=== PATIENT | female | born 1945 | race Hispanic/Latino ===

== ENCOUNTER 2020-07-19 13:45 | Emergency (ER) | payer MEDICARE, SELFPAY ==
--- NOTE | ~2020-07-19 | CT_ITS ---
EXAMINATION: CT brain wo con DATE: 07/19/2020 15:02 INDICATION: Left-sided weakness TECHNIQUE: Computed tomography (CT) of the head was performed without intravenous contrast. Sagittal and coronal reconstructions were performed. The mA was adjusted according to patient size. Iterative reconstruction technique was employed. The dose-length product was 605.33 mGy-cm. COMPARISON: None FINDINGS: Small old lacunar infarct at the anterior limb of the right internal capsule.. There is mild to moder ate scattered white matter hypoattenuation consistent with chronic small vessel ischemic disease. No acute intracranial hemorrhage, acute infarction or abnormal extra axial fluid collection. Ventricles are normal and symmetric. No mass/mass effect. Mild mucosal thickening in the right maxillary and earle ateral ethmoid sinuses. The orbits and mastoid air cells are normal. IMPRESSION: 1. No acute intracranial process. 2. Small old lacunar infarct at the anterior limb of the right internal capsule. 3. Mild to moderate scattered white matter hypoattenuation consistent with chronic small vessel ische deanne disease. Reviewed, dictated and finalized at location A. IMPRESSION: 1. No acute intracranial process. 2. Small old lacunar infarct at the anterior limb of the right internal capsule . 3. 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
--- NOTE | ~2020-07-19 | XR_ITS ---
XR chest 1V portable DATE: 07/19/2020 14:42 INDICATION: Shortness of breath TECHNIQUE: Portable upright AP chest on 07/19/2020 at 1444 hours COMPARISON: 07/06/2017 two-view chest 07/06/2017 CT pulmonary scan FINDINGS: Heart size appears normal. Is aortic arch calcification, mild aortic unfolding. No hilar or mediastinal enlargement. No pulmonary infiltrate or consolidation, pleural effusion or pulmonary vascular congestion or pneumo thorax. Diffuse osteopenia. Status post lower anterior cervical spine surgical fusion. Degenerative spurring of the thoracic spine. IMPRESSION: No active cardiopulmonary disease Reviewed, dictated and finalized at location A.
[2020-07-19 13:48] VITALS: BP 158/68; PULSE 101; RESP 20; TEMP 36.1; O2SAT 99
--- NOTE | 2020-07-19 14:09 | PC.NURSE ---
Note when getting pt into bed pt is ataxic, fearful of falling. Note left side is significantly weaker, stiff, for instance needs help with bending the knee but is able to help push up in bed. No facial droop noted. Pt states her left eye is harder to open, can't keep it open but appears equal to right eye.
--- NOTE | 2020-07-19 14:17 | PC.NURSE ---
c/o L side weakness for months , I want to find out if I had a stroke . Denies recent falls. No hx CVA, takes daily ASA 81mg, has a home physical therapist they thought I should get checked out . Was recently at [facility] and had MRI lumbar spine they said I have rheumatoid arthritis . On assessment pt has equal facial movements, clear speech, weak L side grisp, cannot raise LLE it has been dragging for months
--- NOTE | 2020-07-19 14:31 | ECG_ITS ---
Measurements Intervals [place] Rate: 78 P: 30 WA: 143 QRS: 26 QRSD: 86 T: 14 QT: 351 QTc: 401 Interpretive Statements SINUS RHYTHM LOW QRS VOLTAGE IN PRECORDIAL LEADS NONSPECIFIC ST & T-WAVE ABNORMALITY- ANTERIOR LEADS BASELINE ARTIFACT- I, III, AVL BORDERLINE ECG Electronically Signed On 07-20-2020 7:16:11 CDT by Avi Jett D.O.
[2020-07-19 14:41] LABS: Basophils Percent Auto 0.6 % (0.2-1.2); Eosinophils Absolute Auto 0.1 K/mm3 (0-0.3); Hematocrit 38.6 % (37.0-47.0); Hemoglobin 12.4 g/dL (12.0-15.0); Immature Granulocyte Absolute 0.06 K/mm3 (0.00-0.031); Immature Granulocyte Percent A 0.9 % (0-0.5); Lymphocytes Absolute Auto 1.46 K/mm3 (0.9-3.2); Mean Corpuscular HGB Conc 32.1 g/dl (32-36); Mean Corpuscular Hemoglobin 30.3 pg (26-34); Mean Corpuscular Volume 94.4 fl (80-100); Monocytes Absolute Auto 0.6 K/mm3 (0.1-0.6); Monocytes Percent Auto 8.7 % (2.6-8.5); Neutrophils Absolute Auto 4.4 K/mm3 (1.3-6.7); Neutrophils Percent Auto 65.8 % (45.5-73.1); Platelet Count Result 188 k/mm3 (150-375); Red Blood Count 4.09 M/mm3 (4.2-5.4); Red Cell Distribution Width 15.4 % (11.5-14.5); White Blood Count 6.6 K/mm3 (4.5-10.0)
[2020-07-19 14:49] LABS: INR 0.8; Prothrombin Time 12.1 Seconds (11.1-14.7)
[2020-07-19 14:52] LABS: Alanine Aminotransferase 27 U/L (4-35); Albumin Level 4.3 g/dL (3.5-5.1); Alkaline Phosphatase 82 U/L (38-126); Anion Gap 7 mmol/L (8-16); Aspartate Amino Transferase 26 U/L (14-36); Bilirubin,Total 0.2 mg/dL (0.2-1.3); Blood Urea Nitrogen 19 mg/dL (7-17); Calcium 9.3 mg/dL (8.4-10.2); Carbon Dioxide 31 mmol/L (22-30); Chloride 101 mmol/L (98-107); Estimated CRCL calculation 48 ml/min; Estimated Glomerular Filt Rate > 60; Glucose 312 mg/dL (65-105); Sodium 139 mmol/L (137-145)
[2020-07-19 14:59] LABS: NT Pro B Type Natriuretic Pept 40 pg/mL (5-100)
[2020-07-19 15:02] LABS: Troponin I < 0.012 ng/mL (0.000-0.034)
[2020-07-19 15:12] LABS: Potassium 4.3 mmol/L (3.4-5.0)
--- NOTE | 2020-07-19 16:05 | PC.NURSE ---
Pt assisted to bedside commode, x2 person assist, pt weak and can minimally use LLE.
[2020-07-19 17:20] VITALS: BP 163/87; PULSE 89; RESP 18; O2SAT 98
[2020-07-19 17:34] LABS: Add Urine Microscopic? YES; Appearance Urine Cloudy (Clear); Bacteria Urine Trace /hpf; Bilirubin Urine Negative (Negative); Color Urine Amber (Yellow); Glucose Urine UA 3+ mg/dL (Negative); Ketones Urine Negative (Negative); Leukocyte Esterase Ur Trace LEU/UL (Negative); Nitrate Urine Negative (Negative); Protein Urine 1+ mg/dL (Negative); RBC Urine 0-2 /hpf (0-2); Specific Grav Ur 1.024 (1.001-1.035); Squamous Epithelial Cell Urine Rare /hpf (Few); Urobilinogen Urine Negative mg/dL (<2.0)
[2020-07-19 17:35] LABS: Blood Urine Negative (Negative)
[2020-07-19 18:32] VITALS: BP 151/85; PULSE 83; RESP 18; O2SAT 98
--- NOTE | 2020-07-19 18:36 | ED.WEAKNESS ---
HPI - Weakness General Chief complaint: Weakness Stated complaint: weakness Time Seen by Provider: 07/19/20 13:58 Source: patient and family Mode of arrival: ambulatory Limitations: no limitations History of Present Illness HPI Narrative: 75-year-old with a history of diabetes hypertension, neuropathy here with complaints of left leg heaviness and pain for last few weeks. She states that she is feeling extremely weak and does not feel right she thinks that she is having a stroke. She denies any headache, blurred vision. She denies any chest pain, shortness of breath. She states that she saw her primary doctor 3 days ago for the same. MD Complaint: generalized weakness and difficulty walking Onset (ago): week(s) Duration: progressively worsening Location: LLE Migration: none Severity: moderate Relieving factors: none Exacerbating factors: none Associated symptoms: denies other symptoms Related Data Allergies Allergy/AdvReac Type Severity Reaction Status Date / Time No Known Allergies Allergy Mild Unverified 08/16/08 20:04 Review of Systems Review of Systems: All systems reviewed & are unremarkable except as noted in HPI and below Constitutional: Constitutional: Reports no additional constitutional complaints Eyes: Eyes: Reports no additional eye complaints ENT: Reports system reviewed and no additional complaints, except as documented Cardiovascular: Cardiovascular: Reports no additional cardiovascular complaints Respiratory: Respiratory: Reports no additional respiratory complaints Gastrointestinal: Gastrointestinal: Reports no additional gastrointestinal complaints Musculoskeletal: Musculoskeletal: Reports no additional musculoskeletal complaints Neurologic: Reports system reviewed and no additional complaints, except as documented and Reports as per HPI Exam Narrative: Exam Narrative: GENERAL: Well-appearing, well-nourished, and in no acute distress, anxious HEAD: Normocephalic, atraumatic. EYES: PERRLA and EOMI. NECK: Supple. CHEST: Clear to auscultation. No respiratory distress. HEART: Regular rate and rhythm. No murmur heard. Normal peripheral pulses. ABDOMEN: Soft, nontender, nondistended, normal active bowel sounds. EXTREMITIES: Normal range of motion. There is 1+ edema both lower extremities SKIN: Warm, dry, no rash. NEURO: No focal deficits. Alert and oriented x3. PSYCH: Normal mood and affect. Course Course Emergency Course: Inform patient about her lab work, CT findings reassured her that she does not have any active stroke at this time. Recommended her to follow-up with her primary doctor and continue her home medication and be watchful on what she eats. Vital Signs Vital signs: Vital Signs Temperature 36.1 C L 07/19/20 13:48 Pulse Rate 101 H 07/19/20 13:48 Respiratory Rate 20 07/19/20 13:48 Blood Pressure 158/68 H 07/19/20 13:48 Pulse Oximetry 99 07/19/20 13:48 Temperature 36.1 C L 07/19/20 13:48 Pulse Rate 83 07/19/20 18:32 Respiratory Rate 18 07/19/20 18:32 Blood Pressure 151/85 H 07/19/20 18:32 Pulse Oximetry 98 07/19/20 18:32 MDM - Weakness Lab Data Result diagrams: 07/19/20 14:35 07/19/20 14:35 Labs: Lab Results 07/19/20 07/19/20 07/19/20 Range/Units 14:35 14:35 14:35 WBC 6.6 (4.5-10.0) K/mm3 RBC 4.09 L (4.2-5.4) M/mm3 Hgb 12.4 (12.0-15.0) g/dL Hct 38.6 (37.0-47.0) % MCV 94.4 (80-100) fl MCH 30.3 (26-34) pg MCHC 32.1 (32-36) g/dl RDW 15.4 H (11.5-14.5) % Plt Count 188 (150-375) k/mm3 MPV 11.0 H (7.4-10.4) fl Immature Gran % (Auto) 0.9 H (0-0.5) % Neut % (Auto) 65.8 (45.5-73.1) % Lymph % (Auto) 22.0 (18.3-44.2) % Darke % (Auto) 8.7 H (2.6-8.5) % Eos % (Auto) 2.0 (0-4.4) % Baso % (Auto) 0.6 (0.2-1.2) % Lymph # (Auto) 1.46 (0.9-3.2) K/mm3 Darke # (Auto) 0.6 (0.1-0.6) K/mm3 Eos # (Auto) 0.1 (0-0.3) K/mm3 Baso # (Aut
== END 2020-07-19 19:01 | disposition home or self-care (01) ==
PROVIDERS: Emergency Provider Family Medicine; PCP Internal Medicine
DX: E11.40 Type 2 diabetes mellitus with diabetic neuropathy, unspecified (principal); E11.65 Type 2 diabetes mellitus with hyperglycemia; R53.1 Weakness; I10 Essential (primary) hypertension; R94.31 Abnormal electrocardiogram [ECG] [EKG]
CPT/HCPCS: 12013; 36415; 70450; 71045; 80053; 81001; 83880; 84484; 85025; 85610; 87077; 87086; 87088; 87186; 93005; 99284

== ENCOUNTER 2020-08-14 16:52 | IRF | payer MEDICARE, SELFPAY ==
[2020-08-14] MEDS: GLUCOSE ORAL GEL 15 GM OF GLUCSE IN 37.5 GM TUBE (15:15)
[2020-08-14 16:30] VITALS: BP 133/68; PULSE 106; RESP 18; TEMP 37; O2SAT 97; BMI 34.6
[2020-08-14 17:10] LABS: Glucose Point of Care 50 mg/dl (65-105)
[2020-08-14 18:13] LABS: Glucose Point of Care 111 mg/dl (65-105)
[2020-08-14 19:00] VITALS: PULSE 106; RESP 18; O2SAT 97
--- NOTE | 2020-08-14 19:02 | ADMGEN ---
This patient, Rebekah Suárez, was admitted to [facility] Room 219-02. Patient/family oriented to hospital policies and general routines including ID bracelet, bed and alarms, visiting hours, pain management, procedures, bathroom and other care routines, personal items, smoking policy, room service/diet, and visiting hours. Information on how to activate the Rapid Response Team has been discussed. Patient/Family are encouraged to report perceived risks to care and to ask questions if they do not understand what they are told or what they should do.
[2020-08-14 20:15] LABS: Glucose Point of Care 207 mg/dl (65-105)
[2020-08-14] MEDS: INSULIN ASPART (*BKC) 100 UNITS/ML SUB-Q (21:34)
[2020-08-14] MEDS: LATANOPROST 0.005% OP SOLN 2.5 ML BTL 1 DROP EACH EYE (21:40)
[2020-08-14] MEDS: DOXYCYCLINE HYCLATE 100 MG TABLET PO (21:40)
[2020-08-14] MEDS: CIPROFLOXACIN 500 MG TAB PO (21:40)
[2020-08-14] MEDS: MORPHINE SULFATE (*CRX) 30 MG TABCR PO (21:44)
[2020-08-14 22:00] VITALS: BP 156/82; PULSE 101; RESP 24; TEMP 36.5; O2SAT 96
[2020-08-15 05:01] LABS: Basophils Absolute Auto 0.1 K/mm3 (0.0-0.1); Basophils Percent Auto 0.8 % (0.2-1.2); Eosinophils Absolute Auto 0.4 K/mm3 (0-0.3); Eosinophils Percent Auto 4.8 % (0-4.4); Hematocrit 30.3 % (37.0-47.0); Hemoglobin 9.8 g/dL (12.0-15.0); Immature Granulocyte Percent A 1.3 % (0-0.5); Lymphocytes Absolute Auto 1.58 K/mm3 (0.9-3.2); Lymphocytes Percent Auto 19.9 % (18.3-44.2); Mean Corpuscular HGB Conc 32.3 g/dl (32-36); Mean Corpuscular Volume 95.9 fl (80-100); Monocytes Absolute Auto 0.8 K/mm3 (0.1-0.6); Monocytes Percent Auto 10.5 % (2.6-8.5); Neutrophils Percent Auto 62.7 % (45.5-73.1); Platelet Count Result 295 k/mm3 (150-375); Red Blood Count 3.16 M/mm3 (4.2-5.4); Red Cell Distribution Width 14.1 % (11.5-14.5); White Blood Count 7.9 K/mm3 (4.5-10.0)
[2020-08-15 05:12] LABS: Alanine Aminotransferase 31 U/L (4-35); Albumin Level 3.4 g/dL (3.5-5.1); Alkaline Phosphatase 64 U/L (38-126); Anion Gap 5 mmol/L (8-16); Aspartate Amino Transferase 35 U/L (14-36); Bilirubin,Total 0.2 mg/dL (0.2-1.3); Blood Urea Nitrogen 16 mg/dL (7-17); Calcium 8.6 mg/dL (8.4-10.2); Carbon Dioxide 34 mmol/L (22-30); Chloride 96 mmol/L (98-107); Estimated CRCL calculation 55 ml/min; Estimated Glomerular Filt Rate > 60; Glucose 195 mg/dL (65-105); Potassium 4.3 mmol/L (3.4-5.0); Sodium 135 mmol/L (137-145)
[2020-08-15 06:00] VITALS: BP 133/66; PULSE 94; RESP 24; TEMP 36.3; O2SAT 97
[2020-08-15] MEDS: INSULIN ASPART (*BKC) 100 UNITS/ML SUB-Q ×4 (06:17→20:43)
[2020-08-15 06:51] LABS: Glucose Point of Care 202 mg/dl (65-105)
[2020-08-15 08:00] VITALS: PULSE 94; RESP 24; O2SAT 97
[2020-08-15] MEDS: methocarbamoL 500 MG TABLET PO ×3 (08:00→17:04)
[2020-08-15] MEDS: metFORMIN HCL 500 MG TABLET PO (08:15)
[2020-08-15] MEDS: GABAPENTIN 300 MG CAPSULE PO ×3 (09:50→17:03)
[2020-08-15] MEDS: MORPHINE SULFATE (*CRX) 30 MG TABCR PO ×2 (09:50→20:38)
[2020-08-15] MEDS: ATORVASTATIN 20 MG TABLET PO (09:50)
[2020-08-15] MEDS: LOSARTAN POTASSIUM 50 MG TABLET PO (09:51)
[2020-08-15] MEDS: ASPIRIN 81 MG CHEWABLE TABLET PO (09:51)
[2020-08-15] MEDS: DOXYCYCLINE HYCLATE 100 MG TABLET PO ×2 (09:51→20:38)
[2020-08-15] MEDS: TIMOLOL MALEATE 0.5% OP SOLN 5 ML BOTTLE 1 DROP EACH EYE ×2 (09:52→17:04)
[2020-08-15] MEDS: polyethylene glycoL 3350 17 GM POWD.PACK PO (09:53)
[2020-08-15] MEDS: CIPROFLOXACIN 500 MG TAB PO ×2 (09:54→20:38)
[2020-08-15] MEDS: INSULIN GLARGINE (*BKC) 100 UNITS/ML 36 UNITS SUB-Q (10:02)
[2020-08-15 12:03] LABS: Glucose Point of Care 315 mg/dl (65-105)
[2020-08-15 13:29] VITALS: BMI 34.6
--- NOTE | 2020-08-15 13:54 | WPDREHABHP ---
H&P: HPI History of Present Illness Date/Time: 08/15/20 13:54 Chief Complaint: cervical myelopathy with cord compression Narrative: HISTORY OF PRESENT ILLNESS: The patient's primary rehab impairment category is 0 5 spinal cord dysfunction non traumatic The etiologic diagnosis is cervical myelopathy with cord compression I saw this patient [id number] on 08/15/2020 The patient is a 75-year-old female with past medical history of hypertension, hyperlipidemia, type 2 diabetes mellitus with hyperglycemia and indwelling insulin pump, GERD, herpes zoster, diabetic peripheral neuropathy, cervical myelopathy reports numbness and weakness to the left arm and leg for over 3 teen months. MRI demonstrated severe cervical pathology with cord edema. Patient also has pain between her shoulder blades and intermittent headaches. She presented to [facility] on 08/05/2020. 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 There is edema signal in the cervical spine cord just inferior to the mass effect. There is also severe left neural foraminal stenosis at C4-5. Dr. Marcie diego spine performed at C3 through C7 laminectomy and C2 through T2 posterior spinal fusion on 08/06/2020. patient is to wear her [place] cervical collar at all times she has to lift nothing greater than 10 lb for 4 weeks. A home wound VAC is present and will be changed weekly and p.r.n.. Next changes due on 08/19/2020. Postoperatively patient experienced acute postop pain, constipation, acute blood loss anemia, hyperglycemia and hypertension. Her postop pain was managed with oral analgesics. Bowel management has been sent and patient has had a bowel movement. Patient was followed by Endocrinology while inpatient and blood glucose close was controlled patient is also on a carbohydrate diet. Patient will have no DVT prophylaxis secondary to her cervical spinal surgery. She will require ongoing PT and OT to return to her independent function Therapy was initiated at the acute care facility and the patient transferred to us from [facility] on 08/14/2020 FALLS OR SURGERIES: The patient has had major surgeries in the 100 days prior to admission. She has had 2 falls in the 6 mmonths. They had [no] falls with injury in the past year. PRIOR LEVEL OF FUNCTION: Eating was INDEPENDENT Oral Care was set Toileting Hygiene was setup orcleanup assistance Shower/Bathing was partial to moderate assistance Upper Body Dressing was partial to mod Lower Body Dressing was partial to mod Donning/[place] Footwear was partial to moderate assist Rolling Left and Right was independent Sit to Lying was INDEPENDENT Lying to Sitting was INDEPENDENT Sit to Stand was supervision or touching assistance Bed to Chair Transfers was supervision or touching assistance Toilet Transfers was supervision or touching assistance Walking was 500 ft with a roller walker at supervision or touching assistance >500 feet with NO DEVICE Wheelchair Mobility was NOT APPLICABLE PRIOR TO ADMISSION Stairs were INDEPENDENT CURRENT LEVEL OF FUNCTION: Eating was SET UP ONLY Oral Care was supervision or touching assist Toileting Hygiene was substantial to max assist Shower/Bathing was substantial to max assist Upper Body Dressing was partial to moderate assist Lower Body Dressing was partial to moderate assist Donning/[place] Footwear was partial to moderate assist Rolling Left and Right was partial to moderate assist Sit to Lying was partial to moderate assist Lying to Sitting was partial to moderate assist Sit to Stand was partial to moderate assist Bed to Chair Transfers were partial to moderate assist
[2020-08-15 14:00] VITALS: BP 122/59; PULSE 98; RESP 18; TEMP 36.6; O2SAT 98
--- NOTE | 2020-08-15 14:37 | PCNSR ---
On 08/15/20, the student, Corrine Yu, provided care and completed [facility] documentation on this patient. I have reviewed the student's documentation and agree with the findings.
--- NOTE | 2020-08-15 14:53 | RPD ---
INDIVIDUALIZED PLAN OF CARE FOR Rebekah Suárez Brief Synthesis of Pre-Admission Screen, Post-Admission Evaluation and Therapy Evaluations: The patient presents to rehab with cervical myelopathy with cord compression. Comorbidities include status post C3-C7 laminectomy with C2-T2 posterior spinal fusion, hypertension, diabetes mellitus with hyperglycemia, indwelling diabetic pump, gastroesophageal reflux disease, herpes zoster, hypercholesterolemia, dyslipidemia, bilateral hand numbness, neck pain, abdominal bloating, low back pain, Achilles tendonitis, diabetic peripheral neuropathy, diastolic dysfunction, dystrophia unguium, fatigue, lymphedema lower extremity, edema of spinal cord, and thyroid cyst. The complexity of the patient's medical management, nursing, and therapy needs require an inpatient rehab hospital stay with a physician-led interdisciplinary team approach. The patient?s needs will be best met in an intensive program vs. at a lower level of care. The patient requires physician services for medical oversight, management of post-op complications (hypertension, acute postoperative pain, hyperglycemia, anemia, surgical wound) in setting of present comorbidities, and pain management. The patient requires nursing services for anticoagulation therapy, diabetes training, DVT prophylactics, infection protection, medication management and education, pressure relief, and wound care with wound vac changes. Deficits include:ADLs, Balance, Endurance, Family Training/Education, Mobility, Pain Management, ROM, Safety, Strength, and Transfers Jukebox Coin Collector/Case Management for: Discharge Planning and Patient/Family Counseling Physical Therapy: 5 days per week for 90 minutes. Treatments may include: Therapeutic Exercise, Gait Training, Neuromuscular Re-education, Transfer Training, Community Reintegration, Bed Mobility, Patient/Family Education, Wheelchair Mobility Group Therapy/Concurrent Therapy Rationales: -Improve attention span during functional activities in a distracted environment. -Enhance problem solving and/or adequate judgment skills during functional activities in a distracted environment. -Promote increased safety awareness in a distracted environment to reduce fall risk with functional tasks, transfers, and ambulation to allow a more safe, self-sufficient return to the home environment. -Improve dynamic balance skills to promote safety and independence with functional activities in a distracted environment for maximum gain. Occupational Therapy: 5 days per week for 90 minutes. Treatments may include: Therapeutic Exercise, Therapeutic Activity, Cognitive Training, Self-Care Transfer Training, Community Reintegration, Home Management, Patient/Family Education, Wheelchair Mobility Training, Energy Conservation Training Group Therapy/Concurrent Therapy Rationales: -Allow therapist to observe and teach generalization and carry-over of skills learned in individual therapy. -Enhance problem solving and sequencing skills during therapeutic activities in a distracted environment. -Promote increased safety awareness in a realistic setting to reduce fall risk with functional tasks due to visual and verbal distractions. -Increase functional level with ADLs, ADL transfers and use of adaptive equipment through therapeutic activities with others while promoting safety to allow a more safe, self-sufficient return home. Medical Prognosis: Good Anticipated Length of Stay: 10 days Rehab Goals: Eating Goal: 06-Independent Oral Hygiene Goal: 06-Independent Toileting Hygiene Goal: 04-Supervision or Touching Assistance Shower/Bathe Self Goal: 04-Supervision or Touching Assistance Upper Body Dressing Goal: 03-Partial/Moderate Assistance Lower Body Dressing Goal: 04-Supervision or Touching Assistance Putting On/Taking Off Footwear Goal: 03-Partial/Moderate Assistance Rolling Left and Right Goal: 04-Supervision or Touching Assistance Sit to Lying Goal: 04-Supervision or T
[2020-08-15 16:32] LABS: Glucose Point of Care 240 mg/dl (65-105)
[2020-08-15] MEDS: metFORMIN HCL 250 MG TABLET 750 MG PO (17:03)
[2020-08-15] MEDS: LATANOPROST 0.005% OP SOLN 2.5 ML BTL 1 DROP EACH EYE (17:04)
[2020-08-15 20:00] VITALS: PULSE 104; RESP 16; O2SAT 94
[2020-08-15] MEDS: SENNA/DOCUSATE SODIUM TABLET 1 TAB PO (20:38)
[2020-08-15 20:54] VITALS: BP 125/85; PULSE 104; RESP 16; TEMP 36.5; O2SAT 94
[2020-08-15 22:07] LABS: Glucose Point of Care 230 mg/dl (65-105)
[2020-08-16 05:43] VITALS: BP 136/56; PULSE 93; RESP 16; TEMP 36.1; O2SAT 94
[2020-08-16] MEDS: CIPROFLOXACIN 500 MG TAB PO ×2 (06:32→21:34)
[2020-08-16 06:52] LABS: Glucose Point of Care 195 mg/dl (65-105)
[2020-08-16] MEDS: INSULIN GLARGINE (*BKC) 100 UNITS/ML 36 UNITS SUB-Q (07:54)
--- NOTE | 2020-08-16 08:21 | WPDNEURORHBP ---
Subjective Date/time seen: 08/16/20 08:21 The etiologic diagnosis is cervical myelopathy with cord compression The patient is a 75-year-old female with past medical history of hypertension, hyperlipidemia, type 2 diabetes mellitus with hyperglycemia and indwelling insulin pump, GERD, herpes zoster, diabetic peripheral neuropathy, cervical myelopathy reports numbness and weakness to the left arm and leg for over 3 teen months. MRI demonstrated severe cervical pathology with cord edema. Patient also has pain between her shoulder blades and intermittent headaches. She presented to [facility] on 08/05/2020. 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 There is edema signal in the cervical spine cord just inferior to the mass effect. There is also severe left neural foraminal stenosis at C4-5. Dr. Marcie diego spine performed at C3 through C7 laminectomy and C2 through T2 posterior spinal fusion on 08/06/2020. Patient is to wear her [place] cervical collar at all times. She can lift nothing greater than 10 lb for 4 weeks. A home wound VAC is present and will be changed weekly and p.r.n.. Next changes due on 08/19/2020. Postoperatively patient experienced acute postop pain, constipation, acute blood loss anemia, hyperglycemia and hypertension. Her postop pain was managed with oral analgesics. Bowel management has been sent and patient has had a bowel movement. Patient was followed by Endocrinology while inpatient and blood glucose close was controlled patient is also on a carbohydrate Patient will have no DVT prophylaxis secondary to her cervical spinal surgery. She will require ongoing PT and OT to return to her independent function Therapy was initiated at the acute care facility and the patient transferred to us from [facility] on 08/14/2020 Patient in good spirits. Patient is pleased with her progress in therapy so far. Patient voices no complaints. Patient admits to being less anxious. Review of Systems Review of Systems: All systems reviewed & are unremarkable except as noted in HPI and below Functional Status Ambulation Ability Ability to Ambulate 10 Feet: Moderate Assistance X 1 Ambulation Assistive Devices: Walker, Wheeled Exam Narrative: Exam Narrative: Patient is a pleasant female. Speech is fluent. Head is normocephalic. Patient is an [place] collar. Heart rate and rhythm is regular. Lungs are clear to auscultation. Right upper and right lower extremity strength are essentially 4- out of 5 left upper and left lower extremity strength are 3+ to 4-. Ct Scan Technologist on left is improving. Sensation to hands seem to be improving. Objective Data Vital Signs Vital Signs: Vital Signs - 24 hr 08/15/20 14:00 08/15/20 20:00 08/15/20 20:54 Temperature 36.6 C 36.5 C Pulse Rate 98 104 H 104 H Respiratory Rate 18 16 16 Blood Pressure 122/59 L 125/85 Pulse Oximetry 98 94 94 08/16/20 05:43 Temperature 36.1 C L Pulse Rate 93 Respiratory Rate 16 Blood Pressure 136/56 L Pulse Oximetry 94 Intake/Output Intake/Output: Intake & Output 08/13/20 08/14/20 08/15/20 08/16/20 23:59 23:59 23:59 23:59 Intake Total 720 Balance 720 Meds/Results Medications: Active Medications Generic Name Dose Route Start Last Admin Trade Name Freq PRN Reason Stop Dose Admin Acetaminophen 1,000 mg 08/15/20 14:41 Acetaminophen 500 Mg Tablet PO Q6H PRN Mild Pain (1-3) or Fever Hydrocodone Bitart/Acetaminophen 1 tab 08/15/20 14:41 Hydrocodone/Acetaminophen (*Crx) 5-325 Mg Tablet PO Q6H PRN Pain Rated 4-6 Aspirin 81 mg 08/15/20 09:00 08/15/20 09:51 Aspirin 81 Mg Chewable Tablet PO 09/14/20 09:01 81 mg D
[2020-08-16] MEDS: methocarbamoL 500 MG TABLET PO ×3 (08:44→17:34)
[2020-08-16] MEDS: DOXYCYCLINE HYCLATE 100 MG TABLET PO ×2 (08:44→21:33)
[2020-08-16] MEDS: GABAPENTIN 300 MG CAPSULE PO ×3 (08:44→17:33)
[2020-08-16] MEDS: ASPIRIN 81 MG CHEWABLE TABLET PO (08:44)
[2020-08-16] MEDS: LOSARTAN POTASSIUM 50 MG TABLET PO (08:44)
[2020-08-16] MEDS: MORPHINE SULFATE (*CRX) 30 MG TABCR PO ×2 (08:54→21:38)
[2020-08-16] MEDS: metFORMIN HCL 250 MG TABLET 750 MG PO ×2 (08:54→17:33)
[2020-08-16] MEDS: polyethylene glycoL 3350 17 GM POWD.PACK PO (08:55)
[2020-08-16] MEDS: SACCHAROMYCES BOULARDII 250 MG CAPSULE PO ×2 (08:55→17:34)
[2020-08-16] MEDS: TIMOLOL MALEATE 0.5% OP SOLN 5 ML BOTTLE 1 DROP EACH EYE ×2 (08:56→17:34)
[2020-08-16 12:20] LABS: Glucose Point of Care 236 mg/dl (65-105)
[2020-08-16] MEDS: INSULIN ASPART (*BKC) 100 UNITS/ML SUB-Q ×2 (12:47→21:41)
[2020-08-16 14:00] VITALS: BP 121/55; PULSE 100; RESP 14; TEMP 36.2; O2SAT 98
[2020-08-16 17:08] LABS: Glucose Point of Care 192 mg/dl (65-105)
[2020-08-16] MEDS: LATANOPROST 0.005% OP SOLN 2.5 ML BTL 1 DROP EACH EYE (17:34)
[2020-08-16 20:00] VITALS: PULSE 95; RESP 16; O2SAT 97
[2020-08-16] MEDS: SENNA/DOCUSATE SODIUM TABLET 1 TAB PO (21:33)
[2020-08-16 21:54] LABS: Glucose Point of Care 288 mg/dl (65-105)
[2020-08-16 22:00] VITALS: BP 135/86; PULSE 95; RESP 16; TEMP 36.6; O2SAT 97
[2020-08-16] MEDS: ACETAMINOPHEN 500 MG TABLET 1000 MG PO (22:56)
[2020-08-17] MEDS: HYDROcodone/acetaminophen (*CRX) 5-325 MG TABLET 1 TAB PO (05:01)
[2020-08-17 06:00] VITALS: BP 137/61; PULSE 88; RESP 16; TEMP 36.2; O2SAT 95
[2020-08-17] MEDS: CIPROFLOXACIN 500 MG TAB PO ×2 (07:00→17:57)
[2020-08-17 07:12] LABS: Glucose Point of Care 207 mg/dl (65-105)
[2020-08-17] MEDS: INSULIN GLARGINE (*BKC) 100 UNITS/ML 36 UNITS SUB-Q (07:16)
[2020-08-17] MEDS: INSULIN ASPART (*BKC) 100 UNITS/ML SUB-Q ×3 (07:16→21:00)
[2020-08-17] MEDS: SACCHAROMYCES BOULARDII 250 MG CAPSULE PO ×2 (08:33→17:56)
[2020-08-17] MEDS: GABAPENTIN 300 MG CAPSULE PO ×3 (08:33→17:56)
[2020-08-17] MEDS: metFORMIN HCL 250 MG TABLET 750 MG PO ×2 (08:33→17:56)
[2020-08-17] MEDS: ATORVASTATIN 20 MG TABLET PO (08:33)
[2020-08-17] MEDS: methocarbamoL 500 MG TABLET PO ×3 (08:33→17:56)
[2020-08-17] MEDS: DOXYCYCLINE HYCLATE 100 MG TABLET PO ×2 (08:33→21:00)
[2020-08-17] MEDS: ASPIRIN 81 MG CHEWABLE TABLET PO (08:33)
[2020-08-17] MEDS: polyethylene glycoL 3350 17 GM POWD.PACK PO (08:34)
[2020-08-17] MEDS: MORPHINE SULFATE (*CRX) 30 MG TABCR PO (08:34)
[2020-08-17] MEDS: TIMOLOL MALEATE 0.5% OP SOLN 5 ML BOTTLE 1 DROP EACH EYE ×2 (08:34→17:56)
[2020-08-17] MEDS: LOSARTAN POTASSIUM 50 MG TABLET PO (08:34)
--- NOTE | 2020-08-17 08:53 | WPDNEURORHBP ---
Subjective Date/time seen: 08/17/20 08:53 The etiologic diagnosis is cervical myelopathy with cord compression The patient is a 75-year-old female with past medical history of hypertension, hyperlipidemia, type 2 diabetes mellitus with hyperglycemia and indwelling insulin pump, GERD, herpes zoster, diabetic peripheral neuropathy, cervical myelopathy reports numbness and weakness to the left arm and leg for over 3 teen months. MRI demonstrated severe cervical pathology with cord edema. Patient also has pain between her shoulder blades and intermittent headaches. She presented to [facility] on 08/05/2020. 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 There is edema signal in the cervical spine cord just inferior to the mass effect. There is also severe left neural foraminal stenosis at C4-5. Dr. Jack ortho spine performed at C3 through C7 laminectomy and C2 through T2 posterior spinal fusion on 08/06/2020. Patient is to wear her [place] cervical collar at all times. She can lift nothing greater than 10 lb for 4 weeks. A home wound VAC is present and will be changed weekly and p.r.n.. Next changes due on 08/19/2020. Postoperatively patient experienced acute postop pain, constipation, acute blood loss anemia, hyperglycemia and hypertension. Her postop pain was managed with oral analgesics. Bowel management has been sent and patient has had a bowel movement. Patient was followed by Endocrinology while inpatient and blood glucose close was controlled patient is also on a carbohydrate Patient will have no DVT prophylaxis secondary to her cervical spinal surgery. She will require ongoing PT and OT to return to her independent function Therapy was initiated at the acute care facility and the patient transferred to us from [facility] on 08/14/2020 Rebekah was seen during physical therapy. Patient needed max verbal cues for sequencing of transfers from sit to stand. Patient demonstrates poor body awareness during transfers. Patient tends to hold her breath. Anxiety level is decreased but still present Review of Systems Review of Systems: All systems reviewed & are unremarkable except as noted in HPI and below Functional Status Ambulation Ability Ability to Ambulate 10 Feet: Minimum Assistance X 1 Ability to Ambulate 50 Feet With 2 Turns: Minimum Assistance X 1 Ambulation Assistive Devices: Walker, Wheeled Exam Narrative: Exam Narrative: Patient is a pleasant female. Speech is fluent. Head is normocephalic. Patient is an [place] collar. Heart rate and rhythm is regular. Lungs are clear to auscultation. Right upper and right lower extremity strength are essentially 4- out of 5 left upper and left lower extremity strength are 3+ to 4-. Service Consultant on left is improving. Sensation to hands seem to be improving. patient has poor body awareness. Balance deficits are noted secondary to decrease lower extremity sensation Objective Data Vital Signs Vital Signs: Vital Signs - 24 hr 08/16/20 14:00 08/16/20 20:00 08/16/20 22:00 Temperature 36.2 C L 36.6 C Pulse Rate 100 95 95 Respiratory Rate 14 16 16 Blood Pressure 121/55 L 135/86 Pulse Oximetry 98 97 97 08/17/20 06:00 Temperature 36.2 C L Pulse Rate 88 Respiratory Rate 16 Blood Pressure 137/61 Pulse Oximetry 95 Intake/Output Intake/Output: Intake & Output 08/14/20 08/15/20 08/16/20 08/17/20 23:59 23:59 23:59 23:59 Intake Total 720 1000 240 Balance 720 1000 240 Meds/Results Medications: Active Medications Generic Name Dose Route Start Last Admin Trade Name Freq PRN Reason Stop Dose Admin Acetaminophen 1,000 mg 08/15/20 14:41 08/16/20 22:56 Acetaminophen 500 Mg Tablet PO 1
[2020-08-17 11:45] LABS: Glucose Point of Care 303 mg/dl (65-105)
[2020-08-17 14:00] VITALS: BP 144/74; PULSE 90; RESP 18; TEMP 35.6; O2SAT 100
[2020-08-17 17:30] LABS: Glucose Point of Care 185 mg/dl (65-105)
[2020-08-17] MEDS: LATANOPROST 0.005% OP SOLN 2.5 ML BTL 1 DROP EACH EYE (17:56)
[2020-08-17 20:32] LABS: Glucose Point of Care 317 mg/dl (65-105)
[2020-08-17] MEDS: MORPHINE SULFATE (*CRX) 15 MG TABCR PO (21:00)
[2020-08-17] MEDS: SENNA/DOCUSATE SODIUM TABLET 1 TAB PO (21:00)
[2020-08-17 21:52] VITALS: BP 132/72; PULSE 98; RESP 22; TEMP 36.4; O2SAT 100
[2020-08-18] MEDS: ACETAMINOPHEN 500 MG TABLET 1000 MG PO (05:53)
[2020-08-18 06:00] VITALS: BP 141/78; PULSE 102; RESP 18; TEMP 36.4; O2SAT 97
[2020-08-18 06:19] LABS: Glucose Point of Care 193 mg/dl (65-105)
[2020-08-18] MEDS: CIPROFLOXACIN 500 MG TAB PO ×2 (06:54→17:11)
[2020-08-18] MEDS: INSULIN GLARGINE (*BKC) 100 UNITS/ML 38 UNITS SUB-Q (07:24)
[2020-08-18] MEDS: ATORVASTATIN 20 MG TABLET PO (08:12)
[2020-08-18] MEDS: DOXYCYCLINE HYCLATE 100 MG TABLET PO ×2 (08:13→20:57)
[2020-08-18] MEDS: TIMOLOL MALEATE 0.5% OP SOLN 5 ML BOTTLE 1 DROP EACH EYE ×2 (08:13→17:11)
[2020-08-18] MEDS: GABAPENTIN 300 MG CAPSULE PO ×3 (08:13→17:11)
[2020-08-18] MEDS: LOSARTAN POTASSIUM 50 MG TABLET PO (08:13)
[2020-08-18] MEDS: SACCHAROMYCES BOULARDII 250 MG CAPSULE PO ×2 (08:13→17:11)
[2020-08-18] MEDS: metFORMIN HCL 250 MG TABLET 750 MG PO ×2 (08:13→17:11)
[2020-08-18] MEDS: methocarbamoL 500 MG TABLET PO ×3 (08:13→17:11)
[2020-08-18] MEDS: ASPIRIN 81 MG CHEWABLE TABLET PO (08:13)
[2020-08-18] MEDS: MORPHINE SULFATE (*CRX) 15 MG TABCR PO ×2 (08:13→21:53)
[2020-08-18] MEDS: polyethylene glycoL 3350 17 GM POWD.PACK PO (08:13)
[2020-08-18 11:26] LABS: Glucose Point of Care 264 mg/dl (65-105)
[2020-08-18] MEDS: ONDANSETRON HCL ODT 4 MG TABLET PO (11:47)
[2020-08-18] MEDS: INSULIN ASPART (*BKC) 100 UNITS/ML SUB-Q ×2 (12:11→21:21)
[2020-08-18 14:00] VITALS: BP 145/52; PULSE 108; RESP 18; TEMP 36.2; O2SAT 96
[2020-08-18 17:02] LABS: Glucose Point of Care 184 mg/dl (65-105)
[2020-08-18] MEDS: LATANOPROST 0.005% OP SOLN 2.5 ML BTL 1 DROP EACH EYE (17:11)
[2020-08-18] MEDS: SENNA/DOCUSATE SODIUM TABLET 1 TAB PO (20:56)
[2020-08-18 21:05] VITALS: PULSE 103; RESP 18; O2SAT 98
[2020-08-18 21:45] VITALS: BP 132/57; PULSE 103; RESP 18; TEMP 36.5; O2SAT 98
[2020-08-18] MEDS: HYDROcodone/acetaminophen (*CRX) 5-325 MG TABLET 1 TAB PO (22:56)
[2020-08-18 23:16] LABS: Glucose Point of Care 262 mg/dl (65-105)
[2020-08-19] MEDS: ACETAMINOPHEN 500 MG TABLET 1000 MG PO (00:10)
[2020-08-19 05:54] VITALS: BP 130/63; PULSE 100; RESP 18; TEMP 36.4; O2SAT 99
[2020-08-19] MEDS: INSULIN ASPART (*BKC) 100 UNITS/ML SUB-Q ×3 (06:46→17:10)
[2020-08-19 06:49] LABS: Glucose Point of Care 201 mg/dl (65-105)
[2020-08-19] MEDS: CIPROFLOXACIN 500 MG TAB PO (06:50)
[2020-08-19] MEDS: INSULIN GLARGINE (*BKC) 100 UNITS/ML 38 UNITS SUB-Q (07:58)
[2020-08-19] MEDS: ATORVASTATIN 20 MG TABLET PO (08:05)
[2020-08-19] MEDS: ASPIRIN 81 MG CHEWABLE TABLET PO (08:05)
[2020-08-19] MEDS: metFORMIN HCL 250 MG TABLET 750 MG PO (08:05)
[2020-08-19] MEDS: GABAPENTIN 300 MG CAPSULE PO ×3 (08:05→17:11)
[2020-08-19] MEDS: LOSARTAN POTASSIUM 50 MG TABLET PO (08:06)
[2020-08-19] MEDS: methocarbamoL 500 MG TABLET PO ×3 (08:06→17:12)
[2020-08-19] MEDS: SACCHAROMYCES BOULARDII 250 MG CAPSULE PO ×2 (08:06→17:12)
[2020-08-19] MEDS: DOXYCYCLINE HYCLATE 100 MG TABLET PO ×2 (08:06→21:25)
[2020-08-19] MEDS: MORPHINE SULFATE (*CRX) 15 MG TABCR PO ×2 (08:09→21:27)
[2020-08-19] MEDS: polyethylene glycoL 3350 17 GM POWD.PACK PO (08:09)
[2020-08-19] MEDS: TIMOLOL MALEATE 0.5% OP SOLN 5 ML BOTTLE 1 DROP EACH EYE ×2 (08:14→17:13)
[2020-08-19 12:04] LABS: Glucose Point of Care 283 mg/dl (65-105)
[2020-08-19] MEDS: HYDROcodone/acetaminophen (*CRX) 5-325 MG TABLET 1 TAB PO (12:54)
--- NOTE | 2020-08-19 12:58 | WPDNEURORHBP ---
Subjective Date/time seen: 08/19/20 12:58 The etiologic diagnosis is cervical myelopathy with cord compression The patient is a 75-year-old female with past medical history of hypertension, hyperlipidemia, type 2 diabetes mellitus with hyperglycemia and indwelling insulin pump, GERD, herpes zoster, diabetic peripheral neuropathy, cervical myelopathy reports numbness and weakness to the left arm and leg for over 3 teen months. MRI demonstrated severe cervical pathology with cord edema. Patient also has pain between her shoulder blades and intermittent headaches. She presented to [facility] on 08/05/2020. 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 There is edema signal in the cervical spine cord just inferior to the mass effect. There is also severe left neural foraminal stenosis at C4-5. Dr. Phuong diego spine performed at C3 through C7 laminectomy and C2 through T2 posterior spinal fusion on 08/06/2020. Patient is to wear her [place] cervical collar at all times. She can lift nothing greater than 10 lb for 4 weeks. A home wound VAC is present and will be changed weekly and p.r.n.. Next changes due on 08/19/2020. Postoperatively patient experienced acute postop pain, constipation, acute blood loss anemia, hyperglycemia and hypertension. Her postop pain was managed with oral analgesics. Bowel management has been sent and patient has had a bowel movement. Patient was followed by Endocrinology while inpatient and blood glucose close was controlled patient is also on a carbohydrate diet Patient will have no DVT prophylaxis secondary to her cervical spinal surgery. She will require ongoing PT and OT to return to her independent function Therapy was initiated at the acute care facility and the patient transferred to us from [facility] on 08/14/2020 Patient was seen during therapy and also for vacuum discontinuation with RN. Patient is pleased with her overall progress. Review of Systems Review of Systems: All systems reviewed & are unremarkable except as noted in HPI and below Functional Status Ambulation Ability Ability to Ambulate 10 Feet: Minimum Assistance X 1 Ability to Ambulate 50 Feet With 2 Turns: Minimum Assistance X 1 Ambulation Assistive Devices: Walker, Wheeled Exam Narrative: Exam Narrative: Patient is a pleasant female. Speech is fluent. Head is normocephalic. Patient is an [place] collar. Heart rate and rhythm is regular. Lungs are clear to auscultation. Right upper and right lower extremity strength are essentially 4- out of 5 left upper and left lower extremity strength are 3+ to 4-. Motel Keeper on left is improving but remians weak. Sensation to hands seem to be improving. patient has poor body awareness. Balance deficits are noted secondary to decrease lower extremity sensation. Wound vacuum was removed. NO drainage noted. Minimal redness present. Sutures in place. Objective Data Vital Signs Vital Signs: Vital Signs - 24 hr 08/18/20 14:00 08/18/20 21:05 08/18/20 21:45 Temperature 36.2 C L 36.5 C Pulse Rate 108 H 103 H 103 H Respiratory Rate 18 18 18 Blood Pressure 145/52 H 132/57 L Pulse Oximetry 96 98 98 08/19/20 05:54 Temperature 36.4 C L Pulse Rate 100 Respiratory Rate 18 Blood Pressure 130/63 Pulse Oximetry 99 Intake/Output Intake/Output: Intake & Output 08/16/20 08/17/20 08/18/20 08/19/20 23:59 23:59 23:59 23:59 Intake Total 1000 960 960 480 Balance 1000 960 960 480 Meds/Results Medications: Active Medications Generic Name Dose Route Start Last Admin Trade Name Freq PRN Reason Stop Dose Admin Acetaminophen 1,000 mg 08/15/20 14:41 08/19/20 00:10 Acetaminophen 500 Mg Tablet PO 1,000 mg Q6H
[2020-08-19 14:00] VITALS: BP 116/69; PULSE 102; RESP 16; TEMP 36.4; O2SAT 98
[2020-08-19] MEDS: ONDANSETRON HCL ODT 4 MG TABLET PO (16:31)
[2020-08-19 16:55] LABS: Glucose Point of Care 219 mg/dl (65-105)
[2020-08-19] MEDS: metFORMIN HCL 500 MG TABLET 1000 MG PO (17:11)
[2020-08-19] MEDS: LATANOPROST 0.005% OP SOLN 2.5 ML BTL 1 DROP EACH EYE (17:13)
[2020-08-19 19:00] VITALS: PULSE 99; RESP 18; O2SAT 100
[2020-08-19 21:47] VITALS: BP 118/65; PULSE 99; RESP 18; TEMP 36.5; O2SAT 100
[2020-08-19 22:11] LABS: Glucose Point of Care 173 mg/dl (65-105)
[2020-08-20] MEDS: ACETAMINOPHEN 500 MG TABLET 1000 MG PO ×2 (05:43→23:12)
[2020-08-20 06:00] VITALS: BP 132/62; PULSE 95; RESP 18; TEMP 36.3; O2SAT 96
[2020-08-20 06:42] LABS: Glucose Point of Care 119 mg/dl (65-105)
[2020-08-20] MEDS: INSULIN GLARGINE (*BKC) 100 UNITS/ML 40 UNITS SUB-Q (07:48)
[2020-08-20 08:00] VITALS: PULSE 95; RESP 18; O2SAT 96
[2020-08-20] MEDS: ASPIRIN 81 MG CHEWABLE TABLET PO (09:50)
[2020-08-20] MEDS: GABAPENTIN 300 MG CAPSULE PO ×3 (09:51→16:41)
[2020-08-20] MEDS: metFORMIN HCL 500 MG TABLET 1000 MG PO ×2 (09:51→16:40)
[2020-08-20] MEDS: ATORVASTATIN 20 MG TABLET PO (09:51)
[2020-08-20] MEDS: DOXYCYCLINE HYCLATE 100 MG TABLET PO ×2 (09:51→20:15)
[2020-08-20] MEDS: SACCHAROMYCES BOULARDII 250 MG CAPSULE PO ×2 (09:51→16:41)
[2020-08-20] MEDS: LOSARTAN POTASSIUM 50 MG TABLET PO (09:51)
[2020-08-20] MEDS: methocarbamoL 500 MG TABLET PO ×3 (09:52→16:41)
[2020-08-20] MEDS: TIMOLOL MALEATE 0.5% OP SOLN 5 ML BOTTLE 1 DROP EACH EYE ×2 (09:52→16:42)
[2020-08-20] MEDS: MORPHINE SULFATE (*CRX) 15 MG TABCR PO ×2 (09:57→20:15)
--- NOTE | 2020-08-20 11:23 | WPDNEURORHBP ---
Subjective Date/time seen: 08/20/20 11:23 The etiologic diagnosis is cervical myelopathy with cord compression The patient is a 75-year-old female with past medical history of hypertension, hyperlipidemia, type 2 diabetes mellitus with hyperglycemia and indwelling insulin pump, GERD, herpes zoster, diabetic peripheral neuropathy, cervical myelopathy reports numbness and weakness to the left arm and leg for over 3 teen months. MRI demonstrated severe cervical pathology with cord edema. Patient also has pain between her shoulder blades and intermittent headaches. She presented to [facility] on 08/05/2020. 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 There is edema signal in the cervical spine cord just inferior to the mass effect. There is also severe left neural foraminal stenosis at C4-5. Dr. Phuong diego spine performed at C3 through C7 laminectomy and C2 through T2 posterior spinal fusion on 08/06/2020. Patient is to wear her [place] cervical collar at all times. She can lift nothing greater than 10 lb for 4 weeks. A home wound VAC is present and will be changed weekly and p.r.n.. Next changes due on 08/19/2020. Postoperatively patient experienced acute postop pain, constipation, acute blood loss anemia, hyperglycemia and hypertension. Her postop pain was managed with oral analgesics. Bowel management has been sent and patient has had a bowel movement. Patient was followed by Endocrinology while inpatient and blood glucose close was controlled patient is also on a carbohydrate diet Patient will have no DVT prophylaxis secondary to her cervical spinal surgery. She will require ongoing PT and OT to return to her independent function Therapy was initiated at the acute care facility and the patient transferred to us from [facility] on 08/14/2020 08/19/20Wound vacuum removed.Incision C/D/I 08/20/20 Patient voices no complaints except for incisional pain and referred pain to lateral neck Review of Systems Review of Systems: All systems reviewed & are unremarkable except as noted in HPI and below Functional Status Ambulation Ability Ability to Ambulate 10 Feet: Contact Guard Ability to Ambulate 50 Feet With 2 Turns: Contact Guard Ability to Ambulate 150 Feet: Contact Guard Ambulation Assistive Devices: Walker, Wheeled Exam Narrative: Exam Narrative: Patient is a pleasant female. Speech is fluent. Head is normocephalic. Patient is an [place] collar. Heart rate and rhythm is regular. Lungs are clear to auscultation. Right upper and right lower extremity strength are essentially 4- out of 5 left upper and left lower extremity strength are 3+ to 4-. Research Soil Scientist on left is improving but remians weak. Sensation to hands seem to be improving. patient has poor body awareness. Balance deficits are noted secondary to decrease lower extremity sensation. . Patient with better balance today. Patient ambulating with a staggered gait but improved. Patient bearing more weight through right lower extremity. Patient demonstrates right lower extremity weakness Objective Data Vital Signs Vital Signs: Vital Signs - 24 hr 08/19/20 14:00 08/19/20 19:00 08/19/20 21:47 Temperature 36.4 C 36.5 C Pulse Rate 102 H 99 99 Respiratory Rate 16 18 18 Blood Pressure 116/69 118/65 Pulse Oximetry 98 100 100 08/20/20 06:00 08/20/20 08:00 Temperature 36.3 C L Pulse Rate 95 95 Respiratory Rate 18 18 Blood Pressure 132/62 Pulse Oximetry 96 96 Intake/Output Intake/Output: Intake & Output 08/17/20 08/18/20 08/19/20 08/20/20 23:59 23:59 23:59 23:59 Intake Total 960 960 720 240 Balance 960 960 720 240 Meds/Results Medications: Active Medications Generic Name Dose
[2020-08-20 11:38] LABS: Glucose Point of Care 255 mg/dl (65-105)
--- NOTE | 2020-08-20 12:18 | PCNFU ---
Nutrition Follow-Up Complete: Nutrition Diagnosis: Increased protein needs related to wound healing as evidenced by neck incision with wound vac. Nutrition Goal: Have patient consume 100% of her meals. Goal has been met, patient is consuming 100% of her meals and supplements. Nutrition recommendation: Continue with Diabetic Consistent Carbohydrate diet and [place]hawn supplement BID. Last recorded weight is 85.9 kg. Bowel Motility: Last documented on 08/19. Labs Reviewed: No new labs since 08/15. Meds Noted: Ida, Lipitor, Vibramycin Po, Novolog, Lantus, Xalatan, Cozaar, Metformin, Zofran, Miralax, Senna, Lidoderm, Xalatan, Robaxin, Neurontin Additional Notes: Patient is enjoying her meals and reports a better appetite since admission. Patient has no complaints or concerns with her meals. Wound vacuum removed on 08/19, incision still intact. Will follow up in 7 days.
[2020-08-20] MEDS: INSULIN ASPART (*BKC) 100 UNITS/ML SUB-Q ×2 (12:47→20:14)
[2020-08-20] MEDS: LIDOCAINE 5% PATCH 3 PATCH TRANSDERM (13:07)
--- NOTE | 2020-08-20 13:25 | PCNSR ---
On 08/20/20, the student, Corrine Yu, provided care and completed [facility] documentation on this patient. I have reviewed the student's documentation and agree with the findings.
[2020-08-20 14:00] VITALS: BP 136/70; PULSE 92; RESP 20; TEMP 36.8; O2SAT 97
[2020-08-20 16:37] LABS: Glucose Point of Care 159 mg/dl (65-105)
[2020-08-20] MEDS: LATANOPROST 0.005% OP SOLN 2.5 ML BTL 1 DROP EACH EYE (16:42)
[2020-08-20 19:46] LABS: Glucose Point of Care 213 mg/dl (65-105)
[2020-08-20] MEDS: SENNA/DOCUSATE SODIUM TABLET 1 TAB PO (20:15)
[2020-08-20 20:52] VITALS: BP 135/68; PULSE 93; RESP 18; TEMP 36.3; O2SAT 97
[2020-08-21 06:00] VITALS: BP 136/67; PULSE 86; RESP 16; TEMP 36.3; O2SAT 97
[2020-08-21 06:22] LABS: Glucose Point of Care 113 mg/dl (65-105)
[2020-08-21] MEDS: INSULIN GLARGINE (*BKC) 100 UNITS/ML 40 UNITS SUB-Q (07:25)
[2020-08-21] MEDS: metFORMIN HCL 500 MG TABLET 1000 MG PO ×2 (08:21→17:51)
[2020-08-21] MEDS: DOXYCYCLINE HYCLATE 100 MG TABLET PO ×2 (08:22→22:34)
[2020-08-21] MEDS: ATORVASTATIN 20 MG TABLET PO (08:22)
[2020-08-21] MEDS: ASPIRIN 81 MG CHEWABLE TABLET PO (08:22)
[2020-08-21] MEDS: LIDOCAINE 5% PATCH 3 PATCH TRANSDERM (08:22)
[2020-08-21] MEDS: GABAPENTIN 300 MG CAPSULE PO ×3 (08:22→17:51)
[2020-08-21] MEDS: LOSARTAN POTASSIUM 50 MG TABLET PO (08:23)
[2020-08-21] MEDS: methocarbamoL 500 MG TABLET PO ×3 (08:23→17:52)
[2020-08-21] MEDS: polyethylene glycoL 3350 17 GM POWD.PACK PO (08:23)
[2020-08-21] MEDS: TIMOLOL MALEATE 0.5% OP SOLN 5 ML BOTTLE 1 DROP EACH EYE ×2 (08:24→17:52)
[2020-08-21] MEDS: SACCHAROMYCES BOULARDII 250 MG CAPSULE PO ×2 (08:24→17:52)
[2020-08-21] MEDS: MORPHINE SULFATE (*CRX) 15 MG TABCR PO ×2 (08:26→22:33)
--- NOTE | 2020-08-21 09:39 | WPDNEURORHBP ---
Subjective Date/time seen: 08/21/20 09:39 The etiologic diagnosis is cervical myelopathy with cord compression The patient is a 75-year-old female with past medical history of hypertension, hyperlipidemia, type 2 diabetes mellitus with hyperglycemia and indwelling insulin pump, GERD, herpes zoster, diabetic peripheral neuropathy, cervical myelopathy reports numbness and weakness to the left arm and leg for over 3 teen months. MRI demonstrated severe cervical pathology with cord edema. Patient also has pain between her shoulder blades and intermittent headaches. She presented to [facility] on 08/05/2020. 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 There is edema signal in the cervical spine cord just inferior to the mass effect. There is also severe left neural foraminal stenosis at C4-5. Dr. Phuong diego spine performed at C3 through C7 laminectomy and C2 through T2 posterior spinal fusion on 08/06/2020. Patient is to wear her [place] cervical collar at all times. She can lift nothing greater than 10 lb for 4 weeks. A home wound VAC is present and will be changed weekly and p.r.n.. Next changes due on 08/19/2020. Postoperatively patient experienced acute postop pain, constipation, acute blood loss anemia, hyperglycemia and hypertension. Her postop pain was managed with oral analgesics. Bowel management has been sent and patient has had a bowel movement. Patient was followed by Endocrinology while inpatient and blood glucose close was controlled patient is also on a carbohydrate diet Patient will have no DVT prophylaxis secondary to her cervical spinal surgery. She will require ongoing PT and OT to return to her independent function Therapy was initiated at the acute care facility and the patient transferred to us from [facility] on 08/14/2020 08/19/20Wound vacuum removed.Incision C/D/I 08/20/20 Patient voices no complaints except for incisional pain and referred pain to lateral neck 08/21/20 Patient excited about overall progress Review of Systems Review of Systems: All systems reviewed & are unremarkable except as noted in HPI and below Functional Status Ambulation Ability Ability to Ambulate 10 Feet: Contact Guard Ability to Ambulate 50 Feet With 2 Turns: Contact Guard Ability to Ambulate 150 Feet: Contact Guard Ambulation Assistive Devices: Walker, Wheeled Exam Narrative: Exam Narrative: Patient is a pleasant female. Speech is fluent. Head is normocephalic. Patient is an [place] collar. Heart rate and rhythm is regular. Lungs are clear to auscultation. Right upper and right lower extremity strength are essentially 4- out of 5 left upper and left lower extremity strength are 3+ to 4-. Melt House Supervisor on left is improving but remians weak. Sensation to hands seem to be improving. Balance deficits are noted secondary to decrease lower extremity sensation. . Patient with better balance today. Patient ambulating with a staggered gait but improved. Patient bearing more weight through right lower extremity. Patient demonstrates right lower extremity weakness during stance phase.Body awareness is improving. Objective Data Vital Signs Vital Signs: Vital Signs - 24 hr 08/20/20 14:00 08/20/20 20:52 08/21/20 06:00 Temperature 36.8 C 36.3 C L 36.3 C L Pulse Rate 92 93 86 Respiratory Rate 20 18 16 Blood Pressure 136/70 135/68 136/67 Pulse Oximetry 97 97 97 Intake/Output Intake/Output: Intake & Output 08/18/20 08/19/20 08/20/20 08/21/20 23:59 23:59 23:59 23:59 Intake Total 960 720 720 240 Balance 960 720 720 240 Meds/Results Medications: Active Medications Generic Name Dose Route Start Last Admin Trade Name Freq PRN Reason Stop Dose Admin Rashel
[2020-08-21] MEDS: ONDANSETRON HCL ODT 4 MG TABLET PO (10:35)
[2020-08-21 12:13] LABS: Glucose Point of Care 194 mg/dl (65-105)
[2020-08-21 14:00] VITALS: BP 120/58; PULSE 92; RESP 18; TEMP 36.7; O2SAT 98
[2020-08-21 16:41] LABS: Glucose Point of Care 160 mg/dl (65-105)
[2020-08-21] MEDS: LATANOPROST 0.005% OP SOLN 2.5 ML BTL 1 DROP EACH EYE (17:52)
[2020-08-21 21:07] LABS: Glucose Point of Care 183 mg/dl (65-105)
[2020-08-21 22:00] VITALS: BP 130/62; PULSE 100; RESP 21; TEMP 36.3; O2SAT 97
[2020-08-21] MEDS: SENNA/DOCUSATE SODIUM TABLET 1 TAB PO (22:35)
[2020-08-22 05:10] LABS: Basophils Absolute Auto 0.1 K/mm3 (0.0-0.1); Basophils Percent Auto 0.9 % (0.2-1.2); Eosinophils Absolute Auto 0.4 K/mm3 (0-0.3); Eosinophils Percent Auto 5.6 % (0-4.4); Immature Granulocyte Absolute 0.04 K/mm3 (0.00-0.031); Immature Granulocyte Percent A 0.5 % (0-0.5); Lymphocytes Absolute Auto 2.32 K/mm3 (0.9-3.2); Lymphocytes Percent Auto 29.7 % (18.3-44.2); Mean Corpuscular HGB Conc 33.3 g/dl (32-36); Mean Corpuscular Hemoglobin 30.6 pg (26-34); Mean Corpuscular Volume 91.7 fl (80-100); Mean Platelet Volume 9.5 fl (7.4-10.4); Monocytes Absolute Auto 0.8 K/mm3 (0.1-0.6); Monocytes Percent Auto 9.8 % (2.6-8.5); Neutrophils Absolute Auto 4.2 K/mm3 (1.3-6.7); Neutrophils Percent Auto 53.5 % (45.5-73.1); Platelet Count Result 359 k/mm3 (150-375); Red Blood Count 3.27 M/mm3 (4.2-5.4); Red Cell Distribution Width 13.7 % (11.5-14.5); White Blood Count 7.8 K/mm3 (4.5-10.0)
[2020-08-22 05:32] LABS: Alanine Aminotransferase 20 U/L (4-35); Albumin Level 3.5 g/dL (3.5-5.1); Alkaline Phosphatase 71 U/L (38-126); Anion Gap 9 mmol/L (8-16); Aspartate Amino Transferase 24 U/L (14-36); Bilirubin,Total 0.2 mg/dL (0.2-1.3); Blood Urea Nitrogen 18 mg/dL (7-17); Calcium 9.1 mg/dL (8.4-10.2); Carbon Dioxide 28 mmol/L (22-30); Chloride 102 mmol/L (98-107); Estimated CRCL calculation 55 ml/min; Estimated Glomerular Filt Rate > 60; Glucose 77 mg/dL (65-105); Potassium 4.1 mmol/L (3.4-5.0); Sodium 139 mmol/L (137-145)
[2020-08-22 06:00] VITALS: BP 113/60; PULSE 89; RESP 20; TEMP 36.2; O2SAT 96
[2020-08-22 06:23] LABS: Glucose Point of Care 81 mg/dl (65-105)
--- NOTE | 2020-08-22 06:46 | PC.NURSE ---
08/22/20 at 0630--accucheck 81, applesauce given. TDialRNC
[2020-08-22] MEDS: LIDOCAINE 5% PATCH 3 PATCH TRANSDERM (08:30)
[2020-08-22] MEDS: ASPIRIN 81 MG CHEWABLE TABLET PO (08:31)
[2020-08-22] MEDS: DOXYCYCLINE HYCLATE 100 MG TABLET PO ×2 (08:31→20:46)
[2020-08-22] MEDS: polyethylene glycoL 3350 17 GM POWD.PACK PO (08:31)
[2020-08-22] MEDS: metFORMIN HCL 500 MG TABLET 1000 MG PO ×2 (08:31→17:06)
[2020-08-22] MEDS: GABAPENTIN 300 MG CAPSULE PO ×3 (08:31→17:06)
[2020-08-22] MEDS: LOSARTAN POTASSIUM 50 MG TABLET PO (08:31)
[2020-08-22] MEDS: SACCHAROMYCES BOULARDII 250 MG CAPSULE PO ×2 (08:32→17:06)
[2020-08-22] MEDS: TIMOLOL MALEATE 0.5% OP SOLN 5 ML BOTTLE 1 DROP EACH EYE ×2 (08:32→17:07)
[2020-08-22] MEDS: MORPHINE SULFATE (*CRX) 15 MG TABCR PO (08:35)
[2020-08-22] MEDS: INSULIN GLARGINE (*BKC) 100 UNITS/ML 40 UNITS SUB-Q (08:35)
[2020-08-22] MEDS: ONDANSETRON HCL ODT 4 MG TABLET PO (11:24)
[2020-08-22 12:14] LABS: Glucose Point of Care 145 mg/dl (65-105)
--- NOTE | 2020-08-22 13:19 | WPDNEURORHBP ---
Subjective Date/time seen: 08/22/20 13:19 Interval history: The etiologic diagnosis is cervical myelopathy with cord compression The patient is a 75-year-old female with past medical history of hypertension, hyperlipidemia, type 2 diabetes mellitus with hyperglycemia and indwelling insulin pump, GERD, herpes zoster, diabetic peripheral neuropathy, cervical myelopathy reports numbness and weakness to the left arm and leg for over 3 teen months. MRI demonstrated severe cervical pathology with cord edema. Patient also has pain between her shoulder blades and intermittent headaches. She presented to [facility] on 08/05/2020. 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 There is edema signal in the cervical spine cord just inferior to the mass effect. There is also severe left neural foraminal stenosis at C4-5. Dr. Phuong diego spine performed at C3 through C7 laminectomy and C2 through T2 posterior spinal fusion on 08/06/2020. Patient is to wear her [place] cervical collar at all times. She can lift nothing greater than 10 lb for 4 weeks. A home wound VAC is present and will be changed weekly and p.r.n.. Next changes due on 08/19/2020. Postoperatively patient experienced acute postop pain, constipation, acute blood loss anemia, hyperglycemia and hypertension. Her postop pain was managed with oral analgesics. Bowel management has been sent and patient has had a bowel movement. Patient was followed by Endocrinology while inpatient and blood glucose close was controlled patient is also on a carbohydrate diet Patient will have no DVT prophylaxis secondary to her cervical spinal surgery. She will require ongoing PT and OT to return to her independent function Therapy was initiated at the acute care facility and the patient transferred to us from [facility] on 08/14/2020 08/19/20Wound vacuum removed.Incision C/D/I 08/22/2020 Rebekah is in good spirits. Patient remains pleased with her overall progress. Patient having bouts of nausea. Will discontinue lucía ms contin Review of Systems Review of Systems: All systems reviewed & are unremarkable except as noted in HPI and below Functional Status Ambulation Ability Ability to Ambulate 10 Feet: Contact Guard Ability to Ambulate 50 Feet With 2 Turns: Contact Guard Ability to Ambulate 150 Feet: Contact Guard Ambulation Assistive Devices: Walker, Wheeled Transfers Ability Ability to Transfer In/Out of Chair: Contact Guard Exam Narrative: Exam Narrative: Patient is a pleasant female. Speech is fluent. Head is normocephalic. Patient is an [place] collar. Heart rate and rhythm is regular. Lungs are clear to auscultation. Right upper and right lower extremity strength are essentially 4- out of 5 left upper and left lower extremity strength are 3+ to 4-. Real Estate Services Coordinator on left is slowly improving but remains weak. Sensation to hands seem to be improving. Balance deficits are noted secondary to decrease lower extremity sensation.Body awareness is improving. Objective Data Vital Signs Vital Signs: Vital Signs - 24 hr 08/21/20 14:00 08/21/20 22:00 08/22/20 06:00 Temperature 36.7 C 36.3 C L 36.2 C L Pulse Rate 92 100 89 Respiratory Rate 18 21 H 20 Blood Pressure 120/58 L 130/62 113/60 Pulse Oximetry 98 97 96 Intake/Output Intake/Output: Intake & Output 08/19/20 08/20/20 08/21/20 08/22/20 23:59 23:59 23:59 23:59 Intake Total 720 720 720 960 Balance 720 720 720 960 Meds/Results Medications: Active Medications Generic Name Dose Route Start Last Admin Trade Name Freq PRN Reason Stop Dose Admin Acetaminophen 1,000 mg 08/15/20 14:41 08/20/20 23:12 Acetaminophen 500 Mg Tablet PO 1,000 mg Q6H PRN Ad
[2020-08-22 14:00] VITALS: BP 116/70; PULSE 93; RESP 20; TEMP 36.2; O2SAT 98
[2020-08-22] MEDS: ACETAMINOPHEN 500 MG TABLET 1000 MG PO (15:41)
[2020-08-22 17:02] LABS: Glucose Point of Care 163 mg/dl (65-105)
[2020-08-22] MEDS: LATANOPROST 0.005% OP SOLN 2.5 ML BTL 1 DROP EACH EYE (17:07)
[2020-08-22] MEDS: SENNA/DOCUSATE SODIUM TABLET 1 TAB PO (20:46)
[2020-08-22 22:00] VITALS: BP 107/51; PULSE 86; RESP 18; TEMP 36.3; O2SAT 98
[2020-08-23 02:09] LABS: Glucose Point of Care 134 mg/dl (65-105)
[2020-08-23 06:00] VITALS: BP 136/72; PULSE 93; RESP 189; TEMP 36.3; O2SAT 96
[2020-08-23 07:00] VITALS: RESP 18
[2020-08-23] MEDS: INSULIN GLARGINE (*BKC) 100 UNITS/ML 40 UNITS SUB-Q (07:45)
[2020-08-23] MEDS: ACETAMINOPHEN 500 MG TABLET 1000 MG PO ×2 (08:36→12:13)
--- NOTE | 2020-08-23 08:36 | WPDNEURORHBP ---
Subjective Date/time seen: 08/23/20 08:36 Interval history: The etiologic diagnosis is cervical myelopathy with cord compression The patient is a 75-year-old female with past medical history of hypertension, hyperlipidemia, type 2 diabetes mellitus with hyperglycemia and indwelling insulin pump, GERD, herpes zoster, diabetic peripheral neuropathy, cervical myelopathy reports numbness and weakness to the left arm and leg for over 3 teen months. MRI demonstrated severe cervical pathology with cord edema. Patient also has pain between her shoulder blades and intermittent headaches. She presented to [facility] on 08/05/2020. 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 There is edema signal in the cervical spine cord just inferior to the mass effect. There is also severe left neural foraminal stenosis at C4-5. Dr. Phuong digeo spine performed at C3 through C7 laminectomy and C2 through T2 posterior spinal fusion on 08/06/2020. Patient is to wear her [place] cervical collar at all times. She can lift nothing greater than 10 lb for 4 weeks. A home wound VAC is present and will be changed weekly and p.r.n.. Next changes due on 08/19/2020. Postoperatively patient experienced acute postop pain, constipation, acute blood loss anemia, hyperglycemia and hypertension. Her postop pain was managed with oral analgesics. Bowel management has been sent and patient has had a bowel movement. Patient was followed by Endocrinology while inpatient and blood glucose close was controlled patient is also on a carbohydrate diet Patient will have no DVT prophylaxis secondary to her cervical spinal surgery. She will require ongoing PT and OT to return to her independent function Therapy was initiated at the acute care facility and the patient transferred to us from [facility] on 08/14/2020 08/19/20Wound vacuum removed.Incision C/D/I 08/22/2020 Rebekah is in good spirits. Patient remains pleased with her overall progress. Patient having bouts of nausea. Will discontinue lucía ms contin 08/23/20 Patient voices no complaints. Patient is pleased with her overall progress. Examiner reviewed pain medications with patient. patient reminded not to assist with meals. Patient wants to be as independent as possible Review of Systems Review of Systems: All systems reviewed & are unremarkable except as noted in HPI and below Functional Status Ambulation Ability Ability to Ambulate 10 Feet: Minimum Assistance X 1 Ability to Ambulate 50 Feet With 2 Turns: Contact Guard Ability to Ambulate 150 Feet: Contact Guard Ambulation Assistive Devices: Walker, Wheeled Transfers Ability Ability to Transfer In/Out of Chair: Contact Guard Exam Narrative: Exam Narrative: Patient is a pleasant female. Speech is fluent. Head is normocephalic. Patient is an [place] collar. Heart rate and rhythm is regular. Lungs are clear to auscultation. Right upper and right lower extremity strength are essentially 4- out of 5 left upper and left lower extremity strength are 3+ to 4-. [employer] Miss[employer] Defense Artillery on left is slowly improving but remains weak 2+. Sensation to hands seem to be improving. Balance deficits are noted secondary to decrease lower extremity sensation.Body awareness is improving. Patient is instructing not to overdo and allow patient to perform her own activities Objective Data Vital Signs Vital Signs: Vital Signs - 24 hr 08/22/20 14:00 08/22/20 22:00 08/23/20 06:00 Temperature 36.2 C L 36.3 C L 36.3 C L Pulse Rate 93 86 93 Respiratory Rate 20 18 189 H Blood Pressure 116/70 107/51 L 136/72 Pulse Oximetry 98 98 96 08/23/20 07:00 Temperature Pulse Rate Respiratory Rate 18 Blood Pressure Puls
[2020-08-23] MEDS: TIMOLOL MALEATE 0.5% OP SOLN 5 ML BOTTLE 1 DROP EACH EYE ×2 (08:37→17:15)
[2020-08-23] MEDS: ASPIRIN 81 MG CHEWABLE TABLET PO (08:37)
[2020-08-23] MEDS: GABAPENTIN 300 MG CAPSULE PO ×3 (08:37→17:15)
[2020-08-23] MEDS: metFORMIN HCL 500 MG TABLET 1000 MG PO ×2 (08:37→17:00)
[2020-08-23] MEDS: SACCHAROMYCES BOULARDII 250 MG CAPSULE PO ×2 (08:37→17:00)
[2020-08-23] MEDS: LOSARTAN POTASSIUM 50 MG TABLET PO (08:37)
[2020-08-23] MEDS: LIDOCAINE 5% PATCH 3 PATCH TRANSDERM (08:37)
[2020-08-23] MEDS: DOXYCYCLINE HYCLATE 100 MG TABLET PO ×2 (08:37→20:30)
[2020-08-23] MEDS: ATORVASTATIN 20 MG TABLET PO (08:37)
[2020-08-23 11:35] LABS: Glucose Point of Care 213 mg/dl (65-105)
[2020-08-23 11:35] LABS: Glucose Point of Care 129 mg/dl (65-105)
[2020-08-23] MEDS: INSULIN ASPART (*BKC) 100 UNITS/ML SUB-Q ×2 (12:07→21:28)
[2020-08-23] MEDS: PANTOPRAZOLE SOD SESQUIHYDRATE 20 MG TAB PO (12:12)
[2020-08-23 14:00] VITALS: BP 117/58; PULSE 96; RESP 22; TEMP 36.1; O2SAT 99
[2020-08-23 17:29] LABS: Glucose Point of Care 172 mg/dl (65-105)
[2020-08-23] MEDS: LATANOPROST 0.005% OP SOLN 2.5 ML BTL 1 DROP EACH EYE (18:17)
[2020-08-23] MEDS: SENNA/DOCUSATE SODIUM TABLET 1 TAB PO (20:30)
[2020-08-23 21:16] LABS: Glucose Point of Care 247 mg/dl (65-105)
[2020-08-23 21:47] VITALS: BP 112/62; PULSE 87; RESP 16; TEMP 36.3; O2SAT 97
[2020-08-24 05:51] VITALS: BP 138/66; PULSE 103; RESP 18; TEMP 36.1; O2SAT 98
[2020-08-24 06:49] LABS: Glucose Point of Care 125 mg/dl (65-105)
--- NOTE | 2020-08-24 06:56 | WPDNEURORHBP ---
Subjective Date/time seen: 08/24/20 06:56 Interval history: The etiologic diagnosis is cervical myelopathy with cord compression The patient is a 75-year-old female with past medical history of hypertension, hyperlipidemia, type 2 diabetes mellitus with hyperglycemia and indwelling insulin pump, GERD, herpes zoster, diabetic peripheral neuropathy, cervical myelopathy reports numbness and weakness to the left arm and leg for over 3 teen months. MRI demonstrated severe cervical pathology with cord edema. Patient also has pain between her shoulder blades and intermittent headaches. She presented to [facility] on 08/05/2020. 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 There is edema signal in the cervical spine cord just inferior to the mass effect. There is also severe left neural foraminal stenosis at C4-5. Dr. Phuong diego spine performed at C3 through C7 laminectomy and C2 through T2 posterior spinal fusion on 08/06/2020. Patient is to wear her [place] cervical collar at all times. She can lift nothing greater than 10 lb for 4 weeks. A home wound VAC is present and will be changed weekly and p.r.n.. Next changes due on 08/19/2020. Postoperatively patient experienced acute postop pain, constipation, acute blood loss anemia, hyperglycemia and hypertension. Her postop pain was managed with oral analgesics. Bowel management has been sent and patient has had a bowel movement. Patient was followed by Endocrinology while inpatient and blood glucose close was controlled patient is also on a carbohydrate diet Patient will have no DVT prophylaxis secondary to her cervical spinal surgery. She will require ongoing PT and OT to return to her independent function Therapy was initiated at the acute care facility and the patient transferred to us from [facility] on 08/14/2020 08/19/20Wound vacuum removed.Incision C/D/I 08/22/2020 Rebekah is in good spirits. Patient remains pleased with her overall progress. Patient having bouts of nausea. Will discontinue lucía ms contin 08/23/20 Patient voices no complaints. Patient is pleased with her overall progress. Examiner reviewed pain medications with patient. patient reminded not to assist with meals. Patient wants to be as independent as possible I am constipated. I will ask for something. I think I will feel better after a bm Review of Systems Review of Systems: All systems reviewed & are unremarkable except as noted in HPI and below Functional Status Ambulation Ability Ability to Ambulate 10 Feet: Contact Guard Ability to Ambulate 50 Feet With 2 Turns: Contact Guard Ability to Ambulate 150 Feet: Contact Guard Ambulation Assistive Devices: Walker, Wheeled Transfers Ability Ability to Transfer In/Out of Chair: Contact Guard Exam Narrative: Exam Narrative: Patient is a pleasant female. Speech is fluent. Head is normocephalic. Patient is an [place] collar. Heart rate and rhythm is regular. Lungs are clear to auscultation. Right upper and right lower extremity strength are essentially 4- out of 5 left upper and left lower extremity strength are 3+ to 4-. [employer] Open Stack Administrator on left is slowly improving but remains weak 2+. Sensation to hands seem to be improving. Balance deficits are noted secondary to decrease lower extremity sensation.Body awareness is improving. Patient is pleased with her progress. Objective Data Vital Signs Vital Signs: Vital Signs - 24 hr 08/23/20 07:00 08/23/20 14:00 08/23/20 21:47 Temperature 36.1 C L 36.3 C L Pulse Rate 96 87 Respiratory Rate 18 22 H 16 Blood Pressure 117/58 L 112/62 Pulse Oximetry 99 97 08/24/20 05:51 Temperature 36.1 C L Pulse Rate 103 H Respiratory Rate 18 Bloo
[2020-08-24] MEDS: INSULIN GLARGINE (*BKC) 100 UNITS/ML 40 UNITS SUB-Q (07:34)
[2020-08-24] MEDS: metFORMIN HCL 500 MG TABLET 1000 MG PO ×2 (08:26→17:14)
[2020-08-24] MEDS: ACETAMINOPHEN 500 MG TABLET 1000 MG PO ×2 (08:26→13:45)
[2020-08-24] MEDS: ATORVASTATIN 20 MG TABLET PO (08:27)
[2020-08-24] MEDS: DOXYCYCLINE HYCLATE 100 MG TABLET PO ×2 (08:27→20:41)
[2020-08-24] MEDS: GABAPENTIN 300 MG CAPSULE PO ×3 (08:27→17:14)
[2020-08-24] MEDS: LIDOCAINE 5% PATCH 3 PATCH TRANSDERM (08:27)
[2020-08-24] MEDS: ASPIRIN 81 MG CHEWABLE TABLET PO (08:27)
[2020-08-24] MEDS: PANTOPRAZOLE SOD SESQUIHYDRATE 20 MG TAB PO (08:28)
[2020-08-24] MEDS: LOSARTAN POTASSIUM 50 MG TABLET PO (08:28)
[2020-08-24] MEDS: polyethylene glycoL 3350 17 GM POWD.PACK PO (08:28)
[2020-08-24] MEDS: TIMOLOL MALEATE 0.5% OP SOLN 5 ML BOTTLE 1 DROP EACH EYE ×2 (08:29→17:14)
[2020-08-24] MEDS: SACCHAROMYCES BOULARDII 250 MG CAPSULE PO ×2 (08:29→17:14)
[2020-08-24] MEDS: BISACODYL 5 MG TABLET EC PO (11:25)
[2020-08-24 12:20] LABS: Glucose Point of Care 187 mg/dl (65-105)
[2020-08-24 14:00] VITALS: BP 105/65; PULSE 92; RESP 18; TEMP 36.3; O2SAT 99
[2020-08-24 16:52] LABS: Glucose Point of Care 225 mg/dl (65-105)
[2020-08-24] MEDS: INSULIN ASPART (*BKC) 100 UNITS/ML SUB-Q ×2 (17:03→21:33)
[2020-08-24] MEDS: LATANOPROST 0.005% OP SOLN 2.5 ML BTL 1 DROP EACH EYE (17:14)
[2020-08-24] MEDS: SENNA/DOCUSATE SODIUM TABLET 1 TAB PO (20:41)
[2020-08-24 21:27] LABS: Glucose Point of Care 212 mg/dl (65-105)
[2020-08-24 21:34] VITALS: BP 145/66; PULSE 94; RESP 16; TEMP 36.6; O2SAT 97
[2020-08-25 06:00] VITALS: BP 144/68; PULSE 95; RESP 16; TEMP 36.6; O2SAT 96
[2020-08-25 06:20] LABS: Glucose Point of Care 187 mg/dl (65-105)
[2020-08-25] MEDS: INSULIN GLARGINE (*BKC) 100 UNITS/ML 40 UNITS SUB-Q (07:07)
[2020-08-25] MEDS: ACETAMINOPHEN 500 MG TABLET 1000 MG PO ×2 (08:00→12:07)
--- NOTE | 2020-08-25 08:36 | WPDNEURORHBP ---
Subjective Date/time seen: 08/25/20 08:36 Interval history: The etiologic diagnosis is cervical myelopathy with cord compression The patient is a 75-year-old female with past medical history of hypertension, hyperlipidemia, type 2 diabetes mellitus with hyperglycemia and indwelling insulin pump, GERD, herpes zoster, diabetic peripheral neuropathy, cervical myelopathy reports numbness and weakness to the left arm and leg for over 3 teen months. MRI demonstrated severe cervical pathology with cord edema. Patient also has pain between her shoulder blades and intermittent headaches. She presented to [facility] on 08/05/2020. 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 There is edema signal in the cervical spine cord just inferior to the mass effect. There is also severe left neural foraminal stenosis at C4-5. Dr. Phuong diego spine performed at C3 through C7 laminectomy and C2 through T2 posterior spinal fusion on 08/06/2020. Patient is to wear her [place] cervical collar at all times. She can lift nothing greater than 10 lb for 4 weeks. A home wound VAC is present and will be changed weekly and p.r.n.. Next changes due on 08/19/2020. Postoperatively patient experienced acute postop pain, constipation, acute blood loss anemia, hyperglycemia and hypertension. Her postop pain was managed with oral analgesics. Bowel management has been sent and patient has had a bowel movement. Patient was followed by Endocrinology while inpatient and blood glucose close was controlled patient is also on a carbohydrate diet Patient will have no DVT prophylaxis secondary to her cervical spinal surgery. She will require ongoing PT and OT to return to her independent function Therapy was initiated at the acute care facility and the patient transferred to us from [facility] on 08/14/2020 08/19/20Wound vacuum removed.Incision C/D/I 08/22/2020 Rebekah is in good spirits. Patient remains pleased with her overall progress. Patient having bouts of nausea. Will discontinue lucía ms contin 08/23/20 Patient voices no complaints. Patient is pleased with her overall progress. Examiner reviewed pain medications with patient. patient reminded not to assist with meals. Patient wants to be as independent as possible 08/24/20 I am constipated. I will ask for something. I think I will feel better after a bm 08/25/20 Patient has had 2 BMs. Patient is feeling better Review of Systems Review of Systems: All systems reviewed & are unremarkable except as noted in HPI and below Functional Status Ambulation Ability Ability to Ambulate 10 Feet: Standby Assistance Ability to Ambulate 50 Feet With 2 Turns: Contact Guard Ability to Ambulate 150 Feet: Standby Assistance Ambulation Assistive Devices: Walker, Wheeled Transfers Ability Ability to Transfer In/Out of Chair: Contact Guard Exam Narrative: Exam Narrative: Patient is a pleasant female. Speech is fluent. Head is normocephalic. Patient is an [place] collar. Heart rate and rhythm is regular. Lungs are clear to auscultation. Right upper and right lower extremity strength are essentially 4- out of 5 left upper and left lower extremity strength are 3+ to 4-. Gyroscopic Engineering Technician on left is slowly improving but remains weak 2+. Sensation to hands seem to be improving. Balance deficits are noted secondary to decrease lower extremity sensation.Body awareness is improving. Patient is pleased with her progress. Patient seen in gym performing car transfers Objective Data Vital Signs Vital Signs: Vital Signs - 24 hr 08/24/20 14:00 08/24/20 21:34 08/25/20 06:00 Temperature 36.3 C L 36.6 C 36.6 C Pulse Rate 92 94 95 Respiratory Rate 18 16 16 Blood Pressure 105/65 14
[2020-08-25] MEDS: PANTOPRAZOLE SOD SESQUIHYDRATE 20 MG TAB PO (10:08)
[2020-08-25] MEDS: DOXYCYCLINE HYCLATE 100 MG TABLET PO ×2 (10:08→21:16)
[2020-08-25] MEDS: SACCHAROMYCES BOULARDII 250 MG CAPSULE PO ×2 (10:08→17:57)
[2020-08-25] MEDS: LIDOCAINE 5% PATCH 3 PATCH TRANSDERM (10:08)
[2020-08-25] MEDS: TIMOLOL MALEATE 0.5% OP SOLN 5 ML BOTTLE 1 DROP EACH EYE ×2 (10:08→17:56)
[2020-08-25] MEDS: metFORMIN HCL 500 MG TABLET 1000 MG PO ×2 (10:08→17:57)
[2020-08-25] MEDS: LOSARTAN POTASSIUM 50 MG TABLET PO (10:09)
[2020-08-25] MEDS: GABAPENTIN 300 MG CAPSULE PO ×3 (10:09→17:56)
[2020-08-25] MEDS: ATORVASTATIN 20 MG TABLET PO (10:10)
[2020-08-25] MEDS: ASPIRIN 81 MG CHEWABLE TABLET PO (10:10)
[2020-08-25 11:48] LABS: Glucose Point of Care 290 mg/dl (65-105)
[2020-08-25] MEDS: INSULIN ASPART (*BKC) 100 UNITS/ML SUB-Q (12:05)
[2020-08-25 14:00] VITALS: BP 107/60; PULSE 90; RESP 18; TEMP 36.4; O2SAT 99
[2020-08-25 17:52] LABS: Glucose Point of Care 182 mg/dl (65-105)
[2020-08-25] MEDS: LATANOPROST 0.005% OP SOLN 2.5 ML BTL 1 DROP EACH EYE (17:56)
[2020-08-25 20:19] LABS: Glucose Point of Care 193 mg/dl (65-105)
[2020-08-25] MEDS: SENNA/DOCUSATE SODIUM TABLET 1 TAB PO (21:16)
[2020-08-25 22:00] VITALS: BP 136/64; PULSE 91; RESP 18; TEMP 36.1; O2SAT 97
[2020-08-26 06:00] VITALS: BP 142/78; PULSE 98; RESP 18; TEMP 36.6; O2SAT 99
[2020-08-26 06:29] LABS: Glucose Point of Care 148 mg/dl (65-105)
[2020-08-26] MEDS: INSULIN GLARGINE (*BKC) 100 UNITS/ML 42 UNITS SUB-Q (07:51)
[2020-08-26] MEDS: polyethylene glycoL 3350 17 GM POWD.PACK PO (08:06)
[2020-08-26] MEDS: LIDOCAINE 5% PATCH 3 PATCH TRANSDERM (08:06)
[2020-08-26] MEDS: metFORMIN HCL 500 MG TABLET 1000 MG PO ×2 (08:07→17:51)
[2020-08-26] MEDS: ACETAMINOPHEN 500 MG TABLET 1000 MG PO ×2 (08:07→12:53)
[2020-08-26] MEDS: LOSARTAN POTASSIUM 50 MG TABLET PO (08:07)
[2020-08-26] MEDS: ASPIRIN 81 MG CHEWABLE TABLET PO (08:07)
[2020-08-26] MEDS: TIMOLOL MALEATE 0.5% OP SOLN 5 ML BOTTLE 1 DROP EACH EYE ×2 (08:07→17:52)
[2020-08-26] MEDS: GABAPENTIN 300 MG CAPSULE PO ×3 (08:07→17:51)
[2020-08-26] MEDS: ATORVASTATIN 20 MG TABLET PO (08:08)
[2020-08-26] MEDS: PANTOPRAZOLE SOD SESQUIHYDRATE 20 MG TAB PO (08:08)
[2020-08-26] MEDS: SACCHAROMYCES BOULARDII 250 MG CAPSULE PO ×2 (08:08→17:52)
[2020-08-26] MEDS: DOXYCYCLINE HYCLATE 100 MG TABLET PO ×2 (08:08→21:14)
--- NOTE | 2020-08-26 09:56 | WPDNEURORHBP ---
Subjective Date/time seen: 08/26/20 09:56 Interval history: The etiologic diagnosis is cervical myelopathy with cord compression The patient is a 75-year-old female with past medical history of hypertension, hyperlipidemia, type 2 diabetes mellitus with hyperglycemia and indwelling insulin pump, GERD, herpes zoster, diabetic peripheral neuropathy, cervical myelopathy reports numbness and weakness to the left arm and leg for over 3 teen months. MRI demonstrated severe cervical pathology with cord edema. Patient also has pain between her shoulder blades and intermittent headaches. She presented to [facility] on 08/05/2020. 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 There is edema signal in the cervical spine cord just inferior to the mass effect. There is also severe left neural foraminal stenosis at C4-5. Dr. Phuong diego spine performed at C3 through C7 laminectomy and C2 through T2 posterior spinal fusion on 08/06/2020. Patient is to wear her [place] cervical collar at all times. She can lift nothing greater than 10 lb for 4 weeks. A home wound VAC is present and will be changed weekly and p.r.n.. Next changes due on 08/19/2020. Postoperatively patient experienced acute postop pain, constipation, acute blood loss anemia, hyperglycemia and hypertension. Her postop pain was managed with oral analgesics. Bowel management has been sent and patient has had a bowel movement. Patient was followed by Endocrinology while inpatient and blood glucose close was controlled patient is also on a carbohydrate diet Patient will have no DVT prophylaxis secondary to her cervical spinal surgery. She will require ongoing PT and OT to return to her independent function Therapy was initiated at the acute care facility and the patient transferred to us from [facility] on 08/14/2020 08/19/20Wound vacuum removed.Incision C/D/I 08/22/2020 Rebekah is in good spirits. Patient remains pleased with her overall progress. Patient having bouts of nausea. Will discontinue lucía ms contin 08/23/20 Patient voices no complaints. Patient is pleased with her overall progress. Examiner reviewed pain medications with patient. patient reminded not to assist with meals. Patient wants to be as independent as possible 08/24/20 I am constipated. I will ask for something. I think I will feel better after a bm 08/25/20 Patient has had 2 BMs. Patient is feeling better 08/26/20 Patient without complaints. Patient appreciative of her therapy staff. Review of Systems Review of Systems: All systems reviewed & are unremarkable except as noted in HPI and below Functional Status Ambulation Ability Ability to Ambulate 10 Feet: Standby Assistance Ability to Ambulate 50 Feet With 2 Turns: Standby Assistance Ability to Ambulate 150 Feet: Standby Assistance Ambulation Assistive Devices: Walker, Wheeled Transfers Ability Ability to Transfer In/Out of Chair: Contact Guard Exam Narrative: Exam Narrative: Patient is a pleasant female. Speech is fluent. Head is normocephalic. Patient is an [place] collar. Heart rate and rhythm is regular. Lungs are clear to auscultation. Right upper and right lower extremity strength are essentially 4- out of 5 left upper and left lower extremity strength are 3+ to 4-. Mixing Technician on left is slowly improving but remains weak 2+. Sensation to hands are improving. Balance deficits are noted secondary to decrease lower extremity sensation.Body awareness is improving. Patient is pleased with her progress. Pateint will perform peg test Objective Data Vital Signs Vital Signs: Vital Signs - 24 hr 08/25/20 14:00 08/25/20 22:00 08/26/20 06:00 Temperature 36.4 C L 36.1 C L 36.6 C Pulse Rate
--- NOTE | 2020-08-26 11:23 | PCNFU ---
Nutrition Follow-Up Complete: Nutrition Diagnosis: Increased protein needs related to wound healing as evidenced by neck incision with wound vac. Nutrition Goal: Have patient consume 100% of her meals. Goal has been met, patient is consuming 100% of meals. Nutrition recommendation: Continue with Diabetic Consistent Carbohydrate diet. Last recorded weight is 85.9 kg. Recommend obtaining new weight. Bowel Motility: Last documented on 08/24 Labs Reviewed: Last documented on 08/22, Hgb (10.0), Hct (30.0), BUN (18) Meds Noted: Lipitor, Dextrose, Vibramycin Po, Neurontin, Glucagon, Glutose, Novolog, Lantus, Xalatan, Cozaar, Metformin, Robaxin, Miralax, Zofran, [place], Senna, Lidoderm Additional Notes: Patient has no nutrition concerns. Patients discharge plan is 08/28. Patient understands her diet needs to be followed once she gets home. Will follow up in 7 days.
--- NOTE | 2020-08-26 11:32 | PCNSR ---
On 08/26/20, the student, Corrine Yu, provided care and completed [employer] documentation on this patient. I have reviewed the student's documentation and agree with the findings. In addition, patient continues on Keyshawn BID. No change in skin documented.
[2020-08-26 11:59] LABS: Glucose Point of Care 175 mg/dl (65-105)
[2020-08-26 14:00] VITALS: BP 107/58; PULSE 93; RESP 20; TEMP 36.1; O2SAT 99
[2020-08-26 16:58] LABS: Glucose Point of Care 153 mg/dl (65-105)
[2020-08-26] MEDS: LATANOPROST 0.005% OP SOLN 2.5 ML BTL 1 DROP EACH EYE (17:52)
[2020-08-26 20:09] LABS: Glucose Point of Care 223 mg/dl (65-105)
[2020-08-26] MEDS: INSULIN ASPART (*BKC) 100 UNITS/ML SUB-Q (20:11)
[2020-08-26] MEDS: SENNA/DOCUSATE SODIUM TABLET 1 TAB PO (21:14)
[2020-08-26 21:46] VITALS: BP 110/64; PULSE 97; RESP 18; TEMP 36.2; O2SAT 97
[2020-08-27 05:56] VITALS: BP 126/64; PULSE 97; RESP 18; TEMP 36.6; O2SAT 96
[2020-08-27] MEDS: INSULIN GLARGINE (*BKC) 100 UNITS/ML 42 UNITS SUB-Q (07:32)
[2020-08-27] MEDS: ASPIRIN 81 MG CHEWABLE TABLET PO (07:56)
[2020-08-27] MEDS: ATORVASTATIN 20 MG TABLET PO (07:56)
[2020-08-27] MEDS: ACETAMINOPHEN 500 MG TABLET 1000 MG PO ×3 (07:56→17:03)
[2020-08-27] MEDS: metFORMIN HCL 500 MG TABLET 1000 MG PO ×2 (07:56→17:04)
[2020-08-27] MEDS: LIDOCAINE 5% PATCH 3 PATCH TRANSDERM (07:58)
[2020-08-27] MEDS: LOSARTAN POTASSIUM 50 MG TABLET PO (07:58)
[2020-08-27] MEDS: GABAPENTIN 300 MG CAPSULE PO ×3 (07:58→17:04)
[2020-08-27] MEDS: DOXYCYCLINE HYCLATE 100 MG TABLET PO ×2 (07:58→20:50)
[2020-08-27] MEDS: TIMOLOL MALEATE 0.5% OP SOLN 5 ML BOTTLE 1 DROP EACH EYE ×2 (07:59→17:04)
[2020-08-27] MEDS: PANTOPRAZOLE SOD SESQUIHYDRATE 20 MG TAB PO (07:59)
[2020-08-27] MEDS: SACCHAROMYCES BOULARDII 250 MG CAPSULE PO ×2 (07:59→17:04)
[2020-08-27 12:03] LABS: Glucose Point of Care 122 mg/dl (65-105)
[2020-08-27 12:03] LABS: Glucose Point of Care 161 mg/dl (65-105)
--- NOTE | 2020-08-27 13:13 | WPDNEURORHBP ---
Subjective Date/time seen: 08/27/20 13:13 Interval history: Interval history: The etiologic diagnosis is cervical myelopathy with cord compression The patient is a 75-year-old female with past medical history of hypertension, hyperlipidemia, type 2 diabetes mellitus with hyperglycemia and indwelling insulin pump, GERD, herpes zoster, diabetic peripheral neuropathy, cervical myelopathy reports numbness and weakness to the left arm and leg for over 3 teen months. MRI demonstrated severe cervical pathology with cord edema. Patient also has pain between her shoulder blades and intermittent headaches. She presented to [facility] on 08/05/2020. 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 There is edema signal in the cervical spine cord just inferior to the mass effect. There is also severe left neural foraminal stenosis at C4-5. Dr. Phuong diego spine performed at C3 through C7 laminectomy and C2 through T2 posterior spinal fusion on 08/06/2020. Patient is to wear her [place] cervical collar at all times. She can lift nothing greater than 10 lb for 4 weeks. A home wound VAC is present and will be changed weekly and p.r.n.. Next changes due on 08/19/2020. Postoperatively patient experienced acute postop pain, constipation, acute blood loss anemia, hyperglycemia and hypertension. Her postop pain was managed with oral analgesics. Bowel management has been sent and patient has had a bowel movement. Patient was followed by Endocrinology while inpatient and blood glucose close was controlled patient is also on a carbohydrate diet Patient will have no DVT prophylaxis secondary to her cervical spinal surgery. She will require ongoing PT and OT to return to her independent function Therapy was initiated at the acute care facility and the patient transferred to us from [facility] on 08/14/2020 08/19/20Wound vacuum removed.Incision C/D/I 08/22/2020 Rebekah is in good spirits. Patient remains pleased with her overall progress. Patient having bouts of nausea. Will discontinue lucía ms contin 08/23/20 Patient voices no complaints. Patient is pleased with her overall progress. Examiner reviewed pain medications with patient. patient reminded not to assist with meals. Patient wants to be as independent as possible 08/24/20 I am constipated. I will ask for something. I think I will feel better after a bm 08/25/20 Patient has had 2 BMs. Patient is feeling better 08/26/20 Patient without complaints. Patient appreciative of her therapy staff. 08/27/20 Patient seen this am and pm. present this pm. Patient without complaints. patient appreciative of all the staff members. Patient and pleased with her overall progress . Reviewed all discharge medications with patient and . . Review of Systems Review of Systems: All systems reviewed & are unremarkable except as noted in HPI and below Functional Status Ambulation Ability Ability to Ambulate 10 Feet: Independent Ability to Ambulate 50 Feet With 2 Turns: Independent Ability to Ambulate 150 Feet: Independent Ambulation Assistive Devices: Walker, Wheeled Transfers Ability Ability to Transfer In/Out of Chair: Standby Assistance Exam Narrative: Exam Narrative: incision clean dry and intact, no redness present. Head is normocephalic. Neck is in an [place] collar. Heart rate and rhythm is regular. Lungs are clear to auscultation. Abdomen is soft nontender. Patient was able to eat with regular utensils. Patient did not require built-up handles. Endurance has improved. Objective Data Vital Signs Vital Signs: Vital Signs - 24 hr 08/26/20 14:00 08/26/20 21:46 08/27/20 05:56 Temperature 36.1 C L 36.2 C L 36.6 C
[2020-08-27 14:00] VITALS: BP 129/68; PULSE 94; RESP 20; TEMP 36.6; O2SAT 100
[2020-08-27] MEDS: LATANOPROST 0.005% OP SOLN 2.5 ML BTL 1 DROP EACH EYE (17:04)
[2020-08-27] MEDS: INSULIN ASPART (*BKC) 100 UNITS/ML SUB-Q (17:04)
[2020-08-27 17:27] LABS: Glucose Point of Care 225 mg/dl (65-105)
[2020-08-27] MEDS: SENNA/DOCUSATE SODIUM TABLET 1 TAB PO (20:50)
[2020-08-27 21:50] VITALS: BP 128/68; PULSE 88; RESP 18; TEMP 36.3; O2SAT 97
[2020-08-28 02:54] LABS: Glucose Point of Care 178 mg/dl (65-105)
[2020-08-28 05:40] VITALS: BP 127/63; PULSE 91; RESP 16; TEMP 36.2; O2SAT 97
[2020-08-28] MEDS: ACETAMINOPHEN 500 MG TABLET 1000 MG PO (06:24)
[2020-08-28 06:43] LABS: Glucose Point of Care 73 mg/dl (65-105)
[2020-08-28] MEDS: PANTOPRAZOLE SOD SESQUIHYDRATE 20 MG TAB PO (08:37)
[2020-08-28] MEDS: metFORMIN HCL 500 MG TABLET 1000 MG PO (08:37)
[2020-08-28] MEDS: LOSARTAN POTASSIUM 50 MG TABLET PO (08:37)
[2020-08-28] MEDS: SACCHAROMYCES BOULARDII 250 MG CAPSULE PO (08:37)
[2020-08-28] MEDS: ATORVASTATIN 20 MG TABLET PO (08:37)
[2020-08-28] MEDS: GABAPENTIN 300 MG CAPSULE PO (08:37)
[2020-08-28] MEDS: LIDOCAINE 5% PATCH 3 PATCH TRANSDERM (08:37)
[2020-08-28] MEDS: DOXYCYCLINE HYCLATE 100 MG TABLET PO (08:38)
[2020-08-28] MEDS: TIMOLOL MALEATE 0.5% OP SOLN 5 ML BOTTLE 1 DROP EACH EYE (08:38)
[2020-08-28] MEDS: ASPIRIN 81 MG CHEWABLE TABLET PO (08:38)
[2020-08-28] MEDS: INSULIN GLARGINE (*BKC) 100 UNITS/ML 40 UNITS SUB-Q (08:41)
[2020-08-28] MEDS: ONDANSETRON HCL ODT 4 MG TABLET PO (12:01)
--- NOTE | 2020-08-28 14:44 | PM.DS ---
DS: Admitting Diagnosis Admitting Diagnosis Admitting Diagnosis: cervical myelopathy DS: Discharge Diagnosis Discharge Diagnosis (1) Neck pain with history of cervical spinal surgery: Code(s): M54.2 - Cervicalgia; Z98.890 - Other specified postprocedural states Status: Acute Assessment and Plan: patient underwent on 08/[address] Castellon C3 through C7 laminectomy, C2-T2 posterior spinal fusion. Rebeakh is taking Robaxin 500 mg t.i.d. as scheduled. She is also taking MS Contin 30 mg Q 12 scheduled. Both of these will continue for 7 days and then be re evaluated. 08/17/2020. Will decrease MS Contin from 30 mg Q 12-15 mg Q 12. Will continue with Robaxin 500 mg t.i.d.. Patient continues on Neurontin 300 mg t.i.d. 08/19/20 Wound vacuum removed. Incision clean and dry. Dr Baca and I spoke regarding care of wound. Cipro will be discontinued. Continue Doxy for total of 14 days. 08/20/20 Add Lidoderm patch to lateral aspects of shoulders /neck 08/22/20 Discontinue scheduled MS Contin. Add Tylenol 1000 mg before a.m. and p.m. therapies (2) Cervical myelopathy: Code(s): G95.9 - Disease of spinal cord, unspecified Status: Acute Assessment and Plan: continue to manage diabetes. OT PT patient is on Neurontin 300 mg t.i.d. (3) Diabetic peripheral neuropathy: Code(s): E11.42 - Type 2 diabetes mellitus with diabetic polyneuropathy Status: Acute Assessment and Plan: monitor (4) Bilateral hand numbness: Code(s): R20.0 - Anesthesia of skin Status: Acute Assessment and Plan: improved (5) Type 2 diabetes mellitus: Code(s): E11.9 - Type 2 diabetes mellitus without complications Status: Acute Assessment and Plan: patient has an insulin pump. currently the pump is not being used. Patient is on Glucophage 500 mg b.i.d. and Lantus 36 units subcu daily. BS better this morning but may require more adjustments. Glucophage has been increased to 750mg BID. 08/17/2020 will increase Lantus to 38 units. 08/19/20 Lantus increased to 40 units and Glucophage increased to 1000mg BID. 08/25 Lantus increased to 42 08/28/2020 Lantus changed to 40 mg daily (6) Insulin pump in place: Code(s): Z96.41 - Presence of insulin pump (external) (internal) Status: Acute Assessment and Plan: Not being used during hospital stay (7) GERD (gastroesophageal reflux disease): Code(s): K21.9 - Gastro-esophageal reflux disease without esophagitis Status: Acute Assessment and Plan: patient is on no home meds for GERD. Will continue to follow and determine if patient requires medication 08/23/20 Will start protonix (8) Diastolic dysfunction: Code(s): I51.89 - Other ill-defined heart diseases Status: Acute (9) Low back pain: Code(s): M54.5 - Low back pain Status: Acute Assessment and Plan: Neurontin (10) Neck pain: Code(s): M54.2 - Cervicalgia Status: Acute Assessment and Plan: Neurontin, MS Contin, Robaxin Tylenol. Patient will go home on gabapentin and Tylenol only (11) Hyperlipidemia: Code(s): E78.5 - Hyperlipidemia, unspecified Status: Acute Assessment and Plan: Lipitor 20 mg daily (12) Hypertension: Code(s): I10 - Essential (primary) hypertension Status: Acute Assessment and Plan: Cozaar 50 mg daily DS: Summary Hospital Course Hospital Course: Interval history: Interval history: The etiologic diagnosis is cervical myelopathy with cord compression The patient is a 75-year-old female with past medical history of hypertension, hyperlipidemia, type 2 diabetes mellitus with hyperglycemia and indwelling insulin pump, GERD, herpes zoster, diabetic peripheral neuropathy, cervical myelopathy reports numbness and weakness to the left arm and leg for over 3 teen months. MRI demonstrated severe cervical pathology with cord edema. Patient also has pain betwee
[2020-08-28 16:16] LABS: Glucose Point of Care 193 mg/dl (65-105)
[2020-08-28 16:16] LABS: Glucose Point of Care 233 mg/dl (65-105)
== END 2020-08-28 13:20 | disposition home health service (06) | DRG 560 ==
PROVIDERS: Admitting Provider Physical Medicine & Rehabilitation; PCP Internal Medicine; Visit Provider Physical Medicine & Rehabilitation
DX: Z47.89 Encounter for other orthopedic aftercare (principal); G95.29 Other cord compression; D62 Acute posthemorrhagic anemia; G81.91 Hemiplegia, unspecified affecting right dominant side; B02.9 Zoster without complications; E78.5 Hyperlipidemia, unspecified; E11.42 Type 2 diabetes mellitus with diabetic polyneuropathy; E11.65 Type 2 diabetes mellitus with hyperglycemia; I10 Essential (primary) hypertension; K21.9 Gastro-esophageal reflux disease without esophagitis; M54.5 Low back pain; M54.2 Cervicalgia; Z79.4 Long term (current) use of insulin; Z96.41 Presence of insulin pump (external) (internal)
CPT/HCPCS: 36415; 80053; 82948; 85025; 97110; 97116; 97161; 97166; 97530; 97535; 97542; A9270; J1815

== ENCOUNTER 2021-07-16 15:47 | Emergency (ER) | payer MEDICARE, SELFPAY ==
[2021-07-16 16:03] VITALS: BP 161/92; PULSE 90; RESP 20; TEMP 36.2; O2SAT 97
--- NOTE | 2021-07-16 16:57 | ED.EPISTAXIS ---
HPI - Epistaxis General Chief complaint: Epistaxis Stated complaint: nosebleed Time Seen by Provider: 07/16/21 16:25 Source: patient Mode of arrival: ambulatory Limitations: no limitations History of Present Illness HPI Narrative: 76 y/o female presents to the ER today for complaints of recurrent nosebleed today. She says it started after sneezing a couple of times. It has been starting and stopping all day. She has had to have a rhinorocket in the past. She has gauze in her nostril. She feels some drainage down her throat and is spitting it out, bloody. Related Data Home Medications Medication Instructions Recorded Confirmed aspirin 81 mg PO DAILY 08/14/20 06/11/21 atorvastatin 20 mg PO DAILY 08/14/20 06/11/21 gabapentin 300 mg PO TID 08/14/20 06/11/21 latanoprost [Xalatan] 1 drp EACH EYE QPM 08/14/20 06/11/21 losartan [Cozaar] 50 mg PO DAILY 08/14/20 06/11/21 polyethylene glycol 3350 [Miralax] 17 g PO DAILY 08/14/20 06/11/21 timolol 1 drp EACH EYE BID 08/14/20 06/11/21 Allergies Allergy/AdvReac Type Severity Reaction Status Date / Time codeine AdvReac Nausea Verified 07/16/21 16:25 Review of Systems Constitutional: Constitutional: Denies chills and Denies fever(s) ENT: Denies dysphagia, Reports epistaxis, Denies nasal congestion and Denies sore throat Cardiovascular: Cardiovascular: Denies chest pain Respiratory: Respiratory: Denies cough, Denies dyspnea and Denies wheezing Gastrointestinal: Gastrointestinal: Denies diarrhea, Denies nausea and Denies vomiting Genitourinary: Genitourinary: Reports no additional female genitourinary complaints Musculoskeletal: Musculoskeletal: Reports no additional musculoskeletal complaints Integumentary/Breasts: Skin/Breast: Reports system reviewed and no additional complaints, except as docu Neurologic: Reports system reviewed and no additional complaints, except as documented Psychiatric: Psychiatric: Reports no additional psychiatric complaints Endocrine: Endocrine: Reports no additional endocrine complaints PMFSH Past Medical History Medical History Achilles tendinitis Bilateral hand numbness Cervical myelopathy Diabetic peripheral neuropathy Diastolic dysfunction GERD (gastroesophageal reflux disease) Herpes zoster Hypertension Insulin pump in place Low back pain Neck pain Screening mammogram for breast cancer Type 2 diabetes mellitus Surgical History Surgical History H/O hysterectomy for benign disease H/O thyroidectomy History of appendectomy Previous back surgery Family History Family History Other Diabetes mellitus Hypertension Social History Social History Social History: . Patient lives with her in a one-story home with 5 steps to enter, although a ramp has been installed in the back. The patient was modified independent with wheeled walker and a 4 prong cane prior to her illness. Patient states of a 13 month decline in function. Patient has had her as her caregiver. Patient has also had a friend who is a nurse also provide assistance. Smoking status: Never smoker Second hand tobacco smoke exposure: No Alcohol intake: never Substance use: never Substance use type: does not use Gender identity (if verbalized by the patient): Female Sexual Orientation (if Verbalized by the Patient): Straight or Heterosexual Spiritual care concerns: No Exam Const: General: no acute distress Orientation/consciousness: patient oriented x3 HENMT: General nose exam: Epistaxis present on the right anterior source, active bleeding and clots present Eyes: Conjunctivae: conjunctivae normal Neck: Neck: normal visual inspection Chest: Chest palpation & inspection: normal inspection
[2021-07-16] MEDS: PHENYLEPHRINE 1% NA SPR (*BKC) 15 ML BTL 1 SPRAY NASAL (17:45)
[2021-07-16] MEDS: TRANEXAMIC ACID 1,000 MG/10 ML AMPUL 1000 MG TOPICAL (17:45)
== END 2021-07-16 18:27 | disposition home or self-care (01) ==
PROVIDERS: Emergency Provider Nurse Practitioner Family; PCP Internal Medicine
DX: R04.0 Epistaxis (principal); E11.42 Type 2 diabetes mellitus with diabetic polyneuropathy; K21.9 Gastro-esophageal reflux disease without esophagitis; I10 Essential (primary) hypertension; E89.0 Postprocedural hypothyroidism; Z79.4 Long term (current) use of insulin; Z96.41 Presence of insulin pump (external) (internal); Z79.82 Long term (current) use of aspirin; Z79.84 Long term (current) use of oral hypoglycemic drugs
CPT/HCPCS: 30901; 99283; A9270

== ENCOUNTER 2021-07-17 12:21 | Emergency (ER) | payer MEDICARE, SELFPAY ==
[2021-07-17 12:27] VITALS: BP 144/70; PULSE 95; RESP 18; TEMP 36.6; O2SAT 97
--- NOTE | 2021-07-17 12:50 | ED.EPISTAXIS ---
HPI - Epistaxis General Chief complaint: Epistaxis Stated complaint: rhino rocket issues Time Seen by Provider: 07/17/21 12:37 Source: patient and family History of Present Illness HPI Narrative: Patient came to the emergency room complaining that the Rhino Rocket is slipping out of the right nostril since yesterday. Patient got discharged from our emergency room yesterday with epistaxis, right nostril Rhino Rocket. Somehow the Rhino Rocket is slipping out of the nose, has been try to stop that by taping her nose and her face. Patient denies any active bleeding since yesterday. Related Data Home Medications Medication Instructions Recorded Confirmed aspirin 81 mg PO DAILY 08/14/20 06/11/21 atorvastatin 20 mg PO DAILY 08/14/20 06/11/21 gabapentin 300 mg PO TID 08/14/20 06/11/21 latanoprost [Xalatan] 1 drp EACH EYE QPM 08/14/20 06/11/21 losartan [Cozaar] 50 mg PO DAILY 08/14/20 06/11/21 polyethylene glycol 3350 [Miralax] 17 g PO DAILY 08/14/20 06/11/21 timolol 1 drp EACH EYE BID 08/14/20 06/11/21 Allergies Allergy/AdvReac Type Severity Reaction Status Date / Time codeine AdvReac Nausea Verified 07/16/21 16:25 Review of Systems Review of Systems: All systems reviewed & are unremarkable except as noted in HPI and below PMFSH Past Medical History Medical History Achilles tendinitis Bilateral hand numbness Cervical myelopathy Diabetic peripheral neuropathy Diastolic dysfunction GERD (gastroesophageal reflux disease) Herpes zoster Hypertension Insulin pump in place Low back pain Neck pain Screening mammogram for breast cancer Type 2 diabetes mellitus Surgical History Surgical History H/O hysterectomy for benign disease H/O thyroidectomy History of appendectomy Previous back surgery Family History Family History Other Diabetes mellitus Hypertension Social History Social History Social History: . Patient lives with her in a one-story home with 5 steps to enter, although a ramp has been installed in the back. The patient was modified independent with wheeled walker and a 4 prong cane prior to her illness. Patient states of a 13 month decline in function. Patient has had her as her caregiver. Patient has also had a friend who is a nurse also provide assistance. Smoking status: Never smoker Second hand tobacco smoke exposure: No Alcohol intake: never Substance use: never Substance use type: does not use Gender identity (if verbalized by the patient): Female Sexual Orientation (if Verbalized by the Patient): Straight or Heterosexual Spiritual care concerns: No Exam Narrative: General appearance: Well-developed, well-nourished Skin: Normal color Head: Normocephalic, nontraumatic Eyes: Clear conjunctiva ENT: Oropharynx normal, ears normal, nose normal, right nostril Rhino Rocket is 99.9% out of the nostril, taped to the nose and face. I was able to remove it in a fraction of second, no active bleeding Neck: Supple, nontender Chest and respiratory: Airway patent, no respiratory distress, no accessory muscle use Heart: Regular rate/rhythm Abdomen: Soft, nontender, no organomegaly, quiet bowel sounds Vascular: Normal peripheral pulses, normal capillary refill. Musculoskeletal: Normal range of motion, nontender back Neurologic: Alert and oriented ?3, PLUMBING CONTRACTOR is normal as tested, no gross motor deficit Course Course Emergency Course: Stable, no active bleeding Vital Signs Vital signs:
[2021-07-17 13:09] VITALS: BP 125/63; PULSE 76; RESP 14; O2SAT 98
== END 2021-07-17 13:10 | disposition home or self-care (01) ==
LOC: ANHED 12:58
PROVIDERS: Emergency Provider Emergency Medicine; PCP Internal Medicine
DX: R04.0 Epistaxis (principal); E11.42 Type 2 diabetes mellitus with diabetic polyneuropathy; I10 Essential (primary) hypertension; K21.9 Gastro-esophageal reflux disease without esophagitis; Z79.4 Long term (current) use of insulin; Z96.41 Presence of insulin pump (external) (internal); Z79.84 Long term (current) use of oral hypoglycemic drugs; Z79.82 Long term (current) use of aspirin; E89.0 Postprocedural hypothyroidism
CPT/HCPCS: 30901; 99282

== ENCOUNTER 2021-11-13 21:24 | Inpatient (IN) | payer MEDICARE, SELFPAY ==
--- NOTE | ~2021-11-13 | XR_ITS ---
EXAMINATION: XR chest 2V DATE: 11/17/2021 10:06 INDICATION: Pneumonia. TECHNIQUE: Frontal and lateral views of the chest were obtained. COMPARISON: Chest 2 views 11/13/2021, chest CT 07/06/2017 FINDINGS: There are airspace opacities in right lower lung zone and left mid and lower lung zones. No pleural effusion or pneumothorax. The heart size is normal. There are changes of anterior fusion pro cedure in cervical spine and posterior fusion procedure in cervicothoracic spine. IMPRESSION: 1. Stable airspace opacities in right lower lung zone and left mid and lower lung zones, consistent w ith atelectasis versus pneumonia. Reviewed, dictated and finalized at location A. IMPRESSION: 1. Stable airspace opacities in right lower lung zone and left mid and lower yenifer ng zones, consistent with atelectasis versus pneumonia.
--- NOTE | ~2021-11-13 | XR_ITS ---
EXAMINATION: XR chest 2V DATE: 11/13/2021 22:43 INDICATION: Cough and weakness TECHNIQUE: frontal and lateral views of the chest were obtained. COMPARISON: Chest radiograph dated 07/19/2020 FINDINGS: New airspace opacities in the left lower lung zone. Right lung remains clear. No pulmonary edema, ple ural effusion or pneumothorax. The cardiomediastinal silhouette is normal. Again seen is plate and sc rew fixation for lower cervical anterior spinal fusion. In the interval there has been posterior spin al fusion at the cervicothoracic junction with pedicle screws likely at T1 and T2 and bilateral verti majo rods extending cephalad into the cervical spine and beyond the cephalad margin of the field-of-vi ew. Prior distal right clavicle resection. IMPRESSION: 1. New opacities in the left lower lung zone which could represent atelectasis or pneumonia. Reviewed, dictated and finalized at location A.
[2021-11-13 22:01] VITALS: BP 144/62; PULSE 122; RESP 20; TEMP 38.1; O2SAT 98
--- NOTE | 2021-11-13 22:06 | ECG_ITS ---
Measurements Intervals [place] Rate: 121 P: 11 TN: 127 QRS: 14 QRSD: 80 T: -19 QT: 338 QTc: 481 Interpretive Statements SINUS TACHYCARDIA LOW QRS VOLTAGE IN PRECORDIAL LEADS [QRS DEFLECTION < 1.0 mV IN CHEST LEADS] NONSPECIFIC ST AND T-WAVE ABNORMALITY POOR R-WAVE PROGRESSION ABNORMAL ECG Electronically Signed On 11-14-2021 10:03:57 CDT by Sandeep Hansen M.D.
[2021-11-13 22:21] LABS: Basophils Percent Auto 0.2 % (0.2-1.2); Hematocrit 42.4 % (37.0-47.0); Hemoglobin 13.7 g/dL (12.0-15.0); Immature Granulocyte Absolute 0.06 K/mm3 (0.00-0.031); Immature Granulocyte Percent A 0.5 % (0-0.5); Lymphocytes Absolute Auto 0.92 K/mm3 (0.9-3.2); Lymphocytes Percent Auto 7.3 % (18.3-44.2); Mean Corpuscular HGB Conc 32.3 g/dl (32-36); Mean Corpuscular Hemoglobin 28.2 pg (26-34); Mean Corpuscular Volume 87.4 fl (80-100); Mean Platelet Volume 10.6 fl (7.4-10.4); Monocytes Absolute Auto 0.9 K/mm3 (0.1-0.6); Monocytes Percent Auto 7.4 % (2.6-8.5); Neutrophils Absolute Auto 10.6 K/mm3 (1.3-6.7); Neutrophils Percent Auto 84.6 % (45.5-73.1); Platelet Count Result 201 k/mm3 (150-375); Red Blood Count 4.85 M/mm3 (4.2-5.4); Red Cell Distribution Width 12.8 % (11.5-14.5); White Blood Count 12.5 K/mm3 (4.5-10.0)
[2021-11-13 22:30] LABS: Alanine Aminotransferase 22 U/L (6-35); Albumin Level 4.4 g/dL (3.5-5.1); Alkaline Phosphatase 107 U/L (38-126); Anion Gap 11 mmol/L (8-16); Aspartate Amino Transferase 31 U/L (14-36); Bilirubin,Total 0.8 mg/dL (0.2-1.3); Blood Urea Nitrogen 19 mg/dL (7-17); Calcium 9.2 mg/dL (8.4-10.2); Carbon Dioxide 26 mmol/L (22-30); Chloride 91 mmol/L (98-107); Estimated CRCL calculation 42 ml/min; Estimated Glomerular Filt Rate 54; Glucose 172 mg/dL (65-110); Potassium 4.1 mmol/L (3.4-5.0); Sodium 128 mmol/L (137-145)
[2021-11-14] VITALS (22 sets, daily range): BP systolic 109–153; BP diastolic 55–83; PULSE 94–121; RESP 14–30; TEMP 36.1–38.1; O2SAT 88–98; BMI 29.6
[2021-11-14 01:56] LABS: Appearance Urine Clear (Clear); Bilirubin Urine 1+ (Negative); Blood Urine 2+ (Negative); Color Urine Yellow (Yellow); Glucose Urine UA Negative (Negative); Ketones Urine 2+ mg/dL (Negative); Leukocyte Esterase Ur Negative LEU/UL (Negative); Nitrate Urine Positive (Negative); Protein Urine 2+ mg/dL (Negative); Specific Grav Ur >= 1.030 (1.001-1.035); Urobilinogen Urine 0.2 mg/dL (<2.0); pH Urine 5.5 (5.0-9.0)
[2021-11-14 01:58] LABS: Bacteria Urine 4+ /hpf; Mucus Urine Heavy /lpf; Squamous Epithelial Cell Urine Occasional /hpf (Few)
[2021-11-14 01:59] LABS: Add Urine Microscopic? YES
--- NOTE | 2021-11-14 02:03 | ED.GENADULT ---
HPI - General Adult General Chief complaint: Weakness Stated complaint: dizziness, falls Time Seen by Provider: 11/14/21 01:56 History of Present Illness HPI narrative: Patient is 76-year-old female who presents the emergency department with chief complaint of generalized weakness. Patient reports that for the last week she has been feeling weaker and weaker to the point today she feels as though she cannot really walk. Patient reports she was seen for a 1 year follow-up after she had spine surgery at [place] patient reports that she has felt as though she had a fever but has not had a measured fever at home. The patient states that she has had no nausea no vomiting reports that symptoms are not improved by anything and reports are worse Related Data Home Medications Medication Instructions Recorded Confirmed aspirin 81 mg tablet 81 mg PO DAILY 08/14/20 06/11/21 atorvastatin 20 mg tablet 20 mg PO DAILY 08/14/20 06/11/21 gabapentin 300 mg capsule 300 mg PO TID 08/14/20 06/11/21 latanoprost 0.005 % eye drops 1 drp EACH EYE QPM 08/14/20 06/11/21 (Xalatan) losartan 50 mg tablet (Cozaar) 50 mg PO DAILY 08/14/20 06/11/21 polyethylene glycol 3350 17 17 g PO DAILY 08/14/20 06/11/21 gram/dose oral powder (Miralax) timolol 0.5 % eye drops 1 drp EACH EYE BID 08/14/20 06/11/21 Allergies Allergy/AdvReac Type Severity Reaction Status Date / Time codeine AdvReac Nausea Verified 11/13/21 22:06 Review of Systems Review of Systems: A 10 system review of systems was completed on the patient and is negative except for what is stated in the HPI. Nursing and ancillary documentation was reviewed. [facility] Past Medical History Medical History Achilles tendinitis Bilateral hand numbness Cervical myelopathy Diabetic peripheral neuropathy Diastolic dysfunction GERD (gastroesophageal reflux disease) Herpes zoster Hypertension Insulin pump in place Low back pain Neck pain Screening mammogram for breast cancer Type 2 diabetes mellitus Surgical History Surgical History H/O hysterectomy for benign disease H/O thyroidectomy History of appendectomy Previous back surgery Family History Family History Other Diabetes mellitus Hypertension Social History Social History Social History: . Patient lives with her in a one-story home with 5 steps to enter, although a ramp has been installed in the back. The patient was modified independent with wheeled walker and a 4 prong cane prior to her illness. Patient states of a 13 month decline in function. Patient has had her as her caregiver. Patient has also had a friend who is a nurse also provide assistance. Smoking status: Never smoker Second hand tobacco smoke exposure: No Alcohol intake: never Substance use: never Substance use type: does not use Gender identity (if verbalized by the patient): Female Sexual Orientation (if Verbalized by the Patient): Straight or Heterosexual Spiritual care concerns: No Exam Narrative: GENERAL: Well-appearing, well-nourished, and in no acute distress. HEAD: Normocephalic, atraumatic. EYES: PERRLA and EOMI. ENT: Nares clear, no rhinorrhea or epistaxis. Mucous membranes moist. NECK: Supple. CHEST: Clear to auscultation. No respiratory distress. HEART: Regular rate and rhythm. No murmur heard. Normal peripheral pulses. ABDOMEN: Soft, nontender, nondistended, normal active bowel sounds. EXTREMITIES: Normal range of motion. No edema. SKIN: Warm, dry, no rash. NEURO: No focal deficits. Alert and oriented x3. PSYCH: Normal mood and affect. Course Course Emergency Course: Patient is still febrile tachycardic. The patient will receive Rocephin and Zithromax in
[2021-11-14] MEDS: SODIUM CHLORIDE 0.9% IV 1,000 ML 999 ML IV CONT (02:11)
[2021-11-14 03:03] LABS: Lactic Acid Reflex 1.1 mmol/L (0.7-2.0)
[2021-11-14 03:21] LABS: Procalcitonin 0.3 ng/mL
[2021-11-14 03:31] LABS: SARS-CoV-2 RNA PCR Negative
[2021-11-14] MEDS: ONDANSETRON INJ 4 MG/2 ML VIAL IV PUSH (03:48)
--- NOTE | 2021-11-14 05:05 | ADMGEN ---
This patient, Rebekah Suárez, was admitted to Medical Room 346-01. Patient/family oriented to hospital policies and general routines including ID bracelet, bed and alarms, visiting hours, pain management, procedures, bathroom and other care routines, personal items, smoking policy, room service/diet, and visiting hours. Information on how to activate the Rapid Response Team has been discussed. Patient/Family are encouraged to report perceived risks to care and to ask questions if they do not understand what they are told or what they should do.
[2021-11-14] MEDS: SODIUM CHLORIDE 0.9% IV 1,000 ML 125 ML IV CONT ×3 (05:28→20:44)
[2021-11-14 08:25] LABS: Glucose Point of Care 262 mg/dl (65-105)
[2021-11-14] MEDS: ALBUTEROL SULFATE NEB 2.5 MG/3 ML INH 5 MG INHALATION ×3 (08:43→21:06)
[2021-11-14] MEDS: IPRATROPIUM BR 0.02% INH SOLN 0.5 MG/2.5 ML VIAL INHALATION ×3 (08:43→21:05)
[2021-11-14] MEDS: INSULIN ASPART (*BKC) 100 UNITS/ML SUB-Q ×4 (10:04→17:55)
[2021-11-14] MEDS: ASPIRIN 81 MG CHEWABLE TABLET PO (10:44)
[2021-11-14] MEDS: polyethylene glycoL 3350 17 GM POWD.PACK PO (10:44)
[2021-11-14] MEDS: ATORVASTATIN 20 MG TABLET PO (10:45)
--- NOTE | 2021-11-14 12:29 | PM.IMHP ---
H&P: HPI History of Present Illness Date/Time: 11/14/21 12:29 Chief Complaint: annita is 76-year-old female who presents the emergency department with chief complaint of generalized weakness.? Patient reports that for the last week she has been feeling weaker and weaker to the point today she feels as though she cannot really walk.? Patient reports she was seen for a 1 year follow-up after she had spine surgery at [place] patient reports that she has felt as though she had a fever but has not had a measured fever at home.? The patient states that she has had no nausea no vomiting reports that symptoms are not improved by anything and reports are worse When I saw the patient she was resting comfortably and had no complaints. She denies any shortness of breath. She said that she has been coughing up some sputum but otherwise no complaints no chest pain. No shortness of breath Review of Systems Review of Systems: Negative except as stated in HPI PMFSH Past Medical History Medical History Achilles tendinitis Bilateral hand numbness Cervical myelopathy Diabetic peripheral neuropathy Diastolic dysfunction GERD (gastroesophageal reflux disease) Herpes zoster Hypertension Insulin pump in place Low back pain Neck pain Screening mammogram for breast cancer Type 2 diabetes mellitus Surgical History Surgical History H/O hysterectomy for benign disease H/O thyroidectomy History of appendectomy Previous back surgery Family History Family History Other Diabetes mellitus Hypertension Social History Social History Social History: . Patient lives with her in a one-story home with 5 steps to enter, although a ramp has been installed in the back. The patient was modified independent with wheeled walker and a 4 prong cane prior to her illness. Patient states of a 13 month decline in function. Patient has had her as her caregiver. Patient has also had a friend who is a nurse also provide assistance. Smoking status: Never smoker Second hand tobacco smoke exposure: No Alcohol intake: never Substance use: never Substance use type: does not use Gender identity (if verbalized by the patient): Female Sexual Orientation (if Verbalized by the Patient): Straight or Heterosexual Spiritual care concerns: No Meds Home Medications and Allergies Home Medications Medication Instructions Recorded Confirmed Type aspirin 81 mg tablet 81 mg PO DAILY 08/14/20 11/14/21 History atorvastatin 20 mg tablet 20 mg PO DAILY 08/14/20 11/14/21 History gabapentin 300 mg capsule 600 mg PO TID 08/14/20 11/14/21 History latanoprost 0.005 % eye drops 1 drp EACH EYE QPM 08/14/20 11/14/21 History (Xalatan) polyethylene glycol 3350 17 17 g PO DAILY 08/14/20 11/14/21 History gram/dose oral powder (Miralax) timolol 0.5 % eye drops 1 drp EACH EYE BID 08/14/20 11/14/21 History insulin glargine 100 unit/mL 40 unit (0.4 mL) subcut DAILY #10 08/28/20 11/14/21 Rx subcutaneous solution (Lantus mL U-100 Insulin) cyanocobalamin (vitamin B-12) 1,000 mcg subcut WEEKLY 11/14/21 11/14/21 History 1,000 mcg/mL injection solution metformin 500 mg tablet 500 mg PO BIDWM 11/14/21 11/14/21 History Allergies Allergy/AdvReac Type Severity Reaction Status Date / Time codeine AdvReac Nausea Verified 11/14/21 05:35 Vital Signs Vital Signs - 24 hr 11/13/21 22:01 11/14/21 00:31 11/14/21 01:40 Temperature 100.5 F H 100.5 F H Pulse Rate 122 H 120 H 121 H Respiratory Rate 20 16 Blood Pressure 144/62 H 141/71 H Pulse Oximetry 98 95 Oxygen Delivery Nasal Cannula Oxygen Flow Rate 2 11/14/21 01:41 11/14/21 03:18 11/14/21 04:39 Temperature Pulse Rate 121 H 104 H 97 Respiratory R
[2021-11-14 12:40] LABS: Glucose Point of Care 406 mg/dl (65-105)
[2021-11-14] MEDS: GABAPENTIN 300 MG CAPSULE 600 MG PO ×2 (12:46→17:22)
[2021-11-14 13:44] LABS: Glucose Point of Care 367 mg/dl (65-105)
[2021-11-14] MEDS: TIMOLOL MALEATE 0.5% OP SOLN 5 ML BOTTLE 1 DROP EACH EYE (17:25)
[2021-11-14 17:48] LABS: Glucose Point of Care 284 mg/dl (65-105)
[2021-11-14] MEDS: LATANOPROST 0.005% OP SOLN 2.5 ML BTL 1 DROP EACH EYE (17:59)
[2021-11-14 20:40] LABS: Glucose Point of Care 349 mg/dl (65-105)
[2021-11-14] MEDS: INSULIN ASPART (*BKC) 100 UNITS/ML 6 UNITS SUB-Q (21:03)
[2021-11-15] VITALS (18 sets, daily range): BP systolic 122–143; BP diastolic 60–74; PULSE 80–112; RESP 16–20; TEMP 36.6–36.9; O2SAT 93–95
[2021-11-15] MEDS: ALBUTEROL SULFATE NEB 2.5 MG/3 ML INH 5 MG INHALATION ×4 (01:40→20:00)
[2021-11-15] MEDS: IPRATROPIUM BR 0.02% INH SOLN 0.5 MG/2.5 ML VIAL INHALATION ×4 (01:40→19:58)
[2021-11-15] MEDS: SODIUM CHLORIDE 0.9% IV 1,000 ML 125 ML IV CONT (04:10)
[2021-11-15] MEDS: ACETAMINOPHEN 325 MG TABLET 650 MG PO ×2 (08:33→20:33)
[2021-11-15] MEDS: ATORVASTATIN 20 MG TABLET PO (08:36)
[2021-11-15] MEDS: ASPIRIN 81 MG CHEWABLE TABLET PO (08:36)
[2021-11-15] MEDS: GABAPENTIN 300 MG CAPSULE 600 MG PO ×3 (08:36→17:33)
[2021-11-15 08:50] LABS: Glucose Point of Care 261 mg/dl (65-105)
[2021-11-15] MEDS: INSULIN ASPART (*BKC) 100 UNITS/ML SUB-Q ×3 (08:51→17:36)
[2021-11-15] MEDS: polyethylene glycoL 3350 17 GM POWD.PACK PO (09:35)
[2021-11-15] MEDS: TIMOLOL MALEATE 0.5% OP SOLN 5 ML BOTTLE 1 DROP EACH EYE ×2 (09:35→17:33)
[2021-11-15 12:12] LABS: Glucose Point of Care 306 mg/dl (65-105)
--- NOTE | 2021-11-15 13:18 | PM.IMPN ---
Progress Note: A&P Assessment and Plan (1) Community acquired pneumonia: Code(s): J18.9 - Pneumonia, unspecified organism Status: Acute Assessment and Plan: Continue IV antibiotics. 11/15/2021 interval history: currently patient is sitting in the chair states feeling much better compared to when she arrived denies any cough or shortness of breath, patient is found to have community-acquired pneumonia being treated with ceftriaxone and azithromycin is also concern the patient has UTI will continue ceftriaxone and follow up on blood and urine culture, will have a PT OT evaluate the patient will benefit with rehab. (2) Acute UTI: Code(s): N39.0 - Urinary tract infection, site not specified Status: Acute Assessment and Plan: Continue IV antibiotics (3) Type 2 diabetes mellitus: Code(s): E11.9 - Type 2 diabetes mellitus without complications Status: Acute (4) GERD (gastroesophageal reflux disease): Code(s): K21.9 - Gastro-esophageal reflux disease without esophagitis Status: Acute (5) Hyperlipidemia: Code(s): E78.5 - Hyperlipidemia, unspecified Status: Acute (6) Hypertension: Code(s): I10 - Essential (primary) hypertension Status: Acute Subjective Date/time seen: 11/15/21 13:18 HPI_Chief Complaint: Patient is 76-year-old female who presents the emergency department with chief complaint of generalized weakness.? Patient reports that for the last week she has been feeling weaker and weaker to the point today she feels as though she cannot really walk.? Patient reports she was seen for a 1 year follow-up after she had spine surgery at [place] patient reports that she has felt as though she had a fever but has not had a measured fever at home.? The patient states that she has had no nausea no vomiting reports that symptoms are not improved by anything and reports are worse 11/15/2021 interval history: currently patient is sitting in the chair states feeling much better compared to when she arrived denies any cough or shortness of breath, patient is found to have community-acquired pneumonia being treated with ceftriaxone and azithromycin is also concern the patient has UTI will continue ceftriaxone and follow up on blood and urine culture, will have a PT OT evaluate the patient will benefit with rehab. Review of Systems Review of Systems: Negative except as stated in HPI Exam Narrative: Patient is comfortable, NAD HEENT: eyes are clear and none icteric LUNGS: bilateral fair air entry with rhonchi ABD: not distend Lower extremities: no edema SKIN: nonjaundiced Neuro: grossly intact. Objective Data Vital Signs Vital Signs: Vital Signs - 24 hr 11/14/21 13:22 11/14/21 13:23 11/14/21 13:23 Temperature Pulse Rate 103 H Respiratory Rate 16 Blood Pressure Pulse Oximetry 88 L 93 Oxygen Delivery Room Air Nasal Cannula Oxygen Flow Rate 2 11/14/21 15:21 11/14/21 16:00 11/14/21 20:19 Temperature 96.9 F L 99.8 F H Pulse Rate 104 H 98 105 H Respiratory Rate 14 20 Blood Pressure 123/55 L 131/73 Pulse Oximetry 96 96 Oxygen Delivery Oxygen Flow Rate 11/14/21 20:00 11/14/21 21:09 11/14/21 21:09 Temperature Pulse Rate 100 105 H Respiratory Rate 16 Blood Pressure Pulse Oximetry 95 Oxygen Delivery Nasal Cannula Oxygen Flow Rate 2 11/14/21 21:15 11/15/21 00:00 11/15/21 01:40 Temperature 100.3 F H Pulse Rate 95 99 Respiratory Rate 16 Blood Pressure Pulse Oximetry Oxygen Delivery Oxygen Flow Rate 11/15/21 01:50 11/15/21 04:15 11/14/21 23:27 Temperature 98.9 F Pulse Rate 101 H 96 Respiratory Rate 16 Blood Pressure Pulse Oximetry Oxygen Delivery Oxygen Flow Rate 11/15/21 05:13 11/15/21 07:15 11/15/21 07:16 Temperature 98.4 F Pulse Rate 100 100 Respiratory Rate 20 16 Blood Pressure 143/74 H Pulse Oximetry 95 95 Oxygen Delive
[2021-11-15 17:31] LABS: Glucose Point of Care 278 mg/dl (65-105)
[2021-11-15] MEDS: LATANOPROST 0.005% OP SOLN 2.5 ML BTL 1 DROP EACH EYE (17:39)
[2021-11-15] MEDS: INSULIN GLARGINE (*BKC) 100 UNITS/ML 20 UNITS SUB-Q (20:34)
[2021-11-15 20:55] LABS: Glucose Point of Care 325 mg/dl (65-105)
[2021-11-16] VITALS (16 sets, daily range): BP systolic 118–144; BP diastolic 59–79; PULSE 79–95; RESP 16–20; TEMP 36.6–36.9; O2SAT 91–97
[2021-11-16 05:46] LABS: Hemoglobin 11.4 g/dL (12.0-15.0); Mean Corpuscular HGB Conc 32.6 g/dl (32-36); Mean Corpuscular Hemoglobin 28.8 pg (26-34); Mean Corpuscular Volume 88.4 fl (80-100); Mean Platelet Volume 10.6 fl (7.4-10.4); Platelet Count Result 182 k/mm3 (150-375); Red Blood Count 3.96 M/mm3 (4.2-5.4); Red Cell Distribution Width 13.2 % (11.5-14.5); White Blood Count 4.6 K/mm3 (4.5-10.0)
[2021-11-16] MEDS: ACETAMINOPHEN 325 MG TABLET 650 MG PO (05:50)
[2021-11-16 06:02] LABS: Anion Gap 0 mmol/L (8-16); Blood Urea Nitrogen 12 mg/dL (7-17); Carbon Dioxide 28 mmol/L (22-30); Chloride 104 mmol/L (98-107); Estimated CRCL calculation 66 ml/min; Estimated Glomerular Filt Rate > 60; Glucose 260 mg/dL (65-110); Potassium 4.4 mmol/L (3.4-5.0); Sodium 132 mmol/L (137-145)
[2021-11-16] MEDS: ASPIRIN 81 MG CHEWABLE TABLET PO (08:37)
[2021-11-16] MEDS: TIMOLOL MALEATE 0.5% OP SOLN 5 ML BOTTLE 1 DROP EACH EYE ×2 (08:38→17:26)
[2021-11-16] MEDS: GABAPENTIN 300 MG CAPSULE 600 MG PO ×3 (08:38→17:25)
[2021-11-16] MEDS: polyethylene glycoL 3350 17 GM POWD.PACK PO (08:38)
[2021-11-16] MEDS: ATORVASTATIN 20 MG TABLET PO (08:38)
[2021-11-16 08:48] LABS: Glucose Point of Care 269 mg/dl (65-105)
[2021-11-16] MEDS: INSULIN ASPART (*BKC) 100 UNITS/ML SUB-Q ×3 (08:52→17:26)
[2021-11-16] MEDS: ALBUTEROL SULFATE NEB 2.5 MG/3 ML INH 5 MG INHALATION ×3 (09:10→21:45)
[2021-11-16] MEDS: IPRATROPIUM BR 0.02% INH SOLN 0.5 MG/2.5 ML VIAL INHALATION ×3 (09:10→21:45)
[2021-11-16 12:35] LABS: Glucose Point of Care 340 mg/dl (65-105)
[2021-11-16] MEDS: SODIUM CHLORIDE 0.9% IV 1,000 ML 125 ML IV CONT ×2 (13:24→22:19)
--- NOTE | 2021-11-16 16:36 | PM.IMPN ---
Progress Note: A&P Assessment and Plan (1) Community acquired pneumonia: Code(s): J18.9 - Pneumonia, unspecified organism Status: Acute Assessment and Plan: Continue IV antibiotics. 11/15/2021 interval history: currently patient is sitting in the chair states feeling much better compared to when she arrived denies any cough or shortness of breath, patient is found to have community-acquired pneumonia being treated with ceftriaxone and azithromycin is also concern the patient has UTI will continue ceftriaxone and follow up on blood and urine culture, will have a PT OT evaluate the patient will benefit with rehab. 11/16/2021 interval history: currently patient is sitting in the chair states feeling much better compared to when she arrived denies any cough or shortness of breath, patient is found to have community-acquired pneumonia being treated with ceftriaxone and azithromycin is also concern the patient has UTI and urine culture is growing E coli noe sensitive, will continue ceftriaxone and follow up on blood, will continue PT OT evaluate the patient will benefit with rehab. will repeat Chest x-ray tomorrow. (2) Acute UTI: Code(s): N39.0 - Urinary tract infection, site not specified Status: Acute Assessment and Plan: Continue IV antibiotics (3) Type 2 diabetes mellitus: Code(s): E11.9 - Type 2 diabetes mellitus without complications Status: Acute (4) GERD (gastroesophageal reflux disease): Code(s): K21.9 - Gastro-esophageal reflux disease without esophagitis Status: Acute (5) Hyperlipidemia: Code(s): E78.5 - Hyperlipidemia, unspecified Status: Acute (6) Hypertension: Code(s): I10 - Essential (primary) hypertension Status: Acute Subjective Date/time seen: 11/16/21 16:36 11/16/2021 interval history: currently patient is sitting in the chair states feeling much better compared to when she arrived denies any cough or shortness of breath, patient is found to have community-acquired pneumonia being treated with ceftriaxone and azithromycin is also concern the patient has UTI and urine culture is growing E coli noe sensitive, will continue ceftriaxone and follow up on blood, will continue PT OT evaluate the patient will benefit with rehab. will repeat Chest x-ray tomorrow. Exam Narrative: Patient is comfortable, NAD HEENT: eyes are clear and none icteric LUNGS: bilateral fair air entry with rhonchi ABD: not distend Lower extremities: no edema SKIN: nonjaundiced Neuro: grossly intact. Objective Data Vital Signs Vital Signs: Vital Signs - 24 hr 11/15/21 19:55 11/15/21 19:55 11/15/21 20:03 Temperature Pulse Rate 93 93 Respiratory Rate 16 Blood Pressure Pulse Oximetry 93 93 Oxygen Delivery Nasal Cannula Oxygen Flow Rate 1 11/15/21 20:03 11/15/21 21:11 11/15/21 20:00 Temperature 98.4 F Pulse Rate 84 97 90 Respiratory Rate 16 20 Blood Pressure 130/63 Pulse Oximetry 94 Oxygen Delivery Oxygen Flow Rate 11/15/21 20:00 11/16/21 00:00 11/16/21 04:00 Temperature Pulse Rate 97 88 79 Respiratory Rate 20 Blood Pressure Pulse Oximetry 94 Oxygen Delivery Room Air Oxygen Flow Rate 11/16/21 05:24 11/16/21 09:15 11/16/21 09:15 Temperature 98 F Pulse Rate 86 90 Respiratory Rate 16 20 Blood Pressure 144/78 H Pulse Oximetry 96 91 Oxygen Delivery Room Air Oxygen Flow Rate 11/16/21 09:38 11/16/21 08:00 11/16/21 10:27 Temperature Pulse Rate 84 81 Respiratory Rate 20 Blood Pressure Pulse Oximetry Oxygen Delivery Room Air Oxygen Flow Rate 11/16/21 08:40 11/16/21 12:00 11/16/21 14:45 Temperature Pulse Rate 95 94 84 Respiratory Rate 18 18 Blood Pressure Pulse Oximetry 95 Oxygen Delivery Room Air Oxygen Flow Rate 11/16/21 14:53 Temperature Pulse Rate 86 Respiratory Rate 18 Blood Pressure Pulse Oximetr
[2021-11-16 17:17] LABS: Glucose Point of Care 306 mg/dl (65-105)
[2021-11-16] MEDS: LATANOPROST 0.005% OP SOLN 2.5 ML BTL 1 DROP EACH EYE (17:26)
[2021-11-16 20:35] LABS: Glucose Point of Care 329 mg/dl (65-105)
[2021-11-16] MEDS: INSULIN GLARGINE (*BKC) 100 UNITS/ML 20 UNITS SUB-Q (20:47)
[2021-11-17] VITALS (18 sets, daily range): BP systolic 132–162; BP diastolic 68–71; PULSE 77–92; RESP 16–20; TEMP 36.5–36.9; O2SAT 92–97
[2021-11-17] MEDS: ALBUTEROL SULFATE NEB 2.5 MG/3 ML INH 5 MG INHALATION ×3 (02:02→19:56)
[2021-11-17] MEDS: IPRATROPIUM BR 0.02% INH SOLN 0.5 MG/2.5 ML VIAL INHALATION ×3 (02:02→19:56)
[2021-11-17 04:45] LABS: Hematocrit 33.8 % (37.0-47.0); Mean Corpuscular HGB Conc 32.5 g/dl (32-36); Mean Corpuscular Hemoglobin 28.3 pg (26-34); Mean Corpuscular Volume 86.9 fl (80-100); Mean Platelet Volume 10.8 fl (7.4-10.4); Platelet Count Result 220 k/mm3 (150-375); Red Blood Count 3.89 M/mm3 (4.2-5.4); Red Cell Distribution Width 13.1 % (11.5-14.5)
[2021-11-17 04:57] LABS: Anion Gap 9 mmol/L (8-16); Blood Urea Nitrogen 8 mg/dL (7-17); Calcium 8.4 mg/dL (8.4-10.2); Carbon Dioxide 27 mmol/L (22-30); Chloride 102 mmol/L (98-107); Estimated CRCL calculation 66 ml/min; Estimated Glomerular Filt Rate > 60; Glucose 258 mg/dL (65-110); Potassium 3.7 mmol/L (3.4-5.0); Sodium 138 mmol/L (137-145)
[2021-11-17 08:36] LABS: Glucose Point of Care 272 mg/dl (65-105)
[2021-11-17] MEDS: ASPIRIN 81 MG CHEWABLE TABLET PO (09:44)
[2021-11-17] MEDS: polyethylene glycoL 3350 17 GM POWD.PACK PO (09:45)
[2021-11-17] MEDS: TIMOLOL MALEATE 0.5% OP SOLN 5 ML BOTTLE 1 DROP EACH EYE ×2 (09:45→17:08)
[2021-11-17] MEDS: ATORVASTATIN 20 MG TABLET PO (09:45)
[2021-11-17] MEDS: GABAPENTIN 300 MG CAPSULE 600 MG PO ×3 (09:45→17:08)
[2021-11-17] MEDS: INSULIN ASPART (*BKC) 100 UNITS/ML SUB-Q ×3 (09:48→17:09)
[2021-11-17 12:18] LABS: Glucose Point of Care 331 mg/dl (65-105)
--- NOTE | 2021-11-17 15:04 | PM.IMPN ---
Progress Note: A&P Assessment and Plan (1) Community acquired pneumonia: Code(s): J18.9 - Pneumonia, unspecified organism Status: Acute Assessment and Plan: Continue IV antibiotics. 11/15/2021 interval history: currently patient is sitting in the chair states feeling much better compared to when she arrived denies any cough or shortness of breath, patient is found to have community-acquired pneumonia being treated with ceftriaxone and azithromycin is also concern the patient has UTI will continue ceftriaxone and follow up on blood and urine culture, will have a PT OT evaluate the patient will benefit with rehab. 11/16/2021 interval history: currently patient is sitting in the chair states feeling much better compared to when she arrived denies any cough or shortness of breath, patient is found to have community-acquired pneumonia being treated with ceftriaxone and azithromycin is also concern the patient has UTI and urine culture is growing E coli noe sensitive, will continue ceftriaxone and follow up on blood, will continue PT OT evaluate the patient will benefit with rehab. will repeat Chest x-ray tomorrow. 11/17/2021 interval history: currently patient is lying in the bed states feeling much better compared to when she arrived denies any cough or shortness of breath, patient is found to have community-acquired pneumonia being treated with ceftriaxone and azithromycin, repeat chest x-ray today showed persistent infiltrates will CPM and reassess tomorrow, there is also concern the patient has UTI and urine culture is growing E coli noe sensitive, will continue ceftriaxone and follow up on blood, will continue PT OT evaluate the patient will benefit with rehab. will repeat Chest x-ray tomorrow. (2) Acute UTI: Code(s): N39.0 - Urinary tract infection, site not specified Status: Acute Assessment and Plan: Continue IV antibiotics (3) Type 2 diabetes mellitus: Code(s): E11.9 - Type 2 diabetes mellitus without complications Status: Acute (4) GERD (gastroesophageal reflux disease): Code(s): K21.9 - Gastro-esophageal reflux disease without esophagitis Status: Acute (5) Hyperlipidemia: Code(s): E78.5 - Hyperlipidemia, unspecified Status: Acute (6) Hypertension: Code(s): I10 - Essential (primary) hypertension Status: Acute Subjective Date/time seen: 11/17/21 15:04 11/17/2021 interval history: currently patient is lying in the bed states feeling much better compared to when she arrived denies any cough or shortness of breath, patient is found to have community-acquired pneumonia being treated with ceftriaxone and azithromycin, repeat chest x-ray today showed persistent infiltrates will CPM and reassess tomorrow, there is also concern the patient has UTI and urine culture is growing E coli noe sensitive, will continue ceftriaxone and follow up on blood, will continue PT OT evaluate the patient will benefit with rehab. will repeat Chest x-ray tomorrow. Exam Narrative: Patient is comfortable, NAD HEENT: eyes are clear and none icteric LUNGS: bilateral fair air entry with rhonchi ABD: not distend Lower extremities: no edema SKIN: nonjaundiced Neuro: grossly intact. Objective Data Vital Signs Vital Signs: Vital Signs - 24 hr 11/16/21 16:00 11/16/21 21:39 11/16/21 21:45 Temperature 98.4 F Pulse Rate 95 83 86 Respiratory Rate 16 18 Blood Pressure 136/79 Pulse Oximetry 97 Oxygen Delivery 11/16/21 22:06 11/16/21 20:00 11/17/21 00:00 Temperature Pulse Rate 82 85 Respiratory Rate Blood Pressure Pulse Oximetry 92 Oxygen Delivery Room Air 11/17/21 02:02 11/17/21 02:13 11/17/21 04:58 Temperature Pulse Rate 81 83 88 Respiratory Rate 18 18 Blood Pressure Pulse Oximetry Oxygen Delivery 11/17/21 06:00 11/17/21 07:51 11/17/21 07:54 Temperature 98.4 F Pulse Rate 80 91 91
[2021-11-17 17:01] LABS: Glucose Point of Care 283 mg/dl (65-105)
[2021-11-17] MEDS: LATANOPROST 0.005% OP SOLN 2.5 ML BTL 1 DROP EACH EYE (17:08)
[2021-11-17 19:45] LABS: Glucose Point of Care 233 mg/dl (65-105)
[2021-11-17] MEDS: INSULIN GLARGINE (*BKC) 100 UNITS/ML 20 UNITS SUB-Q (20:15)
[2021-11-18] VITALS: PULSE 87
[2021-11-18 02:11] VITALS: PULSE 86; RESP 16
[2021-11-18] MEDS: IPRATROPIUM BR 0.02% INH SOLN 0.5 MG/2.5 ML VIAL INHALATION (02:11)
[2021-11-18] MEDS: ALBUTEROL SULFATE NEB 2.5 MG/3 ML INH 5 MG INHALATION (02:11)
[2021-11-18 02:22] VITALS: PULSE 87; RESP 16
[2021-11-18 04:00] VITALS: PULSE 90
[2021-11-18 05:54] LABS: Hematocrit 33.7 % (37.0-47.0); Mean Corpuscular HGB Conc 32.6 g/dl (32-36); Mean Corpuscular Hemoglobin 28.4 pg (26-34); Mean Corpuscular Volume 87.1 fl (80-100); Mean Platelet Volume 10.3 fl (7.4-10.4); Platelet Count Result 241 k/mm3 (150-375); Red Blood Count 3.87 M/mm3 (4.2-5.4); Red Cell Distribution Width 13.2 % (11.5-14.5); White Blood Count 5.4 K/mm3 (4.5-10.0)
[2021-11-18 05:57] LABS: Anion Gap 12 mmol/L (8-16); Blood Urea Nitrogen 7 mg/dL (7-17); Calcium 8.6 mg/dL (8.4-10.2); Carbon Dioxide 26 mmol/L (22-30); Chloride 100 mmol/L (98-107); Estimated CRCL calculation 57 ml/min; Estimated Glomerular Filt Rate > 60; Glucose 267 mg/dL (65-110); Potassium 3.7 mmol/L (3.4-5.0); Sodium 138 mmol/L (137-145)
[2021-11-18 06:00] VITALS: BP 140/64; PULSE 86; RESP 18; TEMP 36.7; O2SAT 95
[2021-11-18 08:16] LABS: Glucose Point of Care 269 mg/dl (65-105)
[2021-11-18] MEDS: ASPIRIN 81 MG CHEWABLE TABLET PO (08:56)
[2021-11-18] MEDS: INSULIN ASPART (*BKC) 100 UNITS/ML SUB-Q (08:57)
[2021-11-18] MEDS: GABAPENTIN 300 MG CAPSULE 600 MG PO (08:58)
[2021-11-18] MEDS: polyethylene glycoL 3350 17 GM POWD.PACK PO (08:58)
[2021-11-18] MEDS: ATORVASTATIN 20 MG TABLET PO (08:58)
[2021-11-18] MEDS: TIMOLOL MALEATE 0.5% OP SOLN 5 ML BOTTLE 1 DROP EACH EYE (08:59)
--- NOTE | 2021-11-18 11:01 | PM.DS ---
DS: Admitting Diagnosis Discharge Date 11/18/2021 Admitting Diagnosis generalized weakness DS: Discharge Diagnosis Discharge Diagnosis (1) Community acquired pneumonia: Code(s): J18.9 - Pneumonia, unspecified organism Status: Acute Assessment and Plan: Continue IV antibiotics. 11/15/2021 interval history: currently patient is sitting in the chair states feeling much better compared to when she arrived denies any cough or shortness of breath, patient is found to have community-acquired pneumonia being treated with ceftriaxone and azithromycin is also concern the patient has UTI will continue ceftriaxone and follow up on blood and urine culture, will have a PT OT evaluate the patient will benefit with rehab. 11/16/2021 interval history: currently patient is sitting in the chair states feeling much better compared to when she arrived denies any cough or shortness of breath, patient is found to have community-acquired pneumonia being treated with ceftriaxone and azithromycin is also concern the patient has UTI and urine culture is growing E coli noe sensitive, will continue ceftriaxone and follow up on blood, will continue PT OT evaluate the patient will benefit with rehab. will repeat Chest x-ray tomorrow. 11/17/2021 interval history: currently patient is lying in the bed states feeling much better compared to when she arrived denies any cough or shortness of breath, patient is found to have community-acquired pneumonia being treated with ceftriaxone and azithromycin, repeat chest x-ray today showed persistent infiltrates will CPM and reassess tomorrow, there is also concern the patient has UTI and urine culture is growing E coli noe sensitive, will continue ceftriaxone and follow up on blood, will continue PT OT evaluate the patient will benefit with rehab. will repeat Chest x-ray tomorrow. (2) Acute UTI: Code(s): N39.0 - Urinary tract infection, site not specified Status: Acute Assessment and Plan: Continue IV antibiotics (3) Type 2 diabetes mellitus: Code(s): E11.9 - Type 2 diabetes mellitus without complications Status: Acute (4) GERD (gastroesophageal reflux disease): Code(s): K21.9 - Gastro-esophageal reflux disease without esophagitis Status: Acute (5) Hyperlipidemia: Code(s): E78.5 - Hyperlipidemia, unspecified Status: Acute (6) Hypertension: Code(s): I10 - Essential (primary) hypertension Status: Acute DS: Summary Hospital Course Reason for hospitalization: Chief Complaint: anntia is 76-year-old female who presents the emergency department with chief complaint of generalized weakness.? Patient reports that for the last week she has been feeling weaker and weaker to the point today she feels as though she cannot really walk.? Patient reports she was seen for a 1 year follow-up after she had spine surgery at [place] patient reports that she has felt as though she had a fever but has not had a measured fever at home.? The patient states that she has had no nausea no vomiting reports that symptoms are not improved by anything and reports are worse When I saw the patient she was resting comfortably and had no complaints.? She denies any shortness of breath.? She said that she has been coughing up some sputum but otherwise no complaints no chest pain.? No shortness of breath Hospital Course: currently patient is lying in the bed states feeling much better compared to when she arrived denies any cough or shortness of? breath,? patient is found to have community-acquired pneumonia being treated with ceftriaxone and azithromycin, repeat chest x-ray today showed persistent infiltrates will CPM and reassess tomorrow, there? is also concern the patient has UTI? and urine culture is growing E coli noe sensitive, will continue ceftriaxone and follow up on blood,? will continue? PT OT evaluate the patient will benefit with rehab. will repeat Chest
== END 2021-11-18 13:00 | disposition home or self-care (01) | DRG 194 ==
LOC: ANHED 11-14 02:15 → ANH3MED 11-14 04:03
PROVIDERS: Admitting Provider Internal Medicine; Emergency Provider Emergency Medicine; PCP Internal Medicine; Visit Provider Family Medicine
DX: J18.9 Pneumonia, unspecified organism; N39.0 Urinary tract infection, site not specified; B96.20 Unspecified Escherichia coli [E. coli] as the cause of diseases classified elsewhere; K21.9 Gastro-esophageal reflux disease without esophagitis; E78.5 Hyperlipidemia, unspecified; I10 Essential (primary) hypertension; E11.42 Type 2 diabetes mellitus with diabetic polyneuropathy; E89.0 Postprocedural hypothyroidism; Z20.822 Contact with and (suspected) exposure to COVID-19; Z79.4 Long term (current) use of insulin; Z96.41 Presence of insulin pump (external) (internal); Z79.82 Long term (current) use of aspirin; Z79.899 Other long term (current) drug therapy
CPT/HCPCS: 36415; 51701; 71046; 80048; 80053; 81001; 82948; 83605; 84145; 85025; 85027; 87040; 87077; 87086; 87186; 93005; 94640; 96376; 97161; 97165; A9270; C9803; G0378; J0131; J0456; J0696; J1815; J2405; J7030; U0003; U0005

== ENCOUNTER 2024-02-29 13:26 | Outpatient (CLI) | payer MEDICARE, SELFPAY ==
--- NOTE | ~2024-02-29 | CT_ITS ---
EXAMINATION: CT sinus wo con DATE: 02/29/2024 14:03 INDICATION: Anterior epistaxis. TECHNIQUE: Computed tomography (CT) of the paranasal sinuses was performed without intravenous contra st. Iterative reconstruction technique was employed. The dose-length product was 317.41 mGy-cm. COMPARISON: Head CT 07/19/2020 FINDINGS: The frontal sinuses are clear. There is mild mucosal thickening in the ethmoid and maxillar y sinuses. The sphenoid sinuses are clear. There is rightward deviation of the nasal septum. The osti omeatal units are patent. There are changes of posterior fusion procedure in cervical spine. There ar e likely changes of left ocular lens replacement surgery. IMPRESSION: 1. Mild mucosal thickening in the paranasal sinuses. 2. Rightward deviation of the nasal septum. Reviewed, dictated and finalized at location A. [employer]
[2024-02-29 14:16] LABS: Basophils Absolute Auto 0.1 K/mm3 (0.0-0.1); Basophils Percent Auto 0.7 % (0.2-1.2); Eosinophils Absolute Auto 0.2 K/mm3 (0-0.3); Eosinophils Percent Auto 2.9 % (0-4.4); Hematocrit 36.5 % (37.0-47.0); Hemoglobin 11.5 g/dL (12.0-15.0); Immature Granulocyte Absolute 0.03 K/mm3 (0.00-0.031); Immature Granulocyte Percent A 0.4 % (0-0.5); Lymphocytes Absolute Auto 2.07 K/mm3 (0.9-3.2); Lymphocytes Percent Auto 26.9 % (18.3-44.2); Mean Corpuscular HGB Conc 31.5 g/dl (32-36); Mean Corpuscular Hemoglobin 28.4 pg (26-34); Mean Corpuscular Volume 90.1 fl (80-100); Mean Platelet Volume 11.3 fl (7.4-10.4); Monocytes Absolute Auto 0.6 K/mm3 (0.1-0.6); Monocytes Percent Auto 7.7 % (2.6-8.5); Neutrophils Absolute Auto 4.7 K/mm3 (1.3-6.7); Neutrophils Percent Auto 61.4 % (45.5-73.1); Platelet Count Result 218 k/mm3 (150-375); Red Blood Count 4.05 M/mm3 (4.2-5.4); Red Cell Distribution Width 12.7 % (11.5-14.5); White Blood Count 7.7 K/mm3 (4.5-10.0)
== END 2024-02-29 13:27 | disposition home or self-care (01) ==
PROVIDERS: PCP Internal Medicine; Visit Provider Nurse Practitioner Family
DX: R04.0 Epistaxis (principal); J34.2 Deviated nasal septum
CPT/HCPCS: 36415; 70486; 85025

== ENCOUNTER 2024-04-27 09:55 | Outpatient (CLI) | payer MEDICARE, SELFPAY ==
--- NOTE | 2024-04-27 | ECG_ITS ---
Test Date: 2024-04-27 10:55:46 Measurements Intervals [place] Rate: 94 P: 30 NV: 134 QRS: 24 QRSD: 79 T: 27 QT: 329 QTc: 413 Interpretive Statements SINUS RHYTHM LOW QRS VOLTAGE IN PRECORDIAL LEADS BORDERLINE ST-T WAVE ABNORMALITY- INFERIOR LEADS BASELINE ARTIFACT- I, II, III, AVR, AVL, AVF, V1-V6 BORDERLINE ECG No previous ECG available for comparison Electronically Signed On 04-27-2024 11:02:13 MARKETING EFFECTIVENESS MANAGER by Avi Jett D.O.
--- OUTSIDE RECORDS SUMMARY | 2024-04-27 10:44 | XMS_ITS | Patient Health Summary ---
Author Organization [facility] Address [address] [place] [address] Care Team Providers Care Separator Operator Name Role Phone Unavailable Primary Care Provider Unavailabl e Note from [facility],non-owned Affiliates and Associated Physician Practices is amultiple site organization consisting of ambulatory clinics and hospital sitesin [place], [place], [place] and [place]. This disclosure is being madepursuant to the Care Everywhere program and may not contain all information available regarding this patient. Last updated 17.[facility] [employer] Social History Tobacco Use Types Packs/Day Years Used Date Smoking Tobacco: Never Assessed Sex and Gender Information Value Date Recorded Sex Assigned at Not on file Gender Identity Not on file Sexual Orientation Not on file Procedures * DERMATOPATHOLOGY(Performed 12/27/2012) * GROSS + MICRO EXAM(Performed 03/31/1999) Results * PATHOLOGY TISSUE FOR DERMATOLOGY (12/27/2012 12:00 AM CDT) Result CASE: PATIENT: BRAXTON ROSE PATHOLOGIC DIAGNOSIS: Left thigh medial: VERRUCA VULGARIS, SUPERFICIAL PORTIONS OF CLINICAL DATA: SK. GROSS DESCRIPTION: Received is one formalin filled container labeled with the patient's name and designated left thigh medial. The specimen consists of a shave biopsy measuring 4x4x2 mm. Jar 0. 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 The base of the lesion is not visualized. Electronically signed out by Ewa Alston M.D., PhD. 01/01/2013 12:08:09PM [facility] Comment: Performed at: Dermatopathology Laboratory [facility] Department of Dermatology [address] [place] [address], [address] [place] [address] Phone number: [phone] Toll Free: [phone] FAX: [phone] 12/27/2012 12/28/2012 Barak Valverde LAB - PATHOLOGY/CYTO LOGY ORDERABLES [facility] [address] [place] [address], [facility] [phone] * GROSS + MICRO EXAM (03/31/1999 9:09 AM OPERATIONS AND MAINTENANCE SPECIALIST) Result CASE NUMBER [id number] Comment: ORDERING PHYSICIAN LACEY CRUZ SPECIMEN TYPE Intervertebral Disc Date 03/31/1999 Physician Paras Gross Description The specimen is received in a single formalin-filled container labeled with the patient's name and disc C5/6 . The specimen consists of multiple small to white irregularly-shaped soft tissue fragments together with several small white fragments. Together these measure approximately 1.5 x 1 x 0.4 cm in greatest dimension and are grossly consistent with intervertebral disc tissue. The specimen is submitted for decalcification in its entirety in a single cassette. AM/lmj Microscopic Exam Sections of the C5-6 material consist of proliferative fibrocartilage and fragments of bone which appear somewhat dense and sclerotic. No malignancy is seen. Diagnosis I. C5-6, laminectomy A. Intervertebral disc material and sclerotic bone. Bindery Technician bk Pathologist Dave Wilkinson M.D. [place]. 04/03/1999 1013 <1> CPT code 73949/93891 MISCELLANEOUS SAMPLES / Unknown 03/31/1999 9:09 AM OPERATIONS AND MAINTENANCE SPECIALIST 03/31/1999 9:09 AM OPERATIONS AND MAINTENANCE SPECIALIST Historical Provider LAB - PATHOLOGY/C YTOLOGY ORDERABLES
--- OUTSIDE RECORDS SUMMARY | 2024-04-27 10:44 | XMS_ITS | Referral Summary ---
Author Organization [facility] Address [address] [place] [address] Care Team Providers Care Associate Veterinarian Name Role Phone Unavailable Primary Care Provider Unavailabl e Source Comments [facility],non-owned Affiliates and Associated Physician Practices is amultiple site organization consisting of ambulatory clinics and hospital sitesin [place], [place], [place] and [place]. This disclosure is being madepursuant to the Care Everywhere program and may not contain all information available regarding this patient. Last updated 17.[facility] [employer] Social History Tobacco Use Types Packs/Day Years Used Date Smoking Tobacco: Never Assessed Sex and Gender Information Value Date Recorded Sex Assigned at Not on file Gender Identity Not on file Sexual Orientation Not on file Plan of Treatment Not on file
--- OUTSIDE RECORDS SUMMARY | 2024-04-27 10:44 | XMS_ITS | Data Portability ---
Author Organization [facility], Main Office Address [address] [place] [address] Care Team Providers Care Press Manager Name Role Phone MIGUEL VALLE Primary Care Provider MIGUEL VALLE Referring Provider DARIEL BARNETT Primary Care Provider [phone] Assessment No assessment recorded. Plan of Treatment Reminders Order Date Submit Date Provider Last Modified By Organization Details Last Modified Time Details Appointments Procedure 15 2024 10:00A M Kalen Fairbanks MD Not available Not available Not available Post-Op 15 2024 11:30A M KAREN Rodriguez Not available Not available Not available Establish ed Patient 15 2024 02:30P M Weston Buchanan DPM Not available Not available Not available Establish ed Patient 15 2024 01:30P M Dariel Barnett MD Not available Not available Not available Lab CBC w/ auto diff [address] [facility] (Lab), [address] [place], [address], 02/29/2024 17:57:29 glycohemo globin, total, blood [address] (Lab), [address] [place], [address], 03/06/2024 08:14:43 CMP, serum or plasma [address] (Lab), [address] [place], [address], 03/06/2024 08:14:44 Referral None recorded. Procedures nasal cautery (PROC) 2023 024 Not available 02/23/2024 10:59:36 Surgeries septoplas ty (SURG) 2024 025 Not available 04/23/2024 16:07:58 endoscopy , nasal/sin us, w/ maxillary antrostom y & tissue removal (SURG) 2024 025 Not available 04/23/2024 16:07:58 endoscopy , nasal/sin us, w/ total ethmoidec jose (SURG) 2024 025 Not available 04/23/2024 16:07:58 Imaging None recorded. Medication Orders cefdinir 300 mg capsule 2023 [email or web address] [id number], [address] , [place], [address], 03/29/2024 12:24:41 Medrol (Jaydon) 4 mg tablets in a dose pack 2023 024 [id number], [address] , [place], [address], 03/29/2024 12:24:49 Patient TargetsNo targets recorded. Patient Instructions Encounter Date Encounter Id Patient Instructions Last Modified By Organization Details Last Modified Time 02/13/2024 [id number] advised against blowing nose for one-week. Follow-up with PCP to discuss restarting ASA or other alternative. May use saline nasal spray as needed. Not available 02/13/2024 10:54:33 02/22/2024 [id number] she will have a sinus CT and a CBC completed. Discussed the cautery to the same location of the nasal passage as previous visit. Advised continued use of humidifier and Afrin nasal spray as needed. Advised use of saline nasal spray for added moisture throughout the nasal passages. We will follow-up when results become available. [email or web address] Not available 02/22/2024 11:55:08 02/28/2024 [id number] dementia rating scale-2* Not available 02/28/2024 17:37:28 depression screening* Not available 02/28/2024 17:37:28 alcohol misuse* Not available 02/28/2024 17:37:28 multi-dimensiona l health assessment questionnaire* Not available 02/28/2024 17:37:28 advance directiv es: care instructions Not available 02/28/2024 17:37:28 advance care planning: care instructions Not available 02/28/2024 17:37:28 [place] Advance Directives Not available 02/28/2024 17:37:28 Personalized [facility] lt Plan and Screening Recommendations Advance Directives - Do you have one? No You have indicated that you are capable of preparing your advance care directive Advance Directives - Do we have your advance directive on file in your health record? No, please bring in a copy at your earliest convenience Primary Prevention/Interven tion (prevents or decreases the chance of common diseases from occurring) Smoking Risk: Non Smoker Alcohol Misuse Screening: Negative Weight: Appropriate Overwei ght Physical activity: Need more exercise/physical activity decrease sitting time to no more than 5hr/day Nutrition: Good Average Fall Risk (screened today): Low Intermediate Vaccines Pneumococcal: Ordered Recommended today Recommended today, but you have declined No further needed Influenza: Chronic Disease Risks Stroke: Low Risk Intermediate Risk I have no recommendations Act martin diagnosis, Continue current treatment plan Heart Attack: Low risk Intermediate Risk I have no recommendations Act martin diagnosis, Continue current treatment plan Clogging of the Arteries: Low risk Intermediate Risk I have no recommendations Act martin diagnosis, Continue current treatment plan Diabetes: Low Risk Intermediate Risk Active diagnosis, Continue current treatment plan Secondary Prevention/Interven tion (detects treatable diseases before they may cause symptoms, disability, or ) Breast Cancer Screening with mammogram: No screening necessary Cervical/Uterine/Ov monica Cancer Screening: No screening necessary Osteoporosis Screening: No screening necessary Date Screening Last Performed: Colon Cancer Screening: Colonoscopy Fecal Occult Blood Cologuard (DNA stool test) Date Screening Last Performed: 2023 Eye Disease Screening: No Eye exam necessary Dementia Risk: Low I have no recommendations Depression Screening: Negative [email or web address] Not available 02/28/2024 17:04:19 03/12/2024 [id number] we will 1st try antibiotics and steroids before making a decision about septoplasty and balloon surgery [email or web address] Not available 03/12/2024 12:48:05 Reason for Referral None Reported. Results Created Date Observation Date Name Description Value Unit Range Abnormal Flag Note LastModifiedBy Organization Detail LastModifiedTime 03/01/20 24 02/29/2024 CT, sinus es, w/o contr ast No observ ation record ed. [place] [id number] [facility] [address], [place], [address], 03/02/2024 09:44:49 03/05/2002/29/2024 CT, sinus es, w/o contr ast No observ ation record ed. [facility] Not Available 2023 09:03:07 03/05/20 24 03/05/2024 CT, sinus es, w/o contr ast No observ ation record ed. [facility] Not Available 2023 16:58:24 04/09/1902/29/2024 CT, sinus es, w/o contr ast No observ ation record ed. [address], [place], [address], 04/10/2024 08:21:26 Result Notes None recorded. Problems Name Problem SNOMED Code Status Onset Date Resolution Date Notes Provider Name and Address Organization Details Recorded Time Renewal of prescript ion Completed 202102/15/2024 RYLAN Ritchie, [place] [facility] 4 14:47:51 Respirato ry finding 508487438 Completed Not Available [facility] 3 02:39:35 Impacted cerumen in right ear 00209078660 33246 Active 2021 Not Available [facility] 3 22:24:29 Abdominal bloating 994326022 Completed Not Available [facility] 3 02:39:35 Achilles tendiniti s 62493364 Active 2019 Not Available [facility] 3 22:24:29 Benign essential hypertens ion 7958952 Active Not Available [facility] 3 22:24:29 Hyperchol esterolem ia 98674564 Active 2017 Not Available [facility] 3 22:24:30 Backache 780736786 Active 2017 Not Available [facility] 3 22:24:30 Abdominal pain 03202199 Completed Not Available [facility] 3 02:39:36 Pain 27066315 Completed 02/15/2024 Kym daniels, RMA null, [place] [facility] 4 14:48:02 Neuropath y due to diabetes mellitus 348908926 Active Kym daniels, RMA null, [place] [facility] [place] [facility] 4 14:48:03 Anterior epistaxis 317320709 Active 2021 Not Available [facility] 3 22:24:30 Pneumonia 998314169 Completed 202102/15/2024 Kym daniels, RMA null, [place] [facility] 4 14:47:56 Gastroeso phageal reflux disease 122842886 Active Not Available [facility] 3 22:24:30 Low back pain 247330632 Completed 02/15/2024 Kym daniels RMA null, [place] [facility] 4 14:48:20 Unable to cut own toenails 297236607 Completed 201902/15/2024 Kym daniels, RMA null, [place] [facility] 4 14:47:41 Type 2 diabetes mellitus without complicat ion 618756522 Completed 02/15/2024 Kym daniels, RMA null, [place] [facility] 4 14:47:48 Pain in left foot 63179035987 9107 Completed 202002/15/2024 Kym daniels RMA null[place] [facility] 4 14:47:59 Dyslipide erma 934287324 Active Not Available [facility] 3 22:24:30 Lymphedem a of lower extremity 023679628 Active 2018 Kym daniels RMA null, [facility] 4 14:48:12 Hypothyro idism 18500922 Active 2021 Not Available [facility] 3 22:24:30 Blister 285037773 Active 2020 Not Available [facility] 3 22:24:30 Diabetic periphera l neuropath y 629934227 Active 2017 TIAN RitchieA null, [facility] 3 16:04:53 Type 2 diabetes mellitus 42871007 Active 2016 TIAN RitchieA null, [facility] 4 14:47:44 Uncontrol led type 2 diabetes mellitus 082880260 Active 2021 Not Available [facility] 3 22:24:30 Blister of foot 290585174 Active 2020 Not Available [facility] 3 22:24:30 Herpes zoster 4779711 Completed Not Available [facility] 3 02:39:37 Joint pain 77967269 Active Not Available [facility] 3 22:24:30 Tinea pedis 3516290 Active 2021 Not Available [facility] 3 22:24:30 Diabetes mellitus 47534710 Active 2017 Kym daniels RMA null, [facility] 3 16:04:50 Neck pain 06286611 Active Kym daniels RMA null, [facility] 4 14:48:08 Dystrophi a unguium 51799292 Active 2017 Not Available [facility] 3 22:24:30 Acute renal insuffici ency 086276109 Active 2022 Not Available [facility] 3 22:24:30 Dysuria 14356100 Active 2022 Not Available [facility] 3 22:24:30 Acute renal insuffici ency 522651953 Active 2022 Not Available [facility] 3 22:24:30 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 4 14:48:22 Weight gain 6850981 Active 2022 Not Available [facility] 3 22:24:30 Hydroneph rosis 61459505 Active 2022 Not Available [facility] 3 22:24:30 Acute urinary tract infection 843539666 Completed 202212/23/2022 Kym daniels RMA null, [place] [facility] [place] [facility] 3 16:04:59 Kidney stone 34723393 Active 2022 Kym daniels RMA null, [place] [facility] [place] [facility] 4 14:48:24 Insomnia 861483508 Active 2022 Not Available [facility] 3 22:24:30 Vitamin B12 deficienc y (non anemic) 54540028 Active 2022 Not Available [facility] 3 22:24:30 Essential hypertens ion 53296969 Active 2022 Dariel Barnett MD [address], [address], [place], [address] , [facility] 3 16:38:29 Hyperlipi demia 21403888 Active 2022 Dariel Barnett MD [address], [address], [place], [address] , [facility] 3 16:38:45 Chronic back pain 794080509 Active 2022 Dariel Barnett MD [address], [address], [place], [address] , [place] [facility] 3 17:12:16 Kidney disease 61766889 Active 2022 Kym daniels RMA null, [place] [facility] 4 14:48:29 Contact dermatiti s caused by urushiol from [facility] bambi 914652864 Active 2023 Dariel Barnett MD [address], [address], [place], [address] , [place] [facility] 4 15:04:40 Pruritic rash 45215876 Completed 202302/15/2024 Kym daniels RMA null, [place] [facility] 4 14:47:54 Impacted cerumen of bilateral ears 33277186081 86156 Active 2023 Dariel Barnett MD [address], [address], [place], [address] , [place] [facility] 4 14:27:15 Chronic sinusitis 26740530 Active 2023 Kalen Fairbanks MD [address], [address], [place], [address] , [place] [facility] 4 12:46:50 Deviated nasal septum 814068905 Active 2023 Kalen Fairbanks MD [address], [address], [place], [address] , [place] [facility] 4 12:47:01 Chronic maxillary sinusitis 04575454 Active 2024 Kalen Fairbanks MD [address], [address], [place], [address] , [place] [facility] 5 12:25:30 Chronic ethmoidal sinusitis 40964230 Active 2024 Kalne Fairbanks MD [address], [address], [place], [address] , [employer] 12:25:39 Notes:07-14-2017 states had e ye exam 2017 Problem Notes None recorded. Procedures Surgical History Date Name Laterality Status Provider Name and Address Organization Details Recorded Time 02/28/20 Medicare Wellness CPT Code, subsequent completed Malou Carpio RN [facility] [employer] [facility] 02/28/2024 16:24:51 02/28/20 24 Advanced Care Planning completed Malou Carpio RN [facility] 02/28/2024 16:54:20 01/31/20 24 Nail Debridement completed Weston Buchanan DPM [address], [place], [address], [employer] [facility] [employer] 02/01/2024 17:30:10 11/03/19 24 Nail Debridement completed Weston Buchanan DPM [address], [address], [place], [address], [employer] [facility] 11/04/2023 08:57:38 08/04/19 24 Nail Debridement completed Weston Buchanan DPM [address], [address], [place], [address], [employer] [facility] 08/04/2023 14:49:50 04/28/19 24 Nail Debridement completed Weston Buchanan DPM [address], [place], [address], [facility] [employer] [facility] 05/12/2023 10:27:46 01/25/20 23 Medicare Wellness CPT Code, subsequent completed Jillian Mart RN [place] [employer] [facility] 01/24/2023 15:54:51 11/10/19 23 Nail Debridement completed Weston Buchanan DPM [address], [place], [address], [facility] [employer] [facility] [employer] 11/17/2022 09:14:26 08/06/19 23 Nail Debridement completed Weston Buchanan DPM [address], [place], [address], [employer] [place] [employer] [facility] [employer] 08/10/2022 09:51:26 08/04/19 23 Cystoscopy with Stent Removal - Dictation completed Quique Gallegos MD [address] [facility] [facility] [address], [place], [address], [facility] [place] [facility] 08/03/2022 16:05:22 01/03/20 21 Most Recent Bone Density completed Not Available [facility] 05/19/2022 02:34:20 08/07/19 21 Back Surgery completed Not Available [facility] 023 02:34:23 08/07/19 21 operative procedure on spinal structure completed Not Available [facility] 05/19/2022 02:34:23 07/11/19 21 Date of Last Colonoscopy completed Not Available [facility] 05/19/2022 02:34:20 10/31/19 13 Colonoscopy completed Not Available [facility] 05/20/19 02:34:23 Hysterectomy completed Not Available [facility] 05/19/2022 02:34:23 Cataract Surgery completed Not Available [facility] 05/19/2022 02:34:23 Eye Surgery completed Not Available [facility] 05/19/2022 02:34:23 Neck completed Not Available [facility] 03/2022 02:34:23 Appendectomy completed Not Available [facility] 05/19/2022 02:34:23 salpingo-oophorec jose completed Not Available [facility] 05/19/2022 02:34:23 thyroidectomy completed Not Available [facility] 05/19/2022 02:34:23 Shoulder completed Not Available [facility] 02:34:23 Genitourinary Surgery completed Not Available [facility] 05/19/2022 02:34:23 Imaging Results Imaging Date Name Status LastModified by Organiz ation Details LastModified Time 02/29/2024 CT, sinuses, w/o contrast completed [address], [place], [address], 03/02/2024 09:44:49 02/29/2024 CT, sinuses, w/o contrast completed [facility] Information not available 03/05/2024 09:03:07 03/05/2024 CT, sinuses, w/o contrast completed [facility] Information not available 03/05/2024 16:58:24 02/29/2024 CT, sinuses, w/o contrast completed [address] [facility] [address], [place], [address], 04/10/2024 08:21:26 Procedure Notes None recorded. Medical Equipment None Reported. Allergies Allergen ID Allergen Name Allergen Category Reaction Reaction Severity Criticality Documentation Date Start Date Code Code System Note Provider Name and Address Organization Details Recorded Time 3556 codeine medicatio n Not available Not available Not available 05/19/2022 2670 RxNorm Not Available [facility] 3 02:46:25 3557 Substance with sulfonami de structure and antibacte rial mechanism of action (substanc e) medicatio n Not available Not available Not available 05/19/2022 93198 8003 SNOMED Not Available [facility] 3 02:46:25 3558 Levaquin medicatio n Not available Not available Not available 05/19/2022 50233 2 RxNorm Not Available [facility] 3 02:46:25 Medications Name Sig Start Date Stop Date Status Note LastModified by Organization Details LastModified Time insulin syringe/u -100/1ml/ 31g x 5/1 6 31g x 5/16 1 ml misc 02/27 completed Not Available Not Available Not Available losartan 50 mg tablet TAKE 1 TABLET BY MOUTH EVERY DAY 01/05 completed Not Available Not Available Not Available celecoxib 200 mg capsule 09/01 completed stopped in hosp Not Available Not Available Not Available cyclobenz aprine 10 mg tablet active Not Available Not Available No t Available amoxicill in 500 mg capsule Take 1 capsule 3 times a day by oral route for 7 days. active Not Available Not Available No t Available latanopro st 0.005 % eye drops INSTILL 1 DROP INTO BOTH EYES EVERY EVENING active Not Available Not Available No t Available atorvasta tin 40 mg tablet TAKE 1 TABLET BY MOUTH EVERY DAY 06/07 completed Not Available Not Available Not Available metformin 500 mg tablet TAKE 2 TABLETS BY MOUTH TWICE DAILY WITH MEALS 09/29 completed stopped in hosp Not Available Not Available Not Available neomycin- polymyxin -hydrocor t 3.5 mg/mL-10, 000 unit/mL-1 % ear solution INSTILL 3 DROPS TO RIGHT EAR FOUR TIMES DAILY FOR 10 DAYS 06/05 completed Not Available Not Available Not Available prednison e 10 mg tablet Take by oral route. 01/22 completed Not Available Not Available Not Available doxycycli ne hyclate 100 mg capsule TAKE 1 CAPSULE BY MOUTH TWICE DAILY. 5 DAYS 12/10 completed Not Available Not Available Not Available atorvasta tin 20 mg tablet TAKE 1 TABLET BY MOUTH EVERY DAY AT BEDTIME 2024 active LUIS 09/01/23 NOV 11/24/23 ok to rf Not Available Not Available Not Available sulfasala zine 500 mg tablet TAKE 2 TABLETS BY MOUTH TWICE DAILY 07/04 completed dupl Not Available Not Available Not Available atorvasta tin 10 mg tablet Take 1 tablet every day by oral route. 10/09 completed Not Available Not Available Not Available azithromy jaycob 250 mg tablet take two pills the first day then one a day until gone 08/26 completed Not Available Not Available Not Available tizanidin e 4 mg tablet Take 1 tablet every day by oral route at bedtime. active Not Available Not Available No t Available hydrocodo ne 5 mg-acetam inophen 325 mg tablet TK 1 T PO Q 6 H PRN P CONTROL active Not Available Not Available No t Available glipizide ER 10 mg tablet, extended release 24 hr TAKE 1 TABLET BY MOUTH EVERY DAY active Not Available Not Available No t Available meloxicam 15 mg tablet TAKE 1 TABLET BY MOUTH EVERY DAY WITH FOOD active Not Available Not Available No t Available glipizide 10 mg tablet Take 1 tablet every day by oral route. 03/29 completed Not Available Not Available Not Available prednison e 20 mg tablet Take 2 tablets every day by oral route for 5 days. active Not Available Not Available No t Available prednison e 5 mg tablet TAKE 1-2 TABLETS BY MOUTH EVERY DAY. USE THE SMALLEST DOSE NEEDED 09/01 completed stopped in hosp Not Available Not Available Not Available sulfasala zine 500 mg tablet,de layed release TAKE 2 TABLETS BY MOUTH TWICE DAILY 09/01 completed stopped in hosp Not Available Not Available Not Available Debrox 6.5 % ear drops INSTILL 10 DROPS INTO RIGHT EAR ONCE DAILY FOR 3 DAYS 12/23 completed Not Available Not Available Not Available Lantus U-100 Insulin 100 unit/mL subcutane ous solution INJECT 40 UNITS UNDER THE SKIN DAILY 09/29 completed stopped in hosp Not Available Not Available Not Available valsartan 80 mg tablet Take 1 tablet every day by oral route. 03/29 completed Not Available Not Available Not Available metronida zole 500 mg tablet TK 1 T PO BID FOR 10 DAYS active Not Available Not Available No t Available insulin syringe U-100 with needle 1 mL 29 gauge x 7/16 USE TO INJECT INSULIN EVERY DAY DIRECTED 02/27 completed Not Available Not Available Not Available allopurin ol 100 mg tablet Take 1 tablet every day by oral route. 10/24 completed Not Available Not Available Not Available ciproflox acin 500 mg tablet TAKE 1 TABLET BY MOUTH EVERY 12 HOURS FOR 7 DAYS 08/03 completed Not Available Not Available Not Available sulfameth oxazole 800 mg-trimet hoprim 160 mg tablet 07/06 completed Not Available Not Available Not Available tramadol 50 mg tablet TAKE 1-2 TABLETS WITH OVER THE COUNTER TYLENOL BY MOUTH THREE TIMES DAILY FOR PAIN 09/01 completed stopped in hosp Not Available Not Available Not Available triamcino lone acetonide 0.1 % topical cream APPLY THIN LAYER TOPICALL Y TO THE AFFECTED AREA TWICE DAILY active Not Available Not Available No t Available acyclovir 800 mg tablet Take 1 tablet 5 times a day by oral route for 10 days. 01/22 completed Not Available Not Available Not Available glimepiri de 2 mg tablet Take 2 tablets twice a day by oral route before meals for 30 days. 10/24 completed Not Available Not Available Not Available metoclopr amide 5 mg tablet Take 1 tablet 3 times a day by oral route before meals. 07/21 completed Not Available Not Available Not Available methotrex ate sodium 2.5 mg tablet TAKE 5 PILLS BY MOUTH EVERY MORNING AND EVERY EVENING ONCE WEEKLY 09/01 completed stopped in hosp Not Available Not Available Not Available dexametha sone 1 mg tablet TAKE 1 TABLET BY MOUTH AT 10 PM NIGHT BEFORE 8 AM CORTISOL 08/11 completed Not Available Not Available Not Available pantopraz ole 40 mg tablet,de layed release TAKE 1 TABLET BY MOUTH EVERY DAY 09/01 completed Not Available Not Available Not Available cyanocoba clifford (vit B-12) 1,000 mcg/mL injection solution ADMINIST ER 1 ML UNDER THE SKIN EVERY month 06/05 completed Not Available Not Available Not Available lidocaine 5 % topical patch APPLY 3 PATCHES TOPICALL Y TO THE SKIN DAILY 10/30 completed Not Available Not Available Not Available losartan 25 mg tablet Take 1 tablet every day by oral route. active Not Available Not Available No t Available gabapenti n 300 mg capsule TAKE 2 CAPSULES BY MOUTH THREE TIMES DAILY BEFORE MEALS 06/22 completed Not Available Not Available Not Available omeprazol e 20 mg capsule,d elayed release Take 1 capsule every day by oral route. active Not Available Not Available No t Available diclofena c sodium 75 mg tablet,de layed release active Not Available Not Available Not Available folic acid 1 mg tablet 09/01 completed stopped in hosp Not Available Not Available Not Available etodolac 400 mg tablet Take 1 tablet every day by oral route for 30 days. active Not Available Not Available No t Available hydroxyzi ne HCl 25 mg tablet TAKE 1 TABLET BY MOUTH TWICE DAILY active Not Available Not Available No t Available furosemid e 20 mg tablet TAKE 1 TABLET BY MOUTH EVERY DAY NEEDED active Not Available Not Available No t Available Novolog U-100 Insulin aspart 100 unit/mL subcutane ous solution inject up to 50 units of insulin daily per pump instruct ions 08/18 completed Not Available Not Available Not Available insulin lispro (U-100) 100 unit/mL subcutane ous solution ADMINIST ER UP TO 70 UNITS VIA INSULIN PUMP DAILY 09/01 completed stopped in hosp Not Available Not Available Not Available hydroxych loroquine 200 mg tablet 09/01 completed stopped in hosp Not Available Not Available Not Available cefuroxim e axetil 500 mg tablet Take 1 tablet every 12 hours by oral route for 7 days. 04/29 completed Not Available Not Available Not Available methylpre dnisolone 4 mg tablets in a dose pack Take 1 package by oral route as directed . 03/29 completed Not Available Not Available Not Available albuterol sulfate HFA 90 mcg/actua tion aerosol inhaler 04/21 completed Not Available Not Available Not Available timolol maleate 0.5 % eye drops INSTILL 1 DROP IN BOTH EYES TWICE DAILY active Not Available Not Available No t Available cefdinir 300 mg capsule Take 1 capsule every 12 hours by oral route. 03/29 completed Not Available Not Available Not Available Timolol Maleate (Ophth) 0.5 % eye solution 06/06 completed dupl Not Available Not Available Not Available metformin ER 500 mg tablet,ex tended release 24 hr TAKE 1 TABLET BY MOUTH TWICE A DAY active Not Available Not Available No t Available lisinopri l 2.5 mg tablet Take 1 tablet every day by oral route. 10/24 completed Not Available Not Available Not Available doxycycli ne hyclate 100 mg tablet TAKE 1 TABLET BY MOUTH TWICE DAILY FOR 10 DAYS 05/06 completed Not Available Not Available Not Available mometason e 0.1 % topical cream APPLY THIN LAYER TOPICALL Y TO THE AFFECTED AREA EVERY DAY active Not Available Not Available No t Available amoxicill in 875 mg-potass ium clavulana te 125 mg tablet TAKE 1 TABLET BY MOUTH EVERY 12 HOURS FOR 7 DAYS 08/26 completed Not Available Not Available Not Available tobramyci n 0.3 %-dexamet hasone 0.1 % eye drops,ofe pension 07/21 completed Not Available Not Available Not Available neomycin- polymyxin -hydrocor t 3.5 mg-10,000 unit/mL-1 % ear drops,ofe p SHAKE LIQUID AND INSTILL 1 DROP IN BOTH EARS EVERY 3 HOURS WHILE AWAKE 12/23 completed Not Available Not Available Not Available insulin lispro (U-100) 100 unit/mL subcutane ous pen INJECT 4-10 UNITS UNDER THE SKIN THREE TIMES DAILY BEFORE MEALS MAXIMUM DAILY DOSE IS 60 UNITS (SLIDING SCALE) active Not Available Not Available No t Available Novolog FlexPen U-100 Insulin aspart 100 unit/mL (3 mL) subcutane ous 04/24 completed Not Available Not Available Not Available nitrofura ntoin monohydra te/macroc rystals 100 mg capsule TK 1 C PO BID FOR 7 DAYS 03/23 completed Not Available Not Available Not Available duloxetin e 30 mg capsule,d elayed release TAKE 1 CAPSULE BY MOUTH EVERY DAY 09/01 completed stopped in hosp Not Available Not Available Not Available BD Ultra-Fin e Mini Pen Needle 31 gauge x 3/16 USE DIRECTED . INJECT INSULIN UP TO FOUR TIMES DAILY 02/27 completed Not Available Not Available Not Available Matthew 5 mcg/dose (250 mcg/mL)1. 2 mL subcutane ous pen injector inject .02ml twice a day by subcutan eous route. 07/14 completed Not Available Not Available Not Available pregabali n 75 mg capsule Take 1 capsule 3 times a day by oral route for 30 days. active Not Available Not Available No t Available ramelteon 8 mg tablet TAKE 1 TABLET BY MOUTH EVERY DAY AT BEDTIME 07/20 completed Not Available Not Available Not Available aspirin 81 mg daily 2019 active Not Available Not Available Not Avai lable garlic 2020 active Not Available Not Available Not Avai lable Nitro 10/24 completed Not Available Not Available Not Available Matthew 01/22 completed Not Available Not Available Not Available BD Ultra-Fin e Short Pen Needle 31 gauge x 5/16 INJECT INSULIN UP TO 4 TIMES DAILY active Not Available Not Available No t Available Lantus Solostar U-100 Insulin 100 unit/mL (3 mL) subcutane ous pen inject 25 units at bedtime 04/27 completed UP TO 30 UNITS Not Available Not Available Not Available Lantus Solostar U-100 Insulin 07/10 completed Not Available Not Available Not Available Novofine 32 32 gauge x 1/4 needle 07/21 completed Not Available Not Available Not Available Omnipod Classic Pods (Gen 3) subcutane ous cartridge change pod every 2 days for insulin pump therapy 09/01 completed stopped in hosp Not Available Not Available Not Available Omnipod Classic Pods (Gen 3) 10/09 completed Not Available Not Available Not Available Prevnar 13 (PF) 0.5 mL intramusc ular syringe 02/18 completed Not Available Not Available Not Available Xifaxan 550 mg tablet Take 1 tablet twice a day by oral route as directed for 10 days. 09/01 completed stopped in hosp Not Available Not Available Not Available Laverne Allergy OTC 07/02 completed Not Available Not Available Not Available Caltrate 600 plus D 07/02 completed Not Available Not Available Not Available Bydureon 2 mg subcutane ous extended release suspensio n 04/29 completed Not Available Not Available Not Available Contour Next Test Strips TEST FOUR TIMES DAILY DIRECTED FOR 30 DAYS active Not Available Not Available No t Available Accu-Chek Ana Plus Meter 09/07 completed Not Available Not Available Not Available TRUEplus Insulin 1 mL 31 gauge x 5/16 syringe INJECT DIRECTED THREE TIMES DAILY BEFORE MEALS AND DIRECTED active Not Available Not Available No t Available Linzess 290 mcg capsule Take 1 capsule every day by oral route. 10/24 completed Not Available Not Available Not Available Invokana 100 mg tablet Take 1 tablet every day by oral route. 07/10 completed Not Available Not Available Not Available Stimulant Laxative Plus 8.6 mg-50 mg tablet TAKE 2 TABLETS BY MOUTH AT BEDTIME 09/01 completed Not Available Not Available Not Available Virtussin AC 10 mg-100 mg/5 mL oral liquid Take 10 mL every 4 hours by oral route with meals for 15 days. 04/28 completed Not Available Not Available Not Available Farxiga 10 mg tablet Take 1 tablet every day by oral route. active Not Available Not Available No t Available Farxiga 5 mg tablet TAKE 1 TABLET BY MOUTH DAILY 02/12 completed Not Available Not Available Not Available potassium chloride ER 20 mEq tablet,ex tended release TAKE 1 TABLET BY MOUTH ONCE A DAY 09/01 completed Not Available Not Available Not Available Caltrate 12/02 completed Not Available Not Available Not Available Accu-Chek Compact Plus Test Strips test twice daily 09/07 completed Not Available Not Available Not Available Bydureon 2 mg/0.65 mL subcutane ous pen injector 05/05 completed Not Available Not Available Not Available Jardiance 10 mg tablet TAKE 1 TABLET BY MOUTH EVERY DAY 04/28 completed Not Available Not Available Not Available aspirin 80 mg tablet,de layed release Take by oral route. 07/02 completed Not Available Not Available Not Available Virtussin DAC 30 mg-10 mg-100 mg/5 mL oral syrup Take 5 mL every 6 hours by oral route as needed. active Not Available Not Available No t Available Fluzone High-Dose (PF) 180 mcg/0.5 mL intramusc ular syringe active Not Available Not Available Not Available Tresiba FlexTouch U-200 insulin 200 unit/mL (3 mL) subcutane ous pen INJECT 40 UNITS UNDER THE SKIN AT BEDTIME 2024 active LUIS 02/28/24 NOV 06/07/24 ok to rf Not Available Not Available Not Available Fluzone High-Dose 9987-9157 (PF) 180 mcg/0.5 mL intramusc ular syringe 02/18 completed Not Available Not Available Not Available Fluzone High-Dose (PF) 180 mcg/0.5 mL intramusc ular syringe 07/06 completed Not Available Not Available Not Available Shingrix (PF) 50 mcg/0.5 mL intramusc ular suspensio n, kit ADM 0.5ML IM UTD active Not Available Not Available No t Available Ozempic 0.25 mg or 0.5 mg (2 mg/1.5 mL) subcutane ous pen injector Inject 0.5 mg every week by subcutan eous route with meals for 30 days. 07/29 completed Not Available Not Available Not Available Dexcom G6 Sensor device use as directed for continuo us glucose monitori seth e every 10 days active Not Available Not Available No t Available Fluad 65yr up(PF)45 mcg(15 mcgx3)/0. 5 mL intramusc ular syringe 01/25 completed Not Available Not Available Not Available Omnipod Dash Pods (Gen 4) subcutane ous cartridge USE UTD. CHANGE POD Q 2-3 DAYS active Not Available Not Available No t Available Omnipod Dash Pods (Gen 4) Humalog 200units in pod 07/02 completed Not Available Not Available Not Available BD Kristal 2nd Gen Pen Needle 32 gauge x 5/32 INJECT INSULIN UP TO FOUR TIMES DAILY active Not Available Not Available No t Available Fluzone High-Dose (PF) 180 mcg/0.5 mL intramusc ular syringe active Not Available Not Available Not Available Gvoke HypoPen 2-Pack 1 mg/0.2 mL subcutane ous auto-inje ctor INJECT 1 MG UNDER THE SKIN NEEDED 06/05 completed Not Available Not Available Not Available Fluad Quad 1078-8886 (65yr up)(PF) 60 mcg (15 mcg x 4)/0.5mL IM syringe active Not Available Not Available Not Available Ozempic 1 mg/dose (4 mg/3 mL) subcutane ous pen injector INJECT 1 MG UNDER THE SKIN ONE TIME PER WEEK active Not Available Not Available No t Available Ozempic 0.25 mg or 0.5 mg (2 mg/3 mL) subcutane ous pen injector INJECT 0.5MG UNDER THE SKIN EVERY WEEK 02/12 completed Not Available Not Available Not Available Vitals Date Recorded Body height Body mass index (BMI) Body weight Body temperature Provider Name and Address Organization Details Last Updated DateTime 02/13/2024 157.48 cm 29.8 kg/m2 23552.56 g 98 [degF] Katelyn Gonzales RN [facility] [employer] [facility] 02/13/2024 10:10:42 Date Recorded Body height Body mass index (BMI) Body weight Body temperature Provider Name and Address Organization Details Last Updated DateTime 02/22/2024 157.48 cm 30.4 kg/m2 19846.05 g 98.1 [degF] Katelyn Gonzales RN [facility] [employer] [facility] 02/22/2024 11:30:51 Date Recorded Body height Body mass index (BMI) Body weight Heart rate Oxygen saturation Oxygen saturation in Arterial blood by Pulse oximetry Systolic blood pressure Diastolic blood pressure Provider Name and Address Organization Details Last Updated DateTime 157.48 cm 30.5 kg/m2 00354.9 3 g 92 /min 98 % 98 % 124 mm[Hg] 70 mm[Hg] RYLAN Min [facility] [employer] [facility] 15:16:56 Date Recorded Pain severity - 0-10 verbal numeric rating [Score] - Reported Provider Name and Address Organization Details Last Updated DateTime 02/28/2024 Agus Carpio RN [facility] [employer] [facility] 02/28/2024 16:51:06 Date Recorded Body height Body mass index (BMI) Body weight Body temperature Provider Name and Address Organization Details Last Updated DateTime 03/12/2024 157.48 cm 30.2 kg/m2 54450.74 g 98 [degF] Katelyn Gonzales RN [facility] [employer] 03/12/2024 12:25:33 Date Recorded Body height Body mass index (BMI) Body weight Body temperature Provider Name and Address Organization Details Last Updated DateTime 03/29/2024 157.48 cm 30.3 kg/m2 82593.61 g 97.7 [degF] Katelyn Gonzales RN [facility] [employer] 03/29/2024 12:07:26 Social History Question Answer Notes LastModified by Organization Details LastModified Time Tobacco Smoking Status Former [facility]oker quit 1991 Not Available [facility] 05/19/2022 02:31:08 Do You Have An Advance Directive? Yes [id number] Information not available 05/19/2022 What Is Your Level Of Alcohol Consumption? Occasional [email or web address] Information not available 01/24/2023 Are You Blind Or Do You Have Difficulty Seeing? No Wears Glasses MIGRATION.0301 [id number] Information not available 05/19/2022 What Is Your Level Of Caffeine Consumption? Moderate MIGRATION.0301 [id number] Information not available 05/19/2022 How Much Tobacco Do You Chew? None MIGRATION.0301 [id number] Information not available 05/19/2022 What Is Your Code Status? Full Code MIGRATION.0301 [id number] Information not available 05/19/2022 In The 14 Days Before Symptom Onset, Have You Had Close Contact With A Laboratory-confi rmed COVID-19 While That Case Was Ill? No MIGRATION.0301 [id number] Information not available 05/19/2022 In The 14 Days Before Symptom Onset, Have You Had Close Contact With A Person Who Is Under Investigation For COVID-19 While That Person Was Ill? No MIGRATION.0301 [id number] Information not available 05/19/2022 Are You Currently Employed? No [email or web address] Information not available 02/28/2024 Are You Deaf Or Do You Have Serious Difficulty Hearing? No MIGRATION.0301 [id number] Information not available 05/19/2022 What Type Of Diet Are You Following? DIABETIC Low Carb MIGRATION.0301 [id number] Information not available 05/19/2022 Which Illicit Or Recreational Drugs Have You Used? None MIGRATION.0301 [id number] Information not available 05/19/2022 Do You Or Have You Ever Used E-cigarettes Or Vape? Never Used Electronic Cigarettes MIGRATION.0301 [id number] Information not available 05/19/2022 What Is The Highest Grade Or Level Of School You Have Completed Or The Highest Degree You Have Received? SP19892-4 MIGRATION.0301 [id number] Information not available 05/19/2022 What Is Your Occupation? Retired MIGRATION.0301 [id number] Information not available 05/19/2022 How Many Days Of Moderate To Strenuous Exercise, Like A Brisk Walk, Did You Do In The Last 7 Days? 0 [email or web address] Information not available 02/28/2024 Have There Been Any Changes To Your Family Or Social Situation? No MIGRATION.0301 [id number] Information not available 05/19/2022 What Is The Fluoride Status Of Your Home? Fluoridated MIGRATION.0301 [id number] Information not available 05/19/2022 When Did You Quit Smoking? 18+yearssincelastc igarette MIGRATION.030 [id number] Information not available 05/19/2022 Are There Any Guns Present In Your Home? No [email or web address] Information not available 01/24/2023 Do You Use Insect Repellent Routinely? No [email or web address] Information not available 01/24/2023 [facility] Information not available 01/24/2023 Guns Present In The Home? No [email or web address] Information not available 01/24/2023 Are You Able To Care For Yourself? No [email or web address] Information not available 01/24/2023 Are You Blind Or Do Yo Have Difficulty Seeing? No [email or web address] Information not available 01/24/2023 Are You Deaf Or Do You Have Serious Difficulty Hearing? No Information not available 01/24/2023 Live Alone Of With Others? With Others [email or web address] Information not available 01/24/2023 Do You Have A Medical Power Of Hotel Attendant? Yes MIGRATION.0301 [id number] Information not available 05/19/2022 What Was The Date Of Your Most Recent Tobacco Screening? 02/28/2024 [email or web address] Information not available 02/28/2024 How Many Children Do You Have? 2 [email or web address] Information not available 02/28/2024 Do You Have Any Pets? No MIGRATION.0301 [id number] Information not available 05/19/2022 What Is Your Relationship Status? MIGRATION.0301 [id number] Information not available 05/19/2022 Do You Use Your Seat Belt Or Car Seat Routinely? Yes MIGRATION.0301 899021 Information not available 05/19/2022 Do You Have Smoke And Carbon Monoxide Detectors In Your Home? Yes MIGRATION.0301 [id number] Information not available 05/19/2022 Are You Passively Exposed To Smoke? No MIGRATION.0301 [id number] Information not available 05/19/2022 Do You Or Have You Ever Used Smokeless Tobacco? Never Used Smokeless Tobacco MIGRATION.0301 [id number] Information not available 05/19/2022 Are There Any Smokers In Your House? No MIGRATION.0301 [id number] Information not available 05/19/2022 How Much Tobacco Do You Smoke? No MIGRATION.0301 700539 Information not available 05/19/2022 What Types Of Sporting Activities Do You Participate In? None MIGRATION.0301 812117 Information not available 05/19/2022 Do You Feel Stressed (tense, Restless, Nervous, Or Anxious, Or Unable To Sleep At Night)? [id number] MIGRATION.0301 [id number] Information not available 05/19/2022 Do You Use Any Illicit Or Recreational Drugs? No MIGRATION.0301 869289 Information not available 05/19/2022 Do You Use Sunscreen Routinely? No [email or web address] Information not available 01/24/2023 Has Tobacco Cessation Counseling Been Provided? No MIGRATION.0301 415888 Information not available 05/19/2022 Have You Recently Traveled Abroad? No MIGRATION.0301 [id number] Information not available 05/19/2022 Do You Have Any Dietary Restrictions? No MIGRATION.0301 [id number] Information not available 05/19/2022 Do You Or Have You Ever Used Any Other Forms Of Tobacco Or Nicotine? No MIGRATION.0301 [id number] Information not available 05/19/2022 Sex: Female Functional Status Question Answer Note LastModified by Organizat ion Details LastModified Time Do you have difficulty walking or climbing stairs? Yes [email or web address] Information not available 01/24/2023 Do you have transportation difficulties? No MIGRATION.[id number] Information not available 05/19/2022 Are you able to walk? YESWOREST walker or cane in case needed [email or web address] Information not available 02/28/2024 Do you have difficulty doing errands alone? No [email or web address] Information not available 02/28/2024 Are you able to care for yourself? No since back surgery MIGRATION.[id number] 0116 Information not available 05/19/2022 Do you have difficulty dressing or bathing? No MIGRATION.558295 1898 Information not available 05/19/2022 What is your exercise level? None [email or web address] Information not available 01/24/2023 Mental Status Question Answer Note LastModified by Organizat ion Details LastModified Time Do you have difficulty concentrating, remembering or making decisions? No MIGRATION.[id number] Information not available 05/19/2022 Family History Relationship Description Onset Age of this Age Resolved Age Notes LastModified by Organization Details LastModified Time Mother Diabetes mellitus MIGRATION.184 [id number] Not available 05/19/2022 02:34:24 Mother Hypertensive disorder MIGRATION.694 [id number] Not available 05/19/2022 02:34:24 Sister Amyotrophic lateral sclerosis twin MIGRATION.279 [id number] Not available 05/19/2022 02:34:24 Sister Heart disease MIGRATION.727 [id number] Not available 05/19/2022 02:34:24 Sister Malignant tumor of ovary MIGRATION.134 [id number] Not available 05/19/2022 02:34:24 Brother Diabetes mellitus MIGRATION.400 [id number] Not available 05/19/2022 02:34:25 Brother Hodgkin's disease (clinical) MIGRATION.692 [id number] Not available 05/19/2022 02:34:25 Notes:NO ENT HISTORY Medical History Condition Response BLINDNESS N NERVE DISEASE Y RHEUMATIC FEVER N BLADDER PROBLEMS N KIDNEY STONES N MRSA N OTHER # 1 N POLIO N LUNG DISEASE/DISORDER N RADIATION / CHEMOTHERAPY N COPD N Other # 2 N BLOOD DISEASES N SURGERY N EAR OR HEARING PROBLEMS N MUMPS N BOWEL PROBLEMS Y DEPRESSION (INCLUDING POST ) N STROKE/TIA N ULCERS N BENIGN PROSTATIC HYPERPLASIA N MEASLES N MYOCARDIAL INFARCTION N OBESITY N GERD/NAUSEA Y ANEURYSM N URINARY/BLADDER/KIDNEY PROBLEMS N CORONARY ARTERY DISEASE (CAD) N ADDICTION CONCERNS N ENDOMETRIOSIS N Impotence N USE OF BLOOD THINNERS Y SKIN PROBLEMS N GASTROINTESTINAL DISORDER N PERIPHERAL VASCULAR DISEASE N MUSCLE,JOINT OR BONE PROBLEMS N GASTROINTESTINAL BLEEDING N BLOOD CLOTS N ASTHMA N CATARACTS N ERECTILE DYSFUNCTION N VARICOSITIES N GI PROBLEMS N Low Testosterone N INFERTILITY N AIDS/HIV N CHEMOTHERAPY / RADIATION N LIVER DISEASE N MALE HYPOGONADISM N HYPERTENSION Y Deficiency N ANXIETY DISORDER N BLOOD TRANSFUSION N ANEMIA/BLOOD DISORDER N CHRONIC EAR INFECTIONS N BRONCHITIS N TUBERCULOSIS N GLAUCOMA Y FOOT PROBLEM N DIVERTICULITIS N SLEEP APNEA N CHICKENPOX N INFECTIOUS DISEASE N HEART ARRHYTHMIA N PROSTATE N INSOMNIA N HIGH CHOLESTEROL / HYPERLIPIDEMIA Y HYPERTHYROIDISM N EYE PROBLEMS N NEUROLOGICAL PROBLEMS N EDEMA N CHRONIC PAIN SYNDROME N HYPOTHYROIDISM N CAROTID BLOCKAGE N CONSTIPATION N BACK / NECK PROBLEMS N HAVE YOU BEEN HOSPITALIZED OR SEEN IN [facility] IN THE PAST YEAR ? N ATHEROSCLEROSIS N BREAST PROBLEMS N DIALYSIS N ECZEMA N OSTEOPOROSIS N ARTHRITIS N NO SIGNIFICANT PAST MEDICAL HISTORY N APPENDICITIS N DIABETES, TYPE Y BAD TEETH N ENT N HEARTBURN / REFLUX N AUTISM SPECTRUM DISORDER (ASD) N HEPATITIS / LIVER DISEASE N GOUT N SLEEP DISORDER N ALZHEIMER'S DISEASE N Brain Problems N HERPES N DEMENTIA N HEADACHES/MIGRAINES N SEIZURES/EPILEPSY N VASCULAR DISEASE N PACEMAKER N Blood Disorder N DIZZINESS N HEART DISEASE/HEART PROBLEMS N KIDNEY DISEASE N MULTIPLE SCLEROSIS N CARDIAC ARRHYTHMIA N CANCER: SPECIFY N ATRIAL FIBRILLATION N Gall Stones N PULMONARY EMBOLISM N AUTOIMMUNE DISEASE N Gynecological History Statement/Question Response Abnormal Pap Y Date of Last Pap 11/26/2016 Date of Last Mammogram 03/10/2021 Current Control Method Hysterectom y Date of Last Colonoscopy 07/10/2020 Most Recent Bone Density 01/02/2021 Obstetrics History GPAL:G 3 P 3 0 0 0 Type Value Full Term 3 Total 3 Immunizations Vaccine Type Date Status Note Provider Nam e and Address Organization Details Recorded Time Influenza, split virus, trivalent, preservative 3 completed Not Available [facility] 11/19/2022 22:24:31 COVID-19, mRNA, LNP-S, PF, 100 mcg/0.5mL dose or 50 mcg/0.25mL dose 1 completed Not Available [facility] 11/19/2022 22:24:31 COVID-19, mRNA, LNP-S, PF, 30 mcg/0.3 mL dose 2 completed Not Available [facility] 11/19/2022 22:24:31 COVID-19, mRNA, LNP-S, PF, 100 mcg/0.5mL dose or 50 mcg/0.25mL dose 1 completed Not Available [facility] 11/19/2022 22:24:31 zoster recombinant 0 completed Not Available [facility] 11/19/2022 22:24:31 Influenza, high-dose, trivalent, PF 9 completed Not Available [facility] 11/19/2022 22:24:31 zoster recombinant 9 completed Not Available [facility] 11/19/2022 22:24:31 Influenza, high-dose, trivalent, PF 7 completed Not Available [facility] 11/19/2022 22:24:31 COVID-19, mRNA, LNP-S, PF, 100 mcg/0.5mL dose or 50 mcg/0.25mL dose 1 completed Not Available [facility] 11/19/2022 22:24:31 Influenza, split virus, trivalent, preservative 6 completed Not Available [facility] 11/19/2022 22:24:31 Pneumococcal conjugate PCV 13 6 completed Not Available [facility] 11/19/2022 22:24:31 Influenza, high-dose, trivalent, PF 5 completed Not Available [facility] 11/19/2022 22:24:31 Pneumococcal conjugate PCV 13 5 completed Not Available [facility] 11/19/2022 22:24:31 herpes simplex 2 5 completed Not Available [facility] 11/19/2022 22:24:31 influenza, unspecified formulation 4 completed Not Available [facility] 11/19/2022 22:24:31 Influenza, high-dose, quadrivalent, PF 2 completed Not Available [facility] 11/19/2022 22:24:31 Influenza, high-dose, quadrivalent, PF 1 completed Not Available [facility] 11/19/2022 22:24:31 pneumococcal polysaccharide PPV23 8 completed Not Available [facility] 11/19/2022 22:24:31 Influenza, high-dose, quadrivalent, PF 3 completed Kym Van, RYLAN handy, [place] [employer] [facility] 12/23/2022 17:32:40 Past Encounters Encounter ID Performer Location Encounter Start Date Encounter Closed Date Diagnosis/Indication Diagnosis SNOMED-CT Code Diagnosis ICD10 Code Diagnosis Note [id number] [facility] [address] [place], [place] [address], [address] [address] 06/06/2020 00:00:00 06/06/2020 18:17:48 [id number] _ATHENA_M IGRATION_ DEFAULT_1 _1 , 06/19/2020 00:00:00 06/19/2020 17:33:34 [id number] [facility] [address] [place], [place] [address], [address] [address] 07/04/2020 00:00:00 07/05/2020 14:43:35 [id number] [facility] [address] [place] [address] , [facility] [address] 07/31/2020 00:00:00 07/31/2020 22:12:22 [id number] [facility] Internal Med [facility] [address] [place], [place] [address], [address] [address] 09/01/2020 00:00:00 09/01/2020 22:43:14 [id number] _ATHENA_M IGRATION_ DEFAULT_1 _1 , 09/04/2020 00:00:00 09/04/2020 18:49:15 [id number] [facility] Pod[facility] [place] [address] [place] [address], [address] [place] [address] 09/18/2020 00:00:00 10/05/2020 20:52:50 [id number] [facility] Internal Med [facility] [address] [place], [place] [address], [address] [address] 09/29/2020 00:00:00 10/12/2020 15:14:44 [id number] _ATHENA_M IGRATION_ DEFAULT_1 _1 , 10/30/2020 00:00:00 10/30/2020 14:44:38 [id number] [facility] [place] [address] [place] [address] 11/25/2020 00:00:00 11/25/2020 14:56:36 [id number] [facility] Internal Med [facility] [address] [address] 12/29/2020 00:00:00 12/29/2020 22:16:05 [id number] [facility] [place] [address] [place] [address], [facility] 4 [place] [address] 01/06/2021 00:00:00 01/08/2021 13:40:53 [id number] _ATHENA_M IGRATION_ DEFAULT_1 _1 , 01/08/2021 00:00:00 01/08/2021 16:47:25 [id number] [facility] Podiatry [address], [facility] 4 [place] [address] 04/07/2021 00:00:00 04/20/2021 20:26:49 [id number] _ATHENA_M IGRATION_ DEFAULT_1 _1 , 04/09/2021 00:00:00 04/09/2021 17:15:53 [id number] [facility] Internal Med [facility] [address] [facility] 15 [place] [address] 05/06/2021 00:00:00 05/10/2021 16:36:55 [id number] [facility] Podiatry [address], [facility] 4 [place] [address] 07/09/2021 00:00:00 07/09/2021 14:06:33 [id number] _ATHENA_M IGRATION_ DEFAULT_1 _1 , 08/20/2021 00:00:00 08/20/2021 15:20:24 [id number] [facility] Internal [facility] [address] [address] 08/26/2021 00:00:00 08/26/2021 21:37:55 [id number] [facility] [place] [address], [address] [place] [address] 10/08/2021 00:00:00 10/08/2021 14:52:34 [id number] [facility] Internal Med [place] [address] [facility] 15 [place] [address] 12/02/2021 00:00:00 01/10/2022 17:59:07 [id number] [facility] [place] [address] [place] [address] 12/10/2021 00:00:00 12/10/2021 14:31:29 [id number] [facility] Internal [facility] [place] [address] [facility] 15 [place] [address] 12/23/2021 00:00:00 02/07/2022 21:04:13 [id number] [facility] [place] [address] [facility] 15 [place] [address] 01/20/2022 00:00:00 02/14/2022 21:14:41 [id number] [facility] Pod[facility] [place] [address], [address] [place] [address] 02/03/2022 00:00:00 02/04/2022 09:42:00 [id number] [facility] [place] [address] [place] [address] 03/25/2022 00:00:00 03/25/2022 16:49:04 [id number] [facility] Internal Med [facility] [address] [place] [address] Ave[address] [facility] 15 [place] [address] 04/21/2022 00:00:00 04/21/2022 21:39:33 [id number] [facility] [place] [address], [address] [place] [address] 05/06/2022 00:00:00 05/06/2022 16:11:01 [id number] Quique Gallegos MD [facility] Urology [place] [address] [facility], [address] [place] [address] 06/01/2022 14:21:08 06/01/2022 15:36:50 Acute renal insufficiency [id number] N28.9 Recheck bmp and renal ultrasound , if still has hydro will need retrograde . Dysuria 02871938 R30.0 UTI resolved, negative ua and low residual. [id number] Yen Hankins MD [facility]o [place] [address] [place] [address] 06/07/2022 13:59:28 06/07/2022 14:57:11 Latent autoimmune diabetes mellitus in adult 780064004 E13.9 a1c of 9.2% down from 10.4% with fasting glucose of 92 mg/dL- patient finally making headway in glucose control since addition of low dose farxiga and low dose metformin- she is down to 25 units of tresiba and she is still having some intermitti nt lows on glucose. She has done well on tresiba insulin. Will transition to tresiba 20 units once daily at bedtime and patient advised to titrate up of down by 2 units every 4 days until fasting glucose is running 90-120 mg/dL consistent ly. She was advised to follow a 1:10 carb ratio for her meals if she is eating a starchy carb diet in addition to correction of 1U:50>150 mg/dl on premeal FS prior to meals. She is aware to maintain urogenital hygeine to help prevent avoid further candidal yeast infections - she is on lowest dose of farxiga- this is the first time she has had a1c under 10% and she is directing her insulin dosage downward due to better / more regulated glucose control. Dyslipidemia 006462052 E 78.5 continue statin therapy, thyroid in range. Weight gain 4407826 R63. 5 Will send for low dose dexa suppressio n testing to screen for hypercorti solic state. Spent up to 28 minutes preparing to see the patient (eg, review of tests), obtaining and/or reviewing separately obtained history, performing a medically appropriat e examinatio n and evaluation , counseling and educating the patient, ordering medication s, tests, along with documentin g clinical informatio n in the electronic health record, independen tly interpreti ng results and communicat ing results to the patient. RTC in 3-4 months. Patient was provided a handwritte n lab order which contains our fax number. If she chooses to go outside of the [facility] system to obtain labwork she was advised to provide our fax number and my informatio n to the lab she will be obtaining labwork from in order to have her labs properly forwarded over for me to review so there is no loss of follow up due to use of outside network. She was also advised to contact our clinic informing us that she has completed her labwork so we are aware we will need to reach out to the appropriat e laboratory to request her results be forwarded to us so I might have the ability to review and make further medical decision making in her case. She voiced understand ing. [id number] Quique Gallegos MD [facility] Urology [address], [place] [address] 1 06/22/2022 16:03:33 06/22/2022 16:58:57 Hydronephrosis 23592562 N13.30 uncertain etiology ,no stones, suggested cysto , right retrograde , possible ureterosco py and stent placement, went over procedure and risks. [id number] Quique Gallegos MD [facility] Urology [address], [place] [address] 08/03/2022 14:34:14 08/03/2022 16:07:18 Kidney stone 29959611 N20.0 Hydronephrosis 43311570 N13.30 Due to fibrinous tissue free floating probably from prior infection, stent out, fu one month with repeat ultrasound [id number] Weston Buchanan DPM [facility] Podiatry [place] [address] [facility], [facility] 4 [place] [address] 08/05/2022 14:41:50 08/10/2022 10:30:38 Diabetic peripheral neuropathy 395918010 E11.42 Patient educated on neuropathy , diabetes, diabetic diet, and daily foot exams. Patient is to check feet daily for new wounds, blisters, redness to prevent infection and ulceration s to the feet. Patient will return to clinic in 3 months for diabetic foot workup. Dystrophia unguium 17284 009 L60.3 Nails 1 through 10 were debrided with sharp mechanical debridemen t without incident. Nails were debrided and greater than 50% length and thickness where needed. Unable to cut own toenails 580380265 Z74.1 [id number] Yen Hankins MD [facility] [place] [address] [place] [address] 08/11/2022 11:37:30 08/11/2022 12:21:32 Latent autoimmune diabetes mellitus in adult 390633552 E13.9 a1c of 8.3% down from 9.2% down from 10.4% with fasting glucose of 120 mg/dL- patient finally making headway in glucose control since addition of low dose farxiga and low dose metformin- she is down to 20 units of tresiba. Will continue tresiba 20 units once daily at bedtime and patient advised to titrate up of down by 2 units every 4 days until fasting glucose is running 90-120 mg/dL consistent ly. She was advised to follow a 1:10 carb ratio for her meals if she is eating a starchy carb diet in addition to correction of 1U:50>150 mg/dl on premeal FS prior to meals. She is aware to maintain urogenital hygeine to help prevent avoid further candidal yeast infections - she is on lowest dose of farxiga- this is the first time she has had a1c under 9% and she is directing her insulin dosage downward due to better / more regulated glucose control. Insomnia 675528455 G47.0 0 Trial on ramelteon for sleep- she is only sleeping 1-2 hours and waking up in md allergy immunology. Encouraged she trial on melatonin 5-10 mg at bedtime for trial and if this isn't effect she can trial ramelteon as a secondary agent (but do not use melatonin at same time). Dyslipidemia 037512611 E 78.5 continue statin therapy, thyroid in range. Spent up to 28 minutes preparing to see the patient (eg, review of tests), obtaining and/or reviewing separately obtained history, performing a medically appropriat e examinatio n and evaluation , counseling and educating the patient, ordering medication s, tests, along with documentin g clinical informatio n in the electronic health record, willie shea interpreti ng results and communicat ing results to the patient. RTC in 4 months. Patient was provided a handwritte n lab order which contains our fax number. If she chooses to go outside of the [facility] system to obtain labwork she was advised to provide our fax number and my informatio n to the lab she will be obtaining labwork from in order to have her labs properly forwarded over for me to review so there is no loss of follow up due to use of outside network. She was also advised to contact our clinic informing us that she has completed her labwork so we are aware we will need to reach out to the appropriat e laboratory to request her results be forwarded to us so I might have the ability to review and make further medical decision making in her case. She voiced understand ing. [id number] Miguel Valle MD S_[facility] Internal Med [facility] [address] [place] [address], [facility] 15 [place] [address] 09/01/2022 15:11:36 09/01/2022 16:52:16 Benign essential hypertension 5032635 I10 Dyslipidemia 413769034 E 78.5 Neuropathy 507677522 M06 .9 [id number] Quique Gallegos MD [facility] Urology [address], [address] 1 09/06/2022 13:58:15 09/06/2022 14:21:25 Kidney stone 04314830 N20.0 SP removal of probably residual fibinous tissue from right ureter, negative fu ultrasound , suggested push fluids. Dont hold urine, she is using wipes to stay clean [id number] Weston Buchanan DPM [facility] Podiat[facility] [place] [address] [facility], [address] [place] [address] 11/09/2022 14:20:21 11/17/2022 11:32:28 Diabetic peripheral neuropathy 063254183 E11.42 Continue daily footcontin ue diabetic shoes and insertsfol low-up in 3 months Dystrophia unguium 29551 009 L60.3 Nails 1 through 10 were debrided with sharp mechanical debridemen t without incident. Nails were debrided and greater than 50% length and thickness where needed. Diabetes mellitus 859073 09 E11.42 continue diabetic control per PCP [id number] Yen Hankins MD [facility] [place] [address] [place] [address] 11/25/2022 13:50:28 11/25/2022 14:35:40 Uncontrolled type 2 diabetes mellitus 202864287 E11.65 Correction patient has EDUARD with cpeptide of 0.7 ng/mL so minimal insulin function. a1c of 9.1% up from 8.3% down from from 10.4% with fasting glucose of 137 mg/dL- patient finally making headway in glucose control since addition of low dose farxiga and low dose metformin- she is down to 20 units of tresiba. Will continue tresiba 20 units once daily at bedtime and patient advised to titrate up of down by 2 units every 4 days until fasting glucose is running 90-120 mg/dL consistent ly. She was advised to follow a 1:10 carb ratio for her meals if she is eating a starchy carb diet in addition to correction of 1U:50>150 mg/dl on premeal FS prior to meals. She is aware to maintain urogenital hygeine to help prevent avoid further candidal yeast infections - she is on lowest dose of farxiga- this is the first time she has had a1c under 9% and she is directing her insulin dosage downward due to better / more regulated glucose control. She was advised to never take humalog at bedtime as this is driving morning glucose low and causing overcorrec tion and thus increase in her overall glycemic levels / poor control. Refer to endocrinol xavier as patient complex and needs follow ups with specialist . Send in [facility] for hypoglycem ia rescue. Dyslipidemia 210020876 E 78.5 continue statin therapy, thyroid in range. Spent up to 25 minutes preparing to see the patient (eg, review of tests), obtaining and/or reviewing separately obtained history, performing a medically appropriat e examinatio n and evaluation , counseling and educating the patient, ordering medication s, tests, along with documentin g clinical informatio n in the electronic health record, independen tly interpreti ng results and communicat ing results to the patient. Patient can be followed by PCP - she/he is aware of my resignatio n and last day of December 31. If needed his/her PCP can refer patient to another endocrinol ogist in the area. All questions /concerns answered and refills necessary at visit today. [id number] Dariel Barnett MD [facility] Internal Med [address] [facility] [place] [address] 12/23/2022 15:20:08 12/23/2022 16:48:14 Adult health examination 570262971 Z00.00 Colonoscop y-Mammogra m- 03/10/2021 DEXA- 01/02/2021 Pneumovax- FLU- 12/23/2022 COVID- Up to date Administra tion of influenza vaccine 95178719 Z23 Diabetes mellitus 810102 09 E11.42 uncontroll ed, add ozempic Diabetic p eripheral neuropathy 952768857 E11.42 mild Vitamin B1 2 deficiency (non anemic) 39372605 E53.8 decrease to monthly shots Gastroesop hageal reflux disease 908014687 K21.9 otc Essential hypertension 02107090 I10 under control Hyperlipidemia 48411753 E78.5 on meds Chronic back pain 165186 002 G89.29 Insomnia 169361109 G47.0 0 meds help [id number] Dariel Barnett MD [facility] Internal Med [address] [facility] [place] [address] 01/24/2023 14:58:25 01/24/2023 15:54:09 Adult health examination 487434943 Z00.00 Colonoscop y-Mammogra m- 03/10/2021 DEXA- 01/02/2021 Pneumovax- FLU- 12/23/2022 COVID- Up to date Diabetes mellitus 943559 09 E11.42 uncontroll ed, ^ ozempic dose^ Farxiga 10 mg Diabetic p eripheral neuropathy 391136749 E11.42 mild, no meds needed Vitamin B1 2 deficiency (non anemic) 25367740 E53.8 try otc, no shots Gastroesop hageal reflux disease 142047059 K21.9 otc Essential hypertension 96296233 I10 under control Hyperlipidemia 87507769 E78.5 on meds Chronic back pain 332034 002 G89.29 off and on, going to see back specialist Insomnia 506638839 G47.0 0 meds help Kidney disease 21653637 N08 ^ farxiga 10 mg, drink more water Screening for disorder 479883461 Z13.9 [id number] Dariel Barnett MD [facility] Internal Med [address] [facility] [place] [address] 03/28/2023 14:49:08 03/28/2023 15:58:52 Adult health examination 701153542 Z00.00 Colonoscop y-Mammogra m- 03/10/2021 DEXA- 01/02/2021 Pneumovax- FLU- 12/23/2022 COVID- Up to date Diabetes mellitus 576153 09 E11.42 uncontroll ed, ^ ozempic dose^ Tresiba to 30 units Diabetic p eripheral neuropathy 476253262 E11.42 mild, no meds needed Vitamin B1 2 deficiency (non anemic) 61176006 E53.8 on otc Gastroesop hageal reflux disease 590840421 K21.9 otc Essential hypertension 44577871 I10 under control Hyperlipidemia 78254935 E78.5 on meds Chronic back pain 447719 002 G89.29 off and on, going to see back specialist Insomnia 751154017 G47.0 0 meds help Kidney disease 03541023 N08 on farxiga, drink more water [id number] Weston Buchanan DPM [facility] Podiatry [place] [address] [place] [address] 04/28/2023 14:38:34 05/12/2023 14:20:18 Diabetic peripheral neuropathy 936748639 E11.42 Continue daily footcontin ue diabetic shoes and insertsfol low-up in 3 months Dystrophia unguium 45291 009 L60.3 Nails 1 through 10 were debrided with sharp mechanical debridemen t without incident. Nails were debrided and greater than 50% length and thickness where needed. Unable to cut own toenails 924980112 Z74.1 [id number] Dariel Barnett MD [facility] Internal Med [facility] [address] [facility] [place] [address] 06/06/2023 15:24:47 06/06/2023 16:08:51 Neck pain 92803262 M54.2 needs f/u with a neurologis t [id number] Dariel Barnett MD [facility] Internal Med [address] [place] [address] 07/21/2023 14:28:44 07/21/2023 15:21:31 Adult health examination 868016087 Z00.00 Colonoscop y-Mammogra m- 03/10/2021 , 2023 ([facility] - per pt- Not in chart)DEXA - 01/02/2021 Pneumovax- FLU- 12/23/2022 COVID- Up to date Diabetes mellitus 691961 09 E11.42 did not start higher dose, wiling, to take 30 units Diabetic p eripheral neuropathy 633829098 E11.42 try pregabalin Vitamin B1 2 deficiency (non anemic) 36218339 E53.8 on otc Gastroesop hageal reflux disease 445912004 K21.9 otc Essential hypertension 75784625 I10 under control Hyperlipidemia 61967828 E78.5 on meds Chronic back pain 384393 002 G89.29 off and on, going to see back specialist Insomnia 229794887 G47.0 0 meds help Kidney disease 55764949 N08 on farxiga, drinking more water Screening for osteoporosis 937736019 Z13.046 [id number] Weston Buchanan DPM [facility] Podiatry [place] [address] [facility], [address] [place] [address] 08/04/2023 13:56:21 08/04/2023 15:31:27 Diabetes mellitus 14556648 E11.42 continue diabetic control per PCP Diabetic p eripheral neuropathy 568338303 E11.42 Continue daily footcontin ue diabetic shoes and insertsfol low-up in 3 months Dystrophia unguium 07230 009 L60.3 Nails 1 through 10 were debrided with sharp mechanical debridemen t without incident. Nails were debrided and greater than 50% length and thickness where needed. [id number] Dariel Barnett MD [facility] Internal Med [address] [facility] [place] [address] 09/01/2023 14:43:56 09/01/2023 15:07:22 Pruritic rash 49483285 L28.2 [id number] Weston Buchanan DPM [facility] Podiatry [place] [address] [facility], [address] [place] [address] 11/03/2023 15:57:27 11/04/2023 09:51:53 Diabetes mellitus 05238708 E11.42 continue diabetic control per PCP Diabetic p eripheral neuropathy 079817498 E11.42 Continue daily footcontin ue diabetic shoes and insertsfol low-up in 3 months Dystrophia unguium 74474 009 L60.3 Nails 1 through 10 were debrided with sharp mechanical debridemen t without incident. Nails were debrided and greater than 50% length and thickness where needed. [id number] Dariel Barnett MD [facility] Internal Med [facility] [address] [facility] [place] [address] 12/06/2023 14:38:01 12/06/2023 15:18:57 Diabetes mellitus 80877847 E11.42 she will continue to monitor her blood sugar frequently with dexcom to regulate insulin dose Diabetic p eripheral neuropathy 646254270 E11.42 on pregabalin Adult heal th examination 096333633 Z00.00 Colonoscop y-Mammogra m- 03/10/2021 , 2023 ([facility] - per pt- Not in chart)DEXA - 07/29/2023 Pneumovax- 01/25/2018 Prevnar 13- 12/01/2025 , 12/03/2014 FLU- 12/23/2022 COVID- Up to date Vitamin B1 2 deficiency (non anemic) 60444762 E53.8 on otc Gastroesop hageal reflux disease 292750122 K21.9 otc Essential hypertension 30574585 I10 under control Hyperlipidemia 57104161 E78.5 on meds Chronic back pain 398428 002 G89.29 off and on, going to see back specialist Insomnia 445014686 G47.0 0 better Kidney disease 65652109 N08 drinking more water [id number] Dariel Barnett MD [facility] Internal Med [facility] [address] [place] [address] 12/13/2023 14:00:09 12/13/2023 14:26:13 Diabetes mellitus 73435548 E11.42 labs discussed, A1c 8.6,^ the insulin to 35 units and titrate by 4 units every 2 weeks Impacted c erumen of bilateral ears 8271935077 099039 H61.23 right ear cleaned and irrigated, TM and canal is clearleft ear attempted but has dry wax, did not come outuse debrox ear drops [id number] Dariel Barnett MD [facility] Internal Med [address] [place] [address] 12/20/2023 10:57:16 12/20/2023 11:42:34 Impacted cerumen of bilateral ears 2967859358 542200 H61.23 both ears cleaned and irrigated, TM and canal is clear, minimal wax in the right ear [id number] Weston Buchanan DPM [facility] Podiatry [place] [address], [address] [place] [address] 01/31/2024 15:31:58 03/16/2024 12:50:58 Diabetes mellitus 07652412 E11.9 continue diabetic control per PCP9-19-24 ---8.6 A1c Diabetic p eripheral neuropathy 956783086 E11.42 Continue daily footcontin ue diabetic shoes and insertsfol low-up in 3 months Dystrophia unguium 74034 009 L60.3 Nails 1 through 10 were debrided with sharp mechanical debridemen t without incident. Nails were debrided and greater than 50% length and thickness where needed. [id number] KAREN Rodriguez [facility] ENT [place] [address] [place] [address] 02/13/2024 09:53:25 02/13/2024 11:01:39 Anterior epistaxis 365715536 R04.0 Rhino rocket removed from the right Naresilver nitrate applied for cauterizat ion to the inferior nasal septum for continued minimal bleeding vessel [id number] KAREN Rodriguez [facility] ENT [place] [address] [place] [address] 02/22/2024 11:03:14 02/22/2024 11:55:57 Anterior epistaxis 944385935 R04.0 silver nitrate applied for cauterizat ion to the inferior nasal septum [id number] Dariel Barnett MD [facility] Internal Med [address] [place] [address] 02/28/2024 14:57:02 02/28/2024 16:52:52 Diabetes mellitus 96784202 E11.42 labs then decide about insulin dose Diabetic p eripheral neuropathy 229690028 E11.42 meds help Adult heal th examination 901617563 Z00.00 Colonoscop y-Mammogra m- 03/10/2021 , 2023 ([facility] - per pt- Not in chart)DEXA - 07/29/2023 Pneumovax- 01/25/2018 Prevnar 13- 12/01/2025 , 12/03/2014 FLU- OV ID- Up to date Vitamin B1 2 deficiency (non anemic) 82807132 E53.8 on otc Gastroesop hageal reflux disease 763464928 K21.9 otc Essential hypertension 88020742 I10 under control Hyperlipidemia 37742644 E78.5 on meds Chronic back pain 534646 002 G89.29 off and on, Insomnia 095696591 G47.0 0 better Kidney disease 96031355 N08 drinking more water, check labs Anterior epistaxis 67686 4002 R04.0 use humidifier , avoid asa Screening for disorder 759099086 Z13.9 [id number] Kalen Fairbanks MD [facility] ENT [place] [address] [place] [address] 03/12/2024 11:45:57 03/15/2024 10:48:17 Chronic sinusitis 72920306 J32.9 Deviated nasal septum 12 6596230 J34.2 Anterior epistaxis 53127 4002 R04.0 [id number] Kalen Fairbanks MD [facility] ENT [place] [address] [place] [address] 03/29/2024 11:51:17 04/06/2024 09:54:29 Deviated nasal septum 070091252 J34.2 Chronic ma xillary sinusitis 10073278 J32.0 Chronic et hmoidal sinusitis 30566488 J32.2 Health Concerns Section Related Observation LastModified by Organization Detai ls LastModified Time None Recorded Concern Status LastModified by Organization Details LastModified Time None Recorded Advance Directives Directive Y: Payers Encounter Date Sequence Insurance Name Policy Number Policy Shah Covered Member ID Shah Member ID Guarantor Name 02/13/2024 1 [employer] MEDICARE ADVANTAGE (MEDICARE REPLACEMENT PPO) [id number] Rebekah Suárez [id number] Rebekah Suárez 02/22/2024 1 [employer] MEDICARE ADVANTAGE (MEDICARE REPLACEMENT PPO) [id number] Rebekah Suárez [id number] Rebekah Suárez 02/28/2024 1 [employer] MEDICARE ADVANTAGE (MEDICARE REPLACEMENT PPO) [id number] Rebekah Suárez [id number] Rebekah Suárez 03/12/2024 1 [employer] MEDICARE ADVANTAGE (MEDICARE REPLACEMENT PPO) [id number] Rebekah Suárez [id number] Rebekah Suárez 03/29/2024 1 [employer] MEDICARE ADVANTAGE (MEDICARE REPLACEMENT PPO) [id number] Rebekah Suárez [id number] Rebekah Suárez Notes Date Note Type Note Provider Name and Address Organization Details Recorded Time 02/13/2024 text/html This patient has a past medical history significant for diabetes, GERD, glaucoma, HLD, HTN, and neuropathy. She presents to the office for a follow-up from a recent epistaxis episode. She had developed a significant nosebleed out of her right nostril and presented to the ER 6 days ago where a rhino rocket was placed. The rhino rocket is still intact. She reportedly does take a baby aspirin daily. This has since been stopped since her recent ER visit. Her most recent known blood pressure was 140/90. Katelyn Coates, DISTRIBUTION COLLECTION OPERATOR [address] [facility], [facility] [address], [place], [address], [facility] [employer] 02/13/2024 10:56:44 02/22/2024 text/html This patient is here for a 1.5 week follow-up regarding epistaxis. At her last visit she had a rhino rocket removed from her right [place] and silver nitrate applied to a bleeding capillary. She notes that she had another nosebleed on 02/16/2024 and presented to the ER where little to no treatment was done. She has not had any further epistaxis in approximately 2 days. states that she has not been taking her baby aspirin since her last visit and expresses her frustration that she continues to have periods of epistaxis. She states that she has been using a humidifier without relief. She does note that her blood pressure has been normal for her and the 140/90 range. She states that she is to follow up with her PCP next week. She has not had any recent lab work done. She does report increased dryness to her nasal passages. Denies use of any vnat-[id number]-[id number] saline sprays for management. KAREN Rodriguez [address], [place], [address], [employer] 02/22/2024 11:55:15 02/28/2024 text/html She is here toda y for her 3 month follow up Diabetes- BS 140- 240, USING Dexcom,DIET NOT UNDER CONTROLWas seeing Dr. Wilburn in the past, A1c 8.6 (12/08/2023)Last eye exam- 01/2024 - In chart.Meds- Tresiba - 30u daily, Metformin ER 500mg daily, Farxiga 10mg daily, Humalog is SS anywhere between 4-10u , Ozempic 1 mg mg weeklyHypertension- controlled with medsMeds- Losartan 25mg dailyHyperlipidemia - on meds, labs 12/12Meds- Atorvastatin 20mg dailyInsomnia- not on meds any more, sleeping fineNeuropathy- has tried gabapentin, did not help, now on Pregabalin and betterVitamin B12 def- was on weekly shots, levels are very high, on otcchronic back pain- Had surgery on her back in the past, still gets stiffness, using cane, Kidney disease- GFR 57, on farxiga Epistaxis x 2 in the last 2 weeks, seen ENT and getting CT scan Dariel Barnett MD [address], [address], [place], [address], [employer] 02/28/2024 17:37:35 03/12/2024 text/html this patient had a sinus CT which demonstrated maxillary and ethmoid sinusitis and right septal deviation. The cautery that she had has prevented recurrence of her epistaxis. Kalen Fairbanks MD [address], [facility] [address], [place], [address], [facility] [employer] [facility] 03/12/2024 12:48:27 03/29/2024 text/html this patient had a CT scan demonstrating right septal deviation as expected and bilateral ethmoid and maxillary sinusitis. She has been on numerous rounds of antibiotics. She is using saline sprays. Kalen Fairbanks MD [address], [facility] [address], [place], [address], [facility] [employer] [facility] 03/29/2024 12:26:13 OBGyn Episode No OBEpisode recorded.
--- OUTSIDE RECORDS SUMMARY | 2024-04-27 10:44 | XMS_ITS | Clinical Summary ---
Author Organization [facility] Address [address] [place] [address] Phone Care Team Providers Care Donkey Doctor Name Role Phone Lew Bailey MD Primary Care Provider [phone] Antonio Smith MD Unavailable [phone] Allergies Active Allergy Reactions Criticality Noted Date Comments Codeine Unknown 06/10/2023 Medications Dapagliflozin Propanediol (Farxiga) 10 MG Tablet Take by mouth. Activ e GARLIC PO Take by mouth. Activ e insulin lispro (HumaLOG) 100 UNIT/ML Solution by Subcutaneous route 3 times daily (after meals). Use as directed Active latanoprost (XALATAN) 0.005 % Solution Place 1 Drop in affected eye(s) nightly. Active losartan (COZAAR) 25 MG Tablet Take 25 mg by mouth daily. Active metFORMIN (GLUCOPHAGE-XR) 500 MG TABLET SR 24 HR Take 500 mg by mouth 2 times daily. This RX is for Metformin SR. Active mometasone (ELOCON) 0.1 % Cream Apply daily. Active semaglutide, 1 MG/DOSE, (Ozempic, 1 MG/DOSE,) 4 MG/3ML Solution Pen-injector 1 mg by Subcutaneous route once a week. Active ramelteon (ROZEREM) 8 MG Tablet Take 8 mg by mouth nightly. Active timolol (TIMOPTIC-XR) 0.5 % GEL FORMING SOLUTION Place 1 Drop in affected eye(s) daily. Active insulin degludec (Tresiba FlexTouch) 200 UNIT/ML Solution Pen-injector by Subcutaneous route. Active aspirin EC 81 MG Tablet Delayed Response Take 81 mg by mouth daily. Active atorvastatin (LIPITOR) 20 MG Tablet Take 20 mg by mouth daily. Active Family History Medical History Relation Name Comments Diabetes Brother Other-comment Brother hodgkin diseas e Diabetes Mother Hypertension Mother Heart Disease Sister Relation Name Status Comments Brother Father Mother Sister Social History Tobacco Use Types Packs/Day Years Used Date Smoking Tobacco: Former Cigarettes Q uit: 03/21/1991 Smokeless Tobacco: Never Tobacco Cessation:Counseling Given: Not Answered Alcohol Use Standard Drinks/Week Comments Yes 0 (1 standard drink = 0.6 oz pur e alcohol) occasional Comments Unknown Sex and Gender Information Value Date Recorded Sex Assigned at Not on file Legal Sex Female 10:24 AM CDT Gender Identity Not on file Sexual Orientation Not on file Last Filed Vital Signs Vital Sign Reading Time Taken Comments Blood Pressure 110/70 10/03/2023 1:12 PM CDT Pulse 101 10/03/2023 1:12 PM CDT Temperature 36.4 C (97.5 F) 10/03/2023 1:12 PM CDT Respiratory Rate 17 10/03/2023 1:12 PM CDT Oxygen Saturation 95% 10/03/2023 1:12 PM CDT Inhaled Oxygen Concentration - - Weight 72.8 kg (160 lb 6.4 oz) 10/03/2023 1:12 P M CDT Height 157.5 cm (5' 2 ) 10/03/2023 1:12 PM CDT Body Mass Index 29.34 10/03/2023 1:12 PM CDT Plan of Treatment Upcoming Encounters Date Type Department Care Team (Late st Contact Info) Description 10/02/2024 1:30 PM CDT Office Visit [facility] - Neurology [facility] ([facility] [address] [place] [id number] Antonio Smith MD [address] [place] [phone] Health Maintenance Due Date Last Done Comments DEXA Bone Density 1945 Hepatitis C Virus (HCV) Screening 1945 TdaP Immunization 1945 Influenza Immunization (#1) 2023 10/0 07/2022, 12/23/2021, 12/29/2020, Additional history exists SARS-COV-2 Immunization ( season) 2023 01/17/2023, 01/17/2022, 01/16/2022, Additional history exists Pneumococcal Immunization (50+ years) Completed 01/25/2018, 12/01/2015, 12/05/2014, Additional history exists Zoster Immunization Completed 04/04/2019, 09/22/2018, 03/21/2014 Respiratory Syncytial Virus (RSV) Immunization (Adult) Completed 01/17/2023 Hepatitis B Immunization Aged Out No longer eligible based on patient's age to complete this topic Meningococcal Immunization (ACWY) Aged Out No longer eligible based on patient's age to complete this topic Rotavirus Immunization Aged Out No lo nger eligible based on patient's age to complete this topic Insurance [facility]ICARE [facility] [place] [id number] Care Teams Donkey Doctor Relationship Specialty Start Date End Date Lew Bailey MD PCP - General Internal Medicine 06/09/23 Antonio Smith MD [address] [place] [address] Consulting Physician Neurology 10/03/23
--- OUTSIDE RECORDS SUMMARY | 2024-04-27 10:44 | XMS_ITS | Referral Summary ---
Author Organization [facility] [address] [facility] [address] Address [address] [place] [address] Care Team Providers Care Professional Development Manager Name Role Phone Omari Baca MD Unavailable [phone] Lew Bailey MD Primary Care Provider [phone] Allergies Active Allergy Reactions Criticality Noted Date Comments Codeine Stomach upset Low 03/08/2011 Stomach/GI Upset Semaglutide Unknown High 12/27/2019 Medications BD INSULIN PEN NEEDLE UF MINI 31 gauge x 3/16 needle USE THREE TIMES DAILY 300 each 1 8 Active blood-glucose meter miscIndication s:Type 2 diabetes mellitus with hyperglycemia, with long-term current use of insulin (HCC) Use to test 2 times daily ( Accu chek Compact meter) 1 each 1 8 Active ACCU-CHEK FERNIE PLUS METER miscIndication s:Type 2 diabetes mellitus with hyperglycemia, with long-term current use of insulin (HCC) Use to test blood sugars twice a day 1 each 8 Active blood-glucose sensor device appssavvycom G6 Sensor device use as directed for continuous glucose monitoring-change every 10 days Active Omnipod Dash 5 Pack Pod cartridge USE UTD. CHANGE POD Q 2-3 DAYS 0 Active atorvastatin (LIPITOR) 20 mg tablet Take 1 tablet (20 mg total) by mouth daily 30 tablet 1 Active losartan (COZAAR) 50 mg tablet Take 1 tablet (50 mg total) by mouth daily 30 tablet 1 Active gabapentin (NEURONTIN) 300 mg capsule Take 1 capsule (300 mg total) by mouth 3 (three) times a day 90 capsule 1 Active insulin lispro (HumaLOG, ADMELOG) 100 unit/mL vial for injection Inject 0-50 Units under the skin 4 (four) times a day (with meals and nightly) 60 mL 1 Active insulin glargine (LANTUS, SEMGLEE) 100 unit/mL vial for injectionIndic ations:Diabete s Mellitus Inject 36 Units under the skin every morning 10.8 mL 1 Active latanoprost (XALATAN) 0.005 % ophthalmic solution Administer 1 drop into both eyes nightly 1.25 mL 1 Active aspirin 81 mg enteric coated tablet Take 1 tablet (81 mg total) by mouth daily 30 tablet 1 Active canagliflozin (INVOKANA) 100 mg tablet Invokana 100 mg tablet Active celecoxib (CeleBREX) 200 mg capsule celecoxib [address] (CYMBALTA) 30 mg capsule duloxetine 30 mg capsule,delayed release TAKE 1 CAPSULE BY MOUTH EVERY DAY Active exenatide (Byetta) 5 mcg/dose (250 mcg/mL) 1.2 mL injection Byetta 5 mcg/dose (250 mcg/mL)1.2 mL subcutaneous pen injector inject .02ml twice a day by subcutaneous route. Active furosemide (LASIX) 20 mg tablet furosemide 20 mg tablet TAKE 1 TABLET BY MOUTH EVERY DAY NEEDED Active glucagon (Gvoke HypoPen 1-Pack) 1 mg/0.2 mL auto-injector Gvoke HypoPen 2-Pack 1 mg/0.2 mL subcutaneous auto-injector INJECT 1 MG UNDER THE SKIN NEEDED Active HYDROcodone-ac etaminophen (NORCO) 5-325 mg per tablet hydrocodone 5 mg-acetaminophen 325 mg tablet TK 1 T PO Q 6 H PRN P CONTROL Active meloxicam (MOBIC) 15 mg tablet meloxicam 15 mg tablet TAKE 1 TABLET BY MOUTH EVERY DAY WITH FOOD Active methotrexate 2.5 mg tablet methotrexate sodium 2.5 mg tablet TAKE 5 TABLETS BY MOUTH 1 TIME WEEKLY IN THE MORNING AND IN THE EVENING Active metroNIDAZOLE (FLAGYL) 500 mg tablet metronidazole 500 mg tablet TK 1 T PO BID FOR 10 DAYS Active codeine-guaiFE Nesin-pseudoep hedrine 2-20-6 mg/mL syrup Virtussin DAC 30 mg-10 mg-100 mg/5 mL oral syrup Take 5 mL every 6 hours by oral route as needed. Active semaglutide (Ozempic) 0.25 mg or 0.5 mg(2 mg/1.5 mL) pen injector injection Ozempic 0.25 mg or 0.5 mg (2 mg/1.5 mL) subcutaneous pen injector INJECT 0.5 MG SC Q WEEK WITH MEALS Active sulfaSALAzine EN (AZULFIDINE EN) 500 mg EC tablet sulfasalazine 500 mg tablet,delayed release TAKE 2 TABLETS BY MOUTH TWICE DAILY Active valsartan (DIOVAN) 80 mg tablet valsartan 80 mg tablet Take 1 tablet every day by oral route for 90 days. Active folic acid (FOLVITE) 1 mg tablet folic acid 1 mg tablet Active lidocaine (LIDODERM) 5 % lidocaine 5 % topical patch APPLY 3 PATCHES TOPICALLY TO THE SKIN DAILY Active methocarbamoL (ROBAXIN) 500 mg tablet Take 500 mg by mouth 4 (four) times a day Active TRESIBA 200 unit/mL (3 mL) pen for injection INJECT 32 UNITS UNDER THE SKIN EVERY NIGHT AT BEDTIME FOR 30 DAYS 1 Active insulin degludec (TRESIBA) 200 unit/mL (3 mL) pen for injection Tresiba FlexTouch U-200 insulin 200 unit/mL (3 mL) subcutaneous pen INJECT 32 UNITS UNDER THE SKIN EVERY NIGHT AT BEDTIME FOR 30 DAYS Active metFORMIN XR (GLUCOPHAGE XR) 500 mg 24 hr tablet Take 500 mg by mouth 2 (two) times a day 1 Active timolol (TIMOPTIC) 0.5 % ophthalmic solution INSTILL 1 DROP INTO THE LEFT EYE TWICE DAILY 1 Active azithromycin (ZITHROMAX) 250 mg tablet Take by mouth as directed 1 Active doxycycline (VIBRAMYCIN) 100 mg capsule every 12 hours Active cyanocobalamin (Vitamin B-12) 1,000 mcg/mL injection cyanocobalamin (vit B-12) 1,000 mcg/mL injection solution Active pen needle, diabetic 32 gauge x 5/32 needle BD Kristal 2nd Gen Pen Needle 32 gauge x 5/32 INJECT INSULIN UP TO FOUR TIMES DAILY Active insulin pump cart,cont inf,RF (Omnipod Classic Pods, Gen 3,) cartridge Omnipod Classic Pods (Gen 3) subcutaneous cartridge change pod every 2 days for insulin pump therapy Active insulin syringe-needle U-100 1 mL 31 gauge x 5/16 syringe insulin syringe U-100 with needle 1 mL 31 gauge x 5/16 DIRECTED THREE TIMES DAILY BEFORE MEALS AND DIRECTED Active Farxiga 5 mg tablet Take 5 mg by mouth daily 3 Active dexAMETHasone (DECADRON) 1 mg tablet 3 Active garlic 100 mg tablet Take by mouth Active vit Q-K-phrwsy-zin c-lutein 226-90-0.8-5 mg capsule Take by mouth Activ e Active Problems Problem Noted Date Diagnosed Date Anterior epistaxis 12/10/2021 Uncontrolled type 2 diabetes mellitus 12/08/2021 Pneumonia 12/02/2021 Tinea pedis 10/08/2021 Abdominal bloating 08/06/2020 Gastroesophageal reflux disease 08/06/2020 Herpes zoster 08/06/2020 Joint pain 08/06/2020 Pain 08/06/2020 Edema of spinal cord 08/06/2020 Thyroid cyst 08/06/2020 s/p C3-7 lami/C2-T2 PSF on 08/06/[address] Isaura melton 08/06/2020 Cervical myelopathy 08/05/2020 Blister of foot 05/12/2020 Neuropathy 05/02/2020 Pain in left foot 04/21/2020 Blister 04/02/2020 Left sided numbness 03/18/2020 Assessment & Plan (03/18/2020 4:39 PM CHAIR AND COUCH MAKER): Patient has history of diabetic peripheral neuropathy and now has worsening hand numbness and weakness and question of compressive neuropathy concurrently which is more prevalent in patients with underlying neuropathy. I will obtain neurophysiologic testing to differentiate whether that her symptoms are superiorly from diabetic neuropathy or whether there is a concurrent compressive neuropathy component. I will see her back thereafter. Neck pain 03/18/2020 Assessment & Plan (03/18/2020 4:38 PM CHAIR AND COUCH MAKER): Patient has antecedent history of neck pain with x-ray suggested cervical spondylosis. I have suggested she could use pfid-fwt-ichnqod anti-inflammatories or continue with her chiropractor as previously being done. Diastolic dysfunction 12/27/2019 Fatigue 12/27/2019 Screening for other and unsp ecified cardiovascular conditions 12/27/2019 Achilles tendinitis 11/06/2019 Lymphedema of lower extremity 07/10/2018 Diabetic peripheral neuropathy (CMS/HCC) 018 Dystrophia unguium 10/19/2017 Low back pain 09/22/2017 Hypercholesterolemia 07/04/2012 Overview (08/06/2020): PURE HYPERCHOLESTEROLEM Assessment & Plan (02/24/2017 1:53 PM CHAIR AND COUCH MAKER): Goal of treatment , LDL cholesterol less than 100 ( less than 70 in patients with history of heart attacks and / or strokes ) NonHDL cholesterol goal less than 130 ( less than 100 in patients with history of heart attacks and / or strokes ) Continue statin therapy Assessment & Plan (12/30/2016 10:44 AM CDT): Will check lipid panel. Essential hypertension 03/02/2011 Overview (08/06/2020): HYPERTENSION NOS Assessment & Plan (11/10/2017 4:42 PM CDT): Controlled on current medications. Assessment & Plan (07/12/2017 1:36 PM CDT): Goal blood pressure is less than 140/85 Low salt diet recommended Daily aerobic exercise Continue current meds, including ANGUS-I or ARB Assessment & Plan (02/24/2017 1:53 PM CHAIR AND COUCH MAKER): Goal blood pressure is less than 140/85 Low salt diet recommended Daily aerobic exercise Continue current meds, including ANGUS-I or ARB Assessment & Plan (12/30/2016 10:44 AM CDT): Controlled on current medications. Type 2 diabetes mellitus wit h hyperglycemia, with long-term current use of insulin 03/02/2011 Overview (08/06/2020): DMII WO CMP UNCNTRLD Assessment & Plan (11/10/2017 4:42 PM CDT): A1c 10.1. Increased with pain, lack of attention to diet and exercise. FBG WNL. Continue with Lantus dose and other diabetes medications. Advised to focus on diet and exercise. We will consider adding Bydureon back if A1c does not come down. Provided with education material for diet. 1500 calories per day. 45 grams of carb per meal Meals at least 4 hours apart. No longer than 6 hours. If going longer than 6 hours then have a 15 grams carb snack. Buy Calorie Mervin book On a food label only look at total grams of carb per serving 1 apple = 1/2 banana = 1 cup of berries or melon = 12 grapes. Assessment & Plan (07/12/2017 1:38 PM CDT): Your Hba1c today was: Lab Results Component Value Date HGBA1C 8.1 07/12/2017 meaning a 3 month average sugar of : 184 Your goal hba1c is under 7.0 to prevent long term acute care registered nurse diabetes complications ( eye , kidney and nerve damage ) . Your goal sugars are in the 90-130 range Daily aerobic ( walking, riding a bike, swimming ) and resistance exercises ( light weight lifting, resistance band stretching ) for at least 30 minutes is recommended If you can not walk, chair exercises is very acceptable. As little as 15-20 minutes exercise , in one or two sessions a day, is still very helpful and will help to improve your diabetes control . Eat small portion meals, no more than 1800 calories Diet Try to eat not more than than 2-3 servings of carbs ( starches ) wiith your meals. Avoid soft drinks, including regular sodas , fruit juices and sweetened tea. Drink water instead. Eat plenty of green and leafy vegetables, including salads. Take your medications regularly,including your insulin injections. Monitor your sugar levels with finger sticks regularly and keep a log sheet or book. Bring your sugar meter and /or a log book or log sheet to every office visit. STOP Byetta Eat Small meals, and some snacks in between Start Reglan 5 mg before meals. Assessment & Plan (02/24/2017 1:54 PM CHAIR AND COUCH MAKER): Hba1c was 7.9 today, indicating inadequate DM control 1800 calorie, consistent carb diet recommended 30 min daily aerobic and resistance exercise recommended Prevention and treatment of hyypoglcyemia discussed. Blood glucose monitoring with fingers sticks 1-2 x day . Foot care was discussed. Assessment & Plan (12/30/2016 10:44 AM CDT): A1c improved to 7.7 but with some BG below goal. Decrease Lantus to 13 units. No other medication changes. Needs to check BG at least bid. Foot care discussed. Dyslipidemia 03/02/2011 Assessment & Plan (11/10/2017 4:42 PM CDT): At goal on current medications. Assessment & Plan (07/12/2017 1:34 PM CDT): Goal of treatment , LDL cholesterol less than 100 ( less than 70 in patients with history of heart attacks and / or strokes ) NonHDL cholesterol ( total cholesterol minus HDL cholesterol ) goal less than 130 ( less than 100 in patients with history of heart attacks and / or strokes ) Low cholesterol, low fat diet was discussed and advised. Daily exercise On statin therapy Left-sided weakness Stenosis of cervical spine Immunizations Name Administration Dates Next Due Influenza, Quad, Adjuvantate d, Intramuscular 12/21/2019 Influenza, Trivalent, Adjuva nted, Intramuscular 12/24/2017,12/23/2017 Influenza, Trivalent, High D ose, Split, Preservative Free, Intramuscular 12/20/2018,12/09/2016,12/08/2016,11/30,12/05/2014 Influenza, Trivalent, IM (MDV) 12/02/2015,2013,01/10/2013 Influenza, Unspecified 12/29/2020 Moderna SARS-CoV-2 Monovalen t Vaccination (12+ YRS) 03/11/2021,06/14/2020,05/17/2020 Pneumococcal Conjugate PCV 13 12/02/2015 ,12/01/2015,12/05/2014,12/03 Pneumococcal Polysaccharide PPV23 01/25/2018 ZOSTER Recombinant 04/04/2019,09/22/2018, 015 Social History Tobacco Use Types Packs/Day Years Used Date Smoking Tobacco: Former Cigarettes Q uit: 1989 Smokeless Tobacco: Never Tobacco Cessation:Counseling Given: Not Answered Comments:remote Alcohol Use Standard Drinks/Week Comments No 0 (1 standard drink = 0.6 oz pur e alcohol) Social Connection and Isolat ion Panel [NHANES] Answer Date Recorded In a typical week, how many times do you talk on the phone with family, friends, or neighbors? More than three times a week 08/07/2020 How often do you get togethe r with friends or relatives? More than three times a week 08/07/2020 How often do you attend chur ch or jew services? Never 08/07/2020 Do you belong to any clubs o r organizations such as alevism groups, unions, fraternal or athletic groups, or school groups? No 08/07/2020 How often do you attend meet ings of the clubs or organizations you belong to? Never 08/07/2020 Are you , , di vorced, , never , or living with a partner? 08/07/2020 AUDIT-C Answer Date Recorded Q1: How often do you have a drink containing alcohol? Never 11/04/2021 Q2: How many drinks containi ng alcohol do you have on a typical day when you are drinking? Patient does not drink Q3: How often do you have si x or more drinks on one occasion? Never 11/04/2021 Overall Financial Resource Strain (CARDIA) Answe r Date Recorded How hard is it for you to pa y for the very basics like food, housing, medical care, and heating? Not hard at all 08/07/2020 Hunger Vital Sign Answer Date Recorded Within the past 12 months, y ou worried that your food would run out before you got the money to buy more. Never true 08/08/19 21 Within the past 12 months, t he food you bought just didn't last and you didn't have money to get more. Never true 08/07/2020 PRAPARE - Transportation Answer Date Re corded In the past 12 months, has l ack of transportation kept you from medical appointments or from getting medications? No 07/20 In the past 12 months, has l ack of transportation kept you from meetings, work, or from getting things needed for daily living? No 08/07/2020 Housing Stability Vital Sign Answer Curtis e Recorded In the last 12 months, was t here a time when you were not able to pay the mortgage or rent on time? No 08/07/2020 Number of Places Lived in the Last Year Not on f ile 08/07/2020 In the last 12 months, was t here a time when you did not have a steady place to sleep or slept in a alf (including now)? No 08/07/2020 Comments No Sex and Gender Information Value Date Recorded Sex Assigned at Not on file Legal Sex Female 9:04 AM CHAIR AND COUCH MAKER Gender Identity Not on file Sexual Orientation Not on file Last Filed Vital Signs Vital Sign Reading Time Taken Comments Blood Pressure 96/56 05/03/2022 2:54 PM CHAIR AND COUCH MAKER Pulse 102 05/03/2022 2:54 PM CHAIR AND COUCH MAKER Temperature 36.9 C (98.5 F) 05/03/2022 2:54 PM CHAIR AND COUCH MAKER Respiratory Rate 16 05/03/2022 2:54 PM CHAIR AND COUCH MAKER Oxygen Saturation 99% 05/03/2022 2:54 PM CHAIR AND COUCH MAKER Inhaled Oxygen Concentration - - Weight 81.6 kg (180 lb) 05/03/2022 2:54 PM CHAIR AND COUCH MAKER Height 157.5 cm (5' 2 ) 05/03/2022 2:54 PM CHAIR AND COUCH MAKER Body Mass Index 32.92 05/03/2022 2:54 PM CHAIR AND COUCH MAKER Plan of Treatment Not on file Medical Devices Implanted Type Area Transaction Manager Device Identifier Shelf Expiration Date Model / Serial / Lot [place] [employer] Spine [id number] [place] 3.5mm 12mm Polyaxial Spine Occipitocervicothoracic Medial - [id number] Implanted:Qty: 3 on 08/06/2020 by Omari Baca MD at [facility] N/A: Spine Cervical Fernanda Spine [id number] / / [place] [employer] Spine [id number] [place] 3.5mm 12mm Polyaxial Spine Occipitocervicothoracic Screw - [id number] Implanted:Qty: 4 on 08/06/2020 by Omari Baca MD at [facility] N/A: Spine Cervical [place] [employer] Spine 760-03 [id number] / / Fernanda Spine [id number] [place] 3.5mm 22mm Polyaxial Spine Occipitocervicothoracic Screw - [id number] Implanted:Qty: 2 on 08/06/2020 by Omari Baca MD at [facility] N/A: Spine Cervical Fernanda Spine [id number] / / Fernanda Spine [id number] Screw Set [place] Spine Occipitocervicothoracic Nonsterile Latex Free - [id number] Implanted:Qty: 13 on 08/06/2020 by Omari Baca MD at [facility] N/A: Spine Cervical Fernanda Spine [id number] / / Fernanda Spine [id number] 3.5mm 110mm Contour Dell Spinal Titanium Nonsterile Latex - [id number] Implanted:Qty: 2 on 08/06/2020 by Omari Baca MD at [facility] N/A: Spine Cervical [place] [employer] Spine [id number] / / Spinal Graft Tech [id number] Lynco Putty Jar Graft 5cc Bone Demineralized Bone Matrix - [id number] - [id number] Implanted:Qty: 1 on 08/06/2020 by Omari Baca MD at [facility] N/A: Spine Cervical Med[employer]onic Inc 04/22/2023 [id number] / [id number] / Fernanda Spine [id number] [place] 5mm 22mm Polyaxial Spine Occipitocervicothoracic Screw Bone - [id number] Implanted:Qty: 4 on 08/06/2020 by Omari Baca MD at [facility] [employer] Spine 760 [id number] [id number] / / Procedures Procedure Name Priority Date/Time Associated Diagnosis Comments EGFR Routine 08/08/2020 4:27 AM CDT HEPATITIS C ANTIBODY Routine 08/06/2020 7:50 PM CDT HEMOGLOBIN A1C Add-On 08/06/2020 10:30 AM CDT ALBUMIN CREATININE RATIO, URINE Routine 02/24/2017 Type 2 diabetes mellitus with hyperglycemia, with long-term current use of insulin ([facility]) DIABETIC EYE EXAM Routine 12/04/2016 SERUM LIPID PANEL Routine 09/23/2015 10: 59 AM CDT from Last 3 Months or Most Recently Relevant to Health Maintenance Results * eGFR (08/08/2020 4:27 AM CDT) eGFR 89 mL/min/1.7 3 m2 ABRAHAN ANTONIO Comment: Interpretive Data Reference Interval Normal >/= 90 mL/min/1.73m2 Mildly decreased* 60 - 89 mL/min/1.73m2 Mildly to moderately decreased 45 - 59 mL/min/1.73m2 Moderately to severely decreased 30 - 44 mL/min/1.73m2 Severely decreased 15 - 29 mL/min/1.73m2 Kidney Failure < 15 mL/min/1.73m2 *Relative to young adult level Estimated glomerular filtration rate is determined by the CKD-EPI equation recommended by the National Kidney Foundation (KDIGO 2012 Clinical Practice Guideline for the Evaluation and Management of Chronic Kidney Disease. Kidney Intnl Suppl Mar 2012;3:1). The CKD-EPI equation should not be used for patients with unstable renal function and has not been validated in children and those over 70. Current interpretive data was last reviewed 2020 Blood specimen (specimen) 08/08/2020 4:27 AM CDT 08/08/2020 4:33 AM CDT Dior PERKINS LAB BLOOD ORDERABLES [facility] al Result ABRAHAN [address] [address] Department of Laboratories [place], [place] [id number] * Hepatitis C antibody (08/06/2020 7:50 PM CDT) Hep C Ab Nonreactive Nonreactive ABRAHAN ANTONIO Comment: Interpretive Data Nonreactive: Antibodies to HCV not detected. Does NOT exclude the possibility of recent exposure to HCV. Equivocal: Equivocal for HCV antibodies. Supplemental molecular testing will be automatically performed to determine infection status in accordance with current CDC screening recommendations. Reactive: Positive for HCV antibodies. This may represent current or past HCV infection. Supplemental molecular testing will be automatically performed to determine current infection status in accordance with current CDC screening recommendations. Interpretive data was last revised on 2019. Blood specimen (specimen) 08/06/2020 7:50 PM CDT 08/06/2020 8:04 PM CDT Notinfile Unknown LAB MICROBIOLOGY - GENERAL ORD ERABLES Final Result Performing Organization Address [facility] Co de Phone Number ABRAHAN ANTONIO [address] [address] [place] [address] * (ABNORMAL) Hemoglobin A1c (08/06/2020 10:30 AM CDT) Hgb A1C 9.3(H) 4.0 - 5.6 % ABRAHAN ANTONIO Estimated Average Glucose 220 mg/dL ABRAHAN Comment: The ADA recommends reporting an estimated Average Glucose (eAG) with all Hemoglobin A1c results using the equation derived from a study of 507 normal and diabetic adults. Minority populations were underrepresented and children were not included. (Diabetes Care 31:1849-3993, 2008). The eAG is not equivalent to a fasting glucose. Blood specimen (specimen) 08/06/2020 10:30 AM CDT 08/06/2020 10:37 AM CDT Denilson Munoz MD LAB BLOOD ORDERABLES Final Resu lt Performing Organization Address [facility] Co de Phone Number [address] MARIE ANTONIO [address] [address] [place] [address] * Microalbumin / creatinine ratio, urine, random (02/24/2017) SCRIBED Creatinine, Urine 75 20 - 320 [facility] SCRIBED Microalbumin 0.9 na - na [facility] SCRIBED Microalb/Creat Ratio 12 <30 - <30 [facility] Urine 02/24/2017 Alisia Newton NP LAB URINE ORDERABLES Final R esult [facility] * Diabetic Eye Exam (12/04/2016) Historical Provider HEALTH MAINTENANCE Edited Result - Final * Serum lipid panel (09/23/2015 10:59 AM CDT) Cholesterol 144 125 - 200 mg/dl HISTORICAL RESULTS HDL 50 > OR = 46 mg/dl HISTORICAL RESULTS Triglycerides 119 <150 mg/dl HISTO RICAL RESULTS LDL 70 <130 mg/dl HISTORICA L RESULTS Comment: Desirable range <100 mg/dL for patients with CHD or diabetes and <70 mg/dL for diabetic patients with known heart disease. Chol/HDL ratio 2.9 < OR = 5.0 calc HISTORICAL RESULTS Non-HDL cholesterol, calculated 94 mg/dl HISTORICAL RESULTS Comment: Target for non-HDL cholesterol is 30 mg/dL higher than LDL cholesterol target. 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
--- OUTSIDE RECORDS SUMMARY | 2024-04-27 10:44 | XMS_ITS | Clinical Summary ---
Author Organization [facility] Address [address] [place] [address] Care Team Providers Care Radio Division Officer Name Role Phone Unavailable Primary Care Provider Unavailabl e Source Comments [facility],non-owned Affiliates and Associated Physician Practices is amultiple site organization consisting of ambulatory clinics and hospital sitesin [place], [place], [place] and [place]. This disclosure is being madepursuant to the Care Everywhere program and may not contain all information available regarding this patient. Last updated 17.[facility] [employer] Social History Tobacco Use Types Packs/Day Years Used Date Smoking Tobacco: Never Assessed Sex and Gender Information Value Date Recorded Sex Assigned at Not on file Gender Identity Not on file Sexual Orientation Not on file Plan of Treatment Health Maintenance Due Date Last Done Comments BONE DENSITY TESTING 1945 HEPATITIS C SCREENING 03/02/1965 DTAP/TDAP/TD VACCINES (1 - Tdap) 1966 PNEUMOCOCCAL VACCINE 50+ (1 of 1 - PCV) 1997 ZOSTER VACCINE (1 of 2) 1997 Respiratory Syncytial Virus (RSV) Vaccine Pt: or over 60 yrs (1 - 1-dose 75+ series) 2022 COVID-19 VACCINE ( - 2023- season) 2023 INFLUENZA VACCINE (#1) 2023 9, 12/09/2016, 12/02/2015, Additional history exists DEPRESSION SCREENING 03/21/2024 MEDICARE AWV CALENDAR YEAR 2024 HEPATITIS B VACCINE Aged Out No longe r eligible based on patient's age to complete this topic HIB VACCINE Aged Out No longer eligi ble based on patient's age to complete this topic HPV VACCINE Aged Out No longer eligi ble based on patient's age to complete this topic MENINGOCOCCAL (Group B) VACCINE Aged Out No longer eligible based on patient's age to complete this topic MENINGOCOCCAL VACCINE Aged Out No fracisco john eligible based on patient's age to complete this topic
--- OUTSIDE RECORDS SUMMARY | 2024-04-27 10:44 | XMS_ITS | Clinical Summary ---
Author Organization [facility] [address] Address [address] [place] [address] Care Team Providers Care Manager Wound Care Name Role Phone Omari Baca MD Unavailable [phone] Lew Bailey MD Primary Care Provider [phone] Allergies Active Allergy Reactions Criticality Noted Date [...] 1 each 8 Active blood-glucose sensor device [employer] G6 Sensor device use as directed for [...] mg tablet Take by mouth Active vit Z-H-mlgmms-zin c-lutein 226-90-0.8-5 mg capsule Take by mouth [...] 03/18/2020 Assessment & Plan (03/18/2020 4:39 PM SENIOR SUPPLIER QUALITY ENGINEER): Patient has history of diabetic peripheral neuropathy [...] 03/18/2020 Assessment & Plan (03/18/2020 4:38 PM SENIOR SUPPLIER QUALITY ENGINEER): Patient has antecedent history of neck pain with x-ray suggested cervical spondylosis. I have suggested she could use vsdn-bmv-yymgmkf anti-inflammatories or continue with her chiropractor as previously being done. Diastolic dysfunction 12/27/2019 Fatigue 12/27/2019 Screening for other and unsp ecified cardiovascular conditions 12/27/2019 Achilles tendinitis 11/06/2019 Lymphedema of lower extremity 07/10/2018 Diabetic peripheral neuropathy (CMS/HCC) 018 Dystrophia unguium 10/19/2017 Low back pain 09/22/2017 Hypercholesterolemia 07/04/2012 Overview (08/06/2020): PURE HYPERCHOLESTEROLEM Assessment & Plan (02/24/2017 1:53 PM SENIOR SUPPLIER QUALITY ENGINEER): Goal of treatment , LDL cholesterol less [...] ARB Assessment & Plan (02/24/2017 1:53 PM SENIOR SUPPLIER QUALITY ENGINEER): Goal blood pressure is less than 140/85 [...] goal hba1c is under 7.0 to prevent terminal gauger diabetes complications ( eye , kidney and [...] meals. Assessment & Plan (02/24/2017 1:54 PM SENIOR SUPPLIER QUALITY ENGINEER): Hba1c was 7.9 today, indicating inadequate DM [...] Polysaccharide PPV23 01/25/2018 ZOSTER Recombinant 04/04/2019,09/22/2018, 015 Surgical History Surgery Date Site/Laterality Comments HYSTERECTOMY Hysterectomy APPENDECTOMY Appendectomy SPINAL FUSION 08/06/2020 Medical History Medical History Date Comments Hx Other Medical rotator cuff serrano rgery Hypertension Hypertension Type 2 diabetes mellitus (HCC) D iabetes type 2 Hx Other Medical neck surgery Hypertension 01/02/2013 HYPERTENSION NOS High cholesterol Alcoholism (CMS/HCC) (HCC) Diabetes mellitus type I (HCC) HIV disease (CMS/HCC) (HCC) Substance abuse (CMS/HCC) (HCC) Family History Medical History Relation Name Comments Carpal tunnel syndrome Brother 1 Arthritis Brother 2 No Known Problems Brother 3 knee replacement Brother 4 Diabetes Brother 5 Diabetes Brother 6 Cancer Brother 8 Cancer Brother 9 Cancer Brother 10 No Known Problems Father Diabetes Mother Diabetes type II Other 1 Family hist ory of Diabetes -Type 2; Hypertension Other 2 Family history of Hypertension; Relation Name Status Comments Brother 1 Alive Brother 2 Alive Brother 3 Alive Brother 4 Alive Brother 5 Alive Brother 6 Alive Brother 7 Alive Brother 8 Brother 9 Brother 10 Father Alive Mother Alive Other 1 Other 2 Social History Tobacco Use Types Packs/Day Years [...] 08/07/2020 How often do you attend chur niid.to or restorationism services? Never 08/07/2020 Do you belong to any clubs o r organizations such as hindu groups, unions, fraternal or athletic groups, or [...] place to sleep or slept in a half-way (including now)? No 08/07/2020 Comments No Sex and Gender Information Value Date Recorded Sex Assigned at Not on file Legal Sex Female 9:04 AM SENIOR SUPPLIER QUALITY ENGINEER Gender Identity Not on file Sexual Orientation Not on file Obstetrics History Last Filed Vital Signs Vital Sign Reading Time Taken Comments Blood Pressure 96/56 05/03/2022 2:54 PM SENIOR SUPPLIER QUALITY ENGINEER Pulse 102 05/03/2022 2:54 PM SENIOR SUPPLIER QUALITY ENGINEER Temperature 36.9 C (98.5 F) 05/03/2022 2:54 PM SENIOR SUPPLIER QUALITY ENGINEER Respiratory Rate 16 05/03/2022 2:54 PM SENIOR SUPPLIER QUALITY ENGINEER Oxygen Saturation 99% 05/03/2022 2:54 PM SENIOR SUPPLIER QUALITY ENGINEER Inhaled Oxygen Concentration - - Weight 81.6 kg (180 lb) 05/03/2022 2:54 PM SENIOR SUPPLIER QUALITY ENGINEER Height 157.5 cm (5' 2 ) 05/03/2022 2:54 PM SENIOR SUPPLIER QUALITY ENGINEER Body Mass Index 32.92 05/03/2022 2:54 PM SENIOR SUPPLIER QUALITY ENGINEER Plan of Treatment Health Maintenance Due Date Last Done Comments Osteoporosis Screening-Bone Density Scan 1945 DTaP/Tdap/Td Vaccine (1 - Tdap) 1958 Hepatitis B Screening 1965 Well Visit 65+ 2012 Lipid Panel 09/22/2016 09/23/2015 Dilated Eye Exam 12/04/2017 12/04/2016 Foot Exam 12/30/2017 12/30/2016 Albumin Creatinine Ratio, Urine 02/24/2018 7 Depression Screening 07/12/2018 07/12/2017, 02/24/2017, 12/30/2016 Hemoglobin A1C 02/06/2021 08/06/2020, 10/20, 07/12/2017, Additional history exists eGFR 08/08/2021 08/08/2020, 07/20, 08/06/2020, Additional history exists Fall Risk Assessment 08/14/2021 08/14/2020 Covid-19 Vaccine (2023-2 5 season) 2023 01/17/2022, 03/11/2021, 06/14/2020, Additional history exists Influenza Vaccine (#1) 2023 , 12/21/2019, 12/20/2018, Additional history exists Pneumococcal vaccine 65+ Completed 018, 12/02/2015, 12/01/2015, Additional history exists Zoster Vaccine Completed 04/04/2019, 0 07/2018, 03/21/2014 Hepatitis C Screening Completed 08/06/2020 Medical Devices Implanted Type Area Welfare Worker Device Identifier Shelf Expiration Date Model / Serial / Lot Fernanda Spine [id number] [place] 3.5mm 12mm Polyaxial Spine Occipitocervicothoracic Medial - [id number] Implanted:Qty: 3 on 08/06/2020 by Omari Baca MD at [facility] N/A: Spine Cervical Bon Aqua Spine [id number] [id number] / / Fernanda Spine [id number] [place] 3.5mm 12mm Polyaxial Spine Occipitocervicothoracic Screw - [id number] Implanted:Qty: 4 on 08/06/2020 by Omari Baca MD at [facility] N/A: Spine Cervical Fernanda Spine [id number] / / Fernanda Spine [id number] [place] 3.5mm 22mm Polyaxial Spine Occipitocervicothoracic Screw - [id number] Implanted:Qty: 2 on 08/06/2020 by Omari Baca MD at [facility] N/A: Spine Cervical Bon Aqua Spine [id number] / / Bon Aqua Spine [id number] Screw Set [place] Spine Occipitocervicothoracic Nonsterile Latex Free - [id number] Implanted:Qty: 13 on 08/06/2020 by Omari Baca MD at [facility] N/A: Spine Cervical Fernanda Spine [id number] / / Fernanda Spine [id number] 3.5mm 110mm Contour Dell Spinal Titanium Nonsterile Latex - [id number] Implanted:Qty: 2 on 08/06/2020 by Omari Baca MD at [facility] N/A: Spine Cervical Fernanda Spine [id number] / / Spinal Graft Tech [id number] [place] Putty Jar Graft 5cc Bone Demineralized Bone Matrix - [id number] - [id number] Implanted:Qty: 1 on 08/06/2020 by Omari Baca MD at [facility] N/A: Spine Cervical Medtronic Inc 04/22/2023 [id number] / [id number] / Fernanda Spine [id number] [place] 5mm 22mm Polyaxial Spine Occipitocervicothoracic Screw Bone - [id number] Implanted:Qty: 4 on 08/06/2020 by Omari Baca MD at [facility] Bon Aqua Spine [id number] / / Procedures Procedure Name Priority Date/Time Associated Diagnosis Comments EGFR Routine 08/08/2020 4:27 AM CDT HEPATITIS C ANTIBODY Routine 08/06/2020 7:50 PM CDT HEMOGLOBIN A1C Add-On 08/06/2020 10:30 AM CDT ALBUMIN CREATININE RATIO, URINE Routine 02/24/2017 Type 2 diabetes mellitus with hyperglycemia, with long-term current use of insulin (CMS/HCC) DIABETIC EYE EXAM Routine 12/04/2016 SERUM LIPID [...] 4:27 AM CDT 08/08/2020 4:33 AM CDT us Dior PERKINS LAB BLOOD ORDERABLES Fin al Result ABRAHAN ANTONIO [address] [address] Department [place] [address] * Hepatitis C antibody (08/06/2020 7:50 PM CDT) Hep C Ab Nonreactive Nonreactive ABRAHAN Comment: Interpretive Data Nonreactive: Antibodies to HCV [...] ORD ERABLES Final Result Performing Organization Address City/[facility] Co de Phone Number TRINIDADROSE MARIE [address] [address] [place] [address] * (ABNORMAL) Hemoglobin A1c (08/06/2020 10:30 AM CDT) [facility] Hgb A1C 9.3(H) 4.0 - 5.6 % ABRAHAN Estimated Average Glucose 220 mg/dL ABRAHAN Comment: The ADA recommends reporting an estimated Average Glucose (eAG) with all Hemoglobin A1c results using the equation derived from a study of 507 normal and diabetic adults. Minority populations were underrepresented and children were not included. (Diabetes Care 31:1992-6724, 2008). The eAG is not equivalent to a fasting glucose. Blood specimen (specimen) 08/06/2020 10:30 AM CDT 08/06/2020 10:37 AM CDT Denilson Munoz MD LAB BLOOD ORDERABLES Final Resu lt Performing Organization Address City/[facility]/ZIP Co de Phone Number ABRAHAN ANTONIO [address] [address] [employer] [place], [place] [id number] * Microalbumin / creatinine ratio, urine, random (02/24/2017) [facility] SCRIBED Creatinine, Urine 75 20 - 320 [facility] SCRIBED Microalbumin 0.9 na - na [facility] SCRIBED Microalb/Creat Ratio 12 <30 - <30 [facility] Urine 02/24/2017 Alisia Newton MATHS TUTOR LAB URINE ORDERABLES Final R esult [facility] [...] Provider LAB BLOOD ORDERABLES Mago l Result Performing Organization Address City/[facility] Co de Phone Number HISTORICAL RESULTS from Last 3 Months or Most Recently Relevant to Health Maintenance Insurance MEDICARE SOLUTIONS MEDICARE SOLUTIONS Advance Directives For more information, please contact: [phone] Documents on File Type Date Recorded Patient Furnace Repairer Expl anation ADVANCE DIRECTIVE 02/06/2021 2:22 PM [facility] PROGRESS NOTE SIGNED/FAXED * Full Code (Latest Code Status on File) Date Activated Date Inactivated Comments 08/06/2020 10:35 PM 08/14/2020 7:47 PM * Full Code Date Activated Date Inactivated Comments 08/06/2020 3:27 AM 08/06/2020 10:35 PM Care Teams Manager Wound Care Relationship Specialty Start Date End Date Lew Bailey MD [address] [place] [address] PCP - General Internal Medicine 01/07/23 [place] [id number] [address] Consulting Physician Orthopedic Surgery 08/13/20
--- OUTSIDE RECORDS SUMMARY | 2024-04-27 10:44 | XMS_ITS | CONTINUITY OF CARE DOCUMENT ---
Author Name dada garland Address Unknown Organization [facility] Address [address] [place] [address] Phone [phone] Care Team Providers Care Rn Acls Name Role Phone Rip CUMMINGS, Shon Unavailable MIGUEL CHAVEZ MD Unavailable [phone] MIGUEL CHAVEZ MD Unavailable [phone] PROBLEMS Condition Status Date Provider Notes HTN ESSENTIAL active Kev Nino MD Tiredness and Fatigue active Vincent Kyte Cardiovascular screening active Vincent Kyte Diastolic dysfunction active Vincent Kyte DYSLIPIDEMIA active Vincent Kyte Diabetes mellitus with neuropathy active Ka kathy Kyte ENCOUNTERS Date Type Provider Location Encounter Diag nosis 8 - 9 In-person encounter Office Visit Shon Erwin MD [place] 8 - 8 In-person encounter Office Visit Shon Erwin MD [place] Diabetes mellitus with neuropathyDYSLIPIDEMIADiastolic dysfunctionCardiovascular screeningTiredness and Fatigue 3 - 3 In-person encounter Office Visit Kev Nino MD [facility] Diabetes mellitus with neuropathyDYSLIPIDEMIAHTN ESSENTIAL VITAL SIGNS Date Observation Value Provider blood pressure, cuff size large Ke rri Gruenenfelder blood pressure, diastolic 70 mm[Hg] Ke rri Gruenenfelder blood pressure, systolic 120 mm[Hg] Deja ri Charlene oxygen saturation, oximetry 96 % Maryuri Charlene respiratory rate E&M 18 /min Maryuri jonesnfelder pulse rate 92 /min Maryuri Juan er height E&M 64 [in_i] Maryuri Juan er Body Mass Index (Ratio) 30.72 kg/m2 Luis Enrique daniels Kyte blood pressure, cuff size large Ke rri Gruenenfelder blood pressure, diastolic 66 mm[Hg] Ke rri Gruenenfelder blood pressure, systolic 110 mm[Hg] Deja ri Mickeyelder oxygen saturation, oximetry 96 % Maryuri Arevaloelder respiratory rate E&M 16 /min Maryuri jonesnfelder pulse rate 91 /min Maryuri Juan er weight E&M 179 [lb_av] Maryuri Juan er height E&M 64 [in_i] Maryuri Juan er oxygen saturation, oximetry 99 % Ava Rosales MA blood pressure, diastolic 80 mm[Hg] Kelli Rosales MA blood pressure, systolic 124 mm[Hg] Guilherme Rosales MA pulse rate 92 /min Ava Rosales MA respiratory rate E&M 16 /min Ava Rosales MA weight E&M 150 [lb_av] Ava Rosales MA ALLERGIES Allergy Name Onset Date Reaction Criticality Status OZEMPIC High Criticality active RESULTS Date Observation Value Provider Reference Range Interpretation Location free thyroxine index 1.6 [facility] 1.2-4.9 triiodothyronine resin uptake 26 % [facility] 24-39 thyroxine, serum, total 6.3 ug/dL [facility] 4.5-12.0 thyroid stimulating hormone, serum 0.869 u[IU]/mL [facility] 0.450-4.500 lipoprotein, beta, serum, point, quantitative, calculated 137 mg/dL [facility] 0-99 High HDL cholesterol, serum 40 mg/dL [facility] >39 triglyceride, serum, random 213 mg/dL [facility] 0-149 High cholesterol, serum 215 mg/dL [facility] 100-199 High troponin I 0.70 ng/mL Javid Prince HISTORY OF MEDICATION USE Medication Status Instructions Dates Provider Indications Com ments ZETIA 10 MG ORAL TABLET active ONE TAB. DAILY Shon Erwin MD GABAPENTIN 300 MG ORAL CAPSULE active take one pill three times a day Maryuri Chang LASIX 20 MG ORAL TABLET active one tab by mouth daily Maryuri Chang LATANOPROST SOLUTION active as directed Maryuri Chang TIMOLOL MALEATE 0.25 % OPHTHALMIC SOLUTION active daily Maryuri Chang LOSARTAN POTASSIUM 50 MG ORAL TABLET active Take one tablet daily Maryuri Chang BYSTOLIC 5 MG ORAL TABLET completed 1 tab by mouth daily - Maryuri Chang ASPIRIN 81 81 MG ORAL TABLET DELAYED RELEASE active One Tab By Mouth Daily Maryuri Chang HUMALOG SOLUTION active Insulin pump Maryuri Chang BYETTA 5 MCG PEN SOLUTION PEN-INJECTOR completed twice daily - Maryuri Chang CALTRATE 600 TABLET completed 2 tab by mouth daily - Maryuri Chang GLIPIZIDE 10 MG ORAL TABLET completed 1 tab by mouth daily - Maryuri Chang LIPITOR 20 MG ORAL TABLET active ONE TAB. DAILY Maryuri Chang DIOVAN 80 MG ORAL TABLET completed 1 tab by mouth daily - Maryuri Chang METFORMIN HCL 500 MG ORAL TABLET completed 2 tab by mouth twice daily - Maryuri Chang SOCIAL HISTORY Date Observation Value Provider social history E&M S moking History: P atient is a former smoker. Shon Erwin MD social history reviewed E&M revi ewed - no changes required Shon Erwin MD physical exercise, f requency, days per week yes Maryuri Reyeser caffeine use, averag e drinks per day no Maryuri Arevalolucioclaritza smoking, year quit 2010 Maryuri Ivey dinoer number of years as a smoker less than 10 years Maryuri Arevaloelder cigarette use yes Maryuri Hajinf elder smoking status Former smoker [facility] number of grandchildren Shon Erwin MD social history E&M S moking History: Anel ariza is a former smoker. Shon Erwin MD social history reviewed E&M revi ewed - no changes required Shon Erwin MD smoking, year quit 2010 Shon Erwin MD cigarette use yes Shon Erwin MD physical exercise, f requency, days per week yes Shon Erwin MD caffeine use, averag e drinks per day no Shon Erwin MD smoking status Former smoker Shon eckert MD social history reviewed E&M reviewed Kev Nino MD physical exercise, f requency, days per week yes [employer] caffeine use, averag e drinks per day no [facility] alcohol use, average drinks per day social basis only [employer] number of years as a smoker less than 10 years [facility] smoking status Quit [facility] MENTAL STATUS Date Observation Value Provider assessment of judgme nt and insight E&M Alert and oriented to time, place and person. Mood and affect are normal. Kev Nino MD INSURANCE PROVIDERS Payer name Policy type / Coverage type [place] red republican ID AARP MEDICARE ADVANTAGE ([place] HE[employer] COMPLETE PPO) Other [id number] ADVANCE DIRECTIVES Name Date DISCUSSED - NO DECISION MADE TREATMENT PLAN Date Name Performer Cardiology Follow up :Uncontrolled with A1c 9.4%. Reduced intake of carbohydrates and sugars advised. She continues on insulin. Cardiology Follow up :Unclear etiology. Her stress test and thyroid panel were normal. She would benefit from a Vitamin D level. Cardiology Follow up :Recent LDL elevated at 137. Will add Zetia 10mg daily to her Atorvastatin 20mg daily. We aim for an LDL <70. Cardiology Follow up :Blood pres sure control is satisfactory. Cardiology Follow up :Recent echocardiogram with moderate diastolic dysfunction. She continues on Lasix. Leg swelling resolved. Cardiology New Patie nt :Uncontrolled with A1c 9.4%. Reduced intake of carbohydrates and sugars advised. Cardiology New Patie nt :Continues on Lipitor. We aim for LDL < 70. Will check lipid panel. Cardiology New Patient :Blood pr essure control is satisfactory. Cardiology New Patie nt :Tiredness and fatigued with significantly decreased effort tolerance in a patient with risk factors for CAD, will arrange stress test. Will also check thyroid panel. Cardiology New Patie nt :Recent echocardiogram with moderate diastolic dysfunction. She continues on Lasix. Vincent Date Name Stress Regadenoson LIPID PANEL TSH, free T4, total T3 HISTORY OF PROCEDURES Procedure Date Procedure Name Provider Procedure Notes S tatus EKG Shon Erwin MD complet ed
--- OUTSIDE RECORDS SUMMARY | 2024-04-27 10:45 | XMS_ITS | Continuity of Care Document ---
Author Organization [employer] [facility] Address [address] [place] [address] Dr Dominguez [address] [place] [phone] Phone Care Team Providers Care Tissue Rewinder Name Role Phone Gigi Sweeney Unavailable Unavailable [...] Diagnoses Date Provider Providers Copied on [facility]counter [facility], [address], [place], [place], [address], [place] tel:[phone] [facility] No Information 201 0 Patel Yu. [address] [place], [address], [place]. tel:[phone] [facility], [address], [place], [place], [address], [place] tel:[phone] [facility] No Information 0 Patel Yu. [address] [place], [address], [place]. tel:[phone] Referring Provider: Gigi Flores, [address] [place], [address]. tel:[phone] [facility], [address], [place], [place], [address], [place] tel:[phone] [facility] No Information 0 Patel Yu. [address] [place], [address], [place]. tel:[phone] Referring Provider: Turner Shaffer, [address] [place], [place] [address], [place], [place], [facility]. tel:[phone] Office/outpati ent Visit, [facility], [address], [place], [place], [address], [place] tel:[phone] [facility] No Information 0 Fadumo Tompkins. [address] [place], [place] [address], [address], [place], [address], [place]. tel:[phone] [facility], [address], [place], [place], [address], [place] tel:[phone] [facility] No Information 0 Patel Yu. [address] [place], [address], [place]. tel:[phone] Referring Provider: Gigi Flores, [address] [place], [address]. tel:[phone] [facility], [address], [place], [place], [address], [place] tel:[phone] [facility] No Information Randy-0 8-201 0 Cortez OD Raul. [address] [facility] , [address], [place], [facility], [place]. tel:[phone] [facility], [address], [place], [place], [address], [place] tel:[phone] [facility] No Information 7-201 0 Patel Yu. [address] [place], [facility], [place]. tel:[phone] Referring Provider: Gigi Flores, [address] [place], [facility]. tel:[phone] [facility], [address] [place] [address] [address], [place], [place], [address], [place] tel:[phone] [facility] No Information 3-201 0 Patel Yu. [address] [place], [facility], [place]. tel:[phone] Referring Provider: Gigi Flores, [address] [place], [facility]. tel:[phone] [facility], [address] [place] [address] [address], [place], [place], [address], [place] tel:[phone] [facility] No Information 9-201 0 Patel Yu. [address] [place], [facility], [place]. tel:[phone] Referring Provider: Gigi Flores, [address] [place], [facility]. tel:[phone] Office/outpati ent Visit, [facility] [address], [place], [place], [address], [place] tel:[phone] [facility] [place] No Information Jun-1 9-201 0 Fadumo Tompkins. [address] [facility] , [address], [place], [address], [place]. tel:[phone] [facility], [address], [place], [place], [address], [place] tel:[phone] [facility] No Information Apr-1 5-201 0 Patel Yu. [address] [place], [address], [place]. tel:[phone] Referring Provider: Gigi Flores, [address] [place], [address]. tel:[phone] [facility], [address], [place], [place], [address], [place] tel:[phone] [facility] No Information Apr-0 5-201 0 Patel Yu. [address] [place], [address], [place]. tel:[phone] Referring Provider: Gigi Flores, [address] [place], [address]. tel:[phone] [facility], [address], [place], [place], [address], [place] tel:[phone] [facility] No Information Mar-2 5-201 0 Patel Yu. [address] [place] [address], [address], [place]. tel:[phone] Referring Provider: Gigi Flores, [address] [place], [address]. tel:[phone] [facility], [address], [place], [place], [address], [place] tel:[phone] [facility] No Information Mar-1 1-201 0 Patel Yu. [address] [place], [address], [place]. tel:[phone] Referring Provider: Gigi Flores, [address] [place], [address]. tel:[phone] [facility], [address], [place], [place], [address], [place] tel:[phone] [facility] No Information 0 4-201 0 Patel Yu. [address] [place], [address], [place]. tel:[phone] Referring Provider: Gigi Flores, [address] [place], [address]. tel:[phone] [facility], [address], [place], [place], [address], [place] tel:[phone] [facility] No Information 3-201 0 Patel Yu. [address] [place], [address], [place]. tel:[phone] Referring Provider: Gigi Flores, [address] [place], [address]. tel:[phone] [facility], [address], [place], [place], [address], [place] tel:[phone] SEC [facility] No Information 8-201 0 Patel Yu. [address] [place], [address], [place]. tel:[phone] Referring Provider: Gigi Flores, [address] [place], [address]. tel:[phone] Office/outpati ent Visit, [facility], [address], [place], [place], [address], [place] tel:[phone] [facility] No Information 1200 9 Fadumo Tompkins. [address], [address], [place], [address], [place]. tel:[phone] [facility], [address], [place], [place], [address], [place] tel:[phone] [facility] No Information 2 1-200 9 Fadumo Tompkins. [address] [facility] [address], [place], [facility], [place]. tel:[phone] Referring Provider: Turner Shaffer, [facility] [address], [place], [facility]. tel:[phone] [facility], [address], [place], [place], [address], [place] tel:[phone] [facility] [place] No Information 2 0-200 9 Patel Yu. [address] [place], [facility], [place]. tel:[phone] [facility], [address], [place], [place], [address], [place] tel:[phone] [facility] [place] No Information 1200 9 Patel Yu. [address] [place], [facility], [place]. tel:[phone] Referring Provider: Gigi Flores, [address] [place], [address]. tel:[phone] [facility], [address], [place], [place], [address], [place] tel:[phone] [facility] No Information 2 3-200 9 Patel Yu. [address] [place], [address], [place]. tel:[phone] Office Consultation [facility], [address], [place], [place], [address], [place] tel:[phone] [facility] No Information Jun-1 6-200 9 Patel Yu. [address] [place], [facility], [place]. tel:[phone] Referring Provider: Alf dubon, [address], [place], [address]. tel:[phone] Office/outpati ent Visit, [facility], [address], [place], [place], [address], [place] tel:[phone] [facility] No Information 4-200 9 Sumit Milner. [address] [place], [place] [address]ate [address], [place], [facility], [place]. tel:[phone] Office/outpati ent Visit, [facility], [address] [place] [address] [address], [place], [place], [address], [place] tel:[phone] [facility] [place] No Information 8-200 9 Fadumo Tompkins. [address] [place] [address] , [address], [place], [facility], [place]. tel:[phone] Office/outpati ent Visit, [facility] [address] [address], [place], [place], [address], [place] tel:[phone] [facility] [place] No Information 4-200 8 Fadumo Tompkins. [address] [place], [place] [address]ate Center , [address], [place], [facility], [place]. tel:[phone] [facility], [address], [place], [place], [address], [place] tel:[phone] [facility] No Information 0-200 8 Fadumo Tompkins. [address] [place], [place] [address]ate Center , [address], [place], [facility], [place]. tel:[phone] Referring Provider: Turner Shaffer, [address] [place], [place] [address]ate [address], [place], [facility]. tel:[phone] Office/outpati ent Visit, [facility], [address], [place], [place], [address], [place] tel:[phone] [facility] No Information Mar-1 0-200 8 Fadumo Tompkins. [facility] , [address], [place], [address], [place]. tel:[phone] [facility], [address], [place], [place], [address], [place] tel:[phone] [facility] No Information Sep-1 0-200 7 Fadumo Tompkins. [facility] , [address], [place], [facility], [place]. tel:[phone] Office/outpati ent Visit, [facility] [address] [place] [address] [address], [place], [place], [address], [place] tel:[phone] [facility] [place] No Information Jose Enrique-1 0-200 7 Elvia Ferrer. [address] [facility], [address], [place], [place], [address], [place]. tel:[phone] [facility], [address] [place] [address] [address], [place], [place], [address], [place] tel:[phone] [facility] [place] No Information Jose Enrique-0 2-200 7 Fadumo Tompkins. [address] [place], [place] [address]ate [address], [address], [place], [facility], [place]. tel:[phone] [facility], [address] [place] [address] [address], [place], [place], [address], [place] tel:[phone] [facility] No Information May-1 0-200 7 Fadumo Tompkins. [facility] , [address], [place], [facility], [place]. tel:[phone] Referring Provider: Turner Shaffer, [address] [place], [place] [address]ate [address], [place], [facility]. tel:[phone] [facility], [address], [place], [place], [address], [place] tel:[phone] [facility] No Information 7 Fadumo Tompkins. [address] [facility] , [address], [place], [address], [place]. tel:[phone] Referring Provider: Ozzy Avila1 [facility] [address], [place], [address]. tel:[phone] Family History Family Member Type Diagnosis Age At Onset No Information Payers Payer name Insurance type Covered democrat ID Authoriza tion(s) No Information Social History [...]
--- OUTSIDE RECORDS SUMMARY | 2024-04-27 10:45 | XMS_ITS | Clinical Summary ---
Author Organization [facility] Address [address] [place] [address] Care Team Providers Care [employer] Salesperson Name Role Phone Unavailable Primary Care Provider Unavailabl e Social History Tobacco Use Types Packs/Day Years Used Date Smoking Tobacco: Never Assessed Comments Unknown Sex and Gender Information Value Date Recorded Sex Assigned at Not on file Legal Sex Female 7:14 PM CDT Gender Identity Not on file Sexual Orientation Not on file Plan of Treatment Health Maintenance Due Date Last Done Comments Hepatitis C 1963 DTaP, Tdap and Td Vaccines ( 1 - Tdap) 1966 Zoster Vaccines (1 of 2) 1997 Dexa Scan (General) 2012 Pneumococcal Vaccine: 65+ Ye ars (1 of 1 - PCV) 2012 RSV Immunization or 60+ Years (1 - 1-dose 75+ series) 2022 COVID-19 Vaccine (2023-2 5 season) 2023 Influenza Adult (#1) 2023 Meningococcal B Vaccine Aged Out No l onger eligible based on patient's age to complete this topic Meningococcal Vaccine Aged Out No fracisco john eligible based on patient's age to complete this topic RSV Immunizations Under 20 Months Aged Out No longer eligible based on patient's age to complete this topic
[2024-04-27 11:21] LABS: Basophils Absolute Auto 0.1 K/mm3 (0.0-0.1); Basophils Percent Auto 0.7 % (0.2-1.2); Eosinophils Absolute Auto 0.4 K/mm3 (0-0.3); Eosinophils Percent Auto 3.9 % (0-4.4); Hematocrit 38.6 % (37.0-47.0); Immature Granulocyte Absolute 0.02 K/mm3 (0.00-0.031); Immature Granulocyte Percent A 0.2 % (0-0.5); Lymphocytes Absolute Auto 1.84 K/mm3 (0.9-3.2); Mean Corpuscular HGB Conc 31.1 g/dl (32-36); Mean Corpuscular Hemoglobin 26.5 pg (26-34); Mean Corpuscular Volume 85.2 fl (80-100); Mean Platelet Volume 11.1 fl (7.4-10.4); Monocytes Absolute Auto 0.8 K/mm3 (0.1-0.6); Monocytes Percent Auto 8.5 % (2.6-8.5); Neutrophils Absolute Auto 6.1 K/mm3 (1.3-6.7); Neutrophils Percent Auto 66.7 % (45.5-73.1); Platelet Count Result 206 k/mm3 (150-375); Red Blood Count 4.53 M/mm3 (4.2-5.4); Red Cell Distribution Width 13.1 % (11.5-14.5); White Blood Count 9.2 K/mm3 (4.5-10.0)
== END 2024-04-27 09:56 | disposition home or self-care (01) ==
LOC: ANHCARD 09:59 → ANHLAB 10:10 → ANHCARD 10:31
PROVIDERS: PCP Internal Medicine; Visit Provider Nurse Practitioner Family
DX: Z01.818 Encounter for other preprocedural examination (principal); I10 Essential (primary) hypertension; E11.9 Type 2 diabetes mellitus without complications; R04.0 Epistaxis
CPT/HCPCS: 36415; 85025; 93005

== ENCOUNTER 2024-12-20 13:49 | Outpatient (CLI) | payer MEDICARE, SELFPAY ==
--- NOTE | ~2024-12-20 | MM_ITS ---
EXAMINATION: MM screening sumanth BI w mandeep HISTORY: Screening TECHNIQUE: Craniocaudal and mediolateral oblique 3-D tomosynthesis images were obtained and synthetic 2-D images were generated. CAD analysis was submitted and interpreted. COMPARISON: No prior mammogram is available for comparison at this institution. BREAST PARENCHYMAL COMPOSITION: Dense: The breasts are heterogeneously dense, which may obscure small masses. FINDINGS: There is no evidence of suspicious mass, calcification, or architectural distortion to suggest malignancy in either breast. There has been no suspicious interval change. IMPRESSION: 1. No mammographic evidence of malignancy. 2. Recommend routine screening mammography in one year. BI-RADS Category 1: Negative Reviewed, dictated and finalized at location C.
--- OUTSIDE RECORDS SUMMARY | 2024-12-20 13:54 | XMS_ITS | Clinical Summary ---
Author Organization [facility] ([facility]) Address [address] [place] [address] Phone Care Team Providers Care Recordings Librarian Name Role Phone Lew Bailey MD Primary Care Provider [phone] Antonio Smith MD Unavailable [phone] Allergies Active Allergy Reactions Criticality Noted Date [...] Take 20 mg by mouth daily. Active Encounters Date Type Department Care Team Description 10/17/2024 11:00 AM CDT - 10/17/2024 11:59 PM CDT [facility] [address] [place] [address] Antonio Smith MD Discharge Disposition: Discharged to home or Selfcare 10/17/2024 9:58 AM CDT - 10/17/2024 10:59 AM CDT [facility] [address] [place] [address] Antonio Smith MD Discharge Disposition: Discharged to home or Selfcare 10/17/2024 Travel 10/09/2024 2:00 PM CDT Office Visit [facility] Neu[facility] [address] [place] [address] Antonio Smith MD Gait disturbance (Primary Dx); Neck pain; History of spinal fusion Discharge Disposition: Discharged to home or Selfcare 10/09/2024 Travel from Last 3 Months Family History Medical History Relation Name Comments [...] Sign Reading Time Taken Comments Blood Pressure 118/72 10/09/2024 1:58 PM CDT Pulse 89 10/09/2024 1:58 PM CDT Temperature 36.5 C (97.7 F) 10/09/2024 1:58 PM CDT Respiratory Rate 16 10/09/2024 1:58 PM CDT Oxygen Saturation 96% 10/09/2024 1:58 PM CDT Inhaled Oxygen Concentration - - Weight 74.5 kg (164 lb 3.2 oz) 10/09/2024 1:58 P M CDT Height 157.5 cm (5' 2) 10/09/2024 1:58 PM CDT Body Mass Index 30.03 10/09/2024 1:58 PM CDT Plan of Treatment Upcoming Encounters Date Type Department Care Team (Late st Contact Info) Description 01/14/2025 2:30 PM CDT Office Visit [facility] - Neurology - [place] [address] [place] [id number] Antonio Smith MD [address] [place] [phone] Health Maintenance Due Date Last Done Comments DEXA Bone Density 1945 Hepatitis C Virus (HCV) Screening 1945 Influenza Immunization (#1) 11/19/202404/2023, 12/23/2022, 12/23/2021, Additional history exists SARS-COV-2 Immunization ( season) 2024 12/21/2023, 01/17/2023, 01/16/2022, Additional history exists Pneumococcal Immunization (50+ years) Completed 01/25/2018, 12/01/2015, 12/05/2014, Additional history exists Zoster Immunization Completed 04/04/2019, 09/22/2018, 03/21/2014 Respiratory Syncytial Virus (RSV) Immunization (Adult) Completed 01/17/2023 DTaP/Tdap/Td Immunization Discontinued 03/01/2024 TdaP Immunization Completed 03/01/2024 Hepatitis B Immunization Aged Out No longer eligible based on patient's age to complete this topic Human Papillomavirus (HPV) Immunization Aged Out No longer eligible based on patient's age to complete this topic Meningococcal Immunization (ACWY) Aged Out No longer eligible based on patient's age to complete this topic Rotavirus Immunization Aged Out No lo nger eligible based on patient's age to complete this topic Procedures Procedure Name Priority Date/Time Associated Diagnosis Comments XR CERVICAL SPINE LIMITED 2 OR 3 VIEWS (3V OR LESS) Routine 10/17/2024 11:17 AM CDT Gait disturbance Neck pain History of spinal fusion MRI BRAIN W/O CONTRAST Routine 10/17/2024 10:51 AM CDT Gait disturbance from Last 3 Months Results * XR CERVICAL SPINE LIMITED 2 OR 3 VIEWS (3V OR LESS) (10/17/2024 11:17 AM CDT) Anatomical Region Laterality Modality Spine, C-spine N/A Digital Radiogra phy 10/29/2024 8:42 AM CDT Impressions 10/29/2024 8:44 AM CDT IMPRESSION: 1. No acute radiographic abnormality of the cervical spine. 2. Posterior pedicle screw and jaime fixation from C2-C5 extending to involve T1 and T2. Prior anterior cervical discectomy and fusion at C5-6. Narrative 10/29/2024 8:44 AM CDT EXAM DESCRIPTION: XR CERVICAL SPINE LIMITED 2 OR 3 VIEWS (3V OR LESS) REASON FOR STUDY: Neck pain after spinal fusion years ago. No reported injury. TECHNIQUE: AP, lateral, open-mouth, and swimmer's radiographic view(s) of the cervical spine COMPARISON: None available FINDINGS: ALIGNMENT: Normal. VERTEBRAE: No fracture seen. Mild diffuse cervical spondylosis. Posterior pedicle screw and jaime fixation from C2-C5 extending to involve T1 and T2. Prior anterior cervical discectomy and fusion at C5-6. Normal C1-2 articulation on the lateral and open-mouth views. DISCS: Disc height well-maintained. SOFT TISSUES: No prevertebral soft tissue swelling. The partially included lung apices are clear. THIS IS AN ELECTRONICALLY VERIFIED FINAL REPORT 10/29/2024 8:42 AM - Electronically signed by Ryan Valdovinos M.D. LB: ZAIN Report ID: [id number] Reading Location: [id number] Procedure Note Ryan Valdovinos MD - 10/29/2024 EXAM DESCRIPTION: XR CERVICAL SPINE LIMITED 2 OR 3 VIEWS (3V OR LESS) REASON FOR STUDY: Neck pain after spinal fusion years ago. No reported injury. TECHNIQUE: AP, lateral, open-mouth, and swimmer's radiographic view(s) of the cervical spine COMPARISON: None available FINDINGS: ALIGNMENT: Normal. VERTEBRAE: No fracture seen. Mild diffuse cervical spondylosis. Posterior pedicle screw and jaime fixation from C2-C5 extending to involve T1 and T2. Prior anterior cervical discectomy and fusion at C5-6. Normal C1-2 articulation on the lateral and open-mouth views. DISCS: Disc height well-maintained. SOFT TISSUES: No prevertebral soft tissue swelling. The partially included lung apices are clear. THIS IS AN ELECTRONICALLY VERIFIED FINAL REPORT 10/29/2024 8:42 AM - Electronically signed by Ryan Valdovinos M.D. LB: ZAIN Report ID: [id number] Reading Location: [place] [address] IMPRESSION: 1. No acute radiographic abnormality of the cervical spine. 2. Posterior pedicle screw and jaime fixation from C2-C5 extending to involve T1 and T2. Prior anterior cervical discectomy and fusion at C5-6. us Antonio Smith MD IM DIAGNOSTIC ORDERABLES Fi nal Result * MRI BRAIN W/O CONTRAST (10/17/2024 10:51 AM CDT) Anatomical Region Laterality Modality Head N/A Magnetic Resonan ce 10/18/2024 12:0 3 PM CDT Impressions 10/18/2024 12:05 PM CDT IMPRESSION: 1. No acute intracranial finding. 2. Extensive microvascular change of periventricular white matter. 3. Innumerable tiny foci of susceptibility scattered throughout the cerebral hemispheres bilaterally. Findings are nonspecific but most commonly reflect longstanding hypertensive microangiopathic changes. Head trauma, vasculopathy, as well as amyloid deposition or less likely. Please correlate with clinical features. Narrative 10/18/2024 12:05 PM CDT EXAM DESCRIPTION: MRI BRAIN W/O CONTRAST REASON FOR STUDY: gait difficulty worsening x about 4 years. TECHNIQUE: Multiplanar imaging includes non-contrasted T1, T2, FLAIR, and diffusion with ADC map sequences. Additional sequence(s) sensitive to blood products. Images stored on PACS. COMPARISON: No comparison. FINDINGS: CEREBRUM: Mild diffuse cerebral volume loss with prominent ventricles and sulci. No cortical infarct mass or focal cerebral lesion. Blood sensitive gradient T2 weighted sequences however indicate the presence of innumerable tiny foci of susceptibility scattered throughout the cerebral hemispheres bilaterally. Findings are nonspecific but most commonly reflect longstanding hypertensive microangiopathic changes. Head trauma, vasculopathy, as well as amyloid deposition or less likely. Please correlate with clinical features.. WHITE MATTER: There is confluent and punctate foci of T2 and FLAIR hyperintensity evident throughout periventricular white matter and subcortical regions bilaterally. Changes are nonspecific but are probably related to microvascular ischemic change. POSTERIOR FOSSA: No posterior fossa or brainstem abnormality. DIFFUSION IMAGING: No recent infarction. EXTRAAXIAL SPACES: No hemorrhage. No mass. BRAIN VOLUME: Within normal limits for age. PITUITARY: Unremarkable. VASCULATURE: No flow disturbance identified. ORBITS: No masses. Globes normal. PARANASAL SINUSES AND MASTOIDS: Well-aerated with no fluid levels. No mucosa thickening. OTHER: No other significant finding. THIS IS AN ELECTRONICALLY VERIFIED FINAL REPORT 10/18/2024 12:03 PM - Electronically signed by Farooq Garcia M.D. LC: BERENICE Report ID: [id number] Reading Location: [place] [address] Procedure Note Alisa Garcia MD - 10/18/2024 EXAM DESCRIPTION: MRI BRAIN W/O CONTRAST REASON FOR STUDY: gait difficulty worsening x about 4 years. TECHNIQUE: Multiplanar imaging includes non-contrasted T1, T2, FLAIR, and diffusion with ADC map sequences. Additional sequence(s) sensitive to blood products. Images stored on PACS. COMPARISON: No comparison. FINDINGS: CEREBRUM: Mild diffuse cerebral volume loss with prominent ventricles and sulci. No cortical infarct mass or focal cerebral lesion. Blood sensitive gradient T2 weighted sequences however indicate the presence of innumerable tiny foci of susceptibility scattered throughout the cerebral hemispheres bilaterally. Findings are nonspecific but most commonly reflect longstanding hypertensive microangiopathic changes. Head trauma, vasculopathy, as well as amyloid deposition or less likely. Please correlate with clinical features.. WHITE MATTER: There is confluent and punctate foci of T2 and FLAIR hyperintensity evident throughout periventricular white matter and subcortical regions bilaterally. Changes are nonspecific but are probably related to microvascular ischemic change. POSTERIOR FOSSA: No posterior fossa or brainstem abnormality. DIFFUSION IMAGING: No recent infarction. EXTRAAXIAL SPACES: No hemorrhage. No mass. BRAIN VOLUME: Within normal limits for age. PITUITARY: Unremarkable. VASCULATURE: No flow disturbance identified. ORBITS: No masses. Globes normal. PARANASAL SINUSES AND MASTOIDS: Well-aerated with no fluid levels. No mucosa thickening. OTHER: No other significant finding. THIS IS AN ELECTRONICALLY VERIFIED FINAL REPORT 10/18/2024 12:03 PM - Electronically signed by Farooq Garcia M.D. LC: BERENICE Report ID: [id number] Reading Location: [place] [address] IMPRESSION: 1. No acute intracranial finding. 2. Extensive microvascular change of periventricular white matter. 3. Innumerable tiny foci of susceptibility scattered throughout the cerebral hemispheres bilaterally. Findings are nonspecific but most commonly reflect longstanding hypertensive microangiopathic changes. Head trauma, vasculopathy, as well as amyloid deposition or less likely. Please correlate with clinical features. Antonio Smith MD IMG MR ORDERABLES Final Resu lt from Last 3 Months Insurance MEDICARE C [facility] [place] [id number] Care Teams Recordings Librarian Relationship Specialty Start Date End Date Lew Bailey MD PCP - General Internal Medicine 06/09/23 Antonio Smith MD [address] [place] [address] Consulting Physician Neurology 10/03/23
--- OUTSIDE RECORDS SUMMARY | 2024-12-20 13:55 | XMS_ITS | Data Portability ---
Author Organization [facility] [employer], Main Office Address [address] [place] [address] Care Team Providers Care Sanipractic Physician Name Role Phone KATHY MIGUEL Primary Care Provider [phone] MIGUEL VALLE Referring Provider [phone] DARIEL BAILEY Primary Care Provider Assessment Encounter Date Assessment Date Assessment LastModified by Organization Details LastModified Time 11/20/2024 11/20/2024 This note is dictated and transcribed by [employer]. Chainstitch Felled Seam Operator variances may occur. Despite proofreading, typographical errors may occur. Occasional wrong-word or '[id number]' substitutions may have occurred due to the inherent limitations of voice recording. Read the chart carefully and recognize, using context, where substitutions have occurred. [email or web address] Not available 11/21/2024 15:59:50 Plan of Treatment Reminders Order Date Submit Date Provider Last Modified By Organization Details Last Modified Time Details Appointments Any 30 2024 11:00A M JASWINDER Sprague Not available Not available Not available Establish ed Patient 15 2024 02:30P M Weston Buchanan DPM Not available Not available Not available Any 15 2025 01:30P M Dariel Bailey MD Not available Not available Not available Lab vitamin B12, serum 2024 025 ALICIA [facility], [address], [place], [address], 12/07/2024 10:46:22 CBC w/ auto diff 2024 025 ALICIA [facility], [address], [place], [address], 12/07/2024 09:51:29 CBC 2024 025 [facility], [address], [place], [address], 12/07/2024 10:46:22 HbA1c (hemoglob in A1c), blood 2024 025 [facility], [address], [address], [place], [address], 12/07/2024 14:12:17 CMP, serum or plasma 2024 025 [facility], [address], [place], [address], 12/07/2024 10:46:22 microalbu min, urine 2024 025 [facility], [address], [place], [address], 12/07/2024 14:12:18 HbA1c (hemoglob in A1c), blood 2024 025 [email or web address], [address], [address], [place], [address], 10/26/2024 12:15:22 BMP, serum or plasma 2024 025 [employer] [facility], [address], [address], [place], [address], 09/05/2024 10:37:11 Referral None recorded. Procedures None recorded. Surgeries None recorded. Imaging None recorded. Medication Orders None recorded. Patient TargetsNo targets recorded. Patient InstructionsNo instructions recorded. Reason for Referral None Reported. Results Created Date Observation Date Name Description Value Unit Range Abnormal Flag Note LastModifiedBy Organization Detail LastModifiedTime 12/07/19 25 12/07/2024 CBC WITH DIFFE RENTI AL/PL ATELE T WBC 8.7 x10e3 /uL 3.4-10 .8 normal Not Available [facility] ([facility]) [address] [place], [address], 12/07/2024 14:12:16 12/07/1912/07/2024 CBC WITH DIFFE RENTI AL/PL ATELE T RBC 4.72 x10e6 /uL 3.77-5 .28 normal Not Available [facility] ([facility]) [address] [place], [address], 12/07/2024 14:12:16 12/07/1912/07/2024 CBC WITH DIFFE RENTI AL/PL ATELE T hemoglobin 12.1 g/dL 11.1-1 5.9 normal Not Available [facility] ([facility]) [address] [place], [address], 12/07/2024 14:12:16 12/07/1912/07/2024 CBC WITH DIFFE RENTI AL/PL ATELE T hematocrit 41.0 % 34.0-4 6.6 normal Not Available [facility] ([facility]) [address] [place], [address], 12/07/2024 14:12:16 12/07/1912/07/2024 CBC WITH DIFFE RENTI AL/PL ATELE T MCV 87 fL 79-97 normal Not Available [facility] ([facility]) [address] [place], [address], 12/07/2024 14:12:16 12/07/1912/07/2024 CBC WITH DIFFE RENTI AL/PL ATELE T MCH 25.6 pg 26.6-3 3.0 below low normal Not Available [facility] ([facility]) [address] [place], [address], 12/07/2024 14:12:16 12/07/19 25 12/07/2024 CBC WITH DIFFE RENTI AL/PL ATELE T MCHC 29.5 g/dL 31.5-3 5.7 below low normal Not Available [facility] ([facility]) [address] [facility], [place], [address], 12/07/2024 14:12:16 12/07/19 25 12/07/2024 CBC WITH DIFFE RENTI AL/PL ATELE T RDW 14.4 % 11.7-1 5.4 Not Available [facility] ([facility]) [address] [facility], [place], [address], 12/07/2024 14:12:16 12/07/19 25 12/07/2024 CBC WITH DIFFE RENTI AL/PL ATELE T platelets 205 x10e3 /uL 150-45 0 normal Not Available [facility] ([facility]) [address] [facility], [place], [address], 12/07/2024 14:12:16 12/07/19 25 12/07/2024 CBC WITH DIFFE RENTI AL/PL ATELE T neutrophils 65 % not estab. normal Not Available [facility] ([facility]) [address] [facility], [place], [address], 12/07/2024 14:12:16 12/07/19 25 12/07/2024 CBC WITH DIFFE RENTI AL/PL ATELE T lymphs 23 % not estab. normal Not Available [facility] ([facility]) [address] [facility], [place], [address], 12/07/2024 14:12:16 12/07/19 25 12/07/2024 CBC WITH DIFFE RENTI AL/PL ATELE T monocytes 8 % not estab. normal Not Available [facility] ([facility]) [address] [facility], [place], [address], 12/07/2024 14:12:16 12/07/19 25 12/07/2024 CBC WITH DIFFE RENTI AL/PL ATELE T eos 3 % not estab. normal Not Available [facility] ([facility]) [address] [facility], [place], [address], 12/07/2024 14:12:16 12/07/19 25 12/07/2024 CBC WITH DIFFE RENTI AL/PL ATELE T basos 1 % not estab. normal Not Available [facility] ([facility]) [address] [facility], [place], [address], 12/07/2024 14:12:16 12/07/19 25 12/07/2024 CBC WITH DIFFE RENTI AL/PL ATELE T immature cells CASING SEWER Not Available [facility] ([facility]) [address] [facility], [place], [address], 12/07/2024 14:12:16 12/07/19 25 12/07/2024 CBC WITH DIFFE RENTI AL/PL ATELE T neutrophils (absolute) 5.7 x10e3 /uL 1.4-7. 0 normal Not Available [facility] ([facility]) [address] [facility], [place], [address], 12/07/2024 14:12:16 12/07/19 25 12/07/2024 CBC WITH DIFFE RENTI AL/PL ATELE T lymphs (absolute) 2.0 x10e3 /uL 0.7-3. 1 normal Not Available [facility] ([facility]) [address] [place], [address], 12/07/2024 14:12:16 12/07/19 25 12/07/2024 CBC WITH DIFFE RENTI AL/PL ATELE T monocytes(ab solute) 0.7 x10e3 /uL 0.1-0. 9 normal Not Available [facility] ([facility]) [address] [place], [address], 12/07/2024 14:12:16 12/07/19 25 12/07/2024 CBC WITH DIFFE RENTI AL/PL ATELE T eos (absolute) 0.3 x10e3 /uL 0.0-0. 4 normal Not Available [facility] ([facility]) [address] [facility], [place], [address], 12/07/2024 14:12:16 12/07/19 25 12/07/2024 CBC WITH DIFFE RENTI AL/PL ATELE T baso (absolute) 0.0 x10e3 /uL 0.0-0. 2 normal Not Available [facility] ([facility]) [address] [facility], [place], [address], 12/07/2024 14:12:16 12/07/19 25 12/07/2024 CBC WITH DIFFE RENTI AL/PL ATELE T immature granulocytes 0 % not estab. Not Available [facility] ([facility]) [address] [facility], [place], [address], 12/07/2024 14:12:16 12/07/19 25 12/07/2024 CBC WITH DIFFE RENTI AL/PL ATELE T immature grans (abs) 0.0 x10e3 /uL 0.0-0. 1 Not Available [facility] ([facility]) [address] [facility], [place], [address], 12/07/2024 14:12:16 12/07/19 25 12/07/2024 CBC WITH DIFFE RENTI AL/PL ATELE T NRBC CASING SEWER Not Available [facility] ([facility]) [address] [facility], [place], [address], 12/07/2024 14:12:16 12/07/19 25 12/07/2024 CBC WITH DIFFE RENTI AL/PL ATELE T hematology comments: CASING SEWER Not Available [facility] ([facility]) [address] [place], [address], 12/07/2024 14:12:16 12/07/19 25 12/07/2024 COMP. METAB OLIC PANEL (14) glucose 73 mg/dL 70-99 normal Not Available [facility] ([facility]) [address] [place], [address], 12/07/2024 14:12:17 12/07/19 25 12/07/2024 COMP. METAB OLIC PANEL (14) BUN 11 mg/dL 8-27 normal Not Available [facility] ([facility]) [address] [facility], [place], [address], 12/07/2024 14:12:17 12/07/19 25 12/07/2024 COMP. METAB OLIC PANEL (14) creatinine 0.94 mg/dL 0.57-1 .00 normal Not Available [facility] ([facility]) [address] [facility], [place], [address], 12/07/2024 14:12:17 12/07/19 25 12/07/2024 COMP. METAB OLIC PANEL (14) eGFR 62 mL/mi n/1.7 3 >59 normal Not Available [facility] ([facility]) [address] [facility], [place], [address], 12/07/2024 14:12:17 12/07/19 25 12/07/2024 COMP. METAB OLIC PANEL (14) interpretati on: COMMEN T GFR estim ate at the follo wing level for >or=3 month s is class ified as follo ws: GFR WITH KIDNE Y DAMAG E WITHO UT KIDNE Y DAMAG E >or=9 0 Stage 1 Ivanna l 60-89 Stage 2 Decr eased GFR 30-59 Stage 3 Stage 3 15-29 Stage 4 Stage 4 <15 (or dialy sis) Stage 5 Stage 5 Estim ated GFR will over estim ate true GFR if serum creat inine is risin g as in acute renal failu re and will under estim ate true GFR if serum creat inine is decli mane as in resol ving acute renal failu re. Addit ional infor sal daniels may be found at www.k doqi. org. Not Available [facility] ([facility]) [address] [facility], [place], [address], 12/07/2024 14:12:17 12/07/19 25 12/07/2024 COMP. METAB OLIC PANEL (14) BUN/creatini ne ratio 12 12-28 normal Not Available [facility] ([facility]) [address] [facility] [place], [address], 12/07/2024 14:12:17 12/07/19 25 12/07/2024 COMP. METAB OLIC PANEL (14) sodium 142 mmol/ L 134-14 4 normal Not Available [facility] ([facility]) [address] [facility] [place], [address], 12/07/2024 14:12:17 12/07/19 25 12/07/2024 COMP. METAB OLIC PANEL (14) potassium 4.6 mmol/ L 3.5-5. 2 normal Not Available [facility] ([facility]) [address] [facility] [place], [address], 12/07/2024 14:12:17 12/07/19 25 12/07/2024 COMP. METAB OLIC PANEL (14) chloride 102 mmol/ L 96-106 normal Not Available [facility] ([facility]) [address] [facility] [place], [address], 12/07/2024 14:12:17 12/07/19 25 12/07/2024 COMP. METAB OLIC PANEL (14) carbon dioxide, total 22 mmol/ L 20-29 normal Not Available [facility] ([facility]) [address] [facility] [place], [address], 12/07/2024 14:12:17 12/07/19 25 12/07/2024 COMP. METAB OLIC PANEL (14) calcium 9.1 mg/dL 8.7-10 .3 normal Not Available [facility] ([facility]) [address] [facility] [place], [address], 12/07/2024 14:12:17 12/07/19 25 12/07/2024 COMP. METAB OLIC PANEL (14) protein, total 6.7 g/dL 6.0-8. 5 normal Not Available [facility] ([facility]) [address] [facility] [place], [address], 12/07/2024 14:12:17 12/07/19 25 12/07/2024 COMP. METAB OLIC PANEL (14) albumin 4.1 g/dL 3.8-4. 8 normal Not Available [facility] ([facility]) [address] [facility], [place], [address], 12/07/2024 14:12:17 12/07/19 25 12/07/2024 COMP. METAB OLIC PANEL (14) globulin, total 2.6 g/dL 1.5-4. 5 Not Available [facility] ([facility]) [address] [facility], [place], [address], 12/07/2024 14:12:17 12/07/19 25 12/07/2024 COMP. METAB OLIC PANEL (14) bilirubin, total 0.4 mg/dL 0.0-1. 2 normal Not Available [facility] ([facility]) [address] [facility] [place], [address], 12/07/2024 14:12:17 12/07/19 25 12/07/2024 COMP. METAB OLIC PANEL (14) alkaline phosphatase 112 IU/L 49-135 normal Ple ase note refer ence inter santiago benítez e Not Available [facility] ([facility]) [address] [facility], [place], [address], 12/07/2024 14:12:17 12/07/19 25 12/07/2024 COMP. METAB OLIC PANEL (14) AST (SGOT) 9 IU/L 0-40 normal Not Available [facility] ([facility]) [address] [facility], [place], [address], 12/07/2024 14:12:17 12/07/19 25 12/07/2024 COMP. METAB OLIC PANEL (14) ALT (SGPT) 8 IU/L 0-32 normal Not Available [facility] ([facility]) [address] [facility], [place], [address], 12/07/2024 14:12:17 12/07/19 25 12/07/2024 HEMOG LOBIN A1C hemoglobin A1C 7.4 % 4.8-5. 6 above high normal Predi abete s: 5.7 - 6.4 Diabe marlena: >6.4 Glyce deanne contr ol for adult s with diabe mralena: <7.0 Not Available [facility] ([facility]) [address] [place], [address], 12/07/2024 14:12:17 12/07/1912/07/2024 ALBUM IN, RANDO M URINE albumin, urine 6.8 ug/mL not estab. Not Available [facility] ([facility]) [address] [place], [address], 12/07/2024 14:12:18 12/07/1912/07/2024 VITAM IN B12 vitamin B12 >2000 pg/mL 232-12 45 above high normal Not Available [facility] ([facility]) [address] [facility], [place], [address], 12/07/2024 14:12:18 Result Notes None recorded. Problems Name Problem SNOMED Code Status Onset Date Resolution Date Notes Provider Name and Address Organization Details Recorded Time Respirato ry finding 436285375 Completed Not Available [facility] 3 02:39:35 Abdominal bloating 325937055 Completed Not Available [facility] 3 02:39:35 Benign essential hypertens ion 2871288 Active Not Available [facility] 3 22:24:29 Abdominal pain 91810367 Completed Not Available [facility] 3 02:39:36 Pain 52580492 Completed 02/15/2024 Kym daniels, RYLAN null, [place] [facility] [employer] [facility] [facility] 4 14:48:02 Neuropath y due to diabetes mellitus 732770220 Active Kym daniels, RMA null, [place] [facility] [place] [facility] 4 14:48:03 Gastroeso phageal reflux disease 368201814 Active Not Available [facility] 3 22:24:30 Low back pain 719969927 Completed 02/15/2024 Kym daniels, RMA null, [place] [facility] 4 14:48:20 Type 2 diabetes mellitus without complicat ion 335767070 Completed 02/15/2024 Kym daniels, RMA null, [place] [facility] 4 14:47:48 Dyslipide erma 965403648 Active Not Available [facility] 3 22:24:30 Herpes zoster 2961715 Completed Not Available [facility] 3 02:39:37 Pain of joint 73887575 Active Not Available [facility] 3 22:24:30 Neck pain 57191012 Active Kym daniels, RMA null, [place] [facility] 4 14:48:08 Type 2 diabetes mellitus 06689113 Active 2016 Kym daniels, RMA null, [place] [facility] 4 14:47:44 Hyperchol esterolem ia 32986586 Active 2017 Not Available [facility] 3 22:24:30 Backache 103101246 Active 2017 Not Available [facility] 3 22:24:30 Diabetes mellitus 84982174 Active 2017 Kym daniels, RMA null, [place] [facility] 3 16:04:50 Diabetic periphera l neuropath y 299958227 Active 2017 Kym Wallace n, RMA null, [place] [facility] [place] [facility] 3 16:04:53 Dystrophi a unguium 43509138 Active 2017 Not Available [facility] 3 22:24:30 Lymphedem a of lower extremity 134262156 Active 2018 Kym daniels RMA null, [employer] [facility] [employer] [facility] 4 14:48:12 Achilles tendiniti s 19436867 Active 2019 Not Available [facility] 3 22:24:29 Unable to cut own toenails 279038435 Completed 201902/15/2024 Kym daniels RMA null, [employer] [facility] 4 14:47:41 Blister 199563567 Active 2020 Not Available [facility] 3 22:24:30 Pain in left foot 07805489415 9107 Completed 202002/15/2024 Kym daniels RMA null, [employer] [facility] 4 14:47:59 Blister of foot 835302690 Active 2020 Not Available [facility] 3 22:24:30 Renewal of prescript ion Completed 202102/15/2024 Kym daniels RMA null, [employer] [facility] 4 14:47:51 Tinea pedis 0603286 Active 2021 Not Available [facility] 3 22:24:30 Pneumonia 635543030 Completed 202102/15/2024 Kym daniels RMA null, [employer] [facility] [employer] [facility] 4 14:47:56 Uncontrol led type 2 diabetes mellitus 203483905 Active 2021 Not Available [facility] 3 22:24:30 Impacted cerumen in right ear 19023803417 90324 Active 2021 JASWINDER Sprague [address] [facility], [address] [address], [place], [address] , [place] [employer] 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 4 14:48:22 Weight gain 8615998 Active 2022 Not Available [facility] 3 22:24:30 Hydroneph rosis 88587424 Active 2022 Not Available [facility] 3 22:24:30 Acute urinary tract infection 455981920 Completed 202212/23/2022 Kym daniels RMA null, [facility] 3 16:04:59 Kidney stone 12964180 Active 2022 Kym daniels RMA null, [facility] 4 14:48:24 Insomnia 329057317 Active 2022 Not Available [facility] 3 22:24:30 Vitamin B12 deficienc y (non anemic) 78520143 Active 2022 Not Available [facility] 3 22:24:30 Essential hypertens ion 62953700 Active 2022 Dariel Bailey MD [address] [facility], [address], [address] , [facility] 3 16:38:29 Hyperlipi demia 11933253 Active 2022 Dariel Bailey MD [address], [address], [place], [address] , [place] [facility] 3 16:38:45 Chronic back pain 496017701 Active 2022 Dariel Bailey MD [address], [address], [place], [address] , [place] [facility] 3 17:12:16 Kidney disease 50791426 Active 2022 Kym daniels, RMA null, [place] [facility] 4 14:48:29 Contact dermatiti s caused by urushiol from [facility] bambi 425386102 Active 2023 Dariel Bailey MD [address], [address], [place], [address] , [place] [facility] 4 15:04:40 Pruritic rash 91709311 Completed 202302/15/2024 Kym daniels, RMA null, [place] [facility] 4 14:47:54 Impacted cerumen of bilateral ears 92349229471 09430 Active 2023 Dariel Bailey MD [address], [address], [place], [address] , [place] [facility] 4 14:27:15 Chronic sinusitis 69653015 Active 2023 Kalen Fairbanks MD [address], [address], [place], [address] , [place] [facility] 4 12:46:50 Deviated nasal septum 469833401 Active 2023 Kalen Fairbanks MD [address], [address], [place], [address] , [place] [facility] 4 12:47:01 Chronic maxillary sinusitis 79824985 Active 2024 Kalen Fairbanks MD [address], [address], [place], [address] , [place] [facility] 12:25:30 Chronic ethmoidal sinusitis 80066988 Active 2024 Kalen Fairbanks MD [address], [address], [place], [address] , [employer] [facility] [email or web address] 12:25:39 Hematoma of face 716464448 Active 2024 Dariel Bailey MD [address], [address], [place], [address] , [employer] [facility] [employer] 14:59:24 Unable to perform personal care activity 823240278 Active 2024 Weston Buchanan DPM [address], [address], [place], [address] , [employer] 15:45:02 Does mobilize using cane 743988032 Active 2024 Weston Buchanan DPM [address], [address], [place], [address] , [employer] 15:59:58 Notes:07-14-2017 states had e ye exam 2017 Problem Notes None recorded. Procedures Surgical History Date Name Laterality Status Provider Name and Address Organization Details Recorded Time 11/21/19 25 Nail Debridement completed Weston Buchanan DPM [address], [address], [place], [address], [employer] [facility] [email or web address] 11/21/2024 15:58:43 08/15/19 25 Nail Debridement completed Weston Buchanan DPM [address], [address], [place], [address], [employer] 08/14/2024 15:44:36 05/10/19 25 Nail Debridement completed Weston Buchanan DPM [address], [address], [place], [address], [employer] [facility] [email or web address] 05/14/2024 09:14:25 04/30/19 25 nasal septoplasty completed Katelyn Gonzales RN [place] [employer] [facility] [employer] 05/07/2024 15:57:42 04/30/19 25 nasal endoscopy with maxillary antrostomy completed Katelyn Gonzales RN [facility] [employer] [facility] 05/07/2024 15:57:57 04/30/19 25 ENDOSCOPY, NASAL/SINUS, W/ TOTAL ETHMOIDECTOMY (SURG) completed NAVIN Kenney [facility] [employer] [facility] 05/07/2024 15:54:38 02/28/20 24 Medicare Wellness CPT Code, subsequent completed Malou Carpio RN [facility] [employer] [facility] 02/28/2024 16:24:51 02/28/20 24 Advanced Care Planning completed Malou Carpio RN [facility] [employer] [facility] 02/28/2024 16:54:20 01/31/20 24 Nail Debridement completed Weston Buchanan DPM [address], [address], [place], [address], [facility] [employer] [facility] 02/01/2024 17:30:10 11/03/19 24 Nail Debridement completed Weston Buchanan DPM [address], [address], [place], [address], [facility] 11/04/2023 08:57:38 08/04/19 24 Nail Debridement completed Weston Buchanan DPM [address], [address], [place], [address], [facility] [employer] [facility] 08/04/2023 14:49:50 04/28/19 24 Nail Debridement completed Weston Buchanan DPM [address], [address], [place], [address], [facility] [employer] [facility] 05/12/2023 10:27:46 01/25/20 23 Medicare Wellness CPT Code, subsequent completed Jillian Mart RN [facility] [employer] [facility] 01/24/2023 15:54:51 11/10/19 23 Nail Debridement completed Weston Buchanan DPM [address], [address], [place], [address], [facility] [employer] [facility] 11/17/2022 09:14:26 08/06/19 23 Nail Debridement completed Weston Buchanan DPM [address], [address], [place], [address], [facility] [employer] [facility] 08/10/2022 09:51:26 08/04/19 23 Cystoscopy with Stent Removal - Dictation completed Quique Gallegos MD [address], [place], [address], [facility] [employer] [facility] 08/03/2022 16:05:22 01/03/20 21 Most Recent Bone Density completed Not Available [facility] [facility]22 02:34:20 08/07/19 21 Back Surgery completed Not Available [facility] 023 02:34:23 08/07/19 21 operative procedure on spinal structure completed Not Available [facility] 05/19/2022 02:34:23 07/11/19 21 Date of Last Colonoscopy completed Not Available [facility] 05/19/2022 02:34:20 10/31/19 13 Colonoscopy completed Not Available [facility] 05/20/19 02:34:23 Hysterectomy completed Not Available [facility] 05/19/2022 02:34:23 Cataract Surgery completed Not Available [facility] 05/19/2022 02:34:23 Eye Surgery completed Not Available [facility] 05/19/2022 02:34:23 Neck completed Not Available [facility] 03/2022 02:34:23 Appendectomy completed Not Available [facility] 05/19/2022 02:34:23 salpingo-oophorec jose completed Not Available [facility] 05/19/2022 02:34:23 thyroidectomy completed Not Available [facility] 05/19/2022 02:34:23 Shoulder completed Not Available [facility] 02:34:23 Genitourinary Surgery completed Not Available [facility] 05/19/2022 02:34:23 Imaging Results None recorded. Procedure Notes None recorded. Medical Equipment None Reported. Allergies Allergen ID Allergen Name Allergen Category Reaction Reaction Severity Criticality Documentation Date Start Date Code Code System Note Provider Name and Address Organization Details Recorded Time 3556 codeine medicatio n Not available Not available Not available 05/19/2022 2670 RxNorm Not Available [facility] 02:46:25 3557 Substance with sulfonami de structure and antibacte rial mechanism of action (substanc e) medicatio n Not available Not available Not available 05/19/2022 86108 8003 SNOMED Not Available [facility] 3 02:46:25 3558 Levaquin medicatio n Not available Not available Not available 05/19/2022 83778 2 RxNorm Not Available [facility] 3 02:46:25 Medications Name Sig Start Date [...] drops INSTILL 1 DROP INTO BOTH EYES AT BEDTIME active Not Available Not Available No t [...] mg tablet TAKE 1 TABLET BY MOUTH EVERYDAY AT BEDTIME active Not Available Not Available No t Available sulfasala zine 500 mg tablet TAKE [...] Y TO THE AFFECTED AREA TWICE DAILY 12/04 completed Not Available Not Available Not Available acyclovir 800 mg tablet Take 1 [...] completed Not Available Not Available Not Available hydrocodo ne 7.5 mg-acetam inophen 325 mg tablet TAKE 1 TABLET BY MOUTH EVERY 4 HOURS NEEDED FOR PAIN 09/03 completed Not Available Not Available Not Available [...] Available Not Available losartan 25 mg tablet TAKE 1 TABLET BY [...] TAKE 1 TABLET BY MOUTH TWICE DAILY 09/03 completed Not Available Not Available Not Available furosemid e 20 mg tablet TAKE [...] drops INSTILL 1 DROP IN BOTH EYES ONCE DAILY active Not Available Not Available No [...] Y TO THE AFFECTED AREA EVERY DAY 12/04 completed Not Available Not Available Not Available amoxicill in 875 mg-potass ium clavulana [...] lispro (U-100) 100 unit/mL subcutane ous pen IMJECT 20 UNITS UNDER THE SKIN 3 TIMES DAILY BEFORE MEALS,MA X 60 UNITS active Not Available Not Available No t [...] completed Not Available Not Available Not Available Byetta 5 mcg/dose (250 mcg/mL)1. 2 mL subcutane ous pen injector inject .02ml twice a day by subcutan eous route. 07/14 completed Not Available Not Available Not Available pregabali n 75 mg capsule TAKE 1 CAPSULE BY MOUTH THREE TIMES A DAY active Not Available Not Available No t Available ramelteon 8 mg tablet TAKE 1 TABLET BY MOUTH EVERY DAY AT BEDTIME 07/20 completed Not Available Not Available Not Available aspirin 81 mg daily 2019 active Not Available Not Available Not Avai lable garlic 2020 active Not Available Not Available Not Avai lable Nitro 10/24 completed Not Available Not Available Not Available Bykevin 01/22 completed Not Available Not Available Not [...] Available Not Available Farxiga 10 mg tablet TAKE 1 TABLET BY [...] 40 UNITS UNDER THE SKIN AT BEDTIME active Not Available Not Available No t Available Fluzone High-Dose 8274-8719 (PF) 180 mcg/0.5 mL intramusc ular syringe [...] Sensor device use as directed for continuo [employer] glucose monitori ng-benítez e every 10 days active Not Available [...] Available Not Available Not Available Fluad Quad (65yr up)(PF) 60 mcg (15 mcg x [...] completed Not Available Not Available Not Available Kristal 2nd Gen Pen Needle 32 gauge x 5/32 INJECT INSULIN UP TO FOUR TIMES DAILY active Not Available Not Available No t Available Vitals Date Recorded Body height Body mass index (BMI) Body weight Body temperature Oxygen saturation Oxygen saturation in Arterial blood by Pulse oximetry Heart rate Systolic And Diastolic Provider Name and Address Organization Details Last Updated DateTime 5 157.48 cm 30.2 kg/m2 49235.7 4 g 98.1 [degF] 90 % 90 % 95 /min 103/45 mm[Hg] Natanael Owens [facility] [employer] [facility] [employer] [facility] 5 15:09:55 Date Recorded Body height Body temperature Respiratory rate Body mass index (BMI) Body weight Heart rate Oxygen saturation Oxygen saturation in Arterial blood by Pulse oximetry Systolic And Diastolic Provider Name and Address Organization Details Last Updated DateTime 5 157.48 cm 97.5 [degF] 16 /min 30.3 kg/m2 60988.9 7 g 91 /min 97 % 97 % 126/70 mm[Hg] Ashlyn Reese [place] [employer] [facility] [employer] [facility] 5 14:07:59 Date Recorded Body height Body mass index (BMI) Body weight Heart rate Body temperature Oxygen saturation Oxygen saturation in Arterial blood by Pulse oximetry Systolic And Diastolic Provider Name and Address Organization Details Last Updated DateTime 5 157.48 cm 30.4 kg/m2 07096.3 3 g 94 /min 98 [degF] 97 % 97 % 103/68 mm[Hg] Natanael Owens [facility] [employer] [facility] [employer] [facility] 5 15:33:37 Date Recorded Body height Body mass index (BMI) Body weight Body temperature Heart rate Oxygen saturation Oxygen saturation in Arterial blood by Pulse oximetry Systolic And Diastolic Provider Name and Address Organization Details Last Updated DateTime 5 157.48 cm 29.4 kg/m2 11852.3 7 g 97.8 [degF] 87 /min 97 % 97 % 110/87 mm[Hg] Vanessa olson [employer] [facility] [employer] [facility] 5 14:32:26 Date Recorded Body height Body mass index (BMI) Body weight Body temperature Heart rate Oxygen saturation Oxygen saturation in Arterial blood by Pulse oximetry Systolic And Diastolic Provider Name and Address Organization Details Last Updated DateTime 5 157.48 cm 30 kg/m2 73889.1 5 g 97.2 [degF] 89 /min 98 % 98 % 128/78 mm[Hg] Vanessa olson [place] - [facility] [employer] [facility] 5 14:26:10 Social History Question Answer Notes LastModified by Organization Details LastModified Time Tobacco Smoking Status Former Smoker quit 1991 Not Available [employer] 05/19/2022 02:31:08 Do You Have An Advance Directive? Yes MIGRATION.030 [id number] Information not available 05/19/2022 Are You Blind Or Do You Have Difficulty Seeing? No Wears Glasses MIGRATION.030 [id number] Information not available 05/19/2022 What Is Your Level Of Caffeine Consumption? Moderate MIGRATION.030 [id number] Information not available 05/19/2022 How Much Tobacco Do You Chew? None MIGRATION.030 743547 Information not available 05/19/2022 What Is Your Code Status? Full Code MIGRATION.030 [id number] Information not available 05/19/2022 In The 14 Days Before Symptom Onset, Have You Had Close Contact With A Laboratory-confi rmed COVID-19 While That Case Was Ill? No MIGRATION.030 074141 Information not available 05/19/2022 In The 14 Days Before Symptom Onset, Have You Had Close Contact With A Person Who Is Under Investigation For COVID-19 While That Person Was Ill? No MIGRATION.0301 [id number] Information not available 05/19/2022 Are You Deaf Or Do You Have Serious Difficulty Hearing? No MIGRATION.030 896099 Information not available 05/19/2022 What Type Of Diet Are You Following? DIABETIC Low Carb MIGRATION.030 743138 Information not available 05/19/2022 Which Illicit Or Recreational Drugs Have You Used? None MIGRATION.030 156593 Information not available 05/19/2022 What Is The Highest Grade Or Level Of School You Have Completed Or The Highest Degree You Have Received? [id number] MIGRATION.030 158620 Information not available 05/19/2022 How Many Days Of Moderate To Strenuous Exercise, Like A Brisk Walk, Did You Do In The Last 7 Days? 0 [email or web address] Information not available 02/28/2024 Have There Been Any Changes To Your Family Or Social Situation? No MIGRATION.030 867182 Information not available 05/19/2022 What Is The Fluoride Status Of Your Home? Fluoridated MIGRATION.0301 877162 Information not available 05/19/2022 When Did You Quit Smoking? 18+yearssincelastc igarette MIGRATION.0301 649603 Information not available 05/19/2022 Are There Any Guns Present In Your Home? No [email or web address] Information not available 01/24/2023 Do You Use Insect Repellent Routinely? No [email or web address] Information not available 01/24/2023 Where Do You Live? SingleLevelHouse Information not available 01/24/2023 Guns Present In The Home? No [email or web address] Information not available 01/24/2023 Are You Able To Care For Yourself? No [email or web address] Information not available 01/24/2023 Are You Blind Or Do Yo Have Difficulty Seeing? No [email or web address] Information not available 01/24/2023 Are You Deaf Or Do You Have Serious Difficulty Hearing? No [email or web address] Information not available 01/24/2023 Live Alone Of With Others? With Others [email or web address] Information not available 01/24/2023 Do You Have A Medical Power Of Assembler Skylights? Yes MIGRATION.0301 [id number] Information not available 05/19/2022 What Was The Date Of Your Most Recent Tobacco Screening? 11/20/2024 [email or web address] Information not available 11/20/2024 How Many Children Do You Have? 2 [email or web address] Information not available 02/28/2024 Do You Have Any Pets? No MIGRATION.0301 [id number] Information not available 05/19/2022 What Is Your Relationship Status? MIGRATION.0301 574276 Information not available 05/19/2022 Do You Use Your Seat Belt Or Car Seat Routinely? Yes MIGRATION.0301 644874 Information not available 05/19/2022 Do You Have Smoke And Carbon Monoxide Detectors In Your Home? Yes MIGRATION.0301 [id number] Information not available 05/19/2022 Are You Passively Exposed To Smoke? No MIGRATION.0301 531574 Information not available 05/19/2022 Are There Any Smokers In Your House? No MIGRATION.0301 657160 Information not available 05/19/2022 How Much Tobacco Do You Smoke? No MIGRATION.0301 [id number] Information not available 05/19/2022 What Types Of Sporting Activities Do You Participate In? None MIGRATION.0301 697188 Information not available 05/19/2022 Do You Use Sunscreen Routinely? No [email or web address] Information not available 01/24/2023 Has Tobacco Cessation Counseling Been Provided? No MIGRATION.0301 619859 Information not available 05/19/2022 Have You Recently Traveled Abroad? No MIGRATION.0301 [id number] Information not available 05/19/2022 Do You Have Difficulty Walking Or Climbing Stairs? Yes [email or web address] Information not available 01/24/2023 Do You Have Any Dietary Restrictions? No MIGRATION.0301 725781 Information not available 05/19/2022 Sex: Female Functional Status Question Answer Note LastModified by Organizat ion Details LastModified Time Do you or have you ever used smokeless tobacco? Never used smokeless tobacco MIGRATION.28976 41134 Information not available 05/19/2022 Are you currently employed? No [email or web address] Information not available 02/28/2024 Do you have transportation difficulties? No MIGRATION.72028 58980 Information not available 05/19/2022 Are you able to care for yourself independently? No since back surgery MIGRATION.20404 91156 Information not available 05/19/2022 Do you have difficulty dressing, bathing, grooming, or toileting? No MIGRATION.78325 82736 Information not available 05/19/2022 Do you or have you ever used e-cigarettes or vape? Never used electronic cigarettes MIGRATION.52692 60260 Information not available 05/19/2022 What is your exercise level? None [email or web address] Information not available 01/24/2023 Do you use any illicit or recreational drugs? No MIGRATION.93786 70962 Information not available 05/19/2022 Do you or have you ever used any other forms of tobacco or nicotine? No MIGRATION.20510 05716 Information not available 05/19/2022 What is your level of alcohol consumption? Occasional [email or web address] Information not available 01/24/2023 Are you able to walk independently without assistance or assistive devices? YESWOREST walker or cane in case needed [email or web address] Information not available 02/28/2024 Do you have difficulty doing errands alone? No [email or web address] Information not available 02/28/2024 What is your occupation? retired MIGRATION.00973 68697 Information not available 05/19/2022 Mental Status Question Answer Note LastModified by Organizat ion Details LastModified Time Do you feel stressed (tense, restless, nervous, or anxious, or unable to sleep at night)? [id number] MIGRATION.97871443 26 Information not available 05/19/2022 Do you have difficulty concentrating, remembering or making decisions? No MIGRATION.91551304 26 Information not available 05/19/2022 Family History Relationship Description Onset Age of this Age Resolved Age Notes LastModified by Organization Details LastModified Time Mother Diabetes mellitus MIGRATION.398 [id number] Not available 05/19/2022 02:34:24 Mother Hypertensive disorder MIGRATION.122 [id number] Not available 05/19/2022 02:34:24 Sister Amyotrophic lateral sclerosis twin MIGRATION.245 [id number] Not available 05/19/2022 02:34:24 Sister Heart disease MIGRATION.835 [id number] Not available 05/19/2022 02:34:24 Sister Malignant neoplasm of ovary MIGRATION.556 [id number] Not available 05/19/2022 02:34:24 Brother Diabetes mellitus MIGRATION.953 [id number] Not available 05/19/2022 02:34:25 Brother Hodgkin's disease (clinical) MIGRATION.360 [id number] Not available 05/19/2022 02:34:25 Notes:NO ENT HISTORY Medical History Condition Response NERVE DISEASE Y BLINDNESS N RHEUMATIC FEVER N KIDNEY STONES N BLADDER PROBLEMS N MRSA N OTHER # 1 N [...] HAVE YOU BEEN HOSPITALIZED OR SEEN IN [facility] ER IN THE PAST YEAR ? N ATHEROSCLEROSIS [...] virus, trivalent, preservative 3 completed Not Available [facility] 11/19/2022 22:24:31 COVID-19, mRNA, LNP-S, PF, 100 mcg/0.5mL dose or 50 mcg/0.25mL dose 1 completed Not Available [facility] 11/19/2022 22:24:31 COVID-19, mRNA, LNP-S, PF, 30 mcg/0.3 mL dose 2 completed Not Available [facility] 11/19/2022 22:24:31 COVID-19, mRNA, LNP-S, PF, 100 mcg/0.5mL dose or 50 mcg/0.25mL dose 1 completed Not Available [facility] 11/19/2022 22:24:31 zoster recombinant 0 completed Not Available [facility] 11/19/2022 22:24:31 Influenza, high-dose, trivalent, PF 9 completed Not Available [facility] 11/19/2022 22:24:31 zoster recombinant 9 completed Not Available [facility] 11/19/2022 22:24:31 Influenza, high-dose, trivalent, PF 7 completed Not Available [facility] 11/19/2022 22:24:31 COVID-19, mRNA, LNP-S, PF, 100 mcg/0.5mL dose or 50 mcg/0.25mL dose 1 completed Not Available [facility] 11/19/2022 22:24:31 Influenza, split virus, trivalent, preservative 6 completed Not Available [facility] 11/19/2022 22:24:31 Pneumococcal conjugate PCV 13 6 completed Not Available [facility] 11/19/2022 22:24:31 Influenza, high-dose, trivalent, PF 5 completed Not Available [facility] 11/19/2022 22:24:31 Pneumococcal conjugate PCV 13 5 completed Not Available [facility] 11/19/2022 22:24:31 herpes simplex 2 5 completed Not Available [facility] 11/19/2022 22:24:31 influenza, unspecified formulation 4 completed Not Available [facility] 11/19/2022 22:24:31 Influenza, high-dose, quadrivalent, PF 2 completed Not Available [facility] 11/19/2022 22:24:31 Influenza, high-dose, quadrivalent, PF 1 completed Not Available [facility] 11/19/2022 22:24:31 pneumococcal polysaccharide PPV23 8 completed Not Available [facility] 11/19/2022 22:24:31 Influenza, adjuvanted, trivalent, PF 8 completed Not Available [facility] 12/12/2024 14:06:08 Influenza, adjuvanted, quadrivalent, PF 0 completed Not Available [facility] 12/12/2024 14:06:08 COVID-19, mRNA, LNP-S, PF, 30 mcg/0.3 mL dose, jesusita-sucrose 2 completed Not Available [facility] 12/12/2024 14:06:08 RSV, bivalent, protein subunit RSVpreF, diluent reconstituted, 0.5 mL, PF 3 completed Not Available [facility] 12/12/2024 14:06:08 COVID-19, mRNA, LNP-S, PF, jesusita-sucrose, 30 mcg/0.3 mL 3 completed Not Available [facility] 12/12/2024 14:06:08 Influenza, adjuvanted, trivalent, PF 4 completed Not Available [facility] 12/12/2024 14:06:08 COVID-19, mRNA, LNP-S, PF, jesusita-sucrose, 30 mcg/0.3 mL 4 completed Not Available [facility] 12/12/2024 14:06:08 Tdap 4 completed Not Available [facility] 12/12/2024 14:06:08 Influenza, high-dose, quadrivalent, PF 3 completed Kym Van, [place], [place] - [facility] [employer] [facility] 12/23/2022 17:32:40 Past Encounters Encounter ID Performer Location Encounter Start Date Encounter Closed Date Diagnosis/Indication Diagnosis SNOMED-CT Code Diagnosis ICD10 Code Diagnosis IMO Codes Diagnosis Note [id number] [facility] [address] [facility] [address] [address] 06/06/2020 00:00:00 06/06/2020 18:17:48 [id number] Yen Hankins MD _ALICIA_M IGRATION_ DEFAULT_1 _1 , 06/19/2020 00:00:00 06/19/2020 17:33:34 [id number] Miguel Valle MD [facility] Internal Med [facility] [address] [address] 07/04/2020 00:00:00 07/05/2020 14:43:35 [id number] Miguel Valle MD [facility] Internal Med [facility] [address] [facility] , [place] [address] 07/31/2020 00:00:00 07/31/2020 22:12:22 [id number] Miguel Valle MD [facility] Internal Med [facility] [address] [address] 09/01/2020 00:00:00 09/01/2020 22:43:14 [id number] MD EMELY Busch IGRATION_ DEFAULT_1 _1 , 09/04/2020 00:00:00 09/04/2020 18:49:15 [id number] Weston Buchanan DPM [facility] [place] [address] [place] [address] 09/18/2020 00:00:00 10/05/2020 20:52:50 [id number] Miguel Valle MD [facility] Internal Med [facility] [address] [address] 09/29/2020 00:00:00 10/12/2020 15:14:44 [id number] MD EMELY Busch IGRATION_ DEFAULT_1 _1 , 10/30/2020 00:00:00 10/30/2020 14:44:38 [id number] Elio Santos MD [facility] [place] [address] [place] [address] 11/25/2020 00:00:00 11/25/2020 14:56:36 [id number] Miguel Valle MD [facility] Internal Med [facility] [address] [address] 12/29/2020 00:00:00 12/29/2020 22:16:05 [id number] [facility]on Buchanan [facility] [address] [place] [address] 01/06/2021 00:00:00 01/08/2021 13:40:53 [id number] MD EMELY Busch IGRATION_ DEFAULT_1 _1 , 01/08/2021 00:00:00 01/08/2021 16:47:25 [id number] Weston Buchanan DPM [facility] [address] [place] [address] 04/07/2021 00:00:00 04/20/2021 20:26:49 [id number] MD EMELY Busch IGRATION_ DEFAULT_1 _1 , 04/09/2021 00:00:00 04/09/2021 17:15:53 [id number] Miguel Valle MD [facility] Internal Med [facility] [address] [place] [address] 05/06/2021 00:00:00 05/10/2021 16:36:55 [id number] Weston Buchanan DPM [facility] [address] [place] [address] 07/09/2021 00:00:00 07/09/2021 14:06:33 [id number] MD EMELY Busch IGRATION_ DEFAULT_1 _1 , 08/20/2021 00:00:00 08/20/2021 15:20:24 [id number] Miguel Valle MD [facility] Internal Med [facility] [address] [address] 08/26/2021 00:00:00 08/26/2021 21:37:55 [id number] Weston Buchanan DPM [facility] [address] [place] [address] 10/08/2021 00:00:00 10/08/2021 14:52:34 [id number] Miguel Valle MD [facility] Internal Med [facility] [address] [place] [address] 12/02/2021 00:00:00 01/10/2022 17:59:07 [id number] Kalen Fairbanks MD [facility] [place] [address] [place] [address] 12/10/2021 00:00:00 12/10/2021 14:31:29 [id number] Miguel Valle MD [facility] Internal Med [facility] [address] [address] 12/23/2021 00:00:00 02/07/2022 21:04:13 [id number] Miguel Valle MD [facility] Internal Med [facility] [address] [address] 01/20/2022 00:00:00 02/14/2022 21:14:41 [id number] Weston Buchanan DPM [facility] [place] [address] [address] 02/03/2022 00:00:00 02/04/2022 09:42:00 [id number] Yen Hankins MD [facility] [place] [address] [place] [address] 03/25/2022 00:00:00 03/25/2022 16:49:04 [id number] Miguel Valle MD [facility] Internal Med [facility] [address] [address] 04/21/2022 00:00:00 04/21/2022 21:39:33 [id number] Weston Buchanan DPM [facility] [place] [address] [address] 05/06/2022 00:00:00 05/06/2022 16:11:01 [id number] Quique Gallegos MD [facility] Urology [address] [address] 06/01/2022 14:21:08 06/01/2022 15:36:50 Acute renal insufficiency [id number] N28.9 Recheck bmp and renal ultrasound , if still has hydro will need retrograde . Dysuria 84232752 R30.0 UTI resolved, negative ua and low residual. [id number] Yen Hankins MD [facility] [place] [address] [place] [address] 06/07/2022 13:59:28 06/07/2022 14:57:11 Latent autoimmune diabetes mellitus in adult [id number] E13.9 a1c of 9.2% down from 10.4% [...] better / more regulated glucose control. Dyslipidemia 015322236 E 78.5 continue statin therapy, thyroid in range. Weight gain 0385620 R63. 5 Will send for low dose [...] she chooses to go outside of the [email or web address] system to obtain labwork she was [...] in her case. She voiced understand ing. [id number] Quique Gallegos MD [facility] Urology [address] [address] 06/22/2022 16:03:33 06/22/2022 16:58:57 Hydronephrosis 55790089 N13.30 uncertain etiology ,no stones, suggested cysto , right retrograde , possible ureterosco py and stent placement, went over procedure and risks. [id number] Quique Gallegos MD [facility] Urology [address] [address] 08/03/2022 14:34:14 08/03/2022 16:07:18 Kidney stone 58512195 N20.0 Hydronephrosis 92860139 N13.30 Due to fibrinous tissue free floating probably from prior infection, stent out, fu one month with repeat ultrasound [id number] Weston Buchanan DPM [facility] [place] [address] [facility] [address] [place] [address] 08/05/2022 14:41:50 08/10/2022 10:30:38 Diabetic peripheral neuropathy 649782464 E11.42 Patient educated on neuropathy , diabetes, diabetic diet, and daily foot exams. Patient is to check feet daily for new wounds, blisters, redness to prevent infection and ulceration s to the feet. Patient will return to clinic in 3 months for diabetic foot workup. Dystrophia unguium 33206 009 L60.3 Nails 1 through 10 were debrided with sharp mechanical debridemen t without incident. Nails were debrided and greater than 50% length and thickness where needed. Unable to cut own toenails [id number] Z74.1 [id number] Yen Hankins MD [facility] [place] [address] [place] [address] 08/11/2022 11:37:30 08/11/2022 12:21:32 Latent autoimmune diabetes mellitus in adult 165300355 E13.9 a1c of 8.3% down from 9.2% [...] better / more regulated glucose control. Insomnia 841246874 G47.0 0 Trial on ramelteon for sleep- she is only sleeping 1-2 hours and waking up in vp site. Encouraged she trial on melatonin 5-10 mg at bedtime for trial and if this isn't effect she can trial ramelteon as a secondary agent (but do not use melatonin at same time). Dyslipidemia 846946475 E 78.5 continue statin therapy, thyroid in [...] she chooses to go outside of the [email or web address] system to obtain labwork she was [...] in her case. She voiced understand ing. [id number] Miguel Valle MD [facility] Internal Med [facility] [address] [facility] [place] [address] 09/01/2022 15:11:36 09/01/2022 16:52:16 Benign essential hypertension 4279185 I10 Dyslipidemia 238001392 E 78.5 Neuropathy 775165121 M06 .9 [id number] Quique Gallegos MD [facility] [address] [address] 09/06/2022 13:58:15 09/06/2022 14:21:25 Kidney stone 77351106 N20.0 SP removal of probably residual fibinous tissue from right ureter, negative fu ultrasound , suggested push fluids. Dont hold urine, she is using wipes to stay clean [id number] Weston Buchanan DPM [facility] Podiatry [place] [address] [facility] [address] [place] [address] 11/09/2022 14:20:21 11/17/2022 11:32:28 Diabetic peripheral neuropathy 823440690 E11.42 Continue daily footcontin ue diabetic shoes and insertsfol low-up in 3 months Dystrophia unguium 72708 009 L60.3 Nails 1 through 10 were debrided with sharp mechanical debridemen t without incident. Nails were debrided and greater than 50% length and thickness where needed. Diabetes mellitus 431424 09 E11.42 continue diabetic control per PCP [id number] Yen Hankins MD [facility] Endo Tommie Sullivan [address] [place] [address] 11/25/2022 13:50:28 11/25/2022 14:35:40 Uncontrolled type 2 diabetes mellitus 020455945 E11.65 Correction patient has EDUARD with cpeptide [...] levels / poor control. Refer to endocrinol ogy as patient complex and needs follow ups with specialist . Send in [facility] for hypoglycem ia rescue. Dyslipidemia 255873640 E 78.5 continue statin therapy, thyroid in [...] answered and refills necessary at visit today. [id number] Dariel Bailey MD [facility] Internal [facility] [address] [place] [address] 12/23/2022 15:20:08 12/23/2022 16:48:14 Adult health examination 421075576 Z00.00 Colonoscop y-Mammogra m- 03/10/2021 DEXA- 01/02/2021 Pneumovax- FLU- 12/23/2022 COVID- Up to date Administra tion of influenza vaccine 22476558 Z23 Diabetes mellitus 258686 09 E11.42 uncontroll ed, add ozempic Diabetic p eripheral neuropathy 380720434 E11.42 mild Vitamin B1 2 deficiency (non anemic) 97083424 E53.8 decrease to monthly shots Gastroesop hageal reflux disease 071744697 K21.9 otc Essential hypertension 71060933 I10 under control Hyperlipidemia 93820862 E78.5 on meds Chronic back pain 480874 002 G89.29 Insomnia 511823854 G47.0 0 meds help [id number] Dariel Bailey MD [facility] Internal Med [address] [place] [address] 01/24/2023 14:58:25 01/24/2023 15:54:09 Adult health examination 915211445 Z00.00 Colonoscop y-Mammogra m- 03/10/2021 DEXA- 01/02/2021 Pneumovax- FLU- 12/23/2022 COVID- Up to date Diabetes mellitus 283552 09 E11.42 uncontroll ed, ^ ozempic dose^ Farxiga 10 mg Diabetic p eripheral neuropathy 560698811 E11.42 mild, no meds needed Vitamin B1 2 deficiency (non anemic) 51606973 E53.8 try otc, no shots Gastroesop hageal reflux disease 785342703 K21.9 otc Essential hypertension 18897617 I10 under control Hyperlipidemia 90450413 E78.5 on meds Chronic back pain 759950 002 G89.29 off and on, going to see back specialist Insomnia 681998210 G47.0 0 meds help Kidney disease 84504736 N08 ^ farxiga 10 mg, drink more water Screening for disorder 931636256 Z13.9 [id number] Dariel Bailey MD [facility] Internal Med [address] [place] [address] 03/28/2023 14:49:08 03/28/2023 15:58:52 Adult health examination 019288024 Z00.00 Colonoscop y-Mammogra m- 03/10/2021 DEXA- 01/02/2021 Pneumovax- FLU- 12/23/2022 COVID- Up to date Diabetes mellitus 765973 09 E11.42 uncontroll ed, ^ ozempic dose^ Tresiba to 30 units Diabetic p eripheral neuropathy 296629979 E11.42 mild, no meds needed Vitamin B1 2 deficiency (non anemic) 32933239 E53.8 on otc Gastroesop hageal reflux disease 404743744 K21.9 otc Essential hypertension 77934854 I10 under control Hyperlipidemia 73595308 E78.5 on meds Chronic back pain 370944 002 G89.29 off and on, going to see back specialist Insomnia 960879121 G47.0 0 meds help Kidney disease 80683613 N08 on xiga, drink more water [id number] Weston Buchanan DPM [facility] Podiatry [place] [address] [place] [address] 04/28/2023 14:38:34 05/12/2023 14:20:18 Diabetic peripheral neuropathy 834779265 E11.42 Continue daily footcontin ue diabetic shoes and insertsfol low-up in 3 months Dystrophia unguium 15629 009 L60.3 Nails 1 through 10 were debrided with sharp mechanical debridemen t without incident. Nails were debrided and greater than 50% length and thickness where needed. Unable to cut own toenails 631799648 Z74.1 [id number] Dariel Bailey MD [facility] Internal [place] [address] [facility] [place] [address] 06/06/2023 15:24:47 06/06/2023 16:08:51 Neck pain 07461317 M54.2 needs f/u with a neurologis t [id number] Dariel Bailey MD [facility] Internal [place] [address] [facility] [place] [address] 07/21/2023 14:28:44 07/21/2023 15:21:31 Adult health examination 027784226 Z00.00 Colonoscop y-Mammogra m- 03/10/2021 , 2023 ([facility] - per pt- Not in chart)DEXA - 01/02/2021 Pneumovax- FLU- 12/23/2022 COVID- Up to date Diabetes mellitus 775493 09 E11.42 did not start higher dose, wiling, to take 30 units Diabetic p eripheral neuropathy 696020521 E11.42 try pregabalin Vitamin B1 2 deficiency (non anemic) 11270122 E53.8 on otc Gastroesop hageal reflux disease 207191563 K21.9 otc Essential hypertension 22037164 I10 under control Hyperlipidemia 84677190 E78.5 on meds Chronic back pain 819923 002 G89.29 off and on, going to see back specialist Insomnia 376991063 G47.0 0 meds help Kidney disease 89131266 N08 on farxiga, drinking more water Screening for osteoporosis 664246565 Z13.446 [id number] Weston Buchanan DPM [facility] Podiatry [place] [address] [address] 08/04/2023 13:56:21 08/04/2023 15:31:27 Diabetes mellitus 49975019 E11.42 continue diabetic control per PCP Diabetic p eripheral neuropathy 201332085 E11.42 Continue daily footcontin ue diabetic shoes and insertsfol low-up in 3 months Dystrophia unguium 25889 009 L60.3 Nails 1 through 10 were debrided with sharp mechanical debridemen t without incident. Nails were debrided and greater than 50% length and thickness where needed. [id number] Dariel Bailey MD [facility] [address] [facility] [place] [address] 09/01/2023 14:43:56 09/01/2023 15:07:22 Pruritic rash 72071687 L28.2 [id number] Weston Buchanan DPM [facility] Podiatry [place] [address] [address] 11/03/2023 15:57:27 11/04/2023 09:51:53 Diabetes mellitus 59813557 E11.42 continue diabetic control per PCP Diabetic p eripheral neuropathy 808264449 E11.42 Continue daily footcontin ue diabetic shoes and insertsfol low-up in 3 months Dystrophia unguium 24851 009 L60.3 Nails 1 through 10 were debrided with sharp mechanical debridemen t without incident. Nails were debrided and greater than 50% length and thickness where needed. [id number] Dariel Bailey MD [facility] Internal [facility] [address] [facility] [place] [address] 12/06/2023 14:38:01 12/06/2023 15:18:57 Diabetes mellitus 73811696 E11.42 she will continue to monitor her blood sugar frequently with dexcom to regulate insulin dose Diabetic p eripheral neuropathy 213851084 E11.42 on pregabalin Adult heal th examination 069702326 Z00.00 Colonoscop y-Mammogra m- 03/10/2021 , 2023 ([facility] - per pt- Not in chart)DEXA - 07/29/2023 Pneumovax- 01/25/2018 Prevnar 13- 12/01/2025 , 12/03/2014 FLU- 12/23/2022 COVID- Up to date Vitamin B1 2 deficiency (non anemic) 72571560 E53.8 on otc Gastroesop hageal reflux disease 462772114 K21.9 otc Essential hypertension 18643778 I10 under control Hyperlipidemia 22880724 E78.5 on meds Chronic back pain 728624 002 G89.29 off and on, going to see back specialist Insomnia 036550021 G47.0 0 better Kidney disease 77172372 N08 drinking more water [id number] Dariel Bailey MD [facility] Internal Med [address] [facility] [place] [address] 12/13/2023 14:00:09 12/13/2023 14:26:13 Diabetes mellitus 93252001 E11.42 labs discussed, A1c 8.6,^ the insulin to 35 units and titrate by 4 units every 2 weeks Impacted c erumen of bilateral ears 1585340560 919047 H61.23 right ear cleaned and irrigated, TM and canal is clearleft ear attempted but has dry wax, did not come outuse debrox ear drops [id number] Dariel Bailey MD [facility] Internal Med [address] [facility] [place] [address] 12/20/2023 10:57:16 12/20/2023 11:42:34 Impacted cerumen of bilateral ears 5239423544 095515 H61.23 both ears cleaned and irrigated, TM and canal is clear, minimal wax in the right ear [id number] Weston Buchanan DPM [facility] Podiatry [place] [address] [place] [address] 01/31/2024 15:31:58 03/16/2024 12:50:58 Diabetes mellitus 54202389 E11.9 continue diabetic control per PCP9-19-24 ---8.6 A1c Diabetic p eripheral neuropathy 693934682 E11.42 Continue daily footcontin ue diabetic shoes and insertsfol low-up in 3 months Dystrophia unguium 33652 009 L60.3 Nails 1 through 10 were debrided with sharp mechanical debridemen t without incident. Nails were debrided and greater than 50% length and thickness where needed. [id number] Kalen [place] MD [facility] ENT [place] [address] [place] [address] 02/13/2024 09:53:25 02/13/2024 11:01:39 Anterior epistaxis 336416903 R04.0 Rhino rocket removed from the right Naresilver nitrate applied for cauterizat ion to the inferior nasal septum for continued minimal bleeding vessel [id number] Kalen [place]banks MD [facility] ENT [place] [address] [place] [address] 02/22/2024 11:03:14 02/22/2024 11:55:57 Anterior epistaxis 131340153 R04.0 silver nitrate applied for cauterizat ion to the inferior nasal septum [id number] Dariel Bailey MD [facility] Internal Med [address] [facility] [place] [address] 02/28/2024 14:57:02 02/28/2024 16:52:52 Diabetes mellitus 17128210 E11.42 labs then decide about insulin dose Diabetic p eripheral neuropathy 229823447 E11.42 meds help Adult heal th examination 360891575 Z00.00 Colonoscop y-Mammogra m- 03/10/2021 , 2023 ([facility] - per pt- Not in chart)DEXA - 07/29/2023 Pneumovax- 01/25/2018 Prevnar 13- 12/01/2025 , 12/03/2014 FLU- OV ID- Up to date Vitamin B1 2 deficiency (non anemic) 85024599 E53.8 on otc Gastroesop hageal reflux disease 169018184 K21.9 otc Essential hypertension 40293314 I10 under control Hyperlipidemia 92237517 E78.5 on meds Chronic back pain 259546 002 G89.29 off and on, Insomnia 270206234 G47.0 0 better Kidney disease 75982016 N08 drinking more water, check labs Anterior epistaxis 45436 4002 R04.0 use humidifier , avoid asa Screening for disorder 887405639 Z13.9 [id number] Kalen [place]banks MD [facility] ENT [place] [address] [place] [address] 03/12/2024 11:45:57 03/15/2024 10:48:17 Chronic sinusitis 84410058 J32.9 Deviated nasal septum 12 2501612 J34.2 Anterior epistaxis 69143 4002 R04.0 [id number] [facility] [place] [facility] [place] [address] [place] [address] 03/29/2024 11:51:17 04/06/2024 09:54:29 Deviated nasal septum 132087135 J34.2 Chronic ma xillary sinusitis 94340832 J32.0 Chronic et hmoidal sinusitis 62634831 J32.2 [id number] Kalen [place]banks MD [facility] ENT [place] [address] [place] [address] 05/10/2024 12:01:31 05/10/2024 13:07:26 Postoperative visit 761268661 Z48.89 04/30/2024 postoperat martin from a septoplast y, bilateral ethmoidect cammie and maxillary antrostomy . She is healing well. Advised to stop using the Afrin nasal spray as she has been using this medication for one-week and has developed rhinitis medicament teo. Continue use of saline nasal spray. Advised to gently begin blowing her nose. Follow up as needed. [id number] Weston Buchanan DPM [facility] [address] [place] [address] 05/10/2024 15:42:56 05/14/2024 15:50:27 Diabetes mellitus 40365031 E11.9 continue diabetic control per [facility]12-08-23 ---8.6 A1c Diabetic p eripheral neuropathy 754885384 E11.42 Continue daily footcontin ue diabetic shoes and insertsfol low-up in 3 months Dystrophia unguium 75238 009 L60.3 Nails 1 through 10 were debrided with sharp mechanical debridemen t without incident. Nails were debrided and greater than 50% length and thickness where needed. [id number] Dariel Bailey MD [facility] Internal Med [address] [facility] [place] [address] 05/28/2024 14:03:11 05/28/2024 15:12:45 Diabetes mellitus 36652212 E11.42 labs Diabetic p eripheral neuropathy 894029991 E11.42 meds help Adult heal th examination 314219496 Z00.00 Colonoscop y-Mammogra m- 03/10/2021 , 2023 ([facility] - per pt- Not in chart)DEXA - 07/29/2023 Pneumovax- 01/25/2018 Prevnar 13- 12/01/2025 , 12/03/2014 FLU- OV ID- Up to date Vitamin B1 2 deficiency (non anemic) 49477230 E53.8 on otc Gastroesop hageal reflux disease 659855796 K21.9 otc Essential hypertension 59815062 I10 under control Hyperlipidemia 06533348 E78.5 on meds Chronic back pain 352317 002 G89.29 off and on, Insomnia 706922913 G47.0 0 better Kidney disease 14405574 N08 drinking more water, check labs, on farxiga Hematoma of face 3041312 01 S00.83XA getting better [id number] Weston Buchanan DPM [facility] Podiatry [place] [address] [address] 08/14/2024 15:00:30 08/15/2024 09:33:27 Neuropathy due to diabetes mellitus 501399952 E11.42 Patient educated on neuropathy , diabetes, diabetic diet, and daily foot exams. Patient is to check feet daily for new wounds, blisters, redness to prevent infection and ulceration s to the feet. Patient will return to clinic in 3 months for diabetic foot workup. Dystrophia unguium 63513 009 L60.3 Nails 1 through 10 were debrided with sharp mechanical debridemen t without incident. Nails were debrided and greater than 50% length and thickness where needed. Unable to perform personal care activity 772581524 Z78.9 20095622 [id number] Dariel Bailey MD [facility] Internal [address] [place] [address] 09/03/2024 13:54:55 09/03/2024 14:56:07 Diabetes mellitus 79665918 E11.42 not under control, Diabetic p eripheral neuropathy 603501910 E11.42 keep the same meds Adult heal th examination 252927398 Z00.00 Colonoscop y-Mammogra m- 03/10/2021 , 2023 ([facility] - per pt- Not in chart)DEXA - 07/29/2023 Pneumovax- 01/25/2018 Prevnar 13- 12/01/2025 , 12/03/2014 FLU- OV ID- Up to date Vitamin B1 2 deficiency (non anemic) 16453191 E53.8 on otc Gastroesop hageal reflux disease 868977226 K21.9 otc Essential hypertension 12565940 I10 under control Hyperlipidemia 16937741 E78.5 under control Chronic back pain 303368 002 G89.29 off and on, Insomnia 200306220 G47.0 0 better Kidney disease 41030641 N08 improving [id number] Weston Buchanan DPM [facility] Podiatry [place] [address] [address] 11/20/2024 15:27:53 11/23/2024 13:40:24 Neuropathy due to diabetes mellitus 528220522 E11.42 Patient educated on neuropathy , diabetes, diabetic diet, and daily foot exams. Patient is to check feet daily for new wounds, blisters, redness to prevent infection and ulceration s to the feet. Patient will return to clinic in 3 months for diabetic foot workup. Dystrophia unguium 39993 009 L60.3 Nails 1 through 10 were debrided with sharp mechanical debridemen t without incident. Nails were debrided and greater than 50% length and thickness where needed. Unable to perform personal care activity 259893763 Z78.9 44642720 Does mobil ize using cane 621526267 Z99.89 95722163 [id number] Dariel Bailey MD [facility] Internal Med [facility] [address] [facility] [place] [address] 12/04/2024 14:10:42 12/04/2024 15:21:28 Adult health examination 126782546 Z00.00 Colonoscop y-Mammogra m- 03/10/2021 , 2023 ([facility] - per pt- Not in chart)DEXA - 07/29/2023 Pneumovax- 01/25/2018 Prevnar 13- 12/01/2025 , 12/03/2014 FLU- OV ID- Up to date Gastroesop hageal reflux disease 059435891 K21.9 otc Essential hypertension 75413532 I10 under control Hyperlipidemia 51304140 E78.5 under control Chronic back pain 668171 002 G89.29 off and on, Insomnia 978254913 G47.0 0 better Kidney disease 93557407 N08 improving , GFR 58 Diabetes mellitus 246479 09 E11.42 not under control, Diabetic p eripheral neuropathy 125889265 E11.42 keep the same meds Vitamin B1 2 deficiency (non anemic) 42457617 E53.8 on otc [id number] Dariel Bailey MD [facility] Internal Med [address] [facility] [place] [address] 12/12/2024 14:04:17 12/12/2024 15:18:16 Impacted cerumen in right ear 6483044092 922066 H61.21 370844 Advised to use softening drops 3-5days prior to ear wash apt. Avoid any more use of qtips and cotton balls at this time Health Concerns Section Related Observation LastModified by Organization Detai ls LastModified Time None Recorded Concern Status LastModified by Organization Details LastModified Time None Recorded Advance Directives Directive Y: Payers Insurance Date Sequence Insurance Name Policy Number Policy Shah Covered Member ID Shah Member ID Guarantor Name 12/20/2024 1 [facility] MED[facility] (MEDICARE REPLACEMENT PPO) [id number] Rebekah Suárez [id number] Rebekah Suárez Notes Date Note Type Note Provider Name and Address Organization Details Recorded Time 08/14/2024 text/html . Patient is a 79-year-old female diabetic shoe returns for diabetic foot care she states that she is doing well she denies any open wounds she states her nails are long would like to have them cut as she can not cut them. Weston Buchanan, DPItz [address] [facility], [place], [address], [facility] [email or web address] 08/14/2024 15:45:54 09/03/2024 text/html She is here today for her 3 month follow up Diabetes- BS below 200, using dexcomDIET NOT UNDER CONTROLWas seeing Dr. Wilburn in the past, A1c 8.6 (12/08/2023), did not get labs in 06/12Last eye exam- 01/2024 - In chart.Meds- Tresiba - 40u daily, Metformin ER 500mg bid, Farxiga 10mg daily, Humalog is SS anywhere between 4-10u , Ozempic 1 mg mg weeklyHypertension- controlled with medsMeds- Losartan 25mg dailyHyperlipidemia- on meds, labs 12/12Meds- Atorvastatin 20mg dailyInsomnia- not on meds any more, sleeping fineNeuropathy- has tried gabapentin, did not help, now on Pregabalin and betterVitamin B12 def- was on weekly shots, levels are very high, on otcchronic back pain- Had surgery on her back in the past, still gets stiffness, using cane, Kidney disease- GFR 57, on farxiga s/p sinus surgery in 05/15 Dariel Bailey MD [address], [place], [address], [employer] 09/03/2024 14:38:33 11/20/2024 text/html . Patient is a 79-year-old female diabetic who returns for diabetic foot care. Patient states overall she is doing well she has difficulty walking but overall gets around. Patient walks with a cane she denies any open wounds or injury. Patient would also like her nails cut as she can not cut them. Weston Buchanan, SANDY [address], [place], [address], [employer] 11/21/2024 16:00:16 12/04/2024 text/html She is here today for her 3 month follow upPt is not fasting [facility] Diabetes- 100-200's using [id number] 5.8 (09/04/24)Last eye exam- 01/2024 - In chart.Has lost 5 lbsMeds- Tresiba - 40u daily, Metformin ER 500mg bid, Farxiga 10mg daily, Humalog is SS anywhere between 4-10u , Ozempic 1 mg mg weeklyHypertension- controlled with medsMeds- Losartan 25mg dailyHyperlipidemia- on meds, labs 12/12Meds- Atorvastatin 20mg dailyInsomnia- not on meds any more, sleeping fineNeuropathy- has tried gabapentin, did not help, now on Pregabalin , was working, not any more, gets pain in the hands but no numbnessVitamin B12 def- was on weekly shots, levels are very high, on otcChronic back pain- Had surgery on her back in the past, still gets stiffness, using cane, but no Kidney disease- GFR 58, on farxiga s/p sinus surgery in 05/15 Dariel Bailey MD [address], [place], [address], [employer] 12/04/2024 14:56:27 12/12/2024 text/html ROS as noted in the HPI Patient is 79y/o female who is here for right ear pain that has been ongoing for a few days. She reports it is hard to hear but feels it is full of pressure. She denies recent illness, headaches, blurred vision, dizziness, TMJ, or fevers. Katelyn Cohen, KAREN-C [address] [facility], [address] [address], [place], [address], [place] [facility] 12/12/2024 14:47:47 OBGyn Episode No OBEpisode recorded.
--- OUTSIDE RECORDS SUMMARY | 2024-12-20 13:55 | XMS_ITS | Clinical Summary ---
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
--- OUTSIDE RECORDS SUMMARY | 2024-12-20 13:55 | XMS_ITS | Clinical Summary ---
Author Organization [facility] Address [address] [place] [address] Care Team Providers Care Corporate Trust Officer Name Role Phone Unavailable Primary Care Provider Unavailabl e Source Comments [facility] [employer],non-owned Affiliates and Associated Physician Practices is amultiple site organization consisting of ambulatory clinics and hospital sitesin [place], [place], [place] and [place]. This disclosure is being madepursuant to the Care Everywhere program and may not contain all information available regarding this patient. 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 Gender Identity Not on file Sexual Orientation [...] yrs (1 - 1-dose 75+ series) 2022 DEPRESSION SCREENING 03/21/2024 COVID-19 VACCINE ( - season) 2024 INFLUENZA VACCINE (#1) 2024 9, 12/09/2016, 12/02/2015, Additional history exists HEPATITIS B VACCINE Aged Out No longe r eligible based on patient's age to complete this topic HIB VACCINE Aged Out No longer eligi ble based on patient's age to complete this topic HPV VACCINE Aged Out No longer eligi ble based on patient's age to complete this topic MENINGOCOCCAL (Group B) VACCINE SHARED DECISION-MAKING Aged Out No longer eligible based on patient's age to complete this topic MENINGOCOCCAL GROUPS A/C/Y/W VACCINE Aged Out No longer eligible based on patient's age to complete this topic Insurance
--- OUTSIDE RECORDS SUMMARY | 2024-12-20 13:55 | XMS_ITS | Clinical Summary ---
Author Organization [facility] [address] [place] [facility] [place] Address [address] [place] [address] Care Team Providers Care Press Clippings Cutter And Paster Name Role Phone Omari Baca MD Unavailable [phone] Lew Bailey MD Primary Care Provider Allergies Active Allergy Reactions Criticality Noted Date [...] 1 each 8 Active blood-glucose sensor device [employer] G6 Sensor device use as directed for [...] mg tablet Take by mouth Active vit J-E-izfbay-zin c-lutein 226-90-0.8-5 mg capsule Take by mouth [...] 03/18/2020 Assessment & Plan (03/18/2020 4:39 PM MATRIX INSPECTOR): Patient has history of diabetic peripheral neuropathy [...] 03/18/2020 Assessment & Plan (03/18/2020 4:38 PM MATRIX INSPECTOR): Patient has antecedent history of neck pain with x-ray suggested cervical spondylosis. I have suggested she could use ifuo-kkt-[id number] anti-inflammatories or continue with her chiropractor as previously being done. Diastolic dysfunction 12/27/2019 Fatigue 12/27/2019 Screening for other and unsp ecified cardiovascular conditions 12/27/2019 Achilles tendinitis 11/06/2019 Lymphedema of lower extremity 07/10/2018 Diabetic peripheral neuropathy 10/19/2017 Dystrophia unguium 10/19/2017 Low back pain 09/22/2017 Hypercholesterolemia 07/04/2012 Overview (08/06/2020): PURE HYPERCHOLESTEROLEM Assessment & Plan (02/24/2017 1:53 PM MATRIX INSPECTOR): Goal of treatment , LDL cholesterol less [...] ARB Assessment & Plan (02/24/2017 1:53 PM MATRIX INSPECTOR): Goal blood pressure is less than 140/85 [...] goal hba1c is under 7.0 to prevent care home diabetes complications ( eye , kidney and [...] meals. Assessment & Plan (02/24/2017 1:54 PM MATRIX INSPECTOR): Hba1c was 7.9 today, indicating inadequate DM [...] Left-sided weakness Stenosis of cervical spine Immunizations Immunization Administration Dates Next Due Influenza, Quad, Adjuvantate [...] rgery Hypertension Hypertension Type 2 diabetes mellitus Diabete s type 2 Hx Other Medical neck surgery Hypertension 01/02/2013 HYPERTENSION NOS High cholesterol Alcoholism (HCC) Diabetes mellitus type I HIV disease (HCC) Substance abuse (HCC) Family History Medical History Relation Name [...] oz pur e alcohol) Social Connection and Isolation Panel Answer Date Recorded In a typical week, how many times do you talk on the phone with family, friends, or neighbors? More than three times a week 08/07/2020 How often do you get togethe r with friends or relatives? More than three times a week 08/07/2020 How often do you attend [facility] or nondenominational services? Never 08/07/2020 Do you belong to any clubs o r organizations such as jain groups, unions, fraternal or athletic groups, or [...] place to sleep or slept in a fci (including now)? No 08/07/2020 Comments No Sex and Gender Information Value Date Recorded Sex Assigned at Not on file Legal Sex Female 9:04 AM MATRIX INSPECTOR Gender Identity Not on file Sexual Orientation Not on file Obstetrics History Last Filed Vital Signs Vital Sign Reading Time Taken Comments Blood Pressure 96/56 05/03/2022 2:54 PM MATRIX INSPECTOR Pulse 102 05/03/2022 2:54 PM MATRIX INSPECTOR Temperature 36.9 C (98.5 F) 05/03/2022 2:54 PM MATRIX INSPECTOR Respiratory Rate 16 05/03/2022 2:54 PM MATRIX INSPECTOR Oxygen Saturation 99% 05/03/2022 2:54 PM MATRIX INSPECTOR Inhaled Oxygen Concentration - - Weight 81.6 kg (180 lb) 05/03/2022 2:54 PM MATRIX INSPECTOR Height 157.5 cm (5' 2) 05/03/2022 2:54 PM MATRIX INSPECTOR Body Mass Index 32.92 05/03/2022 2:54 PM MATRIX INSPECTOR Plan of Treatment Health Maintenance Due Date [...] Fall Risk Assessment 08/14/2021 08/14/2020 Covid-19 Vaccine (2024-2 6 season) 2024 01/17/2022, 03/11/2021, 06/14/2020, Additional history exists Influenza Vaccine (#1) 2024 , 12/21/2019, 12/20/2018, Additional history exists Pneumococcal vaccine 65+ Completed 018, 12/02/2015, 12/01/2015, Additional history exists Zoster Vaccine Completed 04/04/2019, 07/2018, 03/21/2014 Hepatitis C Screening Completed 08/06/2020 Medical Devices Implanted Type Area Can Closing Machine Tender Device Identifier Shelf Expiration Date Model / Serial / Lot [place] Spine [id number] [place] 3.5mm 12mm Polyaxial Spine Occipitocervicothoracic Medial - [id number] Implanted:Qty: 3 on 08/06/2020 by Omari Baca MD at [facility] N/A: Spine Cervical [place] Spine [id number] [id number] / / [place]more Spine [id number] [place] 3.5mm 12mm Polyaxial Spine Occipitocervicothoracic Screw - [id number] Implanted:Qty: 4 on 08/06/2020 by Omari Baca MD at [facility] N/A: Spine Cervical [place] Spine 7601-03 512 / / Fernanda Spine [id number] [place] 3.5mm 22mm Polyaxial Spine Occipitocervicothoracic Screw - [id number] Implanted:Qty: 2 on 08/06/2020 by Omari Baca MD at [facility] N/A: Spine Cervical [place] Spine 7601-03 [id number] / / Fernanda Spine [id number] Screw Set [place] Spine Occipitocervicothoracic Nonsterile Latex Free - [id number] Implanted:Qty: 13 on 08/06/2020 by Omari Baca MD at [facility] N/A: Spine Cervical [place] Spine [id number] / / [place] Spine [id number] 3.5mm 110mm Contour Dell Spinal Titanium Nonsterile Latex - [id number] Implanted:Qty: 2 on 08/06/2020 by Omari Baca MD at [facility] N/A: Spine Cervical [place] Spine [id number] / / Spinal Graft Tech [id number] Ingalls Putty Jar Graft 5cc Bone Demineralized Bone Matrix - [id number] - [id number] Implanted:Qty: 1 on 08/06/2020 by Omari Baca MD at [facility] N/A: Spine Cervical Med[employer]onic Inc 04/22/2023 [id number] / [id number] / Fernanda Spine [id number] [place] 5mm 22mm Polyaxial Spine Occipitocervicothoracic Screw Bone - [id number] Implanted:Qty: 4 on 08/06/2020 by Omari Baca MD at [facility] Spine 760 [id number] [id number] / / Procedures Procedure Name Priority Date/Time Associated Diagnosis Comments EGFR Routine 08/08/2020 4:27 AM CDT HEPATITIS C ANTIBODY Routine 08/06/2020 7:50 PM CDT HEMOGLOBIN A1C Add-On 08/06/2020 10:30 AM CDT ALBUMIN CREATININE RATIO, URINE Routine 02/24/2017 Type 2 diabetes mellitus with hyperglycemia, with long-term current use of insulin (HCC) DIABETIC EYE EXAM Routine 12/04/2016 SERUM LIPID [...] BLOOD ORDERABLES Fin al Result ABRAHAN ANTONIO [address] [place] [address] * Hepatitis C antibody (08/06/2020 7:50 PM [...] ORD ERABLES Final Result Performing Organization Address [facility] de Phone Number ABRAHAN ANTONIO [address] [place] [address] * (ABNORMAL) Hemoglobin A1c (08/06/2020 10:30 AM CDT) Hgb A1C 9.3(H) 4.0 - 5.6 % ABRAHAN Estimated Average Glucose 220 mg/dL ABRAHAN Comment: The ADA recommends reporting an estimated Average Glucose (eAG) with all Hemoglobin A1c results using the equation derived from a study of 507 normal and diabetic adults. Minority populations were underrepresented and children were not included. (Diabetes Care 31:7152-4179, 2008). The eAG is not equivalent to a fasting glucose. Blood specimen (specimen) 08/06/2020 10:30 AM CDT 08/06/2020 10:37 AM CDT Denilson Munoz MD LAB BLOOD ORDERABLES Final Resu lt Performing Organization Address [facility] Co de Phone Number ABRAHAN PACO [address] [place], [place] [id number] * Microalbumin / creatinine ratio, urine, random [...] ORDERABLES Mago l Result Performing Organization Address [facility] Co de Phone Number HISTORICAL RESULTS from Last 3 Months or Most Recently Relevant to Health Maintenance Insurance [facility]IC[facility] ADVANTAGE [facility] Address: [facility] [address] [place] [address] [facility] Address: [address] [place] [phone] [facility] Address: [address] [place] [phone] Advance Directives For more information, please contact: [phone] Documents on File Type Date Recorded Patient Roster Clerk Expl anation ADVANCE DIRECTIVE 02/06/2021 2:22 PM [facility] PROGRESS NOTE SIGNED/FAXED * Full Code (Latest Code Status on File) Date Activated Date Inactivated Comments 08/06/2020 10:35 PM 08/14/2020 7:47 PM * Full Code Date Activated Date Inactivated Comments 08/06/2020 3:27 AM 08/06/2020 10:35 PM Care Teams Press Clippings Cutter And Paster Relationship Specialty Start Date End Date Lew Bailey MD [address] [facility] [place] [address] PCP - General Internal Medicine 01/07/23 [place] [address] [address] Consulting Physician Orthopedic Surgery 08/13/20
== END 2024-12-20 13:50 | disposition home or self-care (01) ==
LOC: CHSIMG 13:52
PROVIDERS: PCP Internal Medicine; Visit Provider Obstetrics & Gynecology
DX: Z12.31 Encounter for screening mammogram for malignant neoplasm of breast (principal)
CPT/HCPCS: 77063; 77067

== ENCOUNTER 2025-01-08 14:48 | Emergency (ER) | payer MEDICARE, SELFPAY ==
--- OUTSIDE RECORDS SUMMARY | 2010-01-22 08:00 | XMS_ITS | Continuity of Care Document ---
Author Organization [facility] Address [address] [place] [address] Dr Dominguez [address] [place] [id number] Phone Care Team Providers Care Merchandising Representative Name Role Phone Gigi Sweeney Unavailable Unavailable Procedures Procedure Date Post-op Follow-up Visit Eye Exam & Treatment Ophthalmoscopy, Subsequent Ophthalmoscopy, Subsequent Optic Nerve Topography Optic Nerve Topography Eye Exam Established Pt Ophthalmoscopy, Subsequent Ophthalmoscopy, Subsequent Office/outpatient Visit, Est Eye Exam & Treatment Ophthalmoscopy, Subsequent Ophthalmoscopy, Subsequent Optic Nerve Topography Eye Exam & Treatment Refraction Eye Exam & Treatment Ophthalmoscopy, Subsequent Optic Nerve Topography Eye Exam & Treatment Ophthalmoscopy, Subsequent Ophthalmoscopy, Subsequent Optic Nerve Topography Injection Eye Drug Kenalog/Triamcinolone Acetonide Inj Eye Exam & Treatment Ophthalmoscopy, Subsequent Ophthalmoscopy, Subsequent Optic Nerve Topography Injection Eye Drug Kenalog/Triamcinolone Acetonide Inj Office/outpatient Visit, Est Eye Exam Established Pt Ophthalmoscopy, Subsequent Post-op Follow-up Visit Eye Exam Established Pt After Cataract Laser Surgery Eye Exam & Treatment Ophthalmoscopy, Subsequent Ophthalmoscopy, Subsequent Optic Nerve Topography Optic Nerve Topography Post-op Follow-up Visit Eye Exam Established Pt Ophthalmoscopy, Subsequent IOLMaster Eye Exam & Treatment Ophthalmoscopy, Subsequent Office/outpatient Visit, Est Visual Field Examination(s) Eye Exam Established Pt Ophthalmoscopy, Subsequent Ophthalmoscopy, Subsequent Eye Exam Established Pt Ophthalmoscopy, Subsequent Ophthalmoscopy, Subsequent Eye Exam & Treatment Ophthalmoscopy, Subsequent Office Consultation Ophthalmoscopy Ophthalmoscopy Office/outpatient Visit, Est Office/outpatient Visit, Est Office/outpatient Visit, Est Visual Field Examination(s) Office/outpatient Visit, Est Eye Exam Established Pt Office/outpatient Visit, Est Eye Exam Established Pt Visual Field Examination(s) Eye Exam & Treatment Fundus Photography W/ Report Advance Directives Directive Yes / No Effective Date File Name No Information Encounters Encounter Description Practice Location Reason(s) For Visit Diagnoses Date Provider Providers Copied on [facility], [address], [place], [place], [address], [place] tel:[phone] [facility] No Information 201 0 Patel Yu. [address] [place], [address], [place]. tel:[phone] [facility], [address], [place], [place], [address], [place] tel:[phone] [facility] No Information 0 Patel Yu. [address] [place], [address], [place]. tel:[phone] Referring Provider: Gigi Flores, [address] [place], [address]. tel:[phone] [facility] Eye [facility], [address], [place], [place], [address], [place] tel:[phone] [facility] No Information 0 Patel Yu. [address] [place], [address], [place]. tel:[phone] Referring Provider: Turner Shaffer, [address] [place], [place] [address], [place], [place], [facility]. tel:[phone] Office/outpati ent Visit, [facility], [address], [place], [place], [address], [place] tel:[phone] [facility] No Information 0 Fadumo Tompkins. [address] [place], [place] [address], [address], [place], [address], [place]. tel:[phone] [facility], [address], [place], [place], [address], [place] tel:[phone] [facility] No Information 0 Patel Yu. [address] [place], [address], [place]. tel:[phone] Referring Provider: Gigi Flores, [address] [place], [address]. tel:[phone] [facility], [address], [place], [place], [address], [place] tel:[phone] [facility] No Information Randy-0 8-201 0 Cortez OD Raul. [address] [facility] , [address], [place], [place], [facility], [place]. tel:[phone] [facility], [address], [place], [place], [address], [place] tel:[phone] [facility] No Information 7-201 0 Patel Yu. [address] [place], [place], [facility], [place]. tel:[phone] Referring Provider: Gigi Flores, [address] [place], [place], [facility]. tel:[phone] [facility], [address] [place] [address] [address], [place], [place], [address], [place] tel:[phone] [facility] No Information 3-201 0 Patel Yu. [address] [place], [place], [facility], [place]. tel:[phone] Referring Provider: Gigi Flores, [address] [place], [facility]. tel:[phone] [facility], [address] [place] [address] [address], [place], [place], [address], [place] tel:[phone] [facility] No Information 9-201 0 Patel Yu. [address] [place], [place], [facility], [place]. tel:[phone] Referring Provider: Gigi Flores, [address] [place], [facility]. tel:[phone] Office/outpati ent Visit, [facility], [address], [place], [place], [address], [place] tel:[phone] [facility] [place] No Information Jun-1 9-201 0 Fadumo Tompkins. [address] [facility] , [address], [place], [address], [place]. tel:[phone] [facility], [address], [place], [place], [address], [place] tel:[phone] [facility] No Information Apr-1 5-201 0 Patel Yu. [address] [place], [address], [place]. tel:[phone] Referring Provider: Gigi Flores, [address] [place], [address]. tel:[phone] [facility], [address], [place], [place], [address], [place] tel:[phone] [facility] No Information Apr-0 5-201 0 Patel Yu. [address] [place], [address], [place]. tel:[phone] Referring Provider: Gigi Flores, [address] [place], [address]. tel:[phone] [facility], [address], [place], [place], [address], [place] tel:[phone] [facility] No Information Mar-2 5-201 0 Patel Yu. [address] [place] [address], [address], [place]. tel:[phone] Referring Provider: Gigi Flores, [address] [place], [address]. tel:[phone] [facility], [address], [place], [place], [address], [place] tel:[phone] [facility] No Information Mar-1 1-201 0 Patel Yu. [address] [place], [address], [place]. tel:[phone] Referring Provider: Gigi Flores, [address] [place], [address]. tel:[phone] [facility], [address], [place], [place], [address], [place] tel:[phone] [facility] No Information 0 4-201 0 Patel Yu. [address] [place], [address], [place]. tel:[phone] Referring Provider: Gigi Flores, [address] [place], [address]. tel:[phone] [facility], [address], [place], [place], [address], [place] tel:[phone] [facility] No Information 3-201 0 Patel Yu. [address] [place], [address], [place]. tel:[phone] Referring Provider: Gigi Flores, [address] [place], [address]. tel:[phone] [facility], [address], [place], [place], [address], [place] tel:[phone] [facility] No Information 8-201 0 Patel Yu. [address] [place], [address], [place]. tel:[phone] Referring Provider: Gigi Flores, [address] [place], [address]. tel:[phone] Office/outpati ent Visit, [facility], [address], [place], [place], [address], [place] tel:[phone] [facility] No Information 1200 9 Fadumo Tompkins. [address], [address], [place], [address], [place]. tel:[phone] [facility], [address], [place], [place], [address], [place] tel:[phone] [facility] No Information 2 1-200 9 Fadumo Tompkins. [address], [place], [facility], [place]. tel:[phone] Referring Provider: Turner Shaffer, [facility] [address], [place], [facility]. tel:[phone] [facility], [address], [place], [place], [address], [place] tel:[phone] [facility] [place] No Information 2 0-200 9 Patel Yu. [address] [place], [place], [facility], [place]. tel:[phone] [facility], [address], [place], [place], [address], [place] tel:[phone] [facility] [place] No Information 1200 9 Patel Yu. [address] [place], [place], [facility], [place]. tel:[phone] Referring Provider: Gigi Flores, [address] [place], [address]. tel:[phone] [facility], [address], [place], [place], [address], [place] tel:[phone] [facility] No Information 2 3-200 9 Patel Yu. [address] [place], [address], [place]. tel:[phone] Office [facility], [address], [place], [place], [address], [place] tel:[phone] [facility] No Information Jun-1 6-200 9 Patel Yu. [address] [place], [place], [facility], [place]. tel:[phone] Referring Provider: Alf dubon, [address], [place], [address]. tel:[phone] Office/outpati ent Visit, [facility], [address], [place], [place], [address], [place] tel:[phone] [facility] No Information 4-200 9 Sumit Milner. [address] [place], [place] [address], [place], [facility], [place]. tel:[phone] Office/outpati ent Visit, [facility], [address] [place] [address] [address], [place], [place], [address], [place] tel:[phone] [facility] [place] No Information 8-200 9 Fadumo Tompkins. [address] [place] [address] , [address], [place], [facility], [place]. tel:[phone] Office/outpati ent Visit, [facility], [address], [place], [place], [address], [place] tel:[phone] [facility] [place] No Information 4-200 8 Fadumo Tompkins. [address] [place], [place] [address]ate Center , [address], [place], [facility], [place]. tel:[phone] [facility], [address], [place], [place], [address], [place] tel:[phone] [facility] No Information 0-200 8 Fadumo Tompkins. [address] [place], [place] [address]ate Center , [address], [place], [facility], [place]. tel:[phone] Referring Provider: Turner Shaffer, [address] [place], [place] [address], [place], [facility]. tel:[phone] Office/outpati ent Visit, [facility], [address], [place], [place], [address], [place] tel:[phone] [facility] No Information Mar-1 0-200 8 Fadumo Tompkins. [facility] [address] [address] , [address], [place], [address], [place]. tel:[phone] [facility], [address], [place], [place], [address], [place] tel:[phone] [facility] No Information Sep-1 0-200 7 Fadumo Tompkins. [facility] [address] , [address], [place], [facility], [place]. tel:[phone] Office/outpati ent Visit, [facility], [address] [place] [address] [address], [place], [place], [address], [place] tel:[phone] [facility] [place] No Information Jose Enrique-1 0-200 7 Elvia Ferrer. [address] [facility], [address], [place], [place], [address], [place]. tel:[phone] [facility], [address] [place] [address] [address], [place], [place], [address], [place] tel:[phone] [facility] [place] No Information Jose Enrique-0 2-200 7 Fadumo Tompkins. [address] [place], [place] [address]ate [address]opatra [address], [address], [place], [facility], [place]. tel:[phone] [facility], [address] [place] [address] [address], [place], [place], [address], [place] tel:[phone] [facility] No Information May-1 0-200 7 Fadumo Tompkins. [facility] , [address], [place], [facility], [place]. tel:[phone] Referring Provider: Turner Shaffer, [address] [place], [place] [address]ate [address], [place], [place], [facility]. tel:[phone] [facility], [address], [place], [place], [address], [place] tel:[phone] [facility] No Information 7 Fadumo Tompkins. [address] [facility] , [address], [place], [address], [place]. tel:[phone] Referring Provider: Ozzy Avila1 [facility] [address], [place], [address]. tel:[phone] Family History Family Member Type Diagnosis Age At Onset No Information Payers Payer name Insurance type Covered libertarian ID Authoriza tion(s) No Information Social History Type Description Quantity Date Captured Comments Sex Female Smoking Status No Information Chief Complaint And Reason For Visit No Information Reason For Referral Reason For Referral No Information History Of Present Illness Encounter Date Complaint History Of Prese nt Illness No Information Functional Status Date Functional Assessmen t No Information Instructions Date Instruction Additional Infor mation No Information Assessments Type Assessment Date No Information Patient Care Teams Name Effective Dates (start - stop) Status Members No Information
--- NOTE | ~2025-01-08 | XR_ITS ---
EXAMINATION: XR chest 2V, 01/08/2025 15:24 CDT HISTORY: cp COMPARISON: No comparisons available. Technique: 2 views obtained. Findings: The lungs are clear, no effusion. No pneumothorax. Heart is normal size. Mediastinal and hilar contours are within normal limits. Bony thorax no acute abnormality. Impression: No acute cardiopulmonary abnormality. Reviewed, dictated and finalized at location P. Impression: No acute cardiopulmonary abnormality.
[2025-01-08 15:06] VITALS: BP 127/86; PULSE 97; RESP 20; TEMP 36.9; O2SAT 99
--- NOTE | 2025-01-08 15:08 | ECG_ITS ---
Test Date: 2025-01-08 15:12:36 Measurements Intervals [place] Rate: 96 P: 28 [place]: 141 QRS: 9 QRSD: 67 T: 14 QT: 327 QTc: 413 Interpretive Statements SINUS RHYTHM INCOMPLETE RIGHT BUNDLE BRANCH BLOCK BASELINE ARTIFACT- I, II, AVR, AVL BORDERLINE ECG Compared to ECG 04/27/2024 10:55:46 ST (T wave) deviation now present Electronically Signed On 01-08-2025 15:23:01 CDT by Avi Jett D.O.
[2025-01-08] MEDS: ASPIRIN 81 MG CHEWABLE TABLET 324 MG PO (15:18)
[2025-01-08 15:24] LABS: Hematocrit 40.7 % (37.0-47.0); Hemoglobin 12.5 g/dL (12.0-15.0); Immature Granulocyte Percent A 0.3 % (0-0.5); Lymphocytes Absolute Auto 2.31 K/mm3 (0.9-3.2); Mean Corpuscular HGB Conc 30.7 g/dl (32-36); Mean Corpuscular Hemoglobin 25.3 pg (26-34); Mean Corpuscular Volume 82.4 fl (80-100); Nucleated Red Blood Cells Absolute Auto 0.000 K/mm3 (0.0-0.012); Nucleated Red Blood Cells Perc 0.0 % (0.0-0.2); Platelet Count Result 205 k/mm3 (150-375); Red Blood Count 4.94 M/mm3 (4.2-5.4); White Blood Count 8.9 K/mm3 (4.5-10.0)
[2025-01-08 15:35] LABS: INR 0.9; Prothrombin Time 12.6 Seconds (11.1-14.7)
[2025-01-08 15:36] LABS: Partial Thromboplastin Time 26.6 Seconds (22.3-36.8)
[2025-01-08 15:43] VITALS: BP 122/73; PULSE 95; RESP 22; O2SAT 99
[2025-01-08 15:46] VITALS: BP 110/68; PULSE 92; RESP 13; O2SAT 100
[2025-01-08 15:52] LABS: Alanine Aminotransferase 15 U/L (6-35); Albumin Level 4.2 g/dL (3.5-5.1); Alkaline Phosphatase 100 U/L (38-126); Anion Gap 10 mmol/L (4-12); Aspartate Amino Transferase 26 U/L (14-36); Bilirubin,Total 0.4 mg/dL (0.2-1.3); Blood Urea Nitrogen 17 mg/dL (7-17); Calcium 8.9 mg/dL (8.4-10.2); Carbon Dioxide 24 mmol/L (22-30); Chloride 103 mmol/L (98-107); Estimated CRCL calculation 44 ml/min; Estimated Glomerular Filt Rate > 60; Glucose 158 mg/dL (65-110); Lipase 127 U/L (23-300); Potassium 4.6 mmol/L (3.4-5.0); Sodium 137 mmol/L (137-145); Total Protein 7.7 g/dL (6.3-8.2)
[2025-01-08 16:01] VITALS: BP 87/62; PULSE 92; RESP 15; O2SAT 100
[2025-01-08 16:02] LABS: Troponin I < 0.012 ng/mL (0.000-0.034)
[2025-01-08 16:15] VITALS: BP 86/44; PULSE 93; RESP 19
--- NOTE | 2025-01-08 16:18 | ED.CHESTPAIN ---
HPI - Chest Pain General Chief Complaint: Chest Pain Stated Complaint: shoulder pain 2-4 days Time Seen by Provider: 01/08/25 15:56 Source: patient and family Mode of arrival: ambulatory Limitations: no limitations History of Present Illness HPI narrative: This is a 79-year-old female with a history of insulin-dependent diabetes, rotator cuff surgery bilaterally who presents the ED for right shoulder/chest pain. Patient states for the past 3-4 days, she has been having worsening right shoulder pain/right upper chest pain. She states she was talking to her daughter about this and they were concerned that she may be having a heart attack so she tried to go to her PCP today but the PCP was out of town so the nurse advised that she come to the ED for further evaluation. Patient reports the pain is up in her shoulder and not in the chest itself. Denies shortness of breath, numbness, tingling. Pain is worse with movement of the right arm. He states that it does feel similar to her prior flare-ups of her shoulder pain. No prior cardiac history. Related Data Home Medications ?Medication ?Instructions ?Recorded ?Confirmed ?Last Taken ?Type aspirin 81 mg tablet 81 mg PO DAILY 08/14/20 01/08/25 01/08/25 History atorvastatin 20 mg tablet 20 mg PO DAILY 08/14/20 01/08/25 01/07/25 History latanoprost 0.005 % eye drops 1 drp EACH EYE QPM 08/14/20 01/08/25 01/08/25 History (Xalatan) polyethylene glycol 3350 17 17 g PO DAILY 08/14/20 11/14/21 11/13/21 History gram/dose oral powder (Miralax) timolol 0.5 % eye drops 1 drp EACH EYE BID 08/14/20 01/08/25 01/07/25 History metformin 500 mg tablet 500 mg PO BIDWM 11/14/21 01/08/25 01/08/25 History losartan 25 mg tablet 25 mg PO DAILY 06/14/23 01/08/25 01/08/25 History semaglutide 1 mg/dose (4 mg/3 mL) 1 mg subcut WEEKLY 06/14/23 01/08/25 01/04/25 History subcutaneous pen injector (Ozempic) dapagliflozin propanediol 5 mg 5 mg PO DAILY 10/01/08/25 01/08/25 History tablet (Farxiga) garlic soft gel 1,000 mg BYMOUTH QHS 01/08/25 01/08/25 01/07/25 History pregabalin 75 mg capsule 75 mg PO TID 01/08/25 01/08/25 01/08/25 History Allergies Allergy/AdvReac Type Severity Reaction Status Date / Time codeine AdvReac Nausea Verified 01/08/25 15:50 Review of Systems Review of Systems: Gen.: Denies fevers or chills Eyes: Denies eye pain or visual change ENT: Denies congestion Respiratory: Denies shortness of breath or cough CV: Denies chest pain or palpitations GI: Denies abdominal pain nausea, emesis or diarrhea denies burning, urgency, frequency or hematuria Musculoskeletal: As per HPI Neuro: Denies numbness, tingling, weakness or focal weakness Skin: Denies rash Except as documented, all other systems reviewed and negative PMFSH Past Medical History Medical History Screening mammogram for breast cancer Screening mammogram for breast cancer Herpes zoster GERD (gastroesophageal reflux disease) Diastolic dysfunction Diabetic peripheral neuropathy Achilles tendinitis Low back pain Cervical myelopathy Neck pain Bilateral hand numbness Insulin pump in place Type 2 diabetes mellitus Hypertension Surgical History Surgical History H/O neck surgery H/O thyroidectomy Previous back surgery july 2019 History of appendectomy H/O hysterectomy for benign disease Family History Family History Other Diabetes mellitus Hypertension Social History Social History Smoking status: Never smoker Second hand tobacco smoke exposure: No Alcohol intake: never Substance use: never Substance use type: does not use Current Housing: Decline to Answer Concerned About Future Housing: Decline to Answer Difficulty Paying Gas/Electric Bills: Decline to Answer Difficulty Paying for Meds: Decline to Answer Currently Unemployed: Decline to Answer Education: Decline to Answer Difficulty w/ Childcare or Family Care: Decline to Answer Living arrangements: with family Additional living arrangements comments: Occupation/Education: retired Gender identity (if verbalized by the patient): Female Sexual Orientation (if Verbalized by the Patient): Straight or Heterosexual Spiritual care concerns: No Exam Narrative: APPEARANCE: No acute distress, nontoxic, resting in bed EYES: EOMI HEENT: Normocephalic, atraumatic, OMM RESPIRATORY: No respiratory distress Clear to auscultation bilaterally with no rhonchi wheezing or rales. CARDIOVASCULAR: Regular rate and rhythm without murmurs rubs or gallops. No chest wall tenderness to palpation. ABDOMINAL: Soft, nontender, nondistended, no rebound or guarding MUSCULOSKELETAl: Moves all extremities. No clubbing, cyanosis or edema. Tenderness to palpation over the glenohumeral joint superiorly on the right, mild pain with range of motion. NEURO: Awake and alert. Following commands, speech normal, no focal deficits SKIN:: Warm, dry. No rashes lesions or abrasions PSYCHIATRIC: Normal affect/mood, Course Vital Signs Vital signs: Vital Signs Temperature 98.5 F 01/08/25 15:06 Pulse Rate 97 01/08/25 15:06 Respiratory Rate 20 01/08/25 15:06 Blood Pressure 127/86 01/08/25 15:06 Pulse Oximetry 99 01/08/25 15:06 Oxygen Delivery Room Air 01/08/25 15:06 Temperature 98.5 F 01/08/25 15:06 Pulse Rate 93 01/08/25 16:15 Respiratory Rate 19 01/08/25 16:15 Blood Pressure 86/44 L 01/08/25 16:15 Pulse Oximetry 100 01/08/25 16:01 Oxygen Delivery Room Air 01/08/25 15:46 MDM - Chest Pain MDM Narrative Medical decision making narrative: 79-year-old female presenting for chest pain and shoulder pain. Initial evaluation, patient was in acute distress, afebrile, hemodynamically stable. Heart and lungs clear. Chest wall was nontender. Patient had more reproducible tenderness over her glenohumeral joint on the right. Pain is reproducible with range of motion of the right shoulder. CBC and CMP were without significant abnormalities. Initial troponin was negative. Again I think a repeat troponin is necessary at this time. Chest x-ray showed no acute process. EKG showed no concerning findings. Patient's symptoms are much more consistent with a flare-up of her shoulder arthritis rather than any cardiac chest pain. She was educated on Voltaren use. She was advised follow-up with her PCP in the next week for re-evaluation. Patient and family were agreeable to this plan. Given strict return precautions. Final BP on my evaluation was 110/76. Differential Diagnosis Differential diagnosis: Likely stable angina, unstable angina pectoris, atypical chest pain, costochondritis, chest pain and other (Shoulder sprain, shoulder strain, shoulder arthritis) Medical Records Data Attestation: I reviewed the patient's medical records. Lab Data Attestation: I reviewed the patient's lab results. 01/08/25 15:16 01/08/25 15:16 Labs: Lab Results 01/08/25 Range/Units 15:16 WBC 8.9 (4.5-10.0) K/mm3 RBC 4.94 (4.2-5.4) M/mm3 Hgb 12.5 (12.0-15.0) g/dL Hct 40.7 (37.0-47.0) % MCV 82.4 (80-100) fl MCH 25.3 L (26-34) pg MCHC 30.7 L (32-36) g/dl RDW 14.5 (11.5-14.5) % Plt Count 205 (150-375) k/mm3 MPV 11.5 H (7.4-10.4) fl Immature Gran % (Auto) 0.3 (0-0.5) % Neut % (Auto) 62.4 (45.5-73.1) % Lymph % (Auto) 26.0 (18.3-44.2) % [place] % (Auto) 8.2 (2.6-8.5) % Eos % (Auto) 2.5 (0-4.4) % Baso % (Auto) 0.6 (0.2-1.2) % Lymph # (Auto) 2.31 (0.9-3.2) K/mm3 [place] # (Auto) 0.7 H (0.1-0.6) K/mm3 Eos # (Auto) 0.2 (0-0.3) K/mm3 Baso # (Auto) 0.1 (0.0-0.1) K/mm3 Abs Immat Gran (auto) 0.03 (0.00-0.031) K/mm3 Absolute Neuts (auto) 5.6 (1.3-6.7) K/mm3 Absolute Nucleated RBC 0.000 (0.0-0.012) K/mm3 Nucleated RBC % 0.0 (0.0-0.2) % PT 12.6 (11.1-14.7) Seconds INR 0.9 APTT 26.6 (22.3-36.8) Seconds Sodium 137 (137-145) mmol/L Potassium 4.6 (3.4-5.0) mmol/L Chloride 103 (98-107) mmol/L Carbon Dioxide 24 (22-30) mmol/L Anion Gap 10 (4-12) mmol/L BUN 17 D (7-17) mg/dL Creatinine 0.89 (0.7-1.0) mg/dL Estim Creat Clear Calc 44 ml/min Estimated GFR > 60 (59 - ) Glucose 158 H (65-110) mg/dL Calcium 8.9 (8.4-10.2) mg/dL Total Bilirubin 0.4 (0.2-1.3) mg/dL AST 26 (14-36) U/L ALT 15 (6-35) U/L Alkaline Phosphatase 100 (38-126) U/L Troponin I < 0.012 (0.000-0.034) ng/mL Total Protein 7.7 (6.3-8.2) g/dL Albumin 4.2 (3.5-5.1) g/dL Lipase 127 (23-300) U/L Imaging Data Attestation: I personally reviewed and interpreted this imaging study as follows: Radiologist's impression: Impressions Chest X-Ray 01/08/25 15:32 Impression: No acute cardiopulmonary abnormality. ECG Data EKG #1: Attestation: I personally reviewed and interpreted this ECG as follows: ECG completion date: 01/08/25 ECG completion time: 15:12 Interpretation: Normal sinus rhythm rate 96, normal axis, incomplete right bundle-branch block no acute ST or T-wave changes Discharge Plan Discharge Clinical Impression: Arthritis of shoulder Qualifiers: Laterality: right Qualified Code(s): M19.011 - Primary osteoarthritis, right shoulder Patient Disposition: Home Condition: Stable Instructions: Antibiotic Form, Shoulder Pain (ED) Additional Instructions: Labs, EKG, chest x-ray were obtained and were all reassuring and not indicative of cardiac damage at this time. I suspect that given your presentation, your symptoms are more related to shoulder arthritis disposed cardiac damage. Please follow-up with the PCP in the next week for re-evaluation. Return to the ED for any new or worsening symptoms. Patient Language: Hong Konger Prescriptions: No Action Ozempic 1 mg/dose (4 mg/3 mL) pen injector 1 mg subcut WEEKLY losartan 25 mg tablet 25 mg PO DAILY atorvastatin 20 mg Tablet 20 mg PO DAILY aspirin 81 mg Tablet 81 mg PO DAILY latanoprost [Xalatan] 0.005 % Drops 1 drp EACH EYE QPM timolol 0.5 % Drops 1 drp EACH EYE BID polyethylene glycol 3350 [Miralax] 17 gram/dose Powder 17 g PO DAILY metformin 500 mg tablet 500 mg PO BIDWM pregabalin 75 mg capsule 75 mg PO TID dapagliflozin propanediol [Farxiga] 5 mg tablet 5 mg PO DAILY garlic soft gel 1,000 mg BYMOUTH QHS Follow-up/Referrals: Leo,Lew Parkinson MD [Primary Care Provider, Unknown]
--- OUTSIDE RECORDS SUMMARY | 2025-01-08 18:43 | XMS_ITS | Clinical Summary ---
Author Organization [facility] Address [address] [place] [address] Phone Care Team Providers Care Social Studies Department Chair Name Role Phone Lew Bailey MD Primary Care Provider [phone] Antonio Smith MD Unavailable [phone] Allergies Active Allergy Reactions Criticality Noted Date [...] - 10/17/2024 11:59 PM CDT Hospital Encounter [facility] [address] [place] [address] Antonio Smith MD Discharge Disposition: Discharged to home or Selfcare 10/17/2024 9:58 AM CDT - 10/17/2024 10:59 AM CDT Hospital Encounter [facility] [address] [place] [address] Antonio Smith MD Discharge Disposition: Discharged to home or Selfcare 10/17/2024 Travel 10/09/2024 2:00 PM CDT Office Visit [facility] [address] [place] [address] Antonio Smith MD Gait disturbance (Primary Dx); [...] [facility] - [place] [address] [place] [phone] Antonio Smith MD [address] [place] [phone] Health Maintenance Due Date Last Done Comments DEXA Bone Density 1945 Hepatitis C Virus (HCV) Screening 1945 Medicare Initial AWV [id number] 03/21/2024 Influenza Immunization (#1) 11/19/202404/2023, 12/23/2022, 12/23/2021, Additional [...] Ryan Valdovinos M.D. LB: ZAIN Report ID: [id number] [place] Location: [id number] Procedure Note Ryan Valdovinos MD - 10/29/2024 [...] Electronically signed by Ryan Valdovinos M.D. LB: LB Report ID: [id number] [place] Location: [id number] IMPRESSION: 1. No acute radiographic abnormality of [...] Farooq Garcia M.D. LC: BERENICE Report ID: [id number] [place] Location: [place] [address] Procedure Note Alisa Garcia MD - 10/18/2024 [...] Farooq Garcia M.D. LC: BERENICE Report ID: [id number] [place] Location: [place] [address] IMPRESSION: 1. No acute intracranial finding. 2. [...] from Last 3 Months Insurance MEDICARE [facility] Care Teams Social Studies Department Chair Relationship Specialty Start Date End Date Lew Bailey MD PCP - General Internal Medicine 06/09/23 Antonio Smith MD [address] [place] [phone] Consulting Physician Neurology 10/03/23
--- OUTSIDE RECORDS SUMMARY | 2025-01-08 18:44 | XMS_ITS | Clinical Summary ---
Author Organization [facility] Address [address] [place] [address] Care Team Providers Care Wrapper And Preserver Name Role Phone Unavailable Primary Care Provider Unavailabl e Source Comments [facility],non-owned Affiliates and Associated Physician Practices is amultiple site organization consisting of ambulatory clinics and hospital sitesin [place], [place], [place] and [place]. This disclosure is being madepursuant to the Care Everywhere program and may not contain all information available regarding this patient. 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
--- OUTSIDE RECORDS SUMMARY | 2025-01-08 18:44 | XMS_ITS | Clinical Summary ---
Author Organization [facility] [address] [facility] [place] Address [address] [place] [address] Care Team Providers Care Laminating Machine Offbearer Name Role Phone Omari Baca MD Unavailable [phone] Lew Bailey MD Primary Care Provider Allergies [...] 1 each 8 Active blood-glucose sensor device [employer] G6 Sensor device use as directed for [...] mg tablet Take by mouth Active vit F-F-lsoccb-zin c-lutein 226-90-0.8-5 mg capsule Take by mouth [...] 03/18/2020 Assessment & Plan (03/18/2020 4:39 PM SECURITIES ADVISER): Patient has history of diabetic peripheral neuropathy [...] 03/18/2020 Assessment & Plan (03/18/2020 4:38 PM SECURITIES ADVISER): Patient has antecedent history of neck pain with x-ray suggested cervical spondylosis. I have suggested she could use cjxe-vjj-jsjbedp anti-inflammatories or continue with her chiropractor as previously being done. Diastolic dysfunction 12/27/2019 Fatigue 12/27/2019 Screening for other and unsp ecified cardiovascular conditions 12/27/2019 Achilles tendinitis 11/06/2019 Lymphedema of lower extremity 07/10/2018 Diabetic peripheral neuropathy 10/19/2017 Dystrophia unguium 10/19/2017 Low back pain 09/22/2017 Hypercholesterolemia 07/04/2012 Overview (08/06/2020): PURE HYPERCHOLESTEROLEM Assessment & Plan (02/24/2017 1:53 PM SECURITIES ADVISER): Goal of treatment , LDL cholesterol less [...] ARB Assessment & Plan (02/24/2017 1:53 PM SECURITIES ADVISER): Goal blood pressure is less than 140/85 [...] goal hba1c is under 7.0 to prevent rodent exterminator diabetes complications ( eye , kidney and [...] meals. Assessment & Plan (02/24/2017 1:54 PM SECURITIES ADVISER): Hba1c was 7.9 today, indicating inadequate DM [...] week 08/07/2020 How often do you attend [facility] or church services? Never 08/07/2020 Do you belong to any clubs o r organizations such as nondenominational groups, unions, fraternal or athletic groups, or [...] place to sleep or slept in a usp (including now)? No 08/07/2020 Comments No Sex and Gender Information Value Date Recorded Sex Assigned at Not on file Legal Sex Female 9:04 AM SECURITIES ADVISER Gender Identity Not on file Sexual Orientation Not on file Obstetrics History Last Filed Vital Signs Vital Sign [place] Time Taken Comments Blood Pressure 96/56 05/03/2022 2:54 PM SECURITIES ADVISER Pulse 102 05/03/2022 2:54 PM SECURITIES ADVISER Temperature 36.9 C (98.5 F) 05/03/2022 2:54 PM SECURITIES ADVISER Respiratory Rate 16 05/03/2022 2:54 PM SECURITIES ADVISER Oxygen Saturation 99% 05/03/2022 2:54 PM SECURITIES ADVISER Inhaled Oxygen Concentration - - Weight 81.6 kg (180 lb) 05/03/2022 2:54 PM SECURITIES ADVISER Height 157.5 cm (5' 2) 05/03/2022 2:54 PM SECURITIES ADVISER Body Mass Index 32.92 05/03/2022 2:54 PM SECURITIES ADVISER Plan of Treatment Health Maintenance Due Date [...] Completed 08/06/2020 Medical Devices Implanted Type Area Water Control Supervisor Device Identifier Shelf Expiration Date Model / Serial / Lot De Witt Spine [id number] [place] 3.5mm 12mm Polyaxial Spine Occipitocervicothoracic Medial - [id number] Implanted:Qty: 3 on 08/06/2020 by Omari Baca MD at [facility] N/A: Spine Cervical De Witt Spine 7601-03 [id number] / / De Witt Spine [id number] [place] 3.5mm 12mm Polyaxial Spine Occipitocervicothoracic Screw - [id number] Implanted:Qty: 4 on 08/06/2020 by Omari Baca MD at [facility] N/A: Spine Cervical Fernanda Spine 7601-03 512 / / Fernanda Spine [id number] [place] 3.5mm 22mm Polyaxial Spine Occipitocervicothoracic Screw - [id number] Implanted:Qty: 2 on 08/06/2020 by Omari Baca MD at [facility] N/A: Spine Cervical Fernanda Spine 7601-03 [id number] / / Fernanda Spine [id number] Screw Set [place] Spine Occipitocervicothoracic Nonsterile Latex Free - [id number] Implanted:Qty: 13 on 08/06/2020 by Omari Baca MD at [facility] N/A: Spine Cervical Fernanda Spine 7601-10 001 / / Fernanda Spine [id number] 3.5mm 110mm Contour Dell Spinal Titanium Nonsterile Latex - [id number] Implanted:Qty: 2 on 08/06/2020 by Omari Baca MD at [facility] N/A: Spine Cervical Fernanda Spine [id number] / / Spinal Graft Tech [id number] Kenia Putty Jar Graft 5cc Bone Demineralized Bone Matrix - [id number] - [id number] Implanted:Qty: 1 on 08/06/2020 by Omari Baca MD at [facility] N/A: Spine Cervical Medtronic Inc 04/22/2023 [id number] / [id number] / De Witt Spine [id number] [place] 5mm 22mm Polyaxial Spine Occipitocervicothoracic Screw Bone - [id number] Implanted:Qty: 4 on 08/06/2020 by Omari Baca MD at [facility] Spine 760 [id number] [id number] / [...] BLOOD ORDERABLES Fin al Result ABRAHAN ANTONIO [address] [place] [address] * Hepatitis C antibody (08/06/2020 [...] ORD ERABLES Final Result Performing Organization Address [facility] de Phone Number ABRAHAN ANTONIO [address] [place] [address] * (ABNORMAL) Hemoglobin A1c (08/06/2020 10:30 AM CDT) Hgb A1C 9.3(H) 4.0 - 5.6 % ABRAHAN Estimated Average Glucose 220 mg/dL ABRAHAN Comment: The ADA recommends reporting an estimated Average Glucose (eAG) with all Hemoglobin A1c results using the equation derived from a study of 507 normal and diabetic adults. Minority populations were underrepresented and children were not included. (Diabetes Care 31:2859-2683, 2008). The eAG is not equivalent to a fasting glucose. Blood specimen (specimen) 08/06/2020 10:30 AM CDT 08/06/2020 10:37 AM CDT Denilson Munoz MD LAB BLOOD ORDERABLES Final Resu lt Performing Organization Address [facility] Co de Phone Number ABRAHAN PACO [address] [place], [place] [id number] * Microalbumin / creatinine ratio, urine, random [...] ORDERABLES Mago l Result Performing Organization Address [facility] Co de Phone Number HISTORICAL RESULTS from Last 3 Months or Most Recently Relevant to Health Maintenance Insurance [facility] MEDICARE [facility]ANT[facility] Address: [facility] [address] [place] [address] [facility]IC[facility] Address: [address] [place] [phone] [id number] [place] [id number] [facility] MEDICARE [facility] Address: [address] [place] [phone] Advance Directives For more information, please contact: [phone] Documents on File Type Date Recorded 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 Dry Starch Operator Expl anation ADVANCE DIRECTIVE 02/06/2021 2:22 PM [facility] PROGRESS NOTE SIGNED/FAXED * Full Code (Latest Code Status on File) Date Activated Date Inactivated Comments 08/06/2020 10:35 PM 08/14/2020 7:47 PM * Full Code Date Activated Date Inactivated Comments 08/06/2020 3:27 AM 08/06/2020 10:35 PM Care Teams Laminating Machine Offbearer Relationship Specialty Start Date End Date Lew Bailey MD [address] [facility] [place] [address] PCP - General Internal Medicine 01/07/23 [place] [id number] [address] Consulting Physician Orthopedic Surgery 08/13/20
--- OUTSIDE RECORDS SUMMARY | 2025-01-08 18:44 | XMS_ITS | Clinical Summary ---
Author Organization [facility] Address [address] [place], [place] [id number] Care Team Providers Care Fruit Washer Name Role Phone Unavailable Primary Care Provider [...] 2022 COVID-19 Vaccine (2023-2 5 season) 2024 Influenza Adult (#1) 2024 Hepatitis A Vaccines Aged Out No long er eligible based on patient's age to complete this topic Meningococcal B Vaccine Aged Out No l onger eligible based on patient's age to complete this topic Meningococcal Vaccine Aged Out No fracisco john eligible based on patient's age to complete this topic RSV Immunizations Under 20 Months Aged Out No longer eligible based on patient's age to complete this topic
--- OUTSIDE RECORDS SUMMARY | 2025-01-08 18:44 | XMS_ITS | Data Portability ---
Author Organization [facility] [employer], Main Office Address [address] [place] [address] Care Team Providers Care Material Yard Clerk Name Role Phone KATHY MIGUEL Primary Care Provider MIGUEL VALLE Referring Provider DARIEL BAILEY Primary Care Provider Assessment Encounter Date Assessment Date Assessment LastModified by Organization Details LastModified Time 11/20/2024 11/20/2024 This note is dictated and transcribed by [employer]. Dividend Clerk variances may occur. Despite proofreading, typographical errors may occur. Occasional wrong-word or '[id number]' substitutions may have occurred due to the inherent limitations of voice recording. Read the chart carefully and recognize, using context, where substitutions have occurred. [email or web address] Not available 11/21/2024 15:59:50 Plan of Treatment Reminders Order Date Submit Date Provider Last Modified By Organization Details Last Modified Time Details Appointments Establish ed Patient 15 2024 02:30P M Weston Buchanan DPM Not available Not available Not available Any 15 2025 01:30P M Dariel Bailey MD Not available Not available Not available Lab vitamin B12, serum 2024 025 ALICIA [facility], [address], [place], [address], 12/07/2024 10:46:22 CBC w/ auto diff 2024 025 ALICIA [facility], [address], [place], [address], 12/07/2024 09:51:29 CBC 2024 025 ALICIA [facility], [address], [place], [address], 12/07/2024 10:46:22 HbA1c (hemoglob in A1c), blood 2024 025 [facility], [address], [address], [place], [address], 12/07/2024 14:12:17 CMP, serum or plasma 2024 025 ALICIA [facility], [address], [place], [address], 12/07/2024 10:46:22 microalbu min, urine 2024 025 [place] [facility], [address], [place], [address], 12/07/2024 14:12:18 HbA1c (hemoglob in A1c), blood 2024 025 [email or web address] [facility], [address], [address], [place], [address], 10/26/2024 12:15:22 BMP, serum or plasma 2024 025 [facility], [address], [address], [place], [address], 09/05/2024 10:37:11 Referral None recorded. Procedures None recorded. Surgeries None recorded. Imaging None recorded. Medication Orders None recorded. Patient TargetsNo targets recorded. Patient Instructions Encounter Date Encounter Id Patient Instructions Last Modified By Organization Details Last Modified Time 12/21/2024 [id number] After ear cleaning, it is common to have feeling of fullness or muffled sounds. This will subside after a day or so. Call with any concerns or questions. [email or web address] Not available 12/20/2024 20:15:37 Reason for Referral None Reported. Results Created Date Observation Date Name Description Value Unit Range Abnormal Flag Note LastModifiedBy Organization Detail LastModifiedTime 12/07/1912/07/2024 CBC WITH DIFFE RENTI AL/PL ATELE T WBC 8.7 x10e3 /uL 3.4-10 .8 normal Not Available [facility] ([facility]) [address] [facility] [address], [place], [address], 12/07/2024 14:12:16 12/07/19 25 12/07/2024 CBC WITH DIFFE RENTI AL/PL ATELE T RBC 4.72 x10e6 /uL 3.77-5 .28 normal Not Available [facility] ([facility]) [address] [place], [address], 12/07/2024 14:12:16 12/07/19 25 12/07/2024 CBC WITH DIFFE RENTI AL/PL ATELE T hemoglobin 12.1 g/dL 11.1-1 5.9 normal Not Available [facility] ([facility]) [address] [place], [address], 12/07/2024 14:12:16 12/07/19 25 12/07/2024 CBC WITH DIFFE RENTI AL/PL ATELE T hematocrit 41.0 % 34.0-4 6.6 normal Not Available [facility] ([facility]) [address] [place], [address], 12/07/2024 14:12:16 12/07/1912/07/2024 CBC WITH DIFFE RENTI AL/PL ATELE T MCV 87 fL 79-97 normal Not Available [facility] ([facility]) [address] [place], [address], 12/07/2024 14:12:16 12/07/19 25 12/07/2024 CBC WITH DIFFE RENTI AL/PL ATELE T MCH 25.6 pg 26.6-3 3.0 below low normal Not Available [facility] ([facility]) [address] [place], [address], 12/07/2024 14:12:16 12/07/19 25 12/07/2024 CBC WITH DIFFE RENTI AL/PL ATELE T MCHC 29.5 g/dL 31.5-3 5.7 below low normal Not Available [facility] ([facility]) [address] [facility] [address], [place], [address], 12/07/2024 14:12:16 12/07/19 25 12/07/2024 CBC WITH DIFFE RENTI AL/PL ATELE T RDW 14.4 % 11.7-1 5.4 Not Available [facility] ([facility]) [address] [facility] [address], [place], [address], 12/07/2024 14:12:16 12/07/19 25 12/07/2024 CBC WITH DIFFE RENTI AL/PL ATELE T platelets 205 x10e3 /uL 150-45 0 normal Not Available [facility] ([facility]) [address] [facility] [address], [place], [address], 12/07/2024 14:12:16 12/07/19 25 12/07/2024 CBC WITH DIFFE RENTI AL/PL ATELE T neutrophils 65 % not estab. normal Not Available [facility] ([facility]) [address] [facility] [address], [place], [address], 12/07/2024 14:12:16 12/07/1912/07/2024 CBC WITH DIFFE RENTI AL/PL ATELE T lymphs 23 % not estab. normal Not Available [facility] ([facility]) [address] [facility] [address], [place], [address], 12/07/2024 14:12:16 12/07/19 25 12/07/2024 CBC WITH DIFFE RENTI AL/PL ATELE T monocytes 8 % not estab. normal Not Available [facility] ([facility]) [address] [facility] [address], [place], [address], 12/07/2024 14:12:16 12/07/19 25 12/07/2024 CBC WITH DIFFE RENTI AL/PL ATELE T eos 3 % not estab. normal Not Available [facility] ([facility]) [address] [facility] [address], [place], [address], 12/07/2024 14:12:16 12/07/19 25 12/07/2024 CBC WITH DIFFE RENTI AL/PL ATELE T basos 1 % not estab. normal Not Available [facility] ([facility]) [address] [facility] [address], [place], [address], 12/07/2024 14:12:16 12/07/1912/07/2024 CBC WITH DIFFE RENTI AL/PL ATELE T immature cells [employer]OW[employer] SALES CONSULTANT Not Available [facility] ([facility]) [address] [facility] [address], [place], [address], 12/07/2024 14:12:16 12/07/19 25 12/07/2024 CBC WITH DIFFE RENTI AL/PL ATELE T neutrophils (absolute) 5.7 x10e3 /uL 1.4-7. 0 normal Not Available [facility] ([facility]) [address] [place], [address], 12/07/2024 14:12:16 12/07/19 25 12/07/2024 CBC WITH DIFFE RENTI AL/PL ATELE T lymphs (absolute) 2.0 x10e3 /uL 0.7-3. 1 normal Not Available [facility] ([facility]) [address] [place], [address], 12/07/2024 14:12:16 12/07/1912/07/2024 CBC WITH DIFFE RENTI AL/PL ATELE T monocytes(ab solute) 0.7 x10e3 /uL 0.1-0. 9 normal Not Available [facility] ([facility]) [address] [place], [address], 12/07/2024 14:12:16 12/07/19 25 12/07/2024 CBC WITH DIFFE RENTI AL/PL ATELE T eos (absolute) 0.3 x10e3 /uL 0.0-0. 4 normal Not Available [facility] ([facility]) [address] [facility] [address], [place], [address], 12/07/2024 14:12:16 12/07/19 25 12/07/2024 CBC WITH DIFFE RENTI AL/PL ATELE T baso (absolute) 0.0 x10e3 /uL 0.0-0. 2 normal Not Available [facility] ([facility]) [address] [facility] [address], [place], [address], 12/07/2024 14:12:16 12/07/19 25 12/07/2024 CBC WITH DIFFE RENTI AL/PL ATELE T immature granulocytes 0 % not estab. Not Available [facility] ([facility]) [address] [facility] [address], [place], [address], 12/07/2024 14:12:16 12/07/19 25 12/07/2024 CBC WITH DIFFE RENTI AL/PL ATELE T immature grans (abs) 0.0 x10e3 /uL 0.0-0. 1 Not Available [facility] ([facility]) [address] [facility] [address], [place], [address], 12/07/2024 14:12:16 12/07/1912/07/2024 CBC WITH DIFFE RENTI AL/PL ATELE T NRBC [employer] SALES CONSULTANT Not Available [facility] ([facility]) [address] [facility] [address], [place], [address], 12/07/2024 14:12:16 12/07/1912/07/2024 CBC WITH DIFFE RENTI AL/PL ATELE T hematology comments: [employer] SAL[employer] CONSULTANT Not Available [facility] ([facility]) [address] [facility] [address], [place], [address], 12/07/2024 14:12:16 12/07/19 25 12/07/2024 COMP. METAB OLIC PANEL (14) glucose 73 mg/dL 70-99 normal Not Available [facility] ([facility]) [address] [place], [address], 12/07/2024 14:12:17 12/07/19 25 12/07/2024 COMP. METAB OLIC PANEL (14) BUN 11 mg/dL 8-27 normal Not Available [facility] ([facility]) [address] [place], [address], 12/07/2024 14:12:17 12/07/19 25 12/07/2024 COMP. METAB OLIC PANEL (14) creatinine 0.94 mg/dL 0.57-1 .00 normal Not Available [facility] ([facility]) [address] [place], [address], 12/07/2024 14:12:17 12/07/19 25 12/07/2024 COMP. METAB OLIC PANEL (14) eGFR 62 mL/mi n/1.7 3 >59 normal Not Available [facility] ([facility]) [address] [place], [address], 12/07/2024 14:12:17 12/07/19 25 12/07/2024 COMP. METAB [...] acute renal failu re. Addit ional infor matio n may be found at [email or web address]. org. Not Available [facility] ([facility]) [address] [place], [address], 12/07/2024 14:12:17 12/07/19 25 12/07/2024 COMP. METAB OLIC PANEL (14) BUN/creatini ne ratio 12 12-28 normal Not Available [facility] ([facility]) [address] [facility] [place], [address], 12/07/2024 14:12:17 12/07/19 25 12/07/2024 COMP. METAB OLIC PANEL (14) sodium 142 mmol/ L 134-14 4 normal Not Available [facility] ([facility]) [address] [facility] [place], [address], 12/07/2024 14:12:17 12/07/19 25 12/07/2024 COMP. METAB OLIC PANEL (14) potassium 4.6 mmol/ L 3.5-5. 2 normal Not Available [facility] ([facility]) [address] [facility] [place], [address], 12/07/2024 14:12:17 12/07/19 25 12/07/2024 COMP. METAB OLIC PANEL (14) chloride 102 mmol/ L 96-106 normal Not Available [facility] ([facility]) [address] [facility] [place], [address], 12/07/2024 14:12:17 12/07/19 25 12/07/2024 COMP. METAB OLIC PANEL (14) carbon dioxide, total 22 mmol/ L 20-29 normal Not Available [facility] ([facility]) [address] [facility] [place], [address], 12/07/2024 14:12:17 12/07/19 25 12/07/2024 COMP. METAB OLIC PANEL (14) calcium 9.1 mg/dL 8.7-10 .3 normal Not Available [facility] ([facility]) [address] [place], [address], 12/07/2024 14:12:17 12/07/19 25 12/07/2024 COMP. METAB OLIC PANEL (14) protein, total 6.7 g/dL 6.0-8. 5 normal Not Available [facility] ([facility]) [address] [facility] [place], [address], 12/07/2024 14:12:17 12/07/19 25 12/07/2024 COMP. METAB OLIC PANEL (14) albumin 4.1 g/dL 3.8-4. 8 normal Not Available [facility] ([facility]) [address] [facility] [place], [address], 12/07/2024 14:12:17 12/07/19 25 12/07/2024 COMP. METAB OLIC PANEL (14) globulin, total 2.6 g/dL 1.5-4. 5 Not Available [facility] ([facility]) [address] [facility] [place], [address], 12/07/2024 14:12:17 12/07/19 25 12/07/2024 COMP. METAB OLIC PANEL (14) bilirubin, total 0.4 mg/dL 0.0-1. 2 normal Not Available [facility] ([facility]) [address] [facility] [place], [address], 12/07/2024 14:12:17 12/07/19 25 12/07/2024 COMP. METAB OLIC PANEL (14) alkaline phosphatase 112 IU/L 49-135 normal Ple ase note refer ence inter santiago benítez e Not Available [facility] ([facility]) [address] [facility] [place], [address], 12/07/2024 14:12:17 12/07/19 25 12/07/2024 COMP. METAB OLIC PANEL (14) AST (SGOT) 9 IU/L 0-40 normal Not Available [facility] ([facility]) [address] [facility] [address], [place], [address], 12/07/2024 14:12:17 12/07/19 25 12/07/2024 COMP. METAB OLIC PANEL (14) ALT (SGPT) 8 IU/L 0-32 normal Not Available [facility] ([facility]) [address] [facility] [address], [place], [address], 12/07/2024 14:12:17 12/07/19 25 12/07/2024 HEMOG LOBIN A1C hemoglobin A1C 7.4 % 4.8-5. 6 above high normal Predi abete s: 5.7 - 6.4 Diabe marlena: >6.4 Glyce deanne contr ol for adult s with diabe marlena: <7.0 Not Available [facility] ([facility]) [address] [facility] [address], [place], [address], 12/07/2024 14:12:17 12/07/19 25 12/07/2024 ALBUM IN, RANDO M URINE albumin, urine 6.8 ug/mL not estab. Not Available [facility] ([facility]) [address] [facility] [address], [place], [address], 12/07/2024 14:12:18 12/07/19 25 12/07/2024 VITAM IN B12 vitamin B12 >2000 pg/mL 232-12 45 above high normal Not Available [facility] ([facility]) [address] [place], [address], 12/07/2024 14:12:18 12/21/19 25 12/20/2024 MAMMO , scree mane, digit al, bilat eral No observ ation record ed. [email or web address] [facility] [address] [place], [address], 12/21/2024 12:59:08 Result Notes None recorded. Problems Name Problem SNOMED Code Status Onset Date Resolution Date Notes Provider Name and Address Organization Details Recorded Time Respirato ry finding 257356093 Completed Not Available [facility] 3 02:39:35 Abdominal bloating 913095177 Completed Not Available [facility] 3 02:39:35 Benign essential hypertens ion 3935747 Active Not Available [facility] 3 22:24:29 Abdominal pain 50276265 Completed Not Available [facility] 3 02:39:36 Pain 83873914 Completed 02/15/2024 Kym daniels, RMA null, [place] [facility] 4 14:48:02 Neuropath y due to diabetes mellitus 375718972 Active Kym daniels, RMA null, [place] [facility] 4 14:48:03 Gastroeso phageal reflux disease 005506206 Active Not Available [facility] 3 22:24:30 Low back pain 311154546 Completed 02/15/2024 Kym daniels, RMA null, [place] [facility] 4 14:48:20 Type 2 diabetes mellitus without complicat ion 705657685 Completed 02/15/2024 Kym daniels, RMA null, [place] [facility] 4 14:47:48 Dyslipide erma 580161299 Active Not Available [facility] 3 22:24:30 Herpes zoster 0190066 Completed Not Available [facility] 3 02:39:37 Pain of joint 59035495 Active Not Available [facility] 3 22:24:30 Neck pain 13523839 Active Kym daniels, RMA null, [place] [facility] 4 14:48:08 Type 2 diabetes mellitus 38603590 Active 2016 Kym daniels, RMA null, [place] [facility] 4 14:47:44 Hyperchol esterolem ia 26125225 Active 2017 Not Available [facility] 3 22:24:30 Backache 071661966 Active 2017 Not Available [facility] 3 22:24:30 Diabetes mellitus 94893828 Active 2017 Kym daniels RMA null, [place] [facility] 3 16:04:50 Diabetic periphera l neuropath y 360556112 Active 2017 Kym daniels RMA null, [place] [facility] 3 16:04:53 Dystrophi a unguium 63076377 Active 2017 Not Available [facility] 3 22:24:30 Lymphedem a of lower extremity 692268016 Active 2018 Kym daniels RMA null, [place] [facility] 4 14:48:12 Achilles tendiniti s 76364958 Active 2019 Not Available [facility] 3 22:24:29 Unable to cut own toenails 422355282 Completed 201902/15/2024 Kym daniels RMA null, [place] [facility] 4 14:47:41 Blister 153317735 Active 2020 Not Available [facility] 3 22:24:30 Pain in left foot 24683573379 9107 Completed 202002/15/2024 Kym daniels RMA null, [place] [facility] 4 14:47:59 Blister of foot 030126916 Active 2020 Not Available [facility] 3 22:24:30 Renewal of prescript ion Completed 202102/15/2024 Kym daniels RMA null, [place] [facility] 4 14:47:51 Tinea pedis 1271364 Active 2021 Not Available [facility] 3 22:24:30 Pneumonia 425550784 Completed 202102/15/2024 Kym daniels RMA null, [place] [facility] 4 14:47:56 Uncontrol led type 2 diabetes mellitus 551401669 Active 2021 Not Available [facility] 3 22:24:30 Impacted cerumen in right ear 64471111470 70571 Active 2021 Katelyn KAREN [facility] [address] [address], [address], [place], [address] , [facility] 5 14:44:59 Anterior epistaxis 116829108 Active 2021 Not Available [facility] 3 22:24:30 Hypothyro idism 32475377 Active 2021 Not Available [facility] 3 22:24:30 Acute renal insuffici ency 271845533 Active 2022 Not Available [facility] 3 22:24:30 Dysuria 30808431 Active 2022 Not Available [facility] 3 22:24:30 Acute renal insuffici ency 253371128 Active 2022 Not Available [facility] 3 22:24:30 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 790301815 Completed 202202/15/2024 Kym daniels RMA null, [facility] 4 14:48:22 Weight gain 3765419 Active 2022 Not Available [facility] 3 22:24:30 Hydroneph rosis 60657332 Active 2022 Not Available [facility] 3 22:24:30 Acute urinary tract infection 335443415 Completed 202212/23/2022 Kym daniels RMA null, [facility] 3 16:04:59 Kidney stone 93398101 Active 2022 Kym daniels RMA null, [facility] 4 14:48:24 Insomnia 222722300 Active 2022 Not Available [facility] 3 22:24:30 Vitamin B12 deficienc y (non anemic) 99802751 Active 2022 Not Available [facility] 3 22:24:30 Essential hypertens ion 92257289 Active 2022 Dariel Bailey MD [address], [address], [place], [address] , [place] [facility] 3 16:38:29 Hyperlipi demia 22567175 Active 2022 Dariel Bailey MD [address], [address], [place], [address] , [place] [facility] 3 16:38:45 Chronic back pain 375935345 Active 2022 Dariel Bailey MD [address], [address], [place], [address] , [place] [facility] 3 17:12:16 Kidney disease 10402952 Active 2022 Kym daniels RMA null, [place] [facility] 4 14:48:29 Contact dermatiti s caused by urushiol from [place] poison bambi 659517583 Active 2023 Dariel Bailey MD [address], [address], [place], [address] , [place] [facility] 4 15:04:40 Pruritic rash 53379474 Completed 202302/15/2024 Kym daniels RMA null, [place] [facility] 4 14:47:54 Impacted cerumen of bilateral ears 36021627538 14184 Active 2023 JASWINDER Sprague [address], [address], [place], [address] , [place] [facility] 5 20:14:36 Chronic sinusitis 32128924 Active 2023 Kalen Fairbanks MD [address], [address], [place], [address] , [place] [facility] 4 12:46:50 Deviated nasal septum 508857466 Active 2023 Kalen Fairbanks MD [address], [place], [address] , [employer] [facility] 4 12:47:01 Chronic maxillary sinusitis 63301844 Active 2024 Kalen Fairbanks MD [address], [address], [place], [address] , [employer] [facility] 5 12:25:30 Chronic ethmoidal sinusitis 68784002 Active 2024 Kalen Fairbanks MD [address], [address], [place], [address] , [employer] [facility] 5 12:25:39 Hematoma of face 662295593 Active 2024 Dariel Bailey MD [address], [address], [place], [address] , [employer] 5 14:59:24 Unable to perform personal care activity 797458555 Active 2024 Weston Buchanan DPM [address], [address], [place], [address] , [employer] [facility] [employer] 5 15:45:02 Does mobilize using cane 333916238 Active 2024 Weston Buchanan DPM [address], [address], [place], [address] , [employer] [facility] [employer] [facility] [employer] 15:59:58 Notes:07-14-2017 states had e ye exam 2017 Problem Notes None recorded. Procedures Surgical History Date Name Laterality Status Provider Name and Address Organization Details Recorded Time 12/22/19 25 Ear Irrigation completed JASWINDER Sprague [address], [address], [place], [address], [employer] [facility] 12/20/2024 20:14:30 11/21/19 25 Nail Debridement completed Weston Buchanan DPM [address], [address], [place], [address], [facility] 11/21/2024 15:58:43 08/15/19 25 Nail Debridement completed Weston Buchanan DPM [address], [address], [place], [address], [facility] 08/14/2024 15:44:36 05/10/19 25 Nail Debridement completed Wetson Buchanan DPM [address], [address], [place], [address], [facility] 05/14/2024 09:14:25 04/30/19 25 nasal septoplasty completed Katelyn Gonzales RN [facility] 05/07/2024 15:57:42 04/30/19 25 nasal endoscopy with maxillary antrostomy completed Katelyn Gonzales RN [facility] 05/07/2024 15:57:57 04/30/19 25 ENDOSCOPY, NASAL/SINUS, W/ TOTAL ETHMOIDECTOMY (SURG) completed Katelyn Gonzales RN [facility] 05/07/2024 15:54:38 02/28/20 24 Medicare Wellness CPT Code, subsequent completed Malou Carpio RN [facility] 02/28/2024 16:24:51 02/28/20 24 Advanced Care Planning completed NAVIN Gonzalez [facility] 02/28/2024 16:54:20 01/31/20 24 Nail Debridement completed Weston Buchanan DPM [address], [address], [place], [address], [facility] 02/01/2024 17:30:10 11/03/19 24 Nail Debridement completed Weston Buchanan DPM [address], [address], [place], [address], [facility] 11/04/2023 08:57:38 08/04/19 24 Nail Debridement completed Weston Buchanan DPM [address], [address], [place], [address], [facility] 08/04/2023 14:49:50 04/28/19 24 Nail Debridement completed Weston Buchanan DPM [address], [address], [place], [address], [facility] [employer] [facility] 05/12/2023 10:27:46 01/25/20 23 Medicare Wellness CPT Code, subsequent completed Jillian Mart RN [facility] [employer] [facility] 01/24/2023 15:54:51 11/10/19 23 Nail Debridement completed Weston Buchanan DPM [address], [address], [place], [address], [facility] [facility] 11/17/2022 09:14:26 08/06/19 23 Nail Debridement completed Weston Buchanan DPM [address], [address], [place], [address], [facility] [employer] [facility] [employer] [facility] 08/10/2022 09:51:26 08/04/19 23 Cystoscopy with Stent Removal - Dictation completed Quique Gallegos MD [address], [address], [place], [address], [facility] [employer] [facility] [employer] [facility] 08/03/2022 16:05:22 01/03/20 21 Most Recent Bone Density completed Not Available [facility] 05/19/2022 02:34:20 08/07/19 21 Back Surgery completed Not Available [facility] 023 02:34:23 08/07/19 21 operative procedure on spinal structure completed Not Available [facility] 05/19/2022 02:34:23 07/11/19 21 Date of Last Colonoscopy completed Not Available [facility] 05/19/2022 02:34:20 10/31/19 13 Colonoscopy completed Not Available [facility] 05/20/19 23 02:34:23 Hysterectomy completed Not Available [facility] 05/19/2022 02:34:23 Cataract Surgery completed Not Available [facility] 05/19/2022 02:34:23 Eye Surgery completed Not Available [facility] 05/19/2022 02:34:23 Neck completed Not Available [facility] 03/2022 02:34:23 Appendectomy completed Not Available [facility] 05/19/2022 02:34:23 salpingo-oophorec jose completed Not Available [facility] 05/19/2022 02:34:23 thyroidectomy completed Not Available [facility] 05/19/2022 02:34:23 Shoulder completed Not Available [facility] 02:34:23 Genitourinary Surgery completed Not Available [facility] 05/19/2022 02:34:23 Imaging Results None recorded. Procedure Notes None recorded. Medical Equipment None Reported. Allergies Allergen ID Allergen Name Allergen Category Reaction Reaction Severity Criticality Documentation Date Start Date Code Code System Note Provider Name and Address Organization Details Recorded Time 3556 codeine medicatio n Not available Not available Not available 05/19/2022 2670 RxNorm Not Available [facility] 3 02:46:25 3557 Substance with sulfonami de structure and antibacte rial mechanism of action (substanc e) medicatio n Not available Not available Not available 05/19/2022 35993 8003 SNOMED Not Available [facility] 3 02:46:25 3558 Levaquin medicatio n Not available Not available Not available 05/19/2022 80960 2 RxNorm Not Available [facility] 3 02:46:25 Medications Name Sig Start Date [...] with needle 1 mL 29 gauge x / USE TO INJECT INSULIN EVERY DAY DIRECTED [...] Not Available Not Available Not Available [facility] 01/22 completed Not Available Not Available Not [...] Not Available No t Available Fluzone High-Dose 4763-0451 (PF) 180 mcg/0.5 mL intramusc ular syringe 02/18 completed Not Available Not Available Not Available Fluzone High-Dose 1231-8399 (PF) 180 mcg/0.5 mL intramusc ular syringe [...] as directed for continuo us glucose monitori ng-benítez e every 10 days [...] Available Not Available Not Available Fluad Quad 0860-6388 (65yr up)(PF) 60 mcg (15 mcg x [...] Available Vitals Date Recorded Body height Body temperature Respiratory rate Body mass index (BMI) Body weight Heart rate Oxygen saturation Oxygen saturation in Arterial blood by Pulse oximetry Systolic And Diastolic Provider Name and Address Organization Details Last Updated DateTime 5 157.48 cm 97.5 [degF] 16 /min 30.3 kg/m2 37356.9 7 g 91 /min 97 % 97 % 126/70 mm[Hg] Ashlyn Mary Ann [facility] 5 14:07:59 Date Recorded Body height Body mass index (BMI) Body weight Heart rate Body temperature Oxygen saturation Oxygen saturation in Arterial blood by Pulse oximetry Systolic And Diastolic Provider Name and Address Organization Details Last Updated DateTime 5 157.48 cm 30.4 kg/m2 21908.3 3 g 94 /min 98 [degF] 97 % 97 % 103/68 mm[Hg] RYLAN Gomez [facility] 5 15:33:37 Date Recorded Body height Body mass index (BMI) Body weight Body temperature Heart rate Oxygen saturation Oxygen saturation in Arterial blood by Pulse oximetry Systolic And Diastolic Provider Name and Address Organization Details Last Updated DateTime 5 157.48 cm 29.4 kg/m2 09474.3 7 g 97.8 [degF] 87 /min 97 % 97 % 110/87 mm[Hg] Vanessa olson BABADU [facility] 5 14:32:26 Date Recorded Body height Body mass index (BMI) Body weight Body temperature Heart rate Oxygen saturation Oxygen saturation in Arterial blood by Pulse oximetry Systolic And Diastolic Provider Name and Address Organization Details Last Updated DateTime 5 157.48 cm 30 kg/m2 84814.1 5 g 97.2 [degF] 89 /min 98 % 98 % 128/78 mm[Hg] Vanessa olson [facility] [employer] [facility] 5 14:26:10 Date Recorded Body height Oxygen saturation Oxygen saturation in Arterial blood by Pulse oximetry Heart rate Body temperature Body mass index (BMI) Body weight Systolic And Diastolic Provider Name and Address Organization Details Last Updated DateTime 5 157.48 cm 97 % 97 % 88 /min 97.2 [degF] 30 kg/m2 17210.1 5 g 128/76 mm[Hg] Vanessa Waltersdanna whitney [place] [employer] [facility] [employer] [facility] 5 12:02:14 Social History Question Answer Notes LastModified by Organization Details LastModified Time Tobacco Smoking Status Former Smoker quit 1991 Not Available [facility] 05/19/2022 02:31:08 Do You Have An Advance Directive? Yes MIGRATION.030 [id number] Information not available 05/19/2022 Are You Blind Or Do You Have Difficulty Seeing? No Wears Glasses MIGRATION.030 [id number] Information not available 05/19/2022 What Is Your Level Of Caffeine Consumption? Moderate MIGRATION.030 251330 Information not available 05/19/2022 How Much Tobacco Do You Chew? None MIGRATION.0301 [id number] Information not available 05/19/2022 What Is Your Code Status? Full Code MIGRATION.0301 [id number] Information not available 05/19/2022 In The 14 Days Before Symptom Onset, Have You Had Close Contact With A Laboratory-confi rmed COVID-19 While That Case Was Ill? No MIGRATION.030 [id number] Information not available 05/19/2022 In The 14 Days Before Symptom Onset, Have You Had Close Contact With A Person Who Is Under Investigation For COVID-19 While That Person Was Ill? No MIGRATION.030 [id number] Information not available 05/19/2022 Are You Deaf Or Do You Have Serious Difficulty Hearing? No MIGRATION.030 257917 Information not available 05/19/2022 What Type Of Diet Are You Following? DIABETIC Low Carb MIGRATION.030 [id number] Information not available 05/19/2022 Which Illicit Or Recreational Drugs Have You Used? None MIGRATION.030 388037 Information not available 05/19/2022 What Is The Highest Grade Or Level Of School You Have Completed Or The Highest Degree You Have Received? [id number] MIGRATION.030 399510 Information not available 05/19/2022 How Many Days Of Moderate To Strenuous Exercise, Like A Brisk Walk, Did You Do In The Last 7 Days? 0 [email or web address] Information not available 02/28/2024 Have There Been Any Changes To Your Family Or Social Situation? No MIGRATION.030 736351 Information not available 05/19/2022 What Is The Fluoride Status Of Your Home? Fluoridated MIGRATION.030 899278 Information not available 05/19/2022 When Did You Quit Smoking? 16+yearssincelastc igarette MIGRATION.030 507629 Information not available 05/19/2022 Are There Any Guns Present In Your Home? No [email or web address] Information not available 01/24/2023 Do You Use Insect Repellent Routinely? No [email or web address] Information not available 01/24/2023 [facility] [email or web address] Information not available 01/24/2023 Guns Present In The Home? No [email or web address] Information not available 01/24/2023 Are You Able To Care For Yourself? No [email or web address] Information not available 01/24/2023 Are You Blind Or Do Yo Have Difficulty Seeing? No [email or web address] Information not available 01/24/2023 Are You Deaf Or Do You Have Serious Difficulty Hearing? No [email or web address] Information not available 01/24/2023 Live Alone Of With Others? With Others [email or web address] Information not available 01/24/2023 Do You Have A Medical Power Of Bone Drier Operator? Yes MIGRATION.030 697704 Information not available 05/19/2022 What Was The Date Of Your Most Recent Tobacco Screening? 11/20/2024 Information not available 11/20/2024 How Many Children Do You Have? 2 [email or web address] Information not available 02/28/2024 Do You Have Any Pets? No MIGRATION.0301 395907 Information not available 05/19/2022 What Is Your Relationship Status? MIGRATION.0301 [id number] Information not available 05/19/2022 Do You Use Your Seat Belt Or Car Seat Routinely? Yes MIGRATION.0301 [id number] Information not available 05/19/2022 Do You Have Smoke And Carbon Monoxide Detectors In Your Home? Yes MIGRATION.0301 345923 Information not available 05/19/2022 Are You Passively Exposed To Smoke? No MIGRATION.0301 [id number] Information not available 05/19/2022 Are There Any Smokers In Your House? No MIGRATION.0301 384155 Information not available 05/19/2022 How Much Tobacco Do You Smoke? No MIGRATION.0301 149465 Information not available 05/19/2022 What Types Of Sporting Activities Do You Participate In? None MIGRATION.0301 575478 Information not available 05/19/2022 Do You Use Sunscreen Routinely? No [email or web address] Information not available 01/24/2023 Has Tobacco Cessation Counseling Been Provided? No MIGRATION.0301 [id number] Information not available 05/19/2022 Have You Recently Traveled Abroad? No MIGRATION.0301 610978 Information not available 05/19/2022 Do You Have Difficulty Walking Or Climbing Stairs? Yes Information not available 01/24/2023 Do You Have Any Dietary Restrictions? No MIGRATION.0301 513560 Information not available 05/19/2022 Sex: Female Functional Status Question Answer Note LastModified by Organizat ion Details LastModified Time Do you or have you ever used smokeless tobacco? Never used smokeless tobacco MIGRATION.61287 66132 Information not available 05/19/2022 Are you currently employed? No [email or web address] Information not available 02/28/2024 Do you have transportation difficulties? No MIGRATION.28504 42296 Information not available 05/19/2022 Are you able to care for yourself independently? No since back surgery MIGRATION.76475 11236 Information not available 05/19/2022 Do you have difficulty dressing, bathing, grooming, or toileting? No MIGRATION.62234 33571 Information not available 05/19/2022 Do you or have you ever used e-cigarettes or vape? Never used electronic cigarettes MIGRATION.52543 31719 Information not available 05/19/2022 What is your exercise level? None [email or web address] Information not available 01/24/2023 Do you use any illicit or recreational drugs? No MIGRATION.49379 28773 Information not available 05/19/2022 Do you or have you ever used any other forms of tobacco or nicotine? No MIGRATION.32865 86991 Information not available 05/19/2022 What is your level of alcohol consumption? Occasional [email or web address] Information not available 01/24/2023 Are you able to walk independently without assistance or assistive devices? YESWOREST walker or cane in case needed [email or web address] Information not available 02/28/2024 Do you have difficulty doing errands alone? No [email or web address] Information not available 02/28/2024 What is your occupation? retired MIGRATION.06131 21822 Information not available 05/19/2022 Mental Status Question Answer Note LastModified by Organizat ion Details LastModified Time Do you feel stressed (tense, restless, nervous, or anxious, or unable to sleep at night)? AW1608-1 MIGRATION.44524533 26 Information not available 05/19/2022 Do you have difficulty concentrating, remembering or making decisions? No MIGRATION.05425854 26 Information not available 05/19/2022 Family History Relationship Description Onset Age of this Age Resolved Age Notes LastModified by Organization Details LastModified Time Mother Diabetes mellitus MIGRATION.088 [id number] Not available 05/19/2022 02:34:24 Mother Hypertensive disorder MIGRATION.926 [id number] Not available 05/19/2022 02:34:24 Sister Amyotrophic lateral sclerosis twin MIGRATION.502 [id number] Not available 05/19/2022 02:34:24 Sister Heart disease MIGRATION.646 0501512 Not available 05/19/2022 02:34:24 Sister Malignant neoplasm of ovary MIGRATION.073 [id number] Not available 05/19/2022 02:34:24 Brother Diabetes mellitus MIGRATION.398 [id number] Not available 05/19/2022 02:34:25 Brother Hodgkin's disease (clinical) MIGRATION.298 [id number] Not available 05/19/2022 02:34:25 Notes:NO ENT HISTORY [...] HAVE YOU BEEN HOSPITALIZED OR SEEN IN [facility] IN THE PAST YEAR ? N ATHEROSCLEROSIS [...] virus, trivalent, preservative 3 completed Not Available [facility] 11/19/2022 22:24:31 COVID-19, mRNA, LNP-S, PF, 100 mcg/0.5mL dose or 50 mcg/0.25mL dose 1 completed Not Available [facility] 11/19/2022 22:24:31 COVID-19, mRNA, LNP-S, PF, 30 mcg/0.3 mL dose 2 completed Not Available [facility] 11/19/2022 22:24:31 COVID-19, mRNA, LNP-S, PF, 100 mcg/0.5mL dose or 50 mcg/0.25mL dose 1 completed Not Available [facility] 11/19/2022 22:24:31 zoster recombinant 0 completed Not Available [facility] 11/19/2022 22:24:31 Influenza, high-dose, trivalent, PF 9 completed Not Available [facility] 11/19/2022 22:24:31 zoster recombinant 9 completed Not Available [facility] 11/19/2022 22:24:31 Influenza, high-dose, trivalent, PF 7 completed Not Available [facility] 11/19/2022 22:24:31 COVID-19, mRNA, LNP-S, PF, 100 mcg/0.5mL dose or 50 mcg/0.25mL dose 1 completed Not Available [facility] 11/19/2022 22:24:31 Influenza, split virus, trivalent, preservative 6 completed Not Available [facility] 11/19/2022 22:24:31 Pneumococcal conjugate PCV 6 completed Not Available [facility] 11/19/2022 22:24:31 Influenza, high-dose, trivalent, PF 5 completed Not Available [facility] 11/19/2022 22:24:31 Pneumococcal conjugate PCV 13 5 completed Not Available [facility] 11/19/2022 22:24:31 herpes simplex 2 5 completed Not Available [employer] 11/19/2022 22:24:31 influenza, unspecified formulation 4 completed Not Available [facility] 11/19/2022 22:24:31 Influenza, high-dose, quadrivalent, PF 2 completed Not Available [facility] 11/19/2022 22:24:31 Influenza, high-dose, quadrivalent, PF 1 completed Not Available [facility] 11/19/2022 22:24:31 pneumococcal polysaccharide PPV23 8 completed Not Available [facility] 11/19/2022 22:24:31 Influenza, adjuvanted, trivalent, PF 8 completed Not Available [facility] 12/21/2024 11:51:41 Influenza, adjuvanted, quadrivalent, PF 0 completed Not Available [facility] 12/21/2024 11:51:41 COVID-19, mRNA, LNP-S, PF, 30 mcg/0.3 mL dose, jesusita-sucrose 2 completed Not Available [facility] 12/21/2024 11:51:41 RSV, bivalent, protein subunit RSVpreF, diluent reconstituted, 0.5 mL, PF 3 completed Not Available [facility] 12/21/2024 11:51:41 COVID-19, mRNA, LNP-S, PF, jesusita-sucrose, 30 mcg/0.3 mL 3 completed Not Available [facility] 12/21/2024 11:51:41 Influenza, adjuvanted, trivalent, PF 4 completed Not Available [facility] 12/21/2024 11:51:41 COVID-19, mRNA, LNP-S, PF, jesusita-sucrose, 30 mcg/0.3 mL 4 completed Not Available [facility] 12/21/2024 11:51:41 Tdap 4 completed Not Available [facility] 12/21/2024 11:51:41 SARS-COV-2 (COVID-19) vaccine, UNSPECIFIED 5 completed JASWINDER Sprague [address] [facility], [facility] [address], [place], [address], [facility] [employer] 12/30/2024 13:21:50 influenza nasal, unspecified formulation 5 completed NOMI [facility] [address] [facility], [address], [place], [address], [facility] [employer] [facility] [employer] [facility] 12/30/2024 13:22:21 Influenza, high-dose, quadrivalent, PF 3 completed Kym Van RMA null, BABADU [employer] [facility] 12/23/2022 17:32:40 Past Encounters Encounter ID Performer Location Encounter Start Date Encounter Closed Date Diagnosis/Indication Diagnosis SNOMED-CT Code Diagnosis ICD10 Code Diagnosis IMO Codes Diagnosis Note [id number] Miguel Valle MD [facility] Internal Med [facility] [address] [address] 06/06/2020 00:00:00 06/06/2020 18:17:48 [id number] MD EMELY Busch IGRATION_ DEFAULT_1 _1 , 06/19/2020 00:00:00 06/19/2020 17:33:34 [id number] Miguel Valle MD [facility] Internal Med [facility] [address] [facility] [address] [place] [address] 07/04/2020 00:00:00 07/05/2020 14:43:35 [id number] Miguel Valle MD [facility] Internal Med [facility] [address] [place], [place] [address] [address] 07/31/2020 00:00:00 07/31/2020 22:12:22 [id number] Miguel Valle MD [facility] Internal Med [facility] [address] [facility] [address] [place] [address] 09/01/2020 00:00:00 09/01/2020 22:43:14 [id number] MD EMELY Busch IGRATION_ DEFAULT_1 _1 , 09/04/2020 00:00:00 09/04/2020 18:49:15 [id number] Weston Buchanan DPM [facility] [place] [address] [place] [address] [address] [place] [address] 09/18/2020 00:00:00 10/05/2020 20:52:50 [id number] Miguel Valle MD [facility] Internal Med [facility] [address] [address] 09/29/2020 00:00:00 10/12/2020 15:14:44 [id number] MD EMELY Busch IGRATION_ DEFAULT_1 _1 , 10/30/2020 00:00:00 10/30/2020 14:44:38 [id number] Elio Santos MD [facility] [place] [address] [facility] [address] [place] [address] 11/25/2020 00:00:00 11/25/2020 14:56:36 [id number] Miguel Valle MD [facility] Internal Med [facility] [address] [address] 12/29/2020 00:00:00 12/29/2020 22:16:05 [id number] Weston Buchanan DPM [facility] [place] [address] [place] [address] 01/06/2021 00:00:00 01/08/2021 13:40:53 [id number] MD EMELY Busch IGRATION_ DEFAULT_1 _1 , 01/08/2021 00:00:00 01/08/2021 16:47:25 [id number] Weston Buchanan DPM [facility]a Podiatry [address] [address] 04/07/2021 00:00:00 04/20/2021 20:26:49 [id number] MD EMELY Busch IGRATION_ DEFAULT_1 _1 , 04/09/2021 00:00:00 04/09/2021 17:15:53 [id number] Miguel Valle MD [facility] Internal Med [facility] [address] [address] 05/06/2021 00:00:00 05/10/2021 16:36:55 [id number] Weston Buchanan DPM [facility] [place] [address] [address] 07/09/2021 00:00:00 07/09/2021 14:06:33 [id number] Yen Hankins MD _ALICIA_M IGRATION_ DEFAULT_1 _1 , 08/20/2021 00:00:00 08/20/2021 15:20:24 [id number] Miguel Valle MD [facility] Internal Med [facility] [address] [address] 08/26/2021 00:00:00 08/26/2021 21:37:55 [id number] [facility] [address] [place] [address] 10/08/2021 00:00:00 10/08/2021 14:52:34 [id number] Miguel Valle MD [facility] Internal Med [facility] [address] [address] 12/02/2021 00:00:00 01/10/2022 17:59:07 [id number] Kalen Fairbanks MD [facility] [address] [place] [address] 12/10/2021 00:00:00 12/10/2021 14:31:29 [id number] Miguel Valle MD [facility] Internal Med [facility] [address] [address] 12/23/2021 00:00:00 02/07/2022 21:04:13 [id number] Miguel Valle MD [facility] Internal Med [facility] [address] [address] 01/20/2022 00:00:00 02/14/2022 21:14:41 [id number] Weston Buchanan DPM [facility] Podiatry [address] [address] 02/03/2022 00:00:00 02/04/2022 09:42:00 [id number] Yen Hankins MD [facility] [place] [address] [place] [address] 03/25/2022 00:00:00 03/25/2022 16:49:04 [id number] Miguel Valle MD [facility] [place] [place] [address] [facility] [place] [address] 04/21/2022 00:00:00 04/21/2022 21:39:33 [id number] Weston Buchanan DPM S_G [facility]iat[facility] [place] [address] [facility] [address] [place] [address] 05/06/2022 00:00:00 05/06/2022 16:11:01 [id number] Quique Gallegos MD [facility] [place] [address] [facility] [address] [place] [address] 06/01/2022 14:21:08 06/01/2022 15:36:50 Acute renal insufficiency 630888315 N28.9 Recheck bmp and renal ultrasound , if still has hydro will need retrograde . Dysuria 95149277 R30.0 UTI resolved, negative ua and low residual. [id number] Yen Hankins MD [facility] [place] [place] [address] [place] [address] 06/07/2022 13:59:28 06/07/2022 14:57:11 Latent autoimmune diabetes mellitus in adult 078203271 E13.9 a1c of 9.2% down from 10.4% [...] better / more regulated glucose control. Dyslipidemia 548098063 E 78.5 continue statin therapy, thyroid in range. Weight gain 7413158 R63. 5 Will send for low dose [...] she chooses to go outside of the [facility] system to obtain labwork she was [...] in her case. She voiced understand ing. [id number] Quique Gallegos MD [facility] U[facility] [address] [address] 06/22/2022 16:03:33 06/22/2022 16:58:57 Hydronephrosis 81414628 N13.30 uncertain etiology ,no stones, suggested cysto , right retrograde , possible ureterosco py and stent placement, went over procedure and risks. [id number] Quique Gallegos MD [facility] Urology [address] [address] 08/03/2022 14:34:14 08/03/2022 16:07:18 Kidney stone 91814057 N20.0 Hydronephrosis 65940143 N13.30 Due to fibrinous tissue free floating probably from prior infection, stent out, fu one month with repeat ultrasound [id number] Weston Buchanan DPM [facility] [place] [address] [facility] [address] [place] [address] 08/05/2022 14:41:50 08/10/2022 10:30:38 Diabetic peripheral neuropathy 381549103 E11.42 Patient educated on neuropathy , diabetes, diabetic diet, and daily foot exams. Patient is to check feet daily for new wounds, blisters, redness to prevent infection and ulceration s to the feet. Patient will return to clinic in 3 months for diabetic foot workup. Dystrophia unguium 07516 009 L60.3 Nails 1 through 10 were debrided with sharp mechanical debridemen t without incident. Nails were debrided and greater than 50% length and thickness where needed. Unable to cut own toenails 026265000 Z74.1 [id number] Yen Hankins MD [facility] [place] [place] [address] [place] [address] 08/11/2022 11:37:30 08/11/2022 12:21:32 Latent autoimmune diabetes mellitus in adult 411787625 E13.9 a1c of 8.3% down from 9.2% [...] better / more regulated glucose control. 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 Encouraged she trial on melatonin 5-10 mg at bedtime for trial and if this isn't effect she can trial ramelteon as a secondary agent (but do not use melatonin at same time). Dyslipidemia 282806110 E 78.5 continue statin therapy, thyroid in [...] she chooses to go outside of the [facility] system to obtain labwork she was [...] in her case. She voiced understand ing. [id number] Miguel Valle MD [facility] [place] [facility] [address] [facility] [place] [address] 09/01/2022 15:11:36 09/01/2022 16:52:16 Benign essential hypertension 6408758 I10 Dyslipidemia 027675102 E 78.5 Neuropathy 739168714 M06 .9 [id number] Quique Gallegos MD [facility] [place] [address] [facility] [address] [place] [address] 09/06/2022 13:58:15 09/06/2022 14:21:25 Kidney stone 30171848 N20.0 SP removal of probably residual fibinous tissue from right ureter, negative fu ultrasound , suggested push fluids. Dont hold urine, she is using wipes to stay clean [id number] Weston Buchanan DPM [facility] [place] [address] [facility] [address] [place] [address] 11/09/2022 14:20:21 11/17/2022 11:32:28 Diabetic peripheral neuropathy 055568621 E11.42 Continue daily footcontin ue diabetic shoes and insertsfol low-up in 3 months Dystrophia unguium 75392 009 L60.3 Nails 1 through 10 were debrided with sharp mechanical debridemen t without incident. Nails were debrided and greater than 50% length and thickness where needed. Diabetes mellitus 962867 09 E11.42 continue diabetic control per PCP [id number] Yen Hankins MD [facility] [place] [address] [place] [address] 11/25/2022 13:50:28 11/25/2022 14:35:40 Uncontrolled type 2 diabetes mellitus 974069450 E11.65 Correction patient has EDUARD with cpeptide [...] in [place]oke for hypoglycem ia rescue. Dyslipidemia 162439656 E 78.5 continue statin therapy, thyroid in [...] answered and refills necessary at visit today. [id number] Dariel Bailey MD [facility] [place] [facility] [address] [facility] [place] [address] 12/23/2022 15:20:08 12/23/2022 16:48:14 Adult health examination 170880227 Z00.00 Colonoscop y-Mammogra m- 03/10/2021 DEXA- 01/02/2021 Pneumovax- FLU- 12/23/2022 COVID- Up to date Administra tion of influenza vaccine 98962919 Z23 Diabetes mellitus 341758 09 E11.42 uncontroll ed, add ozempic Diabetic p eripheral neuropathy 044756852 E11.42 mild Vitamin B1 2 deficiency (non anemic) 57574766 E53.8 decrease to monthly shots Gastroesop hageal reflux disease 530428770 K21.9 otc Essential hypertension 36686166 I10 under control Hyperlipidemia 32411064 E78.5 on meds Chronic back pain 096632 002 G89.29 Insomnia 532239257 G47.0 0 meds help [id number] Dariel Bailey MD [facility] [place] [address] [facility] [place] [address] 01/24/2023 14:58:25 01/24/2023 15:54:09 Adult health examination 658814958 Z00.00 Colonoscop y-Mammogra m- 03/10/2021 DEXA- 01/02/2021 Pneumovax- FLU- 12/23/2022 COVID- Up to date Diabetes mellitus 335412 09 E11.42 uncontroll ed, ^ ozempic dose^ Farxiga 10 mg Diabetic p eripheral neuropathy 921308907 E11.42 mild, no meds needed Vitamin B1 2 deficiency (non anemic) 59953039 E53.8 try otc, no shots Gastroesop hageal reflux disease 172836129 K21.9 otc Essential hypertension 14454188 I10 under control Hyperlipidemia 82593114 E78.5 on meds Chronic back pain 447106 002 G89.29 off and on, going to see back specialist Insomnia 074834250 G47.0 0 meds help Kidney disease 99035335 N08 ^ farxiga 10 mg, drink more water Screening for disorder 589596581 Z13.9 [id number] Dariel Bailey MD [facility] [address] [facility] [place] [address] 03/28/2023 14:49:08 03/28/2023 15:58:52 Adult health examination 456011127 Z00.00 Colonoscop y-Mammogra m- 03/10/2021 DEXA- 01/02/2021 Pneumovax- FLU- 12/23/2022 COVID- Up to date Diabetes mellitus 219648 09 E11.42 uncontroll ed, ^ ozempic dose^ Tresiba to 30 units Diabetic p eripheral neuropathy 933541147 E11.42 mild, no meds needed Vitamin B1 2 deficiency (non anemic) 29751174 E53.8 on otc Gastroesop hageal reflux disease 320218766 K21.9 otc Essential hypertension 07448470 I10 under control Hyperlipidemia 92808680 E78.5 on meds Chronic back pain 076761 002 G89.29 off and on, going to see back specialist Insomnia 741206121 G47.0 0 meds help Kidney disease 53577910 N08 on farxiga, drink more water [id number] Weston Buchanan DPM [facility] [place] [address] [place] [address] 04/28/2023 14:38:34 05/12/2023 14:20:18 Diabetic peripheral neuropathy 741841900 E11.42 Continue daily footcontin ue diabetic shoes and insertsfol low-up in 3 months Dystrophia unguium 53799 009 L60.3 Nails 1 through 10 were debrided with sharp mechanical debridemen t without incident. Nails were debrided and greater than 50% length and thickness where needed. Unable to cut own toenails 681831861 Z74.1 [id number] Dariel Bailey MD [facility] Internal Med [address] [facility] [place] [address] 06/06/2023 15:24:47 06/06/2023 16:08:51 Neck pain 76959943 M54.2 needs f/u with a neurologis t [id number] Dariel Bailey MD [facility] Internal Med [address] [facility] [place] [address] 07/21/2023 14:28:44 07/21/2023 15:21:31 Adult health examination 232756056 Z00.00 Colonoscop y-Mammogra m- 03/10/2021 , 2023 ([facility] - per pt- Not in chart)DEXA - 01/02/2021 Pneumovax- FLU- 12/23/2022 COVID- Up to date Diabetes mellitus 685976 09 E11.42 did not start higher dose, wiling, to take 30 units Diabetic p eripheral neuropathy 540472165 E11.42 try pregabalin Vitamin B1 2 deficiency (non anemic) 10453474 E53.8 on otc Gastroesop hageal reflux disease 789253037 K21.9 otc Essential hypertension 93893121 I10 under control Hyperlipidemia 64107534 E78.5 on meds Chronic back pain 346549 002 G89.29 off and on, going to see back specialist Insomnia 803067846 G47.0 0 meds help Kidney disease 64124821 N08 on , drinking more water Screening for osteoporosis 372931712 Z13.409 [id number] Weston Buchanan DPM [facility] [place] [address] [address] 08/04/2023 13:56:21 08/04/2023 15:31:27 Diabetes mellitus 81661955 E11.42 continue diabetic control per PCP Diabetic p eripheral neuropathy 936933240 E11.42 Continue daily footcontin ue diabetic shoes and insertsfol low-up in 3 months Dystrophia unguium 73949 009 L60.3 Nails 1 through 10 were debrided with sharp mechanical debridemen t without incident. Nails were debrided and greater than 50% length and thickness where needed. [id number] Dariel Bailey MD [facility] [place] Internal [facility] [address] [facility] [address] 09/01/2023 14:43:56 09/01/2023 15:07:22 Pruritic rash 41475355 L28.2 [id number] Weston Buchanan DPM [facility] [place] [address] [address] 11/03/2023 15:57:27 11/04/2023 09:51:53 Diabetes mellitus 79052839 E11.42 continue diabetic control per PCP Diabetic p eripheral neuropathy 737895075 E11.42 Continue daily footcontin ue diabetic shoes and insertsfol low-up in 3 months Dystrophia unguium 71814 009 L60.3 Nails 1 through 10 were debrided with sharp mechanical debridemen t without incident. Nails were debrided and greater than 50% length and thickness where needed. [id number] Dariel Bailey MD [facility] [place] [address] [facility] [place] [address] 12/06/2023 14:38:01 12/06/2023 15:18:57 Diabetes mellitus 25995336 E11.42 she will continue to monitor her blood sugar frequently with dexcom to regulate insulin dose Diabetic p eripheral neuropathy 741572654 E11.42 on pregabalin Adult [facility] th examination 189910962 Z00.00 Colonoscop y-Mammogra m- 03/10/2021 2023 ([facility] - per pt- Not in chart)DEXA - 07/29/2023 Pneumovax- 01/25/2018 Prevnar 13- 12/01/2025 , 12/03/2014 FLU- 12/23/2022 COVID- Up to date Vitamin B1 2 deficiency (non anemic) 96444463 E53.8 on otc Gastroesop hageal reflux disease 144765822 K21.9 otc Essential hypertension 60569843 I10 under control Hyperlipidemia 23427975 E78.5 on meds Chronic back pain 093280 002 G89.29 off and on, going to see back specialist Insomnia 871798943 G47.0 0 better Kidney disease 32131587 N08 drinking more water [id number] Dariel Bailey MD [facility] [place] [facility] [address] [facility] [address] 12/13/2023 14:00:09 12/13/2023 14:26:13 Diabetes mellitus 11770136 E11.42 labs discussed, A1c 8.6,^ the insulin to 35 units and titrate by 4 units every 2 weeks Impacted c erumen of bilateral ears 1627820234 330957 H61.23 right ear cleaned and irrigated, TM and canal is clearleft ear attempted but has dry wax, did not come outuse debrox ear drops [id number] Dariel Bailey MD [facility] [place] [facility] [address] [facility] [address] 12/20/2023 10:57:16 12/20/2023 11:42:34 Impacted cerumen of bilateral ears 4593530149 165105 H61.23 both ears cleaned and irrigated, TM and canal is clear, minimal wax in the right ear [id number] Weston Buchanan DPM [facility] [place] [address] [place] [address] 01/31/2024 15:31:58 03/16/2024 12:50:58 Diabetes mellitus 58419096 E11.9 continue diabetic control per PCP9-19-24 ---8.6 A1c Diabetic p eripheral neuropathy 295272170 E11.42 Continue daily footcontin ue diabetic shoes and insertsfol low-up in 3 months Dystrophia unguium 81821 009 L60.3 Nails 1 through 10 were debrided with sharp mechanical debridemen t without incident. Nails were debrided and greater than 50% length and thickness where needed. [id number] Kalen Fairbanks MD [facility] [place] [address] [place] [address] 02/13/2024 09:53:25 02/13/2024 11:01:39 Anterior epistaxis 469778588 R04.0 Rhino rocket removed from the right Naresilver nitrate applied for cauterizat ion to the inferior nasal septum for continued minimal bleeding vessel [id number] Kalen Fairbanks MD [facility] [place] [address] [place] [address] 02/22/2024 11:03:14 02/22/2024 11:55:57 Anterior epistaxis 106114432 R04.0 silver nitrate applied for cauterizat ion to the inferior nasal septum [id number] Dariel Bailey MD [facility] [place] [address] [place] [address] 02/28/2024 14:57:02 02/28/2024 16:52:52 Diabetes mellitus 11512949 E11.42 labs then decide about insulin dose Diabetic p eripheral neuropathy 411012428 E11.42 meds help Adult heal th examination 316089972 Z00.00 Colonoscop y-Mammogra m- 03/10/2021 , 2023 ([facility] - per pt- Not in chart)DEXA - 07/29/2023 Pneumovax- 01/25/2018 Prevnar 13- 12/01/2025 , 12/03/2014 FLU- OV ID- Up to date Vitamin B1 2 deficiency (non anemic) 90287797 E53.8 on otc Gastroesop hageal reflux disease 267754915 K21.9 otc Essential hypertension 38304564 I10 under control Hyperlipidemia 14991878 E78.5 on meds Chronic back pain 272665 002 G89.29 off and on, Insomnia 169865242 G47.0 0 better Kidney disease 01879434 N08 drinking more water, check labs Anterior epistaxis 97410 4002 R04.0 use humidifier , avoid asa Screening for disorder 826391290 Z13.9 [id number] Kalen Fairbanks MD [facility] [place] [address] [place] [address] 03/12/2024 11:45:57 03/15/2024 10:48:17 Chronic sinusitis 80924489 J32.9 Deviated nasal septum 12 7013739 J34.2 Anterior epistaxis 11003 4002 R04.0 [id number] Kalen Fairbanks MD [facility] [place] [address] [place] [address] 03/29/2024 11:51:17 04/06/2024 09:54:29 Deviated nasal septum 626920069 J34.2 Chronic ma xillary sinusitis 30942921 J32.0 Chronic et hmoidal sinusitis 20508559 J32.2 [id number] Kalen Fairbanks MD [facility] [place] [address] [place] [address] 05/10/2024 12:01:31 05/10/2024 13:07:26 Postoperative visit 623544185 Z48.89 04/30/2024 postoperat martin from a septoplast y, bilateral ethmoidect cammie and maxillary antrostomy . She is healing well. Advised to stop using the Afrin nasal spray as she has been using this medication for one-week and has developed rhinitis medicament teo. Continue use of saline nasal spray. Advised to gently begin blowing her nose. Follow up as needed. [id number] Weston Buchanan DPM [facility] [address] [place] [address] 05/10/2024 15:42:56 05/14/2024 15:50:27 Diabetes mellitus 61614967 E11.9 continue diabetic control per [facility] ---8.6 A1c Diabetic p eripheral neuropathy 957143482 E11.42 Continue daily footcontin ue diabetic shoes and insertsfol low-up in 3 months Dystrophia unguium 76453 009 L60.3 Nails 1 through 10 were debrided with sharp mechanical debridemen t without incident. Nails were debrided and greater than 50% length and thickness where needed. [id number] Dariel Bailey MD [facility] Internal Med [address] [place] [address] 05/28/2024 14:03:11 05/28/2024 15:12:45 Diabetes mellitus 88064434 E11.42 labs Diabetic p eripheral neuropathy 221186916 E11.42 meds help Adult heal th examination 229860107 Z00.00 Colonoscop y-Mammogra m- 03/10/2021 , 2023 ([facility] - per pt- Not in chart)DEXA - 07/29/2023 Pneumovax- 01/25/2018 Prevnar 13- 12/01/2025 , 12/03/2014 FLU- OV ID- Up to date Vitamin B1 2 deficiency (non anemic) 60390999 E53.8 on otc Gastroesop hageal reflux disease 150646867 K21.9 otc Essential hypertension 92884107 I10 under control Hyperlipidemia 77978721 E78.5 on meds Chronic back pain 909779 002 G89.29 off and on, Insomnia 371556681 G47.0 0 better Kidney disease 11641151 N08 drinking more water, check labs, on farxiga Hematoma of face 7665608 01 S00.83XA getting better [id number] Weston Buchanan DPM [facility] [place] [address] [facility] [address] [place] [address] 08/14/2024 15:00:30 08/15/2024 09:33:27 Neuropathy due to diabetes mellitus 566343162 E11.42 Patient educated on neuropathy , diabetes, diabetic diet, and daily foot exams. Patient is to check feet daily for new wounds, blisters, redness to prevent infection and ulceration s to the feet. Patient will return to clinic in 3 months for diabetic foot workup. Dystrophia unguium 84119 009 L60.3 Nails 1 through 10 were debrided with sharp mechanical debridemen t without incident. Nails were debrided and greater than 50% length and thickness where needed. Unable to perform personal care activity 255936929 Z78.9 44011099 [id number] Dariel Bailey MD [facility] Internal Med [address] [facility] [address] 09/03/2024 13:54:55 09/03/2024 14:56:07 Diabetes mellitus 81735339 E11.42 not under control, Diabetic p eripheral neuropathy 686495927 E11.42 keep the same meds Adult heal th examination 921725240 Z00.00 Colonoscop y-Mammogra m- 03/10/2021 , 2023 ([facility] - per pt- Not in chart)DEXA - 07/29/2023 Pneumovax- 01/25/2018 Prevnar 13- 12/01/2025 , 12/03/2014 FLU- OV ID- Up to date Vitamin B1 2 deficiency (non anemic) 20301393 E53.8 on otc Gastroesop hageal reflux disease 582829381 K21.9 otc Essential hypertension 57542194 I10 under control Hyperlipidemia 57375677 E78.5 under control Chronic back pain 145313 002 G89.29 off and on, Insomnia 858495054 G47.0 0 better Kidney disease 86282465 N08 improving [id number] Weston Buchanan DPM [facility] [place] [address] [facility] [address] [place] [address] 11/20/2024 15:27:53 11/23/2024 13:40:24 Neuropathy due to diabetes mellitus 074954641 E11.42 Patient educated on neuropathy , diabetes, diabetic diet, and daily foot exams. Patient is to check feet daily for new wounds, blisters, redness to prevent infection and ulceration s to the feet. Patient will return to clinic in 3 months for diabetic foot workup. Dystrophia unguium 73450 009 L60.3 Nails 1 through 10 were debrided with sharp mechanical debridemen t without incident. Nails were debrided and greater than 50% length and thickness where needed. Unable to perform personal care activity 999706894 Z78.9 51646100 Does mobil ize using cane 107757927 Z99.89 38173941 [id number] Dariel Bailey MD [facility] [place] [address] [facility] [address] 12/04/2024 14:10:42 12/04/2024 15:21:28 Adult health examination 263286612 Z00.00 Colonoscop y-Mammogra m- 03/10/2021 , 2023 ([facility] - per pt- Not in chart)DEXA - 07/29/2023 Pneumovax- 01/25/2018 Prevnar 13- 12/01/2025 , 12/03/2014 FLU- OV ID- Up to date Gastroesop hageal reflux disease 940072277 K21.9 otc Essential hypertension 29128629 I10 under control Hyperlipidemia 68227094 E78.5 under control Chronic back pain 666348 002 G89.29 off and on, Insomnia 954665380 G47.0 0 better Kidney disease 68690540 N08 improving , GFR 58 Diabetes mellitus 949614 09 E11.42 not under control, Diabetic p eripheral neuropathy 198633581 E11.42 keep the same meds Vitamin B1 2 deficiency (non anemic) 14905958 E53.8 on otc [id number] Dariel Bailey MD [facility] [place] [address] [facility] [place] [address] 12/12/2024 14:04:17 12/12/2024 15:18:16 Impacted cerumen in right ear 9237009509 454542 H61.21 201505 Advised to use softening drops 3-5days prior to ear wash apt. Avoid any more use of qtips and cotton balls at this time [id number] Dariel Bailey MD [facility] [place] [address] [facility] [address] 12/21/2024 11:50:49 12/21/2024 14:04:55 Impacted cerumen of bilateral ears 6390097517 218685 H61.23 288979 TMs clear bilaterall y, no redness or effusion present. Health Concerns Section Related Observation LastModified by Organization Detai ls LastModified Time None Recorded Concern Status LastModified by Organization Details LastModified Time None Recorded Advance Directives Directive Y: Payers Insurance Date Sequence Insurance Name Policy Number Policy Shah Covered Member ID Shah Member ID Guarantor Name 12/20/2024 1 [facility] (MEDICARE REPLACEMENT PPO) [id number] Rebekah Suáerz [id number] Rebekah Suárez Notes Date Note Type Note Provider Name and Address Organization Details Recorded Time 09/03/2024 text/html She is here today for [...] Bailey MD [address], [place], [address], [employer] 09/03/2024 14:38:33 11/20/2024 text/html . Patient is a 79-year-old female diabetic who returns for diabetic foot care. Patient states overall she is doing well she has difficulty walking but overall gets around. Patient walks with a cane she denies any open wounds or injury. Patient would also like her nails cut as she can not cut them. Weston Buchanan DPM [address], [place], [address], [employer] 11/21/2024 16:00:16 12/04/2024 text/html She is here today for her 3 month follow upPt is not fasting [facility] Diabetes- 100-200's using [id number] 5.8 (09/04/24)Last eye exam- 01/2024 - In [...] Dariel Bailey MD [address], [place], [address], [employer] 12/04/2024 14:56:27 12/12/2024 text/html ROS as noted in the HPI Patient is 79y/o female who is here for right ear pain that has been ongoing for a few days. She reports it is hard to hear but feels it is full of pressure. She denies recent illness, headaches, blurred vision, dizziness, TMJ, or fevers. JASWINDER Sprague [address], [place], [address], [employer] 12/12/2024 14:47:47 12/21/2024 text/html ROS as noted in the HPI Patient is a 79 year old female who is here for bilateral ear irrigation at this time. Patient denies any additional concerns at this time. JASWINDER Sprague [address], [place], [address], [employer] 12/21/2024 12:26:07 OBGyn Episode No OBEpisode recorded.
--- OUTSIDE RECORDS SUMMARY | 2025-01-08 19:43 | XMS_ITS | Clinical Summary ---
Author Organization [facility] Address [address] [place] [address] Care Team Providers Care Brand Attendant Name Role Phone Unavailable Primary Care Provider Unavailabl e Source Comments [facility],non-owned Affiliates and Associated Physician Practices is amultiple site organization consisting of ambulatory clinics and hospital sitesin [place], [place], [place] and [place]. This disclosure is being madepursuant to the Care Everywhere program and may not contain all information available regarding this patient. Last updated 17.[facility] Social History Tobacco Use Types Packs/Day Years Used Date Smoking Tobacco: Never Assessed Comments Unknown Sex and Gender Information Value Date Recorded Sex Assigned at Not on file Legal Sex Female 6:43 PM GOLD CH[employer] Gender Identity Not on file Sexual Orientation [...]
--- OUTSIDE RECORDS SUMMARY | 2025-01-08 19:43 | XMS_ITS | Clinical Summary ---
Author Organization [facility] Address [address] [place] [address] Phone Care Team Providers Care Environmental Services Associate Name Role Phone Lew Bailey MD Primary Care Provider [phone] Antonio Smith MD Unavailable [phone] Allergies Active Allergy Reactions Criticality Noted Date [...] - 10/17/2024 11:59 PM CDT Hospital [facility] Diagnostic Radiology [address] [place] [address] Antonio Smith MD Discharge Disposition: Discharged to home or Selfcare 10/17/2024 9:58 AM CDT - 10/17/2024 10:59 AM CDT Hospital [facility] MRI [address] [place] [address] Antonio Smith MD Discharge Disposition: Discharged to home or Selfcare 10/17/2024 Travel 10/09/2024 2:00 PM CDT Office Visit [facility] Neu[facility] [address] [place] [address] Antonio Smith MD Gait disturbance (Primary Dx); [...] [facility] - [place] [address] [place] [address] Antonio Smith MD [address] [place] [address] Health Maintenance Due Date Last Done Comments [...] Ryan Valdovinos M.D. LB: ZAIN Report ID: [id number] Reading Location: [id number] Procedure Note Ryan Valdovinos MD - 10/29/2024 [...] Ryan Valdovinos M.D. LB: LB Report ID: [id number] Reading Location: [id number] IMPRESSION: 1. No acute radiographic abnormality of [...] Farooq Garcia M.D. LC: BERENICE Report ID: [id number] Reading Location: [place] [address] Procedure Note Alisa Garcia MD - 10/18/2024 [...] Farooq Garcia M.D. LC: BERENICE Report ID: [id number] Reading Location: [place] [address] IMPRESSION: 1. No acute intracranial finding. 2. [...] from Last 3 Months [facility] Subscriber Plan / Payer (Ef fective 2023-Present) Name:Rebekah Suárez Relation to Subscriber:Self Name:Rebekah Suárez Payer ID:[id number] (NAIC) Type:Not on file Address: [facility] [address] [place] [address] Care Teams Environmental Services Associate Relationship Specialty Start Date End Date Lew Bailey MD PCP - General Internal Medicine 06/09/23 Antonio Smith MD [address] [place] [address] Consulting Physician Neurology 10/03/23
--- OUTSIDE RECORDS SUMMARY | 2025-01-08 19:43 | XMS_ITS | Clinical Summary ---
Author Organization [facility] [address] [place] Address [address] [place] [address] Care Team Providers Care Scrap Bunch Maker Name Role Phone Omari Baca MD Unavailable [phone] Lew Bailey MD Primary Care Provider Allergies [...] 1 each 8 Active blood-glucose sensor device [employer]com G6 Sensor device use as directed for [...] mg tablet Take by mouth Active vit J-Q-qinicg-zin c-lutein 226-90-0.8-5 mg capsule Take by mouth [...] 03/18/2020 Assessment & Plan (03/18/2020 4:39 PM MANAGER FARM): Patient has history of diabetic peripheral neuropathy [...] 03/18/2020 Assessment & Plan (03/18/2020 4:38 PM MANAGER FARM): Patient has antecedent history of neck pain with x-ray suggested cervical spondylosis. I have suggested she could use ildk-[id number]-jobtcnb anti-inflammatories or continue with her chiropractor as previously being done. Diastolic dysfunction 12/27/2019 Fatigue 12/27/2019 Screening for other and unsp ecified cardiovascular conditions 12/27/2019 Achilles tendinitis 11/06/2019 Lymphedema of lower extremity 07/10/2018 Diabetic peripheral neuropathy 10/19/2017 Dystrophia unguium 10/19/2017 Low back pain 09/22/2017 Hypercholesterolemia 07/04/2012 Overview (08/06/2020): PURE HYPERCHOLESTEROLEM Assessment & Plan (02/24/2017 1:53 PM MANAGER FARM): Goal of treatment , LDL cholesterol less [...] ARB Assessment & Plan (02/24/2017 1:53 PM MANAGER FARM): Goal blood pressure is less than 140/85 [...] goal hba1c is under 7.0 to prevent termite control technician diabetes complications ( eye , kidney and [...] meals. Assessment & Plan (02/24/2017 1:54 PM MANAGER FARM): Hba1c was 7.9 today, indicating inadequate DM [...] week 08/07/2020 How often do you attend [facility] or synagogue services? Never 08/07/2020 Do you belong to [...] on file Legal Sex Female 9:04 AM MANAGER FARM Gender Identity Not on file Sexual Orientation Not on file Obstetrics History Last Filed Vital Signs Vital Sign Reading Time Taken Comments Blood Pressure 96/56 05/03/2022 2:54 PM MANAGER FARM Pulse 102 05/03/2022 2:54 PM MANAGER FARM Temperature 36.9 C (98.5 F) 05/03/2022 2:54 PM MANAGER FARM Respiratory Rate 16 05/03/2022 2:54 PM MANAGER FARM Oxygen Saturation 99% 05/03/2022 2:54 PM MANAGER FARM Inhaled Oxygen Concentration - - Weight 81.6 kg (180 lb) 05/03/2022 2:54 PM MANAGER FARM Height 157.5 cm (5' 2) 05/03/2022 2:54 PM MANAGER FARM Body Mass Index 32.92 05/03/2022 2:54 PM MANAGER FARM Plan of Treatment Health Maintenance Due Date [...] Completed 08/06/2020 Medical Devices Implanted Type Area Embroiderer Device Identifier Shelf Expiration Date Model / Serial / Lot [place] Spine [id number] [place] 3.5mm 12mm Polyaxial Spine Occipitocervicothoracic Medial - [id number] Implanted:Qty: 3 on 08/06/2020 by Omari Baca MD at [facility] N/A: Spine Cervical [place] Spine 7601-03 [id number] / / [place] Spine [id number] [place] 3.5mm 12mm Polyaxial Spine Occipitocervicothoracic Screw - [id number] Implanted:Qty: 4 on 08/06/2020 by Omari Baca MD at [facility] N/A: Spine Cervical Fernanda Spine 7601-03 512 / / Fernanda Spine [id number] [place] 3.5mm 22mm Polyaxial Spine Occipitocervicothoracic Screw - [id number] Implanted:Qty: 2 on 08/06/2020 by Omair Baca MD at [facility] N/A: Spine Cervical Fernanda Spine 7601-03 [id number] / / Fernanda Spine [id number] Screw Set [place] Spine Occipitocervicothoracic Nonsterile Latex Free - [id number] Implanted:Qty: 13 on 08/06/2020 by Omari Baca MD at [facility] N/A: Spine Cervical Fernanda Spine 7601-10 001 / / Fernanda Spine [id number] 3.5mm 110mm Contour Dell Spinal Titanium Nonsterile Latex - [id number] Implanted:Qty: 2 on 08/06/2020 by Omari Baca MD at [facility] N/A: Spine Cervical Fernanda Spine [id number] / / Spinal Graft Tech [id number] Kenia Putty Jar Graft 5cc Bone Demineralized Bone Matrix - [id number] - [id number] Implanted:Qty: 1 on 08/06/2020 by Omari Baca MD at [facility] N/A: Spine Cervical Med[employer]onic Inc 04/22/2023 [id number] / [id number] / [place] Spine [id number] [place] 5mm 22mm Polyaxial Spine Occipitocervicothoracic Screw Bone - [id number] Implanted:Qty: 4 on 08/06/2020 by Omari Baca MD at [facility] Spine 760 [id number] 022 / / Procedures [...] BLOOD ORDERABLES Fin al Result ABRAHAN ANTONIO [address] [place] [address] * Hepatitis C antibody (08/06/2020 7:50 PM CDT) Hep C Ab Nonreactive Nonreactive BARAHAN ANTONIO Comment: Interpretive Data Nonreactive: Antibodies to [...] Final Result Performing Organization Address [facility] de Phone Number ABRAHAN ANTONIO [address] [address] [place] [address] * (ABNORMAL) Hemoglobin A1c (08/06/2020 10:30 AM CDT) Hgb A1C 9.3(H) 4.0 - 5.6 % ABRAHAN Estimated Average Glucose 220 mg/dL ABRAHAN Comment: The ADA recommends reporting an estimated Average Glucose (eAG) with all Hemoglobin A1c results using the equation derived from a study of 507 normal and diabetic adults. Minority populations were underrepresented and children were not included. (Diabetes Care 31:8244-1697, 2008). The eAG is not equivalent to a fasting glucose. Blood specimen (specimen) 08/06/2020 10:30 AM CDT 08/06/2020 10:37 AM CDT Denilson Munoz MD LAB BLOOD ORDERABLES Final Resu lt Performing Organization Address [facility] Co de Phone Number ABRAHAN PACO [address] [address] [place], [place] [phone] * Microalbumin / creatinine ratio, urine, random [...] ORDERABLES Mago l Result Performing Organization Address City/[facility] Co de Phone Number HISTORICAL RESULTS from Last 3 Months or Most Recently Relevant to Health Maintenance Insurance [facility] MEDICARE ADVANTAGE [facility] Address: [facility] [address] [place] [address] [facility] Address: [address] [place] [id number] [facility] Address: [address] [place] [phone] Advance Directives For more information, please contact: [phone] Documents on File Type Date Recorded Patient Classroom Technology Technician Expl anation ADVANCE DIRECTIVE 02/06/2021 2:22 PM [facility] PROGRESS NOTE SIGNED/FAXED * Full Code (Latest Code Status on File) Date Activated Date Inactivated Comments 08/06/2020 10:35 PM 08/14/2020 7:47 PM * Full Code Date Activated Date Inactivated Comments 08/06/2020 3:27 AM 08/06/2020 10:35 PM Care Teams Scrap Bunch Maker Relationship Specialty Start Date End Date Lew Bailey MD [address] [facility] [place] [address] PCP - General Internal Medicine 01/07/23 [place] [id number] [address] Consulting Physician Orthopedic Surgery 08/13/20
--- OUTSIDE RECORDS SUMMARY | 2025-01-08 19:43 | XMS_ITS | Clinical Summary ---
Author Organization [facility] Address [address] [place], [place] [id number] Care Team Providers Care Stencil Typist Name Role Phone Unavailable Primary Care Provider [...]
== END 2025-01-08 17:11 | disposition home or self-care (01) ==
PROVIDERS: Emergency Provider Student in an Organized Health Care Education/Training Program; PCP Internal Medicine
DX: M19.011 Primary osteoarthritis, right shoulder (principal); E11.42 Type 2 diabetes mellitus with diabetic polyneuropathy; I11.9 Hypertensive heart disease without heart failure; E89.0 Postprocedural hypothyroidism; K21.9 Gastro-esophageal reflux disease without esophagitis; Z90.710 Acquired absence of both cervix and uterus; Z79.85 Long-term (current) use of injectable non-insulin antidiabetic drugs; Z79.899 Other long term (current) drug therapy; Z79.82 Long term (current) use of aspirin; Z79.84 Long term (current) use of oral hypoglycemic drugs; I45.10 Unspecified right bundle-branch block
CPT/HCPCS: 36415; 71046; 80053; 83690; 84484; 85025; 85610; 85730; 93005; 99284; A9270